=== PATIENT | female | born 1960 | race Caucasian/White ===

== ENCOUNTER → 2017-05-22 | Outpatient (CLI) | payer MEDICAID, SELFPAY | PROVIDERS: Visit Provider Physician Assistant | DX: Z13.820 Encounter for screening for osteoporosis (principal); Z78.0 Asymptomatic menopausal state | CPT/HCPCS: 77080 ==

== ENCOUNTER 2017-08-21 13:08 | Inpatient (IN) ==
--- NOTE | 2017-08-21 13:51 | Emergency Department Note ---
ED Disposition Clinical Impression: Community acquired pneumonia, Leukocytosis, Thrombocytosis Disposition: Admitted As Inpatient Condition on Discharge: Fair - Critical Care Critical Care Time: Yes Attestation: On 08/21/17, the high probability of a clinically significant, sudden or life threatening deterioration of the following system(s) required my full and direct attention, intervention and personal management. The time I documented below is in addition to time spent performing reported procedures but includes the following listed in this critical care notation. Total Critical Care Time: 65 Vital system(s) involved:: Respiratory Failure My critical care processes included: Assessment & monitoring of V/S, Initial and Re-exams, Data Review/Interpretation, Coordinating Care, Medication Orders and management, Documentation Medical Decision Making - Medical Records Medical records reviewed: Yes: I reviewed the patient's medical records. - Nikolai Inquiry Pt receiving controlled substance: No Vital Signs: 08/21/17 13:10 08/21/17 14:21 08/21/17 15:25 Temperature 100.4 F H 99.1 F 99.1 F Temperature Source Temporal Artery Scan Oral Temporal Artery Scan Pulse Rate 94 H Pulse Rate [Right Brachial] 112 H 103 H Respiratory Rate 24 16 18 Blood Pressure 84/64 Blood Pressure [Right Arm] 115/73 109/68 Blood Pressure Mean [Right Arm] 87 81 Blood Pressure Source Automatic Cuff Blood Pressure Source [Right Arm] Automatic Cuff Automatic Cuff Blood Pressure Position Supine Blood Pressure Position [Right Arm] Sitting Sitting 02 Sat by Pulse Oximetry 65 L 91 L Oxygen Delivery Method Room Air Room Air Nasal Cannula Oxygen Flow Rate (LPM) 2 08/21/17 16:14 08/21/17 16:32 08/21/17 16:33 Temperature 98.7 F Temperature Source Oral Pulse Rate 100 H Pulse Rate [Right Brachial] 98 H 98 H Respiratory Rate 18 20 Blood Pressure Blood Pressure [Right Arm] 94/60 107/65 Blood Pressure Mean [Right Arm] 71 79 Blood Pressure Source Blood Pressure Source [Right Arm] Manual Cuff/ Doppler Automatic Cuff Blood Pressure Position Blood Pressure Position [Right Arm] Supine Sitting 02 Sat by Pulse Oximetry 95 92 L Oxygen Delivery Method Nasal Cannula Nasal Cannula Oxygen Flow Rate (LPM) 2 2 - Lab Data Lab results reviewed: Yes: I reviewed the patient's lab results. Lab Results 08/21/17 13:10: WBC 19.0 H, RBC 5.69 H, Hgb 8.9 L, Hct 36.1 L, MCV 63.5 L, MCH 15.7 L, MCHC 24.7 L, RDW 19.3 H, Plt Count 912 H*, MPV 6.5 L, Neut % (Auto) 88.1 H, Lymph % (Auto) 5.4 L, [place] % (Auto) 6.2, Eos % (Auto) 0.1, Baso % (Auto ) 0.2, Neut # (Auto) 16.7 H, Lymph # (Auto) 1.0, [place] # (Auto) 1.2 H, Eos # ( Auto) 0.0, Baso # (Auto) 0.0, Total Counted 100, Neutrophils % (Manual) 86 H, Band Neutrophils % 4.0, Lymphocytes % (Manual) 6 L, Monocytes % (Manual) 3, Metamyelocytes % 1.0, Nucleated RBCs 1, Platelet Estimate Marked increase, Hypochromasia 3+, Microcytosis 3+ 08/21/17 13:10: Sodium 134 L, Potassium 3.9, Chloride 95 L, Carbon Dioxide 33 H , Anion Gap 9.9, BUN 11, Creatinine 0.49 L, Estimated Creat Clear 93, Estimated GFR 130, Est GFR ( Amer) 158, Glucose 83, Calcium 8.5, Total Bilirubin 0.3, AST 16, ALT 9 L, Alkaline Phosphatase 225 H, Total Creatine Kinase 52, CK- MB (CK-2) < 0.5, CK-MB (CK-2) Rel Index 1.0, Troponin I < 0.02, Total Protein 7.3, Albumin 2.3 L, Globulin 5.0 H, Albumin/Globulin Ratio 0.5 L 08/21/17 13:10: Lactic Acid 1.4 08/21/17 13:42: Specimen Source r radial, O2 % 2, ABG pH 7.37, ABG pCO2 52.9 H, ABG pO2 68.3 L, ABG HCO3 30.0 H, ABG Total CO2 31.6 H, ABG O2 Saturation 91, ABG Base Excess 4.7 H, Billy Test acceptable Result diagrams: 08/21/17 13:10 08/21/17 13:10 Orders (Tests/Meds): ED MEDICATIONS Generic Name Dose Route Start Last Admin Trade Name Freq PRN Reason Stop Dose Admin Hydrocodone Bitart/Acetaminophen 1 tab 08/21/17 21:00 [place] 5/325mg Tablet PO 09/20/17 20:59 BID DONAL Albuterol/Ipratropium 3 ml 08/21/17 16:29 Duoneb 3ml Neb IH 09/20/17 16:28 Q4HP PRN Shortness Of Breath Fluticasone Propionate spr 08/21/17 21:00 Flonase 50mcg Nasal [place] 16gm NS 09/20/17 20:59 BID DONAL Gabapentin 100 mg 08/21/17 21:00 Neurontin 100mg Capsule PO 09/20/17 20:59 TID DONAL Levofloxacin/Dextrose 750 mg in 150 mls @ 100 mls/hr 08/22/17 14:00 Levofloxacin 750mg/150ml Premix IV 09/04/17 13:59 Q24H [facility] Protocol Piperacillin Sod/Tazobactam 100 mls @ 200 mls/hr 08/21/17 16:29 08/21/17 16: 34 Sod 3.375 gm/ Sodium Chloride IV 09/04/17 16:28 Not Given Q6H [facility] Protocol Sodium Chloride 1,000 mls @ 125 mls/hr 08/21/17 16:29 08/21/17 16:33 Sod Chlor 0.9% 1000ml Bag IV 09/20/17 15:52 125 mls/hr .Q8H DONAL Administration Sodium Chloride 325 mls @ 325 mls/hr 08/21/17 19:45 Sod Chlor 0.9% 500ml Bag IV 08/21/17 20:44 .Q1H ONE Non-Formulary Medication 1 tab 08/21/17 21:00 Calcium Carbonate/Vitamin D3 [Calcium 600 With Vit D Chew Tb] PO 09/20/17 20 :59 BID DONAL Non-Formulary Medication 60 mg 08/21/17 16:29 Denosumab SUB-Q 09/20/17 16:28 [id number] DONAL Non-Formulary Medication 1 inh 08/21/17 16:29 08/21/17 17:52 Fluticasone/Vilanterol [Breo Ellipta 200-25 Mcg Inh] INHALATION 09/20/17 16: 28 Not Given Q24H DONAL Non-Formulary Medication 100 mcg 08/22/17 09:00 Levothyroxine Sodium [Tirosint] PO 09/21/17 08:59 DAILY DONAL Non-Formulary Medication 1 inh 08/21/17 16:29 08/21/17 17:52 Umeclidinium [place] [Incruse Ellipta] INHALATION 09/20/17 16:28 Not Given Q24H DONAL Sodium Chloride 10 ml 08/21/17 16:29 Saline Flush 10ml Syringe IV 09/20/17 16:03 NEEDED PRN Maintain IV Site Tiotropium [place] puffs 08/21/17 21:00 Spiriva 18mcg/Puff Inhaler IH 09/20/17 20:59 BID DONAL Discontinued Medications Generic Name Dose Route Start Last Admin Trade Name Freq PRN Reason Stop Dose Admin Acetaminophen 650 mg 08/21/17 13:29 08/21/17 16:34 Acetaminophen 325mg Tab PO 08/21/17 13:30 Not Given ONCE ONE Acetaminophen 650 mg 08/21/17 13:34 08/21/17 13:40 Tylenol Elixir 325mg/10.15ml Udc PO 08/21/17 13:35 650 mg ONCE ONE Administration Albuterol/Ipratropium 3 ml 08/21/17 13:44 08/21/17 13:58 Duoneb 3ml Neb IH 08/21/17 13:45 Not Given ONCE ONE Piperacillin Sod/Tazobactam 50 mls @ 100 mls/hr 08/21/17 13:45 08/21/17 16:34 Sod 3.375 gm/ Sodium Chloride IV 09/04/17 13:44 Not Given Q6H DONAL Protocol Levofloxacin/Dextrose 750 mg in 150 mls @ 100 mls/hr 08/21/17 13:45 08/21/17 14:25 Levofloxacin 750mg/150ml Premix IV 09/04/17 13:44 100 mls/hr Q24H DONAL Administration Protocol Piperacillin Sod/Tazobactam 50 mls @ 100 mls/hr 08/21/17 13:56 08/21/17 13:57 Sod 3.375 gm/ Sodium Chloride IV 08/21/17 14:24 100 mls/hr ONCE ONE Administration Protocol Sodium Chloride 1,000 mls @ 999 mls/hr 08/21/17 15:30 08/21/17 15:30 Sod Chlor 0.9% 1000ml Bag IV 08/21/17 16:30 999 mls/hr .Q1H1M DONAL Administration Sodium Chloride 1,000 mls @ 125 mls/hr 08/21/17 15:53 08/21/17 17:53 Sod Chlor 0.9% 1000ml Bag IV 09/20/17 15:52 Not Given .Q8H DONAL Levofloxacin/Dextrose 750 mg in 150 mls @ 100 mls/hr 08/22/17 14:00 Levofloxacin 750mg/150ml Premix IV 09/04/17 13:59 Q24H DONAL Protocol Sodium Chloride 10 ml 08/21/17 16:04 Saline Flush 10ml Syringe IV 09/20/17 16:03 NEEDED PRN Maintain IV Site ORDERS Category Date Time Status Cardiac Enzymes Timed Lab 08/21/17 23:00 Ordered Blood Culture Stat Micro 08/21/17 13:10 Received Sputum Culture & Gram Stain Stat Micro 08/21/17 13:50 Results ECG Request by /Lucinda Stat Y 08/21/17 13:11 Stop Req - Radiology Data #1 Image(s): Chest Image Reviewed: Yes I reviewed the patient's radiology results, Yes I reviewed the patient's radiology image, Yes I have reviewed radiologist's interpretation Bilateral lower lobe infiltrates - ECG Data Tracing #1 I reviewed this ECG and interpreted as documented below: No acute ischemic changes, heart rate 102, sinus tachycardia ECG normal with no acute: arrhythmias, ischemia, conduction abnormalities, chamber hypertrophy Normal Sinus Rhythm: No Arrhythmias present: sinus tach - Physician Consults Physician Consulted: Jarvis Fishman covering for Dr. Womack Time: 16:10 Reason -: Admission, Pt condition Comment/Response: Advise of patient presentation findings, agreeable with hospitalization Resp/SOB HPI - General Chief Complaint: Shortness of Breath/Dyspnea Stated Complaint: C/O SOB/WEAKNESS Time Seen by Provider: 08/21/17 13:35 Mode of Arrival: Ambulatory Limitations: No Limitations Description of Symptoms (Recalled from ER Triage Doc. by RN): C/O SOB. DX WITH PNEUMONIA LAST WEEK AND LEFT RIB FX FROM COUGHING. TODAY WITH C/O SOB,COUGH AND WEAKNESS - History of Present Illness MD Complaint: shortness of breath, cough, pain with inspiration Onset (ago): day(s) (3) Context: recent illness, occurred during exertion Severity: moderate Consistency/Duration: constant Relieving factors: oxygen, rest Exacerbating factors: lying flat, exertion Known history of: COPD Associated symptoms: chest pain, pain with inspiration, fever, cough, wheezing, sputum production, orthopnea, diaphoresis, nausea/vomiting Treatment prior to arrival: none - Related Data Home Medications Medication Instructions Recorded Confirmed albuterol sulfate HFA 90 2 puff INHALATION Q6H 06/09/17 08/21/17 mcg/actuation aerosol inhaler fluticasone 200 mcg-vilanterol 25 1 inh INHALATION Q24H 06/09/17 08/21/17 mcg/dose powder for inhalation fluticasone 50 mcg/actuation nasal 50 mcg INTRANASAL ONCE 06/09/17 08/21/17 spray,suspension levothyroxine 100 mcg capsule 100 mcg PO DAILY 06/09/17 08/21/17 tiotropium bromide 18 mcg capsule 18 mcg INHALATION ONCE 06/09/17 08/21/17 with inhalation device umeclidinium 62.5 mcg/actuation 1 inh INHALATION Q24H 06/09/17 08/21/17 blister powder for inhalation Calcium Carbonate/Vitamin D3 1 tab PO BID 08/21/17 08/21/17 [Calcium 600 with Vit D Chew Tb] Denosumab [Denosumab 60mg/mL 60 mg SUB-Q [id number] 08/21/17 08/21/17 syringe] Gabapentin [Gabapentin 100mg Cap] 100 mg PO TID 08/21/17 08/21/17 Previous Rx's Medication Instructions Recorded hydrocodone 5 mg-acetaminophen 325 1 tab PO BID 30 Days #60 tab 08/04/17 mg tablet promethazine-DM 6.25 mg-15 mg/5 mL 5 ml PO Q6H PRN #180 ml 08/04/17 syrup Allergies Allergy/AdvReac Type Severity Reaction Status Date / Time No Known Allergies Allergy Verified 08/04/17 11:[address] [facility] History I have reviewed the patient's past medical history: Yes Medical History: Reports:: Chronic Obstructive Pulmonary Disease (COPD) Comment: Hyperthyroidism, Allergies Other Surgeries: Yes: Appendectomy, Other (Ovarian Cyst,) Amputation: No Fractures: No - Social History Smoking Status: Current some day smoker Tobacco Type: cigarettes # Packs/Day (cigarettes): 1 Alcohol Intake: never Substance Use Type: denies use Occupational Status: unemployed Housing: house Household Members: spouse - Psychiatric History Expresses thoughts of harming self/others: None Suicide Plan Description: No Plan Family Hx:: Cancer, Heart Attack ROS Obtained: Yes All systems reviewed & no additional complaints, Yes Systems reviewed as appropriate & no additional complaints - Constitutional Constitutional: Reports anorexia, Reports body ache, Reports chills, Reports fatigue, Reports fever(s), Reports poor appetite, Reports lethargy - Cardiovascular Cardiovascular: Reports system reviewed and no additional complaints, except as docu, Reports as per HPI, Reports chest pain, Reports chest pain at rest - Respiratory Respiratory: Yes system reviewed and no additional complaints, except as docu, Yes as per HPI, Yes change in phlegm color, Yes chest congestion, Yes cough, Yes dyspnea on exertion Physical Exam - General General appearance: alert, in distress (Moderate) - Head Head exam: atraumatic, normocephalic, normal inspection - Eye Eye exam: Present: normal appearance, PERRL, EOMI, other (Normal fundi) - Neck Neck exam: Present: normal inspection, full ROM, trachea midline. Absent: meningismus, lymphadenopathy - Chest Chest inspection: Present: normal inspection, symmetric chest wall rise. Absent : tenderness - Respiratory Respiratory exam: Present: respiratory distress (Moderate), wheezes - Cardiovascular Cardiovascular exam: Present: tachycardia. Absent: JVD - Abdominal Exam Abdominal exam: Present: soft, normal bowel sounds. Absent: distention, tenderness, guarding - Extremities Exam Extremities exam: Present: normal inspection, full ROM, normal capillary refill. Absent: calf tenderness - Back Exam Back exam: Present: normal inspection. Absent: tenderness - Neurological Exam Neurological exam: Present: alert, oriented X3, CN II-XII intact, motor sensory deficit - Psychiatric Psychiatric exam: Present: depressed, flat affect - Skin Skin exam: Present: warm, intact, normal color, other (Diaphoretic)
[2017-08-21 13:57] LABS: Alanine Aminotransferase 9 U/L (12-78); Albumin Level 2.3 gm/dL (3.4-5.0); Albumin/Globulin Ratio 0.5 (1.1-1.8); Alkaline Phosphatase 225 U/L (46-116); Anion Gap 9.9 mEq/L (5-15); Aspartate Amino Transferase 16 U/L (15-37); Bilirubin,Total 0.3 mg/dL (0.2-1.0); Blood Urea Nitrogen 11 mg/dL (7-18); Calcium 8.5 mg/dL (8.5-10.1); Carbon Dioxide 33 mmol/L (21.0-32.0); Chloride 95 mmol/L (98-107); Creatine Kinase 52 U/L (26-192); Glucose 83 mg/dL (74-106); Potassium 3.9 mmoL/L (3.5-5.1); Sodium 134 mmol/L (136-145); Total Protein,Serum 7.3 gm/dL (6.4-8.2)
[2017-08-21 14:02] LABS: ABG Base Excess 4.7 mmol/L (-2.4-2.3); ABG Oxygen Saturation 91 % (90-100); ABG PH 7.37 mmol/L (7.35-7.45); ABG PO2 68.3 mmhg (80-100); ABG TCO2 31.6 mmhg (23-27)
[2017-08-21 14:04] LABS: Allen's Test acceptable; Oxygen 2 %
[2017-08-21 14:05] LABS: ABG PCO2 52.9 mmhg (35.0-45.0)
[2017-08-21 14:11] LABS: Basophils % 0.2 % (0.1-2.0); Eosinophils % 0.1 % (0.1-12.0); Hematocrit 36.1 % (37.0-47.0); Hemoglobin 8.9 g/dL (12.2-16.2); Lymphocytes % 5.4 K/mm3 (10-50); Mean Corpuscular HGB Conc 24.7 g/dL (31.8-35.4); Mean Corpuscular Hemoglobin 15.7 pg (27.0-31.2); Mean Corpuscular Volume 63.5 fl (81-99); Mean Platelet Volume 6.5 fl (7.4-10.4); Monocytes # 1.2 K/mm3 (0.1-1.0); Monocytes % 6.2 % (1.7-9.3); Neutrophils # 16.7 K/mm3 (1.8-7.8); Neutrophils % 88.1 % (37.0-80.0); Platelet Count 912 K/mm3 (142-424); Red Blood Count 5.69 M/mm3 (4.20-5.40); Red Cell Distribution Width 19.3 % (11.5-17.5)
[2017-08-21 14:55] LABS: Lymphocytes % 6 % (10-50); Monocytes % 3 % (2-9); Neutrophils % 86 % (42-76); Nucleated Red Blood Cells 1; Total Cells Counted 100
[2017-08-21 14:56] LABS: Hypochromasia 3+
[2017-08-21 17:36] LABS: Creatine Kinase 49 U/L (26-192)
[2017-08-21 23:38] LABS: Creatine Kinase 50 U/L (26-192)
--- NOTE | 2017-08-22 07:34 | Pharmacy Consult Notes ---
[facility] Pharmacy VTE Monitoring - Patient Demographics Admission date: 08/21/17 Allergies/Adverse Reactions: Patient Allergies No Known Allergies Allergy (Verified 08/04/17 11:09) Height: 1.68 m Weight: 43.658 kg Patient Problems: Current Active Problems Community acquired pneumonia (Acute) Leukocytosis (Acute) Thrombocytosis (Acute) - VTE Risk Labs: VTE Related Lab Results Hgb 8.9 g/dL (12.2-16.2) L 08/21/17 13:10 Hct 36.1 % (37.0-47.0) L 08/21/17 13:10 Plt Count 912 K/mm3 (142-424) H* 08/21/17 13:10 BUN 11 mg/dL (7-18) 08/21/17 13:10 Creatinine 0.49 mg/dL (0.55-1.02) L 08/21/17 13:10 Estimated Creat Clear 93 mL/min (0-300) 08/21/17 13:10 VTE Score: 3 VTE Risk Level: Low Risk - Prophylaxis VTE Prophylaxis Ordered?: Yes Types of VTE Prophylaxis: TEDS Knee High
[2017-08-22 08:36] LABS: Basophils % 0.1 % (0.1-2.0); Eosinophils % 0.1 % (0.1-12.0); Lymphocytes # 0.7 K/mm3 (0.7-4.5); Lymphocytes % 4.3 K/mm3 (10-50); Mean Corpuscular HGB Conc 24.2 g/dL (31.8-35.4); Mean Corpuscular Hemoglobin 15.8 pg (27.0-31.2); Mean Corpuscular Volume 65.3 fl (81-99); Mean Platelet Volume 6.8 fl (7.4-10.4); Monocytes # 0.7 K/mm3 (0.1-1.0); Monocytes % 4.5 % (1.7-9.3); Neutrophils # 14.8 K/mm3 (1.8-7.8); Neutrophils % 90.9 % (37.0-80.0); Red Blood Count 4.78 M/mm3 (4.20-5.40); Red Cell Distribution Width 19.7 % (11.5-17.5); White Blood Count 16.3 K/mm3 (4.8-10.8)
[2017-08-22 08:44] LABS: Hematocrit 31.3 % (37.0-47.0); Platelet Count 728 K/mm3 (142-424)
[2017-08-22 08:46] LABS: Hemoglobin 7.5 g/dL (12.2-16.2)
[2017-08-22 08:49] LABS: Albumin Level 1.8 gm/dL (3.4-5.0); Albumin/Globulin Ratio 0.4 (1.1-1.8); Anion Gap 7.2 mEq/L (5-15); Bilirubin,Total 0.3 mg/dL (0.2-1.0); Calcium 7.8 mg/dL (8.5-10.1); Globulin 4.4 gm/dl (1.3-3.2); Potassium 3.2 mmoL/L (3.5-5.1); Total Protein,Serum 6.2 gm/dL (6.4-8.2)
--- NOTE | 2017-08-22 08:53 | History & Physical Report ---
*Admission Date: 08/21/17 *Chief complaint: sob *History of present illness: 57-year-old female presented to the ER with complaints of shortness of breath and cough months but increased over the last week. Patient states she lives at home with her that is battling cancer. While in the ER O2 saturation was 65%. Patient does not use home O2 is a smoker of many years. She is admitted for bilateral pneumonia and anemia. [facility] History I have reviewed the patient's past medical history: Yes Medical History: Reports:: Chronic Obstructive Pulmonary Disease (COPD) Other Surgeries: Yes: Appendectomy, Other (Ovarian Cyst,) Amputation: No Fractures: No - *Social History Smoking Status: Current some day smoker Tobacco Type: cigarettes # Packs/Day (cigarettes): 1 Alcohol Intake: never Substance Use Type: denies use Occupational Status: unemployed Housing: house Household Members: spouse - Psychiatric History Expresses thoughts of harming self/others: None Suicide Plan Description: No Plan *Family Hx:: Cancer, Heart Attack Review of Systems - Constitutional Reports anorexia, Reports fatigue, Reports lack of energy - Eyes Denies change in vision - ENT Denies change in voice - *Cardiovascular Reports shortness of breath, Reports shortness of breath with activity, Denies chest pain with activity - *Respiratory Reports change in phlegm color, Reports chest congestion, Reports shortness of breath, Reports shortness of breath with activity, Reports wheezing - *Gastrointestinal Denies change in bowel habits - *Genitourinary Denies absent period - *Musculoskeletal Denies decreased muscle mass - Integumentary/Breasts Denies change in hair - *Neurologic Denies abnormal movements - Psychiatric Denies lack of enjoyment, Denies anxiety - Endocrine Denies increased thirst - Hematologic/Lymphatic Denies enlarged lymph nodes - Allergic/Immunologic Denies lip swelling Meds Home Medications Medication Instructions Recorded Confirmed Type albuterol sulfate HFA 90 2 puff INHALATION Q6H 06/09/17 08/21/17 History mcg/actuation aerosol inhaler fluticasone 200 mcg-vilanterol 25 1 inh INHALATION Q24H 06/09/17 08/21/17 History mcg/dose powder for inhalation fluticasone 50 mcg/actuation nasal 50 mcg INTRANASAL ONCE 06/09/17 08/21/17 History spray,suspension levothyroxine 100 mcg capsule 100 mcg PO DAILY 06/09/17 08/21/17 History tiotropium bromide 18 mcg capsule 18 mcg INHALATION ONCE 06/09/17 08/21/17 History with inhalation device umeclidinium 62.5 mcg/actuation 1 inh INHALATION Q24H 06/09/17 08/21/17 History blister powder for inhalation Calcium Carbonate/Vitamin D3 1 tab PO BID 08/21/17 08/21/17 History [Calcium 600 with Vit D Chew Tb] Denosumab [Denosumab 60mg/mL 60 mg SUB-Q [id number] 08/21/17 08/21/17 History syringe] Gabapentin [Gabapentin 100mg Cap] 100 mg PO TID 08/21/17 08/21/17 History Allergies Allergy/AdvReac Type Severity Reaction Status Date / Time No Known Allergies Allergy Verified 08/04/17 11:09 Exam Vital signs and Labs for Last 24 Hours: Temp Pulse Resp BP Pulse Ox 99.4 F 107 H 22 123/70 90 L 08/22/17 07:56 08/22/17 07:56 08/22/17 07:56 08/22/17 07:56 08/22/17 07:56 Laboratory Results - last 24 hr 08/21/17 17:00: Total Creatine Kinase 49, CK-MB (CK-2) < 0.5, CK-MB (CK-2) Rel Index 1.0, Troponin I < 0.02 08/21/17 23:10: Total Creatine Kinase 50, CK-MB (CK-2) 0.7 D, CK-MB (CK-2) Rel Index 1.4, Troponin I < 0.02 08/22/17 08:18: WBC 16.3 H, RBC 4.78, Hgb 7.5 L*, Hct 31.3 L, MCV 65.3 L, MCH 15.8 L, MCHC 24.2 L, RDW 19.7 H, Plt Count 728 H, MPV 6.8 L, Neut % (Auto) 90.9 H, Lymph % (Auto) 4.3 L, [place] % (Auto) 4.5, Eos % (Auto) 0.1, Baso % (Auto) 0.1 , Neut # (Auto) 14.8 H, Lymph # (Auto) 0.7, [place] # (Auto) 0.7, Eos # (Auto) 0.0 , Baso # (Auto) 0.0 I & O for Last 24 hours: Intake & Output 08/19/17 08/20/17 08/21/17 08/22/17 11:59 11:59 11:59 11:59 Intake Total 480 / 480 Output Total 500 / 500 Balance -20 / -20 Weight 96 lb 4 oz - Constitutional mild distress - *Routine HEENT Exam Head: Present: normocephalic Eye: Present: PERRL ENT: Present: mucous membranes moist - *Routine Neck Exam Present: supple, full ROM - *Routine Respiratory Exam Present: decreased breath sounds, wheezes, distant breath sounds - *Routine Cardiovascular Exam Present: RRR - *Routine Abdominal Exam Present: soft, normoactive bowel sounds - *Routine Extremities Exam Present: full ROM - *Routine Skin Exam Present: intact - *Routine Neurological Exam Present: alert, oriented X3, CN II-XII intact - Routine Psychiatric Exam Present: normal affect, normal thought process H&P: Result - Labs Labs: Short CBC 08/22/17 Range/Units 08:18 WBC 16.3 H (4.8-10.8) K/mm3 Hgb 7.5 L* (12.2-16.2) g/dL Hct 31.3 L (37.0-47.0) % Plt Count 728 H (142-424) K/mm3 Cardiac Enzymes 08/21/17 08/21/17 Range/Units 17:00 23:10 Total Creatine Kinase 49 50 (26-192) U/L CK-MB (CK-2) < 0.5 0.7 D (0.0-3.6) ng/ml Troponin I < 0.02 < 0.02 (0.00-0.06) ng/ml Assessment and Plan - Assessment and plan all Dx Assessment and Plan for all problems:: CT scan without contrast, to use 2 units of packed red cells, iron and TBI C, continue IV antibotics
[2017-08-22 09:24] LABS: Hypochromasia 3+; Lymphocytes % 5 % (10-50); Monocytes % 4 % (2-9); Neutrophils % 89 % (42-76); Nucleated Red Blood Cells 1; Total Cells Counted 100
[2017-08-22 09:26] LABS: Stomatocytes 3+
[2017-08-22 18:33] LABS: Hematocrit 39.1 % (37.0-47.0)
[2017-08-22 18:44] LABS: Hemoglobin 10.5 g/dL (12.2-16.2)
[2017-08-23 05:45] LABS: Basophils % 0.2 % (0.1-2.0); Eosinophils % 0.2 % (0.1-12.0); Hemoglobin 10.9 g/dL (12.2-16.2); Lymphocytes # 0.9 K/mm3 (0.7-4.5); Lymphocytes % 14.1 K/mm3 (10-50); Mean Corpuscular HGB Conc 25.5 g/dL (31.8-35.4); Mean Corpuscular Hemoglobin 18.4 pg (27.0-31.2); Mean Corpuscular Volume 72.1 fl (81-99); Mean Platelet Volume 6.7 fl (7.4-10.4); Monocytes # 0.2 K/mm3 (0.1-1.0); Monocytes % 3.5 % (1.7-9.3); Neutrophils # 5.2 K/mm3 (1.8-7.8); Neutrophils % 81.9 % (37.0-80.0); Platelet Count 659 K/mm3 (142-424); Red Blood Count 5.96 M/mm3 (4.20-5.40); Red Cell Distribution Width 22.6 % (11.5-17.5); White Blood Count 6.4 K/mm3 (4.8-10.8)
[2017-08-23 05:55] LABS: Albumin Level 2.1 gm/dL (3.4-5.0); Albumin/Globulin Ratio 0.4 (1.1-1.8); Anion Gap 3.5 mEq/L (5-15); Bilirubin,Total 0.3 mg/dL (0.2-1.0); Calcium 8.5 mg/dL (8.5-10.1); Potassium 3.5 mmoL/L (3.5-5.1); Total Protein,Serum 7.1 gm/dL (6.4-8.2)
--- NOTE | 2017-08-23 08:07 | Progress Note ---
Internal Medicine - PN: Subj *Date: 08/23/17 *Time: 08:04 Interval history: pt with rib pain sec to cough - pt with no diarrhea- Exam Vital signs and Labs for Last 24 Hours: Temp Pulse Resp BP Pulse Ox 98.2 F 84 16 125/64 95 08/23/17 07:55 08/23/17 07:55 08/23/17 07:55 08/23/17 07:55 08/23/17 07:55 Laboratory Results - last 24 hr 08/22/17 08:18: WBC 16.3 H, RBC 4.78, Hgb 7.5 L*, Hct 31.3 L, MCV 65.3 L, MCH 15.8 L, MCHC 24.2 L, RDW 19.7 H, Plt Count 728 H, MPV 6.8 L, Neut % (Auto) 90.9 H, Lymph % (Auto) 4.3 L, [place] % (Auto) 4.5, Eos % (Auto) 0.1, Baso % (Auto) 0.1 , Neut # (Auto) 14.8 H, Lymph # (Auto) 0.7, [place] # (Auto) 0.7, Eos # (Auto) 0.0 , Baso # (Auto) 0.0, Total Counted 100, Neutrophils % (Manual) 89 H, Band Neutrophils % 2.0, Lymphocytes % (Manual) 5 L, Monocytes % (Manual) 4, Nucleated RBCs 1, Platelet Estimate Marked inc, Hypochromasia 3+, Poikilocytosis 3+, Stomatocytes 3+ 08/22/17 08:18: Sodium 139, Potassium 3.2 L, Chloride 103, Carbon Dioxide 32, Anion Gap 7.2, BUN 8 D, Creatinine 0.41 L, Estimated Creat Clear 104, Estimated GFR 160, Est GFR ( Amer) 193 D, Glucose 120 H D, Calcium 7.8 L , Total Bilirubin 0.3, AST 11 L D, ALT 7 L, Alkaline Phosphatase 142 H, Total Protein 6.2 L, Albumin 1.8 L D, Globulin 4.4 H, Albumin/Globulin Ratio 0.4 L 08/22/17 09:25: Blood Type A Negative, Antibody Screen Negative, Crossmatch (AHG ) See Detail 08/22/17 09:25: Blood Type Confirm A Negative 08/22/17 18:20: Hgb 10.5 L D, Hct 39.1 08/23/17 05:15: WBC 6.4 D, RBC 5.96 H, Hgb 10.9 L, Hct 43.0, MCV 72.1 L, MCH 18.4 L, MCHC 25.5 L, RDW 22.6 H, Plt Count 659 H, MPV 6.7 L, Neut % (Auto) 81.9 H, Lymph % (Auto) 14.1, [place] % (Auto) 3.5, Eos % (Auto) 0.2, Baso % (Auto) 0.2, Neut # (Auto) 5.2, Lymph # (Auto) 0.9, [place] # (Auto) 0.2, Eos # (Auto) 0.0, Baso # (Auto) 0.0 08/23/17 05:15: Sodium 134 L, Potassium 3.5, Chloride 100, Carbon Dioxide 34 H, Anion Gap 3.5 L, BUN 8, Creatinine 0.45 L, Estimated Creat Clear 95, Estimated GFR 144, Est GFR ( Amer) 174, Glucose 120 H, Calcium 8.5, Total Bilirubin 0.3, AST 12 L, ALT 8 L, Alkaline Phosphatase 138 H, Total Protein 7.1 , Albumin 2.1 L D, Globulin 5.0 H, Albumin/Globulin Ratio 0.4 L I & O for Last 24 hours: Intake & Output 08/20/17 08/21/17 08/22/17 08/23/17 11:59 11:59 11:59 11:59 Intake Total 480 / 480 720 / 720 Output Total 500 / 500 700 / 700 Balance -20 / -20 Weight 96 lb 3.991 oz - Constitutional no acute distress, thin - *Routine HEENT Exam Head: Present: normocephalic Eye: Present: EOMI, PERRL ENT: Present: mucous membranes dry - *Routine Neck Exam Absent: JVD - *Routine Respiratory Exam Present: decreased breath sounds, prolonged expiratory phase. Absent: respiratory distress - *Routine Cardiovascular Exam Present: RRR, murmur, S4 - *Routine Abdominal Exam Present: soft - *Routine Extremities Exam Absent: calf tenderness - *Routine Skin Exam Present: intact - *Routine Neurological Exam Present: alert, CN II-XII intact - Routine Psychiatric Exam Present: normal affect Assessment and Plan (1) Community acquired pneumonia Current visit: Yes Status: Acute Category: Medical Code(s): J18.9 - Pneumonia, unspecified organism (2) Anemia Current visit: Yes Status: Acute Qualifiers: Anemia type: unspecified type Qualified Code(s): D64.9 - Anemia, unspecified Category: Medical Code(s): D64.9 - Anemia, unspecified (3) COPD (chronic obstructive pulmonary disease) Current visit: Yes Status: Acute Qualifiers: COPD type: COPD with acute exacerbation Qualified Code(s): J44.1 - Chronic obstructive pulmonary disease with (acute) exacerbation Category: Medical Code(s): J44.9 - Chronic obstructive pulmonary disease, unspecified The patient's infection will respond to the chosen ABx?: Yes Is the patient receiving the right drug, dose, and route?: Yes Could a more targeted ABx be ordered?: No 7
--- NOTE | 2017-08-23 13:18 | Pharmacy Consult Notes ---
- Pharmacy Consult Date: 08/23/17 Time: 13:16 Referring provider: DR. MUÑOZ Reason for Consult:: VANCOMYCIN DOSING Allergies and ADEs:: Allergies Allergy/AdvReac Type Severity Reaction Status Date / Time No Known Allergies Allergy Verified 08/04/17 11:09 Home Medications:: Home Medications Medication Instructions Recorded Confirmed Type albuterol sulfate HFA 90 2 puff INHALATION Q6H 06/09/17 08/21/17 History mcg/actuation aerosol inhaler fluticasone 200 mcg-vilanterol 25 1 inh INHALATION Q24H 06/09/17 08/21/17 History mcg/dose powder for inhalation fluticasone 50 mcg/actuation nasal 50 mcg INTRANASAL ONCE 06/09/17 08/21/17 History spray,suspension levothyroxine 100 mcg capsule 100 mcg PO DAILY 06/09/17 08/21/17 History tiotropium bromide 18 mcg capsule 18 mcg INHALATION ONCE 06/09/17 08/21/17 History with inhalation device umeclidinium 62.5 mcg/actuation 1 inh INHALATION Q24H 06/09/17 08/21/17 History blister powder for inhalation Calcium Carbonate/Vitamin D3 1 tab PO BID 08/21/17 08/21/17 History [Calcium 600 with Vit D Chew Tb] Denosumab [Denosumab 60mg/mL 60 mg SUB-Q [id number] 08/21/17 08/21/17 History syringe] Gabapentin [Gabapentin 100mg Cap] 100 mg PO TID 08/21/17 08/21/17 History Height: 1.68 m Weight: 43.658 kg Laboratory Results:: Laboratory Results - last 24 hr 08/22/17 09:25: Blood Type A Negative, Antibody Screen Negative, Crossmatch (AHG ) See Detail 08/22/17 18:20: Hgb 10.5 L D, Hct 39.1 08/23/17 05:15: WBC 6.4 D, RBC 5.96 H, Hgb 10.9 L, Hct 43.0, MCV 72.1 L, MCH 18.4 L, MCHC 25.5 L, RDW 22.6 H, Plt Count 659 H, MPV 6.7 L, Neut % (Auto) 81.9 H, Lymph % (Auto) 14.1, [place] % (Auto) 3.5, Eos % (Auto) 0.2, Baso % (Auto) 0.2, Neut # (Auto) 5.2, Lymph # (Auto) 0.9, [place] # (Auto) 0.2, Eos # (Auto) 0.0, Baso # (Auto) 0.0 08/23/17 05:15: Sodium 134 L, Potassium 3.5, Chloride 100, Carbon Dioxide 34 H, Anion Gap 3.5 L, BUN 8, Creatinine 0.45 L, Estimated Creat Clear 95, Estimated GFR 144, Est GFR ( Amer) 174, Glucose 120 H, Calcium 8.5, Total Bilirubin 0.3, AST 12 L, ALT 8 L, Alkaline Phosphatase 138 H, Total Protein 7.1 , Albumin 2.1 L D, Globulin 5.0 H, Albumin/Globulin Ratio 0.4 L Medical History: Reports:: Chronic Obstructive Pulmonary Disease (COPD) Assessment and Plan (1) Community acquired pneumonia Current visit: Yes Status: Acute Category: Medical Code(s): J18.9 - Pneumonia, unspecified organism (2) Anemia Current visit: Yes Status: Acute Qualifiers: Anemia type: unspecified type Qualified Code(s): D64.9 - Anemia, unspecified Category: Medical Code(s): D64.9 - Anemia, unspecified (3) COPD (chronic obstructive pulmonary disease) Current visit: Yes Status: Acute Qualifiers: COPD type: COPD with acute exacerbation Qualified Code(s): J44.1 - Chronic obstructive pulmonary disease with (acute) exacerbation Category: Medical Code(s): J44.9 - Chronic obstructive pulmonary disease, unspecified - Assessment and plan all Dx Assessment and Plan for all problems:: BASED ON PATIENT'S FACTORS, RECOMMEND STARTING WITH VANCOMYCIN 1 GM Q24H AT THIS TIME. PHARMACY WILL FOLLOW DAILY AND ADJUST APPROPRIATE. ANABEL UREÑA, PHARMD
[2017-08-24 07:22] LABS: Basophils % 0.2 % (0.1-2.0); Eosinophils % 0.5 % (0.1-12.0); Hematocrit 39.6 % (37.0-47.0); Hemoglobin 10.4 g/dL (12.2-16.2); Lymphocytes # 0.5 K/mm3 (0.7-4.5); Lymphocytes % 5.9 K/mm3 (10-50); Mean Corpuscular HGB Conc 26.3 g/dL (31.8-35.4); Mean Corpuscular Hemoglobin 18.9 pg (27.0-31.2); Mean Corpuscular Volume 71.8 fl (81-99); Mean Platelet Volume 6.8 fl (7.4-10.4); Monocytes # 0.3 K/mm3 (0.1-1.0); Monocytes % 3.9 % (1.7-9.3); Neutrophils # 7.8 K/mm3 (1.8-7.8); Neutrophils % 89.6 % (37.0-80.0); Platelet Count 596 K/mm3 (142-424); Red Blood Count 5.52 M/mm3 (4.20-5.40); Red Cell Distribution Width 22.7 % (11.5-17.5); White Blood Count 8.7 K/mm3 (4.8-10.8)
[2017-08-24 07:34] LABS: Albumin Level 1.8 gm/dL (3.4-5.0); Albumin/Globulin Ratio 0.4 (1.1-1.8); Anion Gap 8.7 mEq/L (5-15); Bilirubin,Total 0.2 mg/dL (0.2-1.0); Calcium 8.6 mg/dL (8.5-10.1); Globulin 4.3 gm/dl (1.3-3.2); Potassium 4.7 mmoL/L (3.5-5.1); Total Protein,Serum 6.1 gm/dL (6.4-8.2)
--- NOTE | 2017-08-24 08:53 | Progress Note ---
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 which showed ext changes and pt reports tested for tb in past Exam Vital signs and Labs for Last 24 Hours: Temp Pulse Resp BP Pulse Ox 97.2 F L 86 20 129/67 98 08/24/17 07:49 08/24/17 07:49 08/24/17 07:49 08/24/17 07:49 08/24/17 07:49 Laboratory Results - last 24 hr 08/22/17 08:18: Iron 10 L, TIBC 303, Iron Saturation 3 L, Unsaturated IBC 293 08/23/17 13:40: Stool Occult Blood Negative 08/24/17 06:14: WBC 8.7 D, RBC 5.52 H, Hgb 10.4 L, Hct 39.6, MCV 71.8 L, MCH 18.9 L, MCHC 26.3 L, RDW 22.7 H, Plt Count 596 H, MPV 6.8 L, Neut % (Auto) 89.6 H, Lymph % (Auto) 5.9 L, [place] % (Auto) 3.9, Eos % (Auto) 0.5, Baso % (Auto) 0.2 , Neut # (Auto) 7.8, Lymph # (Auto) 0.5 L, [place] # (Auto) 0.3, Eos # (Auto) 0.0, Baso # (Auto) 0.0 08/24/17 06:14: Sodium 142, Potassium 4.7 D, Chloride 104, Carbon Dioxide 34 H , Anion Gap 8.7, BUN 12 D, Creatinine 0.42 L, Estimated Creat Clear 102, Estimated GFR 156, Est GFR ( Amer) 188, Glucose 118 H, Calcium 8.6, Total Bilirubin 0.2, AST 12 L, ALT 8 L, Alkaline Phosphatase 107, Total Protein 6.1 L, Albumin 1.8 L D, Globulin 4.3 H, Albumin/Globulin Ratio 0.4 L I & O for Last 24 hours: Intake & Output 08/21/17 08/22/17 08/23/17 08/24/17 11:59 11:59 11:59 11:59 Intake Total 480 / 480 870 / 870 5498 / 5498 Output Total 500 / 500 700 / 700 1075 / 1075 Balance -20 / -20 170 / 170 4423 / 4423 Weight 96 lb 3.991 oz 96 lb 3.991 oz - Constitutional no acute distress - *Routine HEENT Exam Head: Present: normocephalic Eye: Present: EOMI, PERRL ENT: Present: mucous membranes dry - *Routine Neck Exam Present: supple - *Routine Respiratory Exam Present: decreased breath sounds - *Routine Cardiovascular Exam Present: RRR, murmur - *Routine Abdominal Exam Present: soft - *Routine Extremities Exam Absent: calf tenderness - *Routine Skin Exam Present: intact - *Routine Neurological Exam Present: alert, oriented X3, CN II-XII intact - Routine Psychiatric Exam Present: normal affect Assessment and Plan (1) Community acquired pneumonia Current visit: Yes Status: Acute Category: Medical Code(s): J18.9 - Pneumonia, unspecified organism (2) Anemia Current visit: Yes Status: Acute Qualifiers: Anemia type: unspecified type Qualified Code(s): D64.9 - Anemia, unspecified Category: Medical Code(s): D64.9 - Anemia, unspecified (3) COPD (chronic obstructive pulmonary disease) Current visit: Yes Status: Acute Qualifiers: COPD type: COPD with acute exacerbation Qualified Code(s): J44.1 - Chronic obstructive pulmonary disease with (acute) exacerbation Category: Medical Code(s): J44.9 - Chronic obstructive pulmonary disease, unspecified 7
[2017-08-24 10:08] LABS: Hypochromasia 3+; Lymphocytes % 9 % (10-50); Monocytes % 2 % (2-9); Neutrophils % 88 % (42-76); RBC Morphology Normal; Total Cells Counted 100
[2017-08-25 06:49] LABS: Basophils % 0.2 % (0.1-2.0); Eosinophils % 0.1 % (0.1-12.0); Lymphocytes # 0.5 K/mm3 (0.7-4.5); Lymphocytes % 5.7 K/mm3 (10-50); Mean Corpuscular HGB Conc 26.9 g/dL (31.8-35.4); Mean Corpuscular Volume 70.6 fl (81-99); Mean Platelet Volume 6.6 fl (7.4-10.4); Monocytes # 0.5 K/mm3 (0.1-1.0); Monocytes % 4.9 % (1.7-9.3); Neutrophils # 8.2 K/mm3 (1.8-7.8); Neutrophils % 89.1 % (37.0-80.0); Platelet Count 587 K/mm3 (142-424); Red Cell Distribution Width 23.5 % (11.5-17.5); White Blood Count 9.2 K/mm3 (4.8-10.8)
[2017-08-25 07:00] LABS: Albumin Level 1.7 gm/dL (3.4-5.0); Albumin/Globulin Ratio 0.4 (1.1-1.8); Anion Gap 6.6 mEq/L (5-15); Bilirubin,Total 0.2 mg/dL (0.2-1.0); Calcium 8.1 mg/dL (8.5-10.1); Globulin 3.8 gm/dl (1.3-3.2); Potassium 4.6 mmoL/L (3.5-5.1); Total Protein,Serum 5.5 gm/dL (6.4-8.2)
[2017-08-25 07:15] LABS: Hematocrit 39.6 % (37.0-47.0); Hemoglobin 10.7 g/dL (12.2-16.2); Red Blood Count 5.61 M/mm3 (4.20-5.40)
--- NOTE | 2017-08-25 09:46 | Progress Note ---
Internal Medicine - PN: Subj *Date: 08/25/17 *Time: 09:46 Exam Vital signs and Labs for Last 24 Hours: Temp Pulse Resp BP Pulse Ox 98.3 F 66 20 126/81 97 08/25/17 07:56 08/25/17 07:56 08/25/17 07:56 08/25/17 07:56 08/25/17 07:56 Laboratory Results - last 24 hr 08/24/17 06:14: Total Counted 100, Neutrophils % (Manual) 88 H, Lymphocytes % ( Manual) 9 L, Atypical Lymphs % 1.0, Monocytes % (Manual) 2, Platelet Estimate Slight increase, RBC Morphology Normal, Hypochromasia 3+, Microcytosis 1+ 08/25/17 06:10: WBC 9.2, RBC 5.61 H, Hgb 10.7 L, Hct 39.6, MCV 70.6 L, MCH 19.0 L, MCHC 26.9 L, RDW 23.5 H, Plt Count 587 H, MPV 6.6 L, Neut % (Auto) 89.1 H, Lymph % (Auto) 5.7 L, [place] % (Auto) 4.9, Eos % (Auto) 0.1, Baso % (Auto) 0.2, Neut # (Auto) 8.2 H, Lymph # (Auto) 0.5 L, [place] # (Auto) 0.5, Eos # (Auto) 0.0, Baso # (Auto) 0.0 08/25/17 06:10: Sodium 141, Potassium 4.6, Chloride 105, Carbon Dioxide 34 H, Anion Gap 6.6, BUN 11, Creatinine 0.39 L, Estimated Creat Clear 110, Estimated GFR 169, Est GFR ( Amer) 205, Glucose 114 H, Calcium 8.1 L, Total Bilirubin 0.2, AST 14 L, ALT 8 L, Alkaline Phosphatase 95, Total Protein 5.5 L, Albumin 1.7 L, Globulin 3.8 H, Albumin/Globulin Ratio 0.4 L I & O for Last 24 hours: Intake & Output 08/22/17 08/23/17 08/24/17 08/25/17 23:59 23:59 23:59 23:59 Intake Total 870 / 870 2822 / 2822 6129 / 6129 1823 / 1823 Output Total 1200 / 1200 650 / 650 1225 / 1225 1000 / 1000 Balance -330 / -330 2172 / 2172 4904 / 4904 823 / 823 Weight 43.658 kg 43.658 kg Microbiology Reports for the Last 24 Hours: Microbiology 08/23/17 14:18 Sputum - Expectorated Sputum - Final 08/23/17 14:18 Sputum - Expectorated Sputum Acid Fast Bacilli Smear - Final Assessment and Plan (1) Community acquired pneumonia Current visit: Yes Status: Acute Category: Medical Code(s): J18.9 - Pneumonia, unspecified organism (2) Anemia Current visit: Yes Status: Acute Qualifiers: Anemia type: unspecified type Qualified Code(s): D64.9 - Anemia, unspecified Category: Medical Code(s): D64.9 - Anemia, unspecified (3) COPD (chronic obstructive pulmonary disease) Current visit: Yes Status: Acute Qualifiers: COPD type: COPD with acute exacerbation Qualified Code(s): J44.1 - Chronic obstructive pulmonary disease with (acute) exacerbation Category: Medical Code(s): J44.9 - Chronic obstructive pulmonary disease, unspecified The patient's infection will respond to the chosen ABx?: Yes Is the patient receiving the right drug, dose, and route?: Yes Could a more targeted ABx be ordered?: No (CULTURES PENDING AT TIME OF NOTE) 7
--- NOTE | 2017-08-25 10:32 | Pharmacy Consult Notes ---
- Pharmacy Consult Date: 08/25/17 Time: 10:29 Referring provider: DR. FUNK Reason for Consult:: VANCOMYCIN TROUGH Allergies and ADEs:: Allergies Allergy/AdvReac Type Severity Reaction Status Date / Time No Known Allergies Allergy Verified 08/04/17 11:09 Home Medications:: Home Medications Medication Instructions Recorded Confirmed Type albuterol sulfate HFA 90 2 puff INHALATION Q6H 06/09/17 08/21/17 History mcg/actuation aerosol inhaler fluticasone 200 mcg-vilanterol 25 1 inh INHALATION Q24H 06/09/17 08/21/17 History mcg/dose powder for inhalation fluticasone 50 mcg/actuation nasal 50 mcg INTRANASAL ONCE 06/09/17 08/21/17 History spray,suspension levothyroxine 100 mcg capsule 100 mcg PO DAILY 06/09/17 08/21/17 History tiotropium bromide 18 mcg capsule 18 mcg INHALATION ONCE 06/09/17 08/21/17 History with inhalation device umeclidinium 62.5 mcg/actuation 1 inh INHALATION Q24H 06/09/17 08/21/17 History blister powder for inhalation Calcium Carbonate/Vitamin D3 1 tab PO BID 08/21/17 08/21/17 History [Calcium 600 with Vit D Chew Tb] Denosumab [Denosumab 60mg/mL 60 mg SUB-Q [id number] 08/21/17 08/21/17 History syringe] Gabapentin [Gabapentin 100mg Cap] 100 mg PO TID 08/21/17 08/21/17 History Height: 1.68 m Weight: 43.658 kg Laboratory Results:: Laboratory Results - last 24 hr 08/25/17 06:10: WBC 9.2, RBC 5.61 H, Hgb 10.7 L, Hct 39.6, MCV 70.6 L, MCH 19.0 L, MCHC 26.9 L, RDW 23.5 H, Plt Count 587 H, MPV 6.6 L, Neut % (Auto) 89.1 H, Lymph % (Auto) 5.7 L, [place] % (Auto) 4.9, Eos % (Auto) 0.1, Baso % (Auto) 0.2, Neut # (Auto) 8.2 H, Lymph # (Auto) 0.5 L, [place] # (Auto) 0.5, Eos # (Auto) 0.0, Baso # (Auto) 0.0 08/25/17 06:10: Sodium 141, Potassium 4.6, Chloride 105, Carbon Dioxide 34 H, Anion Gap 6.6, BUN 11, Creatinine 0.39 L, Estimated Creat Clear 110, Estimated GFR 169, Est GFR ( Amer) 205, Glucose 114 H, Calcium 8.1 L, Total Bilirubin 0.2, AST 14 L, ALT 8 L, Alkaline Phosphatase 95, Total Protein 5.5 L, Albumin 1.7 L, Globulin 3.8 H, Albumin/Globulin Ratio 0.4 L 08/25/17 08:46: Vancomycin Trough 2.8 L Medical History: Reports:: Chronic Obstructive Pulmonary Disease (COPD) Assessment and Plan (1) Community acquired pneumonia Current visit: Yes Status: Acute Category: Medical Code(s): J18.9 - Pneumonia, unspecified organism (2) Anemia Current visit: Yes Status: Acute Qualifiers: Anemia type: unspecified type Qualified Code(s): D64.9 - Anemia, unspecified Category: Medical Code(s): D64.9 - Anemia, unspecified (3) COPD (chronic obstructive pulmonary disease) Current visit: Yes Status: Acute Qualifiers: COPD type: COPD with acute exacerbation Qualified Code(s): J44.1 - Chronic obstructive pulmonary disease with (acute) exacerbation Category: Medical Code(s): J44.9 - Chronic obstructive pulmonary disease, unspecified - Assessment and plan all Dx Assessment and Plan for all problems:: BASED ON PATIENT FACTORS AND VANCOMYCIN TROUGH LEVEL OF 2.8, RECOMMEND CHANGING DOSING INTERVAL FROM DAILY TO Q12H. PHARMACY WILL CONTINUE TO FOLLOW AND ADJUST DOSE APPROPRIATE. -STARR DUPONTD
--- NOTE | 2017-08-25 11:43 | Progress Note ---
Internal Medicine - PN: Subj *Date: 08/25/17 *Time: 11:41 Interval history: doing better - has persistant cough and no tb markers pos at this time - Exam Vital signs and Labs for Last 24 Hours: Temp Pulse Resp BP Pulse Ox 98.2 F 63 20 126/81 97 08/25/17 11:20 08/25/17 11:20 08/25/17 11:20 08/25/17 07:56 08/25/17 11:20 Laboratory Results - last 24 hr 08/25/17 06:10: WBC 9.2, RBC 5.61 H, Hgb 10.7 L, Hct 39.6, MCV 70.6 L, MCH 19.0 L, MCHC 26.9 L, RDW 23.5 H, Plt Count 587 H, MPV 6.6 L, Neut % (Auto) 89.1 H, Lymph % (Auto) 5.7 L, [place] % (Auto) 4.9, Eos % (Auto) 0.1, Baso % (Auto) 0.2, Neut # (Auto) 8.2 H, Lymph # (Auto) 0.5 L, [place] # (Auto) 0.5, Eos # (Auto) 0.0, Baso # (Auto) 0.0 08/25/17 06:10: Sodium 141, Potassium 4.6, Chloride 105, Carbon Dioxide 34 H, Anion Gap 6.6, BUN 11, Creatinine 0.39 L, Estimated Creat Clear 110, Estimated GFR 169, Est GFR ( Amer) 205, Glucose 114 H, Calcium 8.1 L, Total Bilirubin 0.2, AST 14 L, ALT 8 L, Alkaline Phosphatase 95, Total Protein 5.5 L, Albumin 1.7 L, Globulin 3.8 H, Albumin/Globulin Ratio 0.4 L 08/25/17 08:46: Vancomycin Trough 2.8 L I & O for Last 24 hours: Intake & Output 08/22/17 08/23/17 08/24/17 08/25/17 11:59 11:59 11:59 11:59 Intake Total 480 / 480 870 / 870 5648 / 5648 4886 / 4886 Output Total 500 / 500 700 / 700 1075 / 1075 1800 / 1800 Balance -20 / -20 170 / 170 4573 / 4573 3086 / 3086 Weight 96 lb 3.991 oz 96 lb 3.991 oz 96 lb 3.991 oz Microbiology Reports for the Last 24 Hours: Microbiology 08/23/17 14:18 Sputum - Expectorated Sputum - Final 08/23/17 14:18 Sputum - Expectorated Sputum Acid Fast Bacilli Smear - Final - Constitutional no acute distress - *Routine HEENT Exam Head: Present: normocephalic Eye: Present: EOMI, PERRL ENT: Present: mucous membranes dry - *Routine Neck Exam Present: supple - *Routine Respiratory Exam Present: decreased breath sounds, prolonged expiratory phase - *Routine Cardiovascular Exam Present: RRR - *Routine Abdominal Exam Present: soft - *Routine Extremities Exam Absent: calf tenderness - *Routine Skin Exam Present: intact - *Routine Neurological Exam Present: alert, oriented X3, CN II-XII intact - Routine Psychiatric Exam Present: normal affect Assessment and Plan (1) Community acquired pneumonia Current visit: Yes Status: Acute Category: Medical Code(s): J18.9 - Pneumonia, unspecified organism (2) Anemia Current visit: Yes Status: Acute Qualifiers: Anemia type: unspecified type Qualified Code(s): D64.9 - Anemia, unspecified Category: Medical Code(s): D64.9 - Anemia, unspecified (3) COPD (chronic obstructive pulmonary disease) Current visit: Yes Status: Acute Qualifiers: COPD type: COPD with acute exacerbation Qualified Code(s): J44.1 - Chronic obstructive pulmonary disease with (acute) exacerbation Category: Medical Code(s): J44.9 - Chronic obstructive pulmonary disease, unspecified 7
[2017-08-25 12:11] LABS: Hypochromasia 3+; Lymphocytes % 6 % (10-50); Monocytes % 4 % (2-9); Neutrophils % 90 % (42-76); Total Cells Counted 100
--- NOTE | 2017-08-26 12:28 | Progress Note ---
Internal Medicine - PN: Subj *Date: 08/26/17 *Time: 12:26 Interval history: doing better and will try to wean off o2 and awaiting pul consult Exam Vital signs and Labs for Last 24 Hours: Temp Pulse Resp BP Pulse Ox 97.7 F 83 20 143/64 88 L 08/26/17 11:53 08/26/17 11:53 08/26/17 11:53 08/26/17 11:53 08/26/17 12:19 Laboratory Results - last 24 hr 08/26/17 05:50: Stool Occult Blood Positive A I & O for Last 24 hours: Intake & Output 08/24/17 08/25/17 08/26/17 08/27/17 11:59 11:59 11:59 11:59 Intake Total 5648 / 5648 5876 / 5876 3460 / 3460 Output Total 1075 / 1075 2600 / 2600 2225 / 2225 Balance 4573 / 4573 3276 / 3276 1235 / 1235 Weight 96 lb 3.991 oz 96 lb 3.991 oz - Constitutional no acute distress - *Routine HEENT Exam Head: Present: normocephalic Eye: Present: EOMI, PERRL ENT: Present: mucous membranes dry - *Routine Neck Exam Absent: JVD - *Routine Respiratory Exam Present: decreased breath sounds. Absent: respiratory distress - *Routine Cardiovascular Exam Present: RRR, murmur, S4 - *Routine Abdominal Exam Present: soft - *Routine Extremities Exam Absent: calf tenderness - *Routine Skin Exam Present: intact - *Routine Neurological Exam Present: alert, CN II-XII intact - Routine Psychiatric Exam Present: normal affect Assessment and Plan (1) Community acquired pneumonia Current visit: Yes Status: Acute Category: Medical Code(s): J18.9 - Pneumonia, unspecified organism (2) Anemia Current visit: Yes Status: Acute Qualifiers: Anemia type: unspecified type Qualified Code(s): D64.9 - Anemia, unspecified Category: Medical Code(s): D64.9 - Anemia, unspecified (3) COPD (chronic obstructive pulmonary disease) Current visit: Yes Status: Acute Qualifiers: COPD type: COPD with acute exacerbation Qualified Code(s): J44.1 - Chronic obstructive pulmonary disease with (acute) exacerbation Category: Medical Code(s): J44.9 - Chronic obstructive pulmonary disease, unspecified 7
--- NOTE | 2017-08-26 13:00 | Consult Report ---
*Admission Date: 08/21/17 *Chief complaint: I got so weak and short of breath. *History of present illness: Mrs. Phoenix is a 57-year-old woman who has severe bullous emphysema and whom I initially saw in June 2015 because of an abnormal x-ray suggesting cavitary , fibrobullous disease, likely due to a chronic infection and spreading into both lungs. She had lost 10-15 pounds in the prior year but had no fever or significant chest pain. I was concerned about tuberculosis or chronic cavitary histoplasmosis since there had obviously been a change since a CT performed in 2013. I wanted to admit her to hospital and further evaluate her but she declined. She did provide a sputum culture which showed normal sana, no evidence of any Mycobacterium and the presence of Aspergillus mold. She never returned to me. In the intervening years, she is continued to be treated for chronic obstructive pulmonary disease. She had a long history of smoking, up to 3 packages of cigarettes daily, and was smoking one half package a day when I saw her in 2015. She replied to me today that she quit for a while but had begun smoking again and now 1 package might last her a week. Over the last 2 years, her weight has been stable until recently. In the last several months, she has been more breathless on exertion, something she had not complained of 2 years ago. She also had a very persistent cough, almost causing vomiting and associated with cracked ribs. The cough was productive of thick, yellow sputum. Just before admission, she believes she had a fever but does not recall chills. She thinks she may have been a little delirious because she cannot remember very much. "I was so weak." She was taken to the emergency room by ambulance and admitted for bilateral lower lobe pneumonia. CT of the chest again showed upper lobe fibrobullous changes and emphysema as well. Tuberculosis was suspected and 1 sputum AFB is negative thus far. She was also found to be profoundly anemic and was transfused 2 units. She had a marked thrombocytosis as well. In the hospital, she has been treated with piperacillin and levofloxacin as well as corticosteroids. She has clinically improved but her oxygen level is still low. She has not been on oxygen at home. She could not name her inhalers for me but I think she has been using either Spiriva or Incruse and Breo along with a nebulizer. Past surgical history: This is significant for an appendectomy, one and delivery, cataract surgery and an admission a few years ago for small bowel obstruction, likely related to constipation. Past medical history: This is significant for symptoms of allergic rhinitis, hypothyroidism, chronic pain in the knees and back especially due to osteoarthritis, osteoporosis and GERD. He has not had significant symptoms of GERD lately. I believe she has had pneumococcal and influenza vaccines. There is no known exposure to tuberculosis. Social history: She and her of many years live alone now in an old home where there is much mold. A neighbor had chickens which wander in and out of their yard. After discharge, they plan to move into an apartment here in town. Her is currently being treated for Hodgkin's disease. The rest of the family as well. Review of systems: Apart from the systems mentioned above, she is currently troubled quite a bit by thrush which appeared after the beginning of hospitalization; she wears glasses and dentures. She has had little in the way of symptoms of heartburn and drinks milk or water while at home. She has no problem with chronic abdominal pain, diarrhea or constipation. She has had no in rash and has no neurological complaints. She is a little depressed because of her 's illness. On physical examination, Mrs. Phoenix is a gaunt, bright eyed woman who is alert and oriented and in no distress. She is sitting up in bed and able to give a clear history without seeming short of breath. She is not wearing oxygen. Oxygen saturation was 85% on room air. Vital signs are listed below. HEENT: Sclerae clear; conjunctivae pale; EOMs full; the right pupil is slightly larger than the left but both react to light. External nares are unremarkable. She is wearing dentures and has extensive thrush and possibly an herpetic lesion on her lower lip. Neck: No adenopathy; thyroid not palpable. Chest: Symmetrical expansion; pectus excavatum; hyperresonance by percussion bilaterally; prolonged expiratory phase, especially over the upper lung guadalupe posteriorly with a faint inspiratory wheeze on the left. No crackles. Heart: PMI in the xiphoid; regular rhythm; midsystolic clicks and a systolic murmur audible when she is recumbent. This is at the lower left sternal border. Abdomen: Scaphoid; bowel sounds diminished; soft, nontender, no masses or organomegaly. : No flank tenderness Skin: No rash Neurological: Grossly intact but she does have mild asterixis. Musculoskeletal: No toni arthritis Extremities: No clubbing; trace lower leg edema. I reviewed her laboratory data and her blood gas shows hypercapnic respiratory failure. I personally reviewed all her x-rays. Assessment and plan: Mrs. Phoenix seems to have significant chronic obstructive pulmonary disease and does have extensive bullous emphysema. She has scarring in the lung causing fibrobullous changes, especially in the upper lobes and infiltrates in the lower lobe, especially on the right. I do not think active tuberculosis is likely here. She may have developed pneumonia after a viral prodrome and pneumococcus the most likely. I agree with continuing levofloxacin for a few more days but would stop piperacillin now. I am concerned about chronic cavitary histoplasmosis and suggests fungal sputum cultures if these have not been performed. I also would like to see fungal serologies and a histoplasma urinary antigen. If she has not had an echocardiogram, I suggest 1 to see if she has mitral valve prolapse. If she has not had alpha-1 antitrypsin phenotype, that may be useful to know since she has such extensive emphysema. I discussed smoking cessation with her as well and would like to follow-up with her as an outpatient after she is discharged. Thank you for the opportunity to participate in Mrs. Phoenix's care. [facility] History Medical History: Reports:: Chronic Obstructive Pulmonary Disease (COPD) Other Surgeries: Yes: Appendectomy, Other (Ovarian Cyst,) Amputation: No Fractures: No - *Social History Smoking Status: Current some day smoker Tobacco Type: cigarettes # Packs/Day (cigarettes): 1 Alcohol Intake: never Substance Use Type: denies use Occupational Status: unemployed Housing: house Household Members: spouse - Psychiatric History Expresses thoughts of harming self/others: None Suicide Plan Description: No Plan *Family Hx:: Cancer, Heart Attack Review of Systems - *Neurologic Denies abnormal movements Meds Home Medications Medication Instructions Recorded Confirmed Type albuterol sulfate HFA 90 2 puff INHALATION Q6H 06/09/17 08/21/17 History mcg/actuation aerosol inhaler fluticasone 200 mcg-vilanterol 25 1 inh INHALATION Q24H 06/09/17 08/21/17 History mcg/dose powder for inhalation fluticasone 50 mcg/actuation nasal 50 mcg INTRANASAL ONCE 06/09/17 08/21/17 History spray,suspension levothyroxine 100 mcg capsule 100 mcg PO DAILY 06/09/17 08/21/17 History tiotropium bromide 18 mcg capsule 18 mcg INHALATION ONCE 06/09/17 08/21/17 History with inhalation device umeclidinium 62.5 mcg/actuation 1 inh INHALATION Q24H 06/09/17 08/21/17 History blister powder for inhalation Calcium Carbonate/Vitamin D3 1 tab PO BID 08/21/17 08/21/17 History [Calcium 600 with Vit D Chew Tb] Denosumab [Denosumab 60mg/mL 60 mg SUB-Q [id number] 08/21/17 08/21/17 History syringe] Gabapentin [Gabapentin 100mg Cap] 100 mg PO TID 08/21/17 08/21/17 History Allergies Allergy/AdvReac Type Severity Reaction Status Date / Time No Known Allergies Allergy Verified 08/04/17 11:09 Exam Vital signs and Labs for Last 24 Hours: Temp Pulse Resp BP Pulse Ox 97.7 F 83 20 143/64 88 L 08/26/17 11:53 08/26/17 11:53 08/26/17 11:53 08/26/17 11:53 08/26/17 12:19 Laboratory Results - last 24 hr 08/26/17 05:50: Stool Occult Blood Positive A I & O for Last 24 hours: Intake & Output 08/23/17 08/24/17 08/25/17 08/26/17 23:59 23:59 23:59 23:59 Intake Total 2822 / 2822 6279 / 6279 4103 / 4103 2019 Output Total 650 / 650 1225 / 1225 3050 / 3050 975 / 975 Balance 2172 / 2172 5054 / 5054 1053 / 1053 1045 / 1045 Weight 43.658 kg 43.658 kg Internal Medicine - CN: Reslt - Labs CBC & Chem 7: 08/25/17 06:10 08/25/17 06:10 Assessment and Plan (1) Community acquired pneumonia Current visit: Yes Status: Acute Category: Medical Code(s): J18.9 - Pneumonia, unspecified organism (2) Anemia Current visit: Yes Status: Acute Qualifiers: Anemia type: unspecified type Qualified Code(s): D64.9 - Anemia, unspecified Category: Medical Code(s): D64.9 - Anemia, unspecified (3) COPD (chronic obstructive pulmonary disease) Current visit: Yes Status: Acute Qualifiers: COPD type: COPD with acute exacerbation Qualified Code(s): J44.1 - Chronic obstructive pulmonary disease with (acute) exacerbation Category: Medical Code(s): J44.9 - Chronic obstructive pulmonary disease, unspecified - Assessment and plan all Dx Assessment and Plan for all problems:: See above.
[2017-08-27 07:37] VITALS: BP 121/71
--- NOTE | 2017-08-27 08:50 | Discharge Summary ---
General - General Admission date: 08/21/17 Discharge date: 08/27/17 HPI HPI: Mrs. Phoenix is a 57-year-old woman who has severe bullous emphysema and whom I initially saw in June 2015 because of an abnormal x-ray suggesting cavitary , fibrobullous disease, likely due to a chronic infection and spreading into both lungs. She had lost 10-15 pounds in the prior year but had no fever or significant chest pain. I was concerned about tuberculosis or chronic cavitary histoplasmosis since there had obviously been a change since a CT performed in 2013. I wanted to admit her to hospital and further evaluate her but she declined. She did provide a sputum culture which showed normal sana, no evidence of any Mycobacterium and the presence of Aspergillus mold. She never returned to me. In the intervening years, she is continued to be treated for chronic obstructive pulmonary disease. She had a long history of smoking, up to 3 packages of cigarettes daily, and was smoking one half package a day when I saw her in 2015. She replied to me today that she quit for a while but had begun smoking again and now 1 package might last her a week. Over the last 2 years, her weight has been stable until recently. In the last several months, she has been more breathless on exertion, something she had not complained of 2 years ago. She also had a very persistent cough, almost causing vomiting and associated with cracked ribs. The cough was productive of thick, yellow sputum. Just before admission, she believes she had a fever but does not recall chills. She thinks she may have been a little delirious because she cannot remember very much. "I was so weak." She was taken to the emergency room by ambulance and admitted for bilateral lower lobe pneumonia. CT of the chest again showed upper lobe fibrobullous changes and emphysema as well. Tuberculosis was suspected and 1 sputum AFB is negative thus far. She was also found to be profoundly anemic and was transfused 2 units. She had a marked thrombocytosis as well. In the hospital, she has been treated with piperacillin and levofloxacin as well as corticosteroids. She has clinically improved but her oxygen level is still low. She has not been on oxygen at home. She could not name her inhalers for me but I think she has been using either Spiriva or Incruse and Breo along with a nebulizer. Past surgical history: This is significant for an appendectomy, one and delivery, cataract surgery and an admission a few years ago for small bowel obstruction, likely related to constipation. Past medical history: This is significant for symptoms of allergic rhinitis, hypothyroidism, chronic pain in the knees and back especially due to osteoarthritis, osteoporosis and GERD. He has not had significant symptoms of GERD lately. I believe she has had pneumococcal and influenza vaccines. There is no known exposure to tuberculosis. Social history: She and her of many years live alone now in an old home where there is much mold. A neighbor had chickens which wander in and out of their yard. After discharge, they plan to move into an apartment here in town. Her is currently being treated for Hodgkin's disease. The rest of the family as well. Review of systems: Apart from the systems mentioned above, she is currently troubled quite a bit by thrush which appeared after the beginning of hospitalization; she wears glasses and dentures. She has had little in the way of symptoms of heartburn and drinks milk or water while at home. She has no problem with chronic abdominal pain, diarrhea or constipation. She has had no in rash and has no neurological complaints. She is a little depressed because of her 's illness. On physical examination, Mrs. Phoenix is a gaunt, bright eyed woman who is alert and oriented and in no distress. She is sitting up in bed and able to give a clear history without seeming short of breath. She is not wearing oxygen. Oxygen saturation was 85% on room air. Vital signs are listed below. HEENT: Sclerae clear; conjunctivae pale; EOMs full; the right pupil is slightly larger than the left but both react to light. External nares are unremarkable. She is wearing dentures and has extensive thrush and possibly an herpetic lesion on her lower lip. Neck: No adenopathy; thyroid not palpable. Chest: Symmetrical expansion; pectus excavatum; hyperresonance by percussion bilaterally; prolonged expiratory phase, especially over the upper lung guadalupe posteriorly with a faint inspiratory wheeze on the left. No crackles. Heart: PMI in the xiphoid; regular rhythm; midsystolic clicks and a systolic murmur audible when she is recumbent. This is at the lower left sternal border. Abdomen: Scaphoid; bowel sounds diminished; soft, nontender, no masses or organomegaly. : No flank tenderness Skin: No rash Neurological: Grossly intact but she does have mild asterixis. Musculoskeletal: No toni arthritis Extremities: No clubbing; trace lower leg edema. I reviewed her laboratory data and her blood gas shows hypercapnic respiratory failure. I personally reviewed all her x-rays. Assessment and plan: Mrs. Phoenix seems to have significant chronic obstructive pulmonary disease and does have extensive bullous emphysema. She has scarring in the lung causing fibrobullous changes, especially in the upper lobes and infiltrates in the lower lobe, especially on the right. I do not think active tuberculosis is likely here. She may have developed pneumonia after a viral prodrome and pneumococcus the most likely. I agree with continuing levofloxacin for a few more days but would stop piperacillin now. I am concerned about chronic cavitary histoplasmosis and suggests fungal sputum cultures if these have not been performed. I also would like to see fungal serologies and a histoplasma urinary antigen. If she has not had an echocardiogram, I suggest 1 to see if she has mitral valve prolapse. If she has not had alpha-1 antitrypsin phenotype, that may be useful to know since she has such extensive emphysema. I discussed smoking cessation with her as well and would like to follow-up with her as an outpatient after she is discharged. Thank you for the opportunity to participate in Mrs. Phoenix's care. Hospital Course Hospital Course: pt with progressive improvement with o2 and iv abx with blood transfusion with no known tb - pt was seen by pulmonary - pt with pulse oxy of 85 on room air - pt with extensive copd on ct and will finish abx at home and be followed as op Objective Vital signs: Temp Pulse Resp BP Pulse Ox 98.2 F 103 H 22 121/71 96 08/27/17 07:35 08/27/17 07:35 08/27/17 07:35 08/27/17 07:35 08/27/17 07:35 no acute distress - *Routine HEENT Exam Head: Present: normocephalic Eye: Present: EOMI, PERRL ENT: Present: mucous membranes dry - *Routine Neck Exam Absent: JVD - *Routine Respiratory Exam Present: decreased breath sounds, prolonged expiratory phase - *Routine Cardiovascular Exam Present: RRR, gallop, S4 - *Routine Abdominal Exam Present: soft - *Routine Extremities Exam Present: cyanosis, edema. Absent: calf tenderness - *Routine Skin Exam Present: intact - *Routine Neurological Exam Present: alert, oriented X3, CN II-XII intact - Routine Psychiatric Exam Present: normal affect Results Labs on day of discharge: Labs from last 24 hours 08/23/17 14:05 TB (QFT) Gold In Tube Negative TB Test (QFT) Nil 0.03 TB Test (QFT) Mitogen 0.58 TB Test (QFT) Antigen 0.02 TB Test Antigen - Nil <0.00 TB Positive Criteria Comment TB Test (QFT) Interp Comment DS: Diagnosis - Discharge Diagnosis (1) Community acquired pneumonia Status: Acute (2) Anemia Status: Acute (3) COPD (chronic obstructive pulmonary disease) Status: Acute (4) Low body mass index (BMI) Status: Acute Discharge Plan - Patient Discharge Instructions ACTIVITY: Continue current activity DIET: continue same diet Patient Instructions: Pneumonia-Adult, Chronic Obstructive Pulmonary Disease, Anemia - Follow up Plan Disposition: Home, Self-Residential Medications: Home Medications Medication Instructions Recorded Confirmed Type albuterol sulfate HFA 90 2 puff INHALATION Q6H 06/09/17 08/21/17 History mcg/actuation aerosol inhaler fluticasone 200 mcg-vilanterol 25 1 inh INHALATION Q24H 06/09/17 08/21/17 History mcg/dose powder for inhalation fluticasone 50 mcg/actuation nasal 50 mcg INTRANASAL ONCE 06/09/17 08/21/17 History spray,suspension levothyroxine 100 mcg capsule 100 mcg PO DAILY 06/09/17 08/21/17 History tiotropium bromide 18 mcg capsule 18 mcg INHALATION ONCE 06/09/17 08/21/17 History with inhalation device umeclidinium 62.5 mcg/actuation 1 inh INHALATION Q24H 06/09/17 08/21/17 History blister powder for inhalation Calcium Carbonate/Vitamin D3 1 tab PO BID 08/21/17 08/21/17 History [Calcium 600 with Vit D Chew Tb] Denosumab [Denosumab 60mg/mL 60 mg SUB-Q [id number] 08/21/17 08/21/17 History syringe] Gabapentin [Gabapentin 100mg Cap] 100 mg PO TID 08/21/17 08/21/17 History Prescriptions/Medication Reconciliation: New levoFLOXacin [Levaquin 500mg tab] 500 mg PO DAILY #7 tab Continue levothyroxine 100 mcg capsule 100 mcg PO DAILY umeclidinium 62.5 mcg/actuation blister powder for inhalation 1 inh INHALATION Q24H fluticasone 50 mcg/actuation nasal spray,suspension 50 mcg INTRANASAL ONCE fluticasone 200 mcg-vilanterol 25 mcg/dose powder for inhalation 1 inh INHALATION Q24H albuterol sulfate HFA 90 mcg/actuation aerosol inhaler 2 puff INHALATION Q6H tiotropium bromide 18 mcg capsule with inhalation device 18 mcg INHALATION ONCE hydrocodone 5 mg-acetaminophen 325 mg tablet 1 tab PO BID 30 Days #60 tab promethazine-DM 6.25 mg-15 mg/5 mL syrup 5 ml PO Q6H PRN #180 ml PRN Reason: cough Denosumab [Denosumab 60mg/mL syringe] 60 mg SUB-Q [id number] Calcium Carbonate/Vitamin D3 [Calcium 600 with Vit D Chew Tb] 1 tab PO BID Gabapentin [Gabapentin 100mg Cap] 100 mg PO TID
--- NOTE | 2017-08-28 11:59 | Cardiology Report ---
PROCEDURE: 2-D M-mode and color Doppler study INDICATIONS FOR THE TEST: Chest pain COPD Heart Murmurx Tobacco Smoking Palpitations Fatigue Syncope Edema Hypertension Diabetes Mellitus Rheumatic Fever SOB ISBELL Obesity Hyperlipidemia Family History HD Additional History Comments: Moderate PHTN, small pericardial effusion PATIENT INFORMATION HEIGHT: 5'6'' WEIGHT: 115 GENDER: Female B/P: 121/71 2-D/M-MODE INTERPRETATION: 2-D MEASUREMENTS OBSERVED VALUES IN CMS Right Ventricular Dimension (RVDd) 1.8 Interventricular Septum (Thickness)(IVsd) 0.8 Left Ventricular Internal Dimensions(LVIDd) 4.0 Left Ventricular Posterior Wall (Thickness)(LVPWd) 0.9 Aortic Root 1.9 Aortic Cusp Separation 1.5 Left Atrial Dimensions (LAD) 2.9 2D 1. Left atrium is normal size, left ventricle is normal size, left ventricle wall thickness is normal, visually estimated ejection fraction 55% with no obvious regional wall motion abnormality. 2. The right atrium and right ventricle are relatively normal size and function. 3. The aortic valve is minimally thickened and fibrosed. 4. The mitral and tricuspid valve are structurally normal. 5. The pulmonic valve is poorly visualized. 6. There is small circumferential pericardial effusion noted. DOPPLER INTERROGATION: Doppler interrogation of the aortic, mitral and tricuspid valve is presence of mild mitral and tricuspid regurgitation, calculated right ventricular systolic pressure is 43 mmHg consistent with moderate pulmonary hypertension, diastolic parameters are inconclusive. CONCLUSION: 1. Normal left ventricular size, preserved left ventricular systolic function, visually estimated ejection fraction 55% with no obvious regional wall motion abnormality, diastolic parameters are inconclusive. 2. Mild mitral and tricuspid regurgitation, calculated right ventricular systolic pressure is 43 mmHg consistent with moderate pulmonary hypertension 3. Small circumferential pericardial effusion noted.
== END 2017-08-27 11:13 | disposition home or self-care (01) ==
LOC: ER 13:08 → 2ND 15:47
PROVIDERS: ADMIT Emergency Medicine; ATTEND Emergency Medicine

== ENCOUNTER → 2017-08-27 16:05 | Outpatient (CLI) | payer MEDICAID, SELFPAY | PROVIDERS: Visit Provider Emergency Medicine | DX: J18.9 Pneumonia, unspecified organism (principal) ==

== ENCOUNTER → 2017-08-29 13:09 | Outpatient (REF) | payer MEDICAID, SELFPAY ==
[2017-09-01 15:15] LABS: Histoplasma Gal'mannan Ag Ur <0.5 (<0.5 ng/mL)
== END ==
LOC: LAB 13:09
PROVIDERS: Visit Provider Emergency Medicine
DX: J18.9 Pneumonia, unspecified organism (principal)
CPT/HCPCS: 87102; 87206; 87385

== ENCOUNTER → 2017-09-22 12:41 | Outpatient (POV) | payer MEDICAID, SELFPAY ==
[2017-09-22 13:02] VITALS: BP 115/97; PULSE 108; RESP 18; TEMP 36.7; O2SAT 98
--- NOTE | 2017-09-22 13:10 | P.CONS_ITS ---
[facility] Pain Management SOAP Note Subjective:: This patient is a pleasant 57-year-old white female who is referred back to us for back pain and leg pain. She was previously seen in 2016. She was noncompliant at that time. She is currently getting hydrocodone 5 mg 1 tablet twice a day from Dr. Womack. She last filled on September 08, 2017. She does MRI does show degenerative changes with facet hypertrophy and neuroforaminal narrowing. I do believe she would benefit from a lumbar epidural steroid injection. We will seek approval and plan on a lumbar epidural steroid injection under fluoroscopy. Most of her pain is in the back going down both legs. Objective:: Alert and oriented ?3 in no acute distress. Patient does have an antalgic gait. Motor strength of the lower extremities is 5/5. There is no gross sensory deficit. Assessment:: Degenerative disc disease of lumbar spine with lumbar radiculopathy symptoms. Plan:: She asked for me to take over filling her Harvey 5 mg 1 tablet twice a day. I told her that I was not able to do that. The only treatment I can offer her is lumbar epidural steroid injections. She is going to think about it and let us know. We will follow-up with her on as needed basis. If she decides on injections she is to call us and let us know.
== END ==
PROVIDERS: Family Provider Internal Medicine Adolescent Medicine; PCP Emergency Medicine; Visit Provider Anesthesiology
DX: M54.16 Radiculopathy, lumbar region (principal)
CPT/HCPCS: 99202

== ENCOUNTER → 2017-12-18 12:33 | Outpatient (CLI) | payer MEDICAID, SELFPAY ==
--- NOTE | 2017-12-18 12:35 | CT_ITS ---
CT lumbar spine wo con INDICATION: ITS.REASON: Low back pain Back pain and bruising ORDERING PHYSICIAN: MORENITA Griffin PATIENT AGE: 57 years COMPARISON: MRI lumbar spine from03 May 2015 is utilized as well as a June 2015 CT chest TECHNIQUE: Helical CT scanning performed through the lumbar spine with axial sagittal coronal reconstructions on CT workstation All CT scans at the facility use one or more dose reduction, viz: automated exposure control; ma/kV adjustment per patient size (including targeted exams where dose is matched to indication; i.e. head); or iterative reconstruction technique. FINDINGS: The lumbar vertebral bodies appear intact with no compression fracture or lesion evident. There is normal alignment. Lumbar disc spaces are fairly well maintained with only slight narrowing at L5/S1. L5/S1 with only minimal disc bulge.. Mild/moderate facet hypertrophy. L4/5 with [id number] facet and ligament flavum hypertrophy. Disc intact L3/4 mild facet hypertrophy disc intact. L2/3. Disc intact. Posterior elements satisfactory with scant hypertrophy. L1/2. Disc intact T12/L1 disc intact. No change in appearance of the lower T-spine versus [id number] CT chest The partially posterior lungs but there is in the spine reveal no acute findings. Chronic changes with generous changes suggested. Given history of mid back and bruising. The soft tissues overlying the back are quite thin and paraspinal muscles small.. No unique findings here by CT. Posterior ribs intact. No mass lesion or unremarkable hematoma at the more superficial soft tissues of the back. . Underlying kidneys of unremarkable with no prominent/significant appearing retroperitoneal findings IMPRESSION Lumbar vertebral bodies are intact . Disc spaces fairly well maintained only trace narrowing L5/S1 disc withMild disc bulge L5/S1. Early degenerative facet changes lower L-spine noted .
== END ==
PROVIDERS: Family Provider Internal Medicine Adolescent Medicine; PCP Emergency Medicine; Visit Provider Physician Assistant
DX: M51.36 Other intervertebral disc degeneration, lumbar region (principal)
CPT/HCPCS: 72131

== ENCOUNTER → 2018-05-01 10:19 | Outpatient (CLI) | payer MEDICAID, SELFPAY ==
--- NOTE | 2018-05-01 10:21 | CT_ITS ---
CT abdomen pelvis wo con CLINICAL INDICATION: Unexplained weight loss ITS.REASON: severe emphysema, weight loss, fibrosis ORDERING PHYSICIAN: MORENITA Griffin PATIENT AGE: 58 years COMPARISON: 03/09/2015 TECHNIQUE: Axial images obtained with sagittal and coronal reformats. All CT scans at the facility use one or more dose reduction, viz: automated exposure control, ma/kV adjustment per patient size (including targeted exams where dose is matched to indication, i.e. head), or iterative reconstruction technique. PROCEDURE: Oral Contrast: None IV Contrast: None . FINDINGS: The exam is limited due to lack of IV and oral contrast and due to patient's sparsity of body fat. There are fibrotic changes in the lung bases with hyperinflation consistent with COPD. No focal liver lesion. Spleen, adrenal glands, and pancreas have an unremarkable unenhanced appearance. No hydronephrosis or renal or ureteral calculi. No intestinal obstruction or free air. There are multiple unopacified bowel loops present within the abdomen/pelvis which could obscure or mimic pathology. If symptoms persists, consider repeating exam with IV and oral contrast administration No acute bony findings. IMPRESSION: 1. Limited exam due to lack of IV and oral contrast as patient sparsity of body fat. There are multiple unopacified bowel loops present within the abdomen/pelvis which could obscure or mimic pathology. If symptoms persists, consider repeating exam with IV and oral contrast administration 2. No acute finding 3. COPD with fibrotic changes in the lung bases
--- NOTE | 2018-05-01 10:23 | CT_ITS ---
CT chest wo con HISTORY: Unexplained weight loss with cough and shortness of air with emphysema and COPD ITS.REASON: severe emphysema, weight loss, fibrosis ORDERING PHYSICIAN: MORENITA Griffin PATIENT AGE: 58 years COMPARISON: 08/23/2017 Technique: Axial images obtained with sagittal and coronal reformats. All CT scans at the facility use one or more dose reduction, viz: automated exposure control, ma/kV adjustment per patient size (including targeted exams where dose is matched to indication, i.e. head), or iterative reconstruction technique. FINDINGS: Evaluation of the mediastinal and hilar structures is limited without IV contrast in this patient with severe cachexia and sparsity of fat. Small lymph nodes are once again noted within the mediastinum which appear stable. There are coronary artery calcifications. There are severe emphysematous changes with enlarging cavities/bulla in the upper lobes. These have increased in size. The right upper lobe cavity/bulla measures 9 x 7.6 x 5.6 cm previously 6 x 4.4 x 3.6 cm. There is a small air-fluid level within this bulla. The left upper lobe cavity/bulla measures 11 x 8.3 x 7.6 cm previously 10 6.8 x 7 cm. Small air-fluid levels present in this cavities as well. There is severe volume loss of the right upper lobe with bronchiectasis in the right upper lobe cavitary changes in the right upper lobe inferiorly. These findings have progressed. Moderate volume loss of the left upper lobe with bronchiectasis also noted which is not significantly changed. There is moderate thickening of the upper lobe cavity/bulla with some nodularity. There are several bilateral noncalcified pulmonary nodules which have developed in the interval. The largest nodule on the left is left lower lobe in the perihilar area at 13 mm. The largest nodule on the right in the right lower lobe posteriorly and medially at 9 mm.. The previously described nodular changes in the lung bases have improved in the bilateral pleural effusions have resolved. There is mild diffuse bronchial thickening. There is an old sternal fracture involving the medial aspect of the body of the sternum. No acute bony findings. Upper abdominal images are unremarkable. IMPRESSION: 1. Enlarging bilateral upper lobe cavity/bulla with small air-fluid levels with thickening of the gomez of the cavities. Infected bulla/active tuberculosis is a consideration. There is bilateral upper lobe bronchiectasis and bilateral upper lobe volume loss. 2. There are several new noncalcified pulmonary nodules. This could be due to metastatic disease or inflammatory/infectious nodules. 3. Previously noted inflammatory nodules in the lung bases with bilateral pleural effusions have shown improvement. 4. Pulmonary consult suggested if not already in progress
== END ==
PROVIDERS: PCP Physician Assistant; Visit Provider Physician Assistant
DX: R18.8 Other ascites (principal); R63.4 Abnormal weight loss; J84.10 Pulmonary fibrosis, unspecified
CPT/HCPCS: 71250; 74176

== ENCOUNTER 2018-08-23 16:31 | Inpatient (IN) ==
--- NOTE | 2018-08-23 16:40 | Emergency Department Note ---
ED Disposition Clinical Impression: COPD exacerbation, SIRS (systemic inflammatory response syndrome) Acute and chronic respiratory failure Qualifiers: Respiratory failure complication: hypoxia and hypercapnia Qualified Code(s): J96.21 - Acute and chronic respiratory failure with hypoxia Pneumonia Qualifiers: Pneumonia type: due to unspecified organism Laterality: left Lung location: lower lobe of lung Qualified Code(s): J18.1 - Lobar pneumonia, unspecified organism Disposition: Admitted as Observation Condition on Discharge: Fair - Critical Care Critical Care Time: Yes Attestation: On 08/23/18, the high probability of a clinically significant, sudden or life threatening deterioration of the following system(s) required my full and direct attention, intervention and personal management. The time I documented below is in addition to time spent performing reported procedures but includes the following listed in this critical care notation. Total Critical Care Time: 40 Vital system(s) involved:: Respiratory Failure My critical care processes included: Assessment & monitoring of V/S, Initial and Re-exams, Data Review/Interpretation, Coordinating Care, Medication Orders and management, Documentation Medical Decision Making - Nikolai Inquiry Pt receiving controlled substance: No Vital Signs: 08/23/18 16:45 08/23/18 17:31 08/23/18 17:52 Temperature 98.8 F Temperature Source Oral Pulse Rate 112 H Pulse Rate [Left Radial] 120 H 95 H Respiratory Rate 32 H Blood Pressure [Right Arm] 112/63 93/53 L Blood Pressure Mean [Right Arm] 79 66 Blood Pressure Source [Right Arm] Automatic Cuff Automatic Cuff Blood Pressure Position [Right Arm] Sitting Sitting 02 Sat by Pulse Oximetry 87 L 93 L Oxygen Delivery Method Nasal Cannula Vapotherm Oxygen Flow Rate (LPM) 2 08/23/18 18:00 08/23/18 18:35 Temperature Temperature Source Pulse Rate Pulse Rate [Left Radial] 102 H 111 H Respiratory Rate 32 H Blood Pressure [Right Arm] 128/65 114/74 Blood Pressure Mean [Right Arm] 86 87 Blood Pressure Source [Right Arm] Automatic Cuff Blood Pressure Position [Right Arm] Sitting 02 Sat by Pulse Oximetry 95 91 L Oxygen Delivery Method Vapotherm Vapotherm Oxygen Flow Rate (LPM) - Lab Data Lab Results 08/23/18 16:38: WBC 14.6 H, RBC 5.37, Hgb 9.6 L, Hct 36.3 L, MCV 67.6 L, MCH 17.8 L, MCHC 26.4 L, RDW 18.1 H, Plt Count 479 H, MPV 6.4 L, Neut % (Auto) 84.3 H, Lymph % (Auto) 8.3 L, [place] % (Auto) 6.9, Eos % (Auto) 0.2, Baso % (Auto) 0.2, Neut # (Auto) 12.3 H, Lymph # (Auto) 1.2, Gooding # (Auto) 1.0, Eos # (Auto) 0.0, Baso # (Auto) 0.0 08/23/18 16:38: Sodium 136, Potassium 3.8, Chloride 96 L, Carbon Dioxide 38 H, Anion Gap 5.8, BUN 15, Creatinine 0.48 L, Estimated Creat Clear 73, Estimated GFR 133, Est GFR ( Amer) 161, Glucose 103, Calcium 8.9, Total Bilirubin 0.4, AST 12 L, ALT 10 L, Alkaline Phosphatase 127 H, Total Protein 6.9 D, Albumin 2.2 L, Globulin 4.7 H, Albumin/Globulin Ratio 0.5 L 08/23/18 16:38: Lactate 0.9 08/23/18 16:38: B-Natriuretic Peptide 60 08/23/18 16:58: Specimen Source R/r, O2 % 3, ABG pH 7.32 L, ABG pCO2 75.9 H, ABG pO2 68.6 L, ABG HCO3 38.2 H, ABG Total CO2 40.6 H, ABG O2 Saturation 91, ABG Base Excess 12.1 H, Billy Test Y Result diagrams: 08/23/18 16:38 08/23/18 16:38 Orders (Tests/Meds): ED MEDICATIONS Generic Name Dose Route Start Last Admin Trade Name Freq PRN Reason Stop Dose Admin Piperacillin Sod/Tazobactam 50 mls @ 100 mls/hr 08/23/18 18:30 08/23/18 18:32 Sod 3.375 gm/ Sodium Chloride IV 09/06/18 18:29 100 mls/hr Q6H DONAL Administration Protocol Levofloxacin/Dextrose 750 mg in 150 mls @ 100 mls/hr 08/23/18 18:30 Levofloxacin 750mg/150ml Premix IV 09/06/18 18:29 Q24H DONAL Protocol Sodium Chloride 3 ml 08/23/18 18:13 Sodium Chloride 3% 15ml [facility] 09/22/18 18:12 ONCE PRN INDUCE SPUTUM COLLECTION Discontinued Medications Generic Name Dose Route Start Last Admin Trade Name Freq PRN Reason Stop Dose Admin Albuterol/Ipratropium 3 ml 08/23/18 17:07 08/23/18 17:51 Duoneb 3ml [facility] 08/23/18 17:08 3 ml ONCE ONE Administration Ioversol 70 ml 08/23/18 18:03 08/23/18 18:04 Rad-Optiray 350 100ml Vial IV 08/23/18 18:04 70 ml ONCE ONE Administration Protocol Methylprednisolone Sodium Succinate 125 mg 08/23/18 17:07 08/23/18 17:39 Solu-Medrol 125mg/2ml Vial IV 08/23/18 17:08 125 mg ONCE ONE Administration Sodium Chloride 50 ml 08/23/18 18:03 08/23/18 18:04 Rad-Ns 50ml Vial IV 08/23/18 18:04 50 ml ONCE ONE Administration ORDERS Category Date Time Status Blood Culture Stat Micro 08/23/18 17:00 Received Sputum Culture & Gram Stain Stat Micro 08/23/18 18:13 Ordered Arterial Blood Gas Stat RT 08/23/18 16:38 Ordered ECG Request by /Lucinda Stat Y 08/23/18 16:35 Ordered - Radiology Data #1 Image(s): Chest Image Reviewed: Yes I reviewed the patient's radiology image, Yes I have reviewed radiologist's interpretation - CT Data CT Scan: Chest (CTA) Time Received: 18:[address] Reviewed: Yes: I discussed the CT results w/the radiologist, I have viewed the radiologist's interpretation Findings Narrative: IMPRESSION: 1. No PE. 2. Advanced emphysematous changes with large bilateral upper lobe bulla with fibrotic scarring in both perihilar regions 3. Diffuse and likely acute pneumonic infiltrate primarily left lower lobe with small to moderate-sized reactive pleural effusion with more confluent areas of infiltrate subpleural location lateral basilar segment, no definite acute pneumonic infiltrate involving the right lung. Dictated By: Garth Parry Signed By: <Electronically signed by Garth Parry in [place]> 08/23/18 1448 - ECG Data Tracing #1 EKG interpreted by Madhav Staples MD: Rhythm: sinus tachycardia Rate: 101 [place]: Rightward Ectopy: none Conduction: normal ST Segment Changes: none T Wave Changes: none Q Waves: none No evidence of acute ischemia or injury - Physician Consults Physician Consulted: Vu Time: 18:20 Reason -: Admission Comment/Response: Agrees to admit the patient to the hospital. We discussed the patient's clinical information, including history, exam, laboratory and radiology results and ED course. Per hospital procedure, I will write temporary bridge inpatient orders on the patient. Specific orders requested by the admitting physician: Continue Vapotherm. Start on Levaquin and Zosyn. Continue steroids and nebulizer treatments. Repeat ABG this evening. Medical Decision Narrative: Prior Chest CT: IMPRESSION: 1. Enlarging bilateral upper lobe cavity/bulla with small air-fluid levels with thickening of the gomez of the cavities. Infected bulla/active tuberculosis is a consideration. There is bilateral upper lobe bronchiectasis and bilateral upper lobe volume loss. 2. There are several new noncalcified pulmonary nodules. This could be due to metastatic disease or inflammatory/infectious nodules. 3. Previously noted inflammatory nodules in the lung bases with bilateral pleural effusions have shown improvement. 4. Pulmonary consult suggested if not already in progress Dictated By: Billy Keenan MD Signed By: <Electronically signed by Billy Keenan MD in [place]> 05/02/18 0738 DD/ 1652 General Adult HPI - General Stated complaint: Shortness of Breath Time Seen by Provider: 08/23/18 16:40 - History of Present Illness HPI narrative: History obtained from patient and . They are poor historians. She is brought in by ambulance. reports that she has COPD. states that this morning when she awakened her oxygen saturation was 49%. He says at that time he did not realize that the oxygen tubing was kinked, but after the ambulance took her away he saw that the tubing had been collapsed or kinked. She is on 2 L oxygen at home. Patient complains of rib pain on her left side that began yesterday when she coughed. She says that she hurt her ri bs from coughing. He says that today her head has been nodding and bobbing. She has not had syncope. She denies any recent fever. She has a chronic cough and chronic rivera sputum production. No recent vomiting or diarrhea. She has cavitary lesions on her chest CT that was done in April. She also had a positive Driscoll guard. She had previously been seeing Dr. Tafoya for pulmonology, but she says she is going to be seeing a new specialist at the [facility]. Currently they are working at the [facility] to get a bronchoscopy and a colonoscopy done at the same time, but she says neither she nor her primary care provider, Mariah, have yet heard of a scheduled time as of last week. - Related Data Home Medications Medication Instructions Recorded Confirmed Denosumab [Denosumab 60mg/mL 60 mg SUB-Q [id number] 08/21/17 08/23/18 syringe] Amoxicillin [Amoxicillin 400MG/5ML 800 mg PO BID 08/23/18 08/23/18 Oral Susp.] Fluticasone/Vilanterol [Breo 1 inh INHALATION Q24H 08/23/18 08/23/18 Ellipta] Megestrol Acetate 625 mg PO QAM 08/23/18 08/23/18 Nicotine [Nicotine Patch 21 mg TRANSDERMAL DAILY 08/23/18 08/23/18 21mg/24hrs] [id number]/Sod Sulf,Bicarb,Cl/KCl 240 ml PO Q10M 08/23/18 08/23/18 [[id number] and Electrolytes Soln] Tiotropium [place] [Spiriva 1 cap INHALATION DAILY 08/23/18 08/23/18 18mcg/puff inhaler] Tiotropium [place] [Spiriva 2 puff INHALATION DAILY 08/23/18 08/23/18 Respimat] methylPREDNISolone [Medrol] 4 mg PO PER PKG DIR 08/23/18 08/23/18 Previous Rx's Medication Instructions Recorded albuterol sulfate HFA 90 2 puff INHALATION Q6H #18 g 06/15/18 mcg/actuation aerosol inhaler fluticasone propionate 50 50 mcg INTRANASAL ONCE #18.2 g 06/16/18 mcg/actuation nasal spray,suspension levothyroxine 100 mcg capsule 100 mcg PO DAILY #90 cap 06/16/18 hydrocodone 5 mg-acetaminophen 325 1 tab PO TID PRN #75 tab 08/04/18 mg tablet Allergies Allergy/AdvReac Type Severity Reaction Status Date / Time No Known Allergies Allergy Verified 08/04/18 14:20 [facility] History - Hepatitis A Screen Attestation statement:: This patient has been screened for Hepatitis A risk factors. I have reviewed the patient's past medical history: Yes Medical History: Reports:: Asthma, Chronic Obstructive Pulmonary Disease (COPD) Denies:: Diabetes Mellitus Type 1, Diabetes Mellitus Type 2 Other Medical History: Reports: Hypothyroidism Comment: Hyperthyroidism, Allergies Other Surgeries: Yes: Appendectomy, Other Amputation: No Fractures: No - Social History Smoking Status: Current some day smoker Tobacco Type: cigarettes # Packs/Day (cigarettes): 1 Alcohol Intake: never Substance Use Type: denies use Occupational Status: unemployed Housing: house Household Members: spouse Family Hx:: Cancer, Heart Attack ROS Obtained: Yes All systems reviewed & no additional complaints - Constitutional Constitutional: Denies fever(s) - Cardiovascular Cardiovascular: Reports chest pain - Respiratory Respiratory: Yes cough, Yes dyspnea, Yes excessive phlegm production - Gastrointestinal Gastrointestingal: Denies: abdominal pain, diarrhea, vomiting Physical Exam - General General appearance: alert, cachectic Comment: frequent congested cough - Head Head exam: atraumatic, normocephalic - Eye Eye exam: Present: PERRL, EOMI - ENT ENT exam: Present: mucous membranes moist - Neck Neck exam: Present: normal inspection, trachea midline - Chest Chest inspection: Present: normal inspection, symmetric chest wall rise - Respiratory Respiratory exam: Present: other (decreased breath sounds bilaterally) - Cardiovascular Cardiovascular exam: Present: regular rate, normal rhythm, normal heart sounds - Abdominal Exam Abdominal exam: Present: soft. Absent: distention, tenderness - Extremities Exam Extremities exam: Present: normal inspection. Absent: tenderness - Neurological Exam Neurological exam: Present: alert, oriented X3 - Psychiatric Psychiatric exam: Present: normal affect, normal mood - Skin Skin exam: Present: warm, dry
[2018-08-23 16:49] LABS: Basophils % 0.2 % (0.1-2.0); Eosinophils % 0.2 % (0.1-12.0); Hematocrit 36.3 % (37.0-47.0); Hemoglobin 9.6 g/dL (12.2-16.2); Lymphocytes # 1.2 K/mm3 (0.7-4.5); Lymphocytes % 8.3 % (10-50); Mean Corpuscular HGB Conc 26.4 g/dL (31.8-35.4); Mean Corpuscular Hemoglobin 17.8 pg (27.0-31.2); Mean Corpuscular Volume 67.6 fl (81-99); Mean Platelet Volume 6.4 fl (7.4-10.4); Monocytes % 6.9 % (1.7-9.3); Neutrophils # 12.3 K/mm3 (1.8-7.8); Neutrophils % 84.3 % (37.0-80.0); Platelet Count 479 K/mm3 (142-424); Red Blood Count 5.37 M/mm3 (4.20-5.40); Red Cell Distribution Width 18.1 % (11.5-17.5); White Blood Count 14.6 K/mm3 (4.8-10.8)
[2018-08-23 16:59] LABS: ABG Base Excess 12.1 mmol/L (-2.4-2.3); ABG HCO3 38.2 mmhg (22.0-26.0); ABG Oxygen Saturation 91 % (90-100); ABG PH 7.32 mmol/L (7.35-7.45); ABG PO2 68.6 mmhg (80-100); ABG TCO2 40.6 mmhg (23-27)
[2018-08-23 16:59] LABS: Albumin Level 2.2 gm/dL (3.4-5.0); Albumin/Globulin Ratio 0.5 (1.1-1.8); Anion Gap 5.8 mEq/L (5-15); Bilirubin,Total 0.4 mg/dL (0.2-1.0); Calcium 8.9 mg/dL (8.5-10.1); Globulin 4.7 gm/dl (1.3-3.2); Potassium 3.8 mmoL/L (3.5-5.1); Total Protein,Serum 6.9 gm/dL (6.4-8.2)
[2018-08-23 17:00] LABS: ABG PCO2 75.9 mmhg (35.0-45.0); Allen's Test Y; Oxygen 3 %
--- NOTE | 2018-08-23 21:51 | History & Physical Report ---
*Admission Date: 08/23/18 *Chief complaint: sob *History of present illness: this wf presented to the ed - She is brought in by ambulance. reports that she has COPD. states that this morning when she awakened her oxygen saturation was 49%. He says at that time he did not realize that the oxygen tubing was kinked, but after the ambulance took her away he saw that the tubing had been collapsed or kinked. She is on 2 L oxygen at home. Patient complains of rib pain on her left side that began yesterday when she coughed. She says that she hurt her ribs from coughing. He says that today her head has been nodding and bobbing. She has not had syncope. She denies any recent fever. She has a chronic cough and chronic rivera sputum production. No recent vomiting or diarrhea. She has cavitary lesions on her chest CT that was done in April. She also had a positive [place] guard. She had previously been seeing Dr. Tafoya for pulmonology, but she says she is going to be seeing a new specialist at the [facility]. Currently they are working at the [facility] to get a bronchoscopy and a colonoscopy done at the same time, but she says neither she nor her primary care provider, Mariah, have yet heard of a scheduled time as of last week. ronic lung changes with prominent fibrotic scarring in both upper lobes and likely pleural-parenchymal diffuse scarring in the left lower hemithorax as well though difficult to exclude underlying pneumonic infiltrate in the left lower lobe. Possibly follow-up CT scan chest will be helpful for better evaluation.was seen on cxr and ct showed PRESSION: 1. No PE. 2. Advanced emphysematous changes with large bilateral upper lobe bulla with fibrotic scarring in both perihilar regions 3. Diffuse and likely acute pneumonic infiltrate primarily left lower lobe with small to moderate-sized reactive pleural effusion with more confluent areas of infiltrate subpleural location lateral basilar segment, no definite acute pneumonic infiltrate involving the right lung. pt was admitted for ivf and abx - pt is poor historian and c/o of sob but no chest pain and was admitted [facility] History I have reviewed the patient's past medical history: Yes Medical History: Reports:: Asthma, Chronic Obstructive Pulmonary Disease (COPD), Home Oxygen Denies:: Diabetes Mellitus Type 1, Diabetes Mellitus Type 2 *Have you ever received a pneumonia vaccine?: No *Have you received a flu vaccine this season?: No Other Medical History: Reports: Hypothyroidism Other Surgeries: Yes: Appendectomy, Other Amputation: No Fractures: No - *Social History Educational Level: Completed High School Smoking Status: Current some day smoker Tobacco Type: cigarettes # Packs/Day (cigarettes): 1 Alcohol Intake: never Substance Use Type: denies use *Occupational Status:: unemployed Housing: house Household Members: spouse *Travel in the last 8 weeks: None - Psychiatric History Expresses thoughts of harming self/others: None Suicide Plan Description: No Plan Family Hx:: Cancer, Heart Attack Review of Systems - Review of Systems Review of systems:: pertinent systems reviewed and negative unless documented below - Constitutional Reports fever(s), Reports weakness - Eyes Denies change in vision - ENT Denies sore throat - *Cardiovascular Reports shortness of breath - *Respiratory Reports cough, Reports pain on inspiration, Denies coughing up blood - *Gastrointestinal Denies vomiting - *Genitourinary Denies pelvic pain - *Musculoskeletal Denies joint pain - Integumentary/Breasts Denies rash - *Neurologic Denies seizure-like activity - Psychiatric Denies anxiety Meds Home Medications Medication Instructions Recorded Confirmed Type Denosumab [Denosumab 60mg/mL 60 mg SUB-Q [id number] 08/21/17 08/23/18 History syringe] albuterol sulfate HFA 90 2 puff INHALATION Q6H #18 g 06/15/18 08/23/18 Rx mcg/actuation aerosol inhaler levothyroxine 100 mcg capsule 100 mcg PO DAILY #90 cap 06/16/18 08/23/18 Rx hydrocodone 5 mg-acetaminophen 325 1 tab PO TID PRN #75 tab 08/04/18 08/23/18 Rx mg tablet Fluticasone/Vilanterol [Breo 1 inh INHALATION Q24H 08/23/18 08/23/18 History Ellipta] Megestrol Acetate 625 mg PO QAM 08/23/18 08/23/18 History Nicotine [Nicotine Patch 21 mg TRANSDERMAL DAILY 08/23/18 08/23/18 History 21mg/24hrs] Tiotropium [place] [Spiriva 2 puff INHALATION DAILY 08/23/18 08/23/18 History Respimat] Fluticasone Propionate 1 spr NOSTRIL-B DAILY 08/24/18 08/24/18 History Gabapentin [Gabapentin 100mg Cap] 100 mg PO TID 08/24/18 08/24/18 History Allergies Allergy/AdvReac Type Severity Reaction Status Date / Time No Known Allergies Allergy Verified 08/04/18 14:20 Exam Vital signs and Labs for Last 24 Hours: Temp Pulse Resp BP Pulse Ox 98.7 F 88 20 98/70 L 88 L 08/23/18 19:18 08/23/18 19:18 08/23/18 19:18 08/23/18 19:18 08/23/18 19:18 Laboratory Results - last 24 hr 08/23/18 16:38: WBC 14.6 H, RBC 5.37, Hgb 9.6 L, Hct 36.3 L, MCV 67.6 L, MCH 17.8 L, MCHC 26.4 L, RDW 18.1 H, Plt Count 479 H, MPV 6.4 L, Neut % (Auto) 84.3 H, Lymph % (Auto) 8.3 L, [place] % (Auto) 6.9, Eos % (Auto) 0.2, Baso % (Auto) 0.2, Neut # (Auto) 12.3 H, Lymph # (Auto) 1.2, [place] # (Auto) 1.0, Eos # (Auto) 0.0, Baso # (Auto) 0.0 08/23/18 16:38: Sodium 136, Potassium 3.8, Chloride 96 L, Carbon Dioxide 38 H, Anion Gap 5.8, BUN 15, Creatinine 0.48 L, Estimated Creat Clear 73, Estimated GFR 133, Est GFR ( Amer) 161, Glucose 103, Calcium 8.9, Total Bilirubin 0.4, AST 12 L, ALT 10 L, Alkaline Phosphatase 127 H, Total Protein 6.9 D, Albumin 2.2 L, Globulin 4.7 H, Albumin/Globulin Ratio 0.5 L 08/23/18 16:38: Lactate 0.9 08/23/18 16:38: B-Natriuretic Peptide 60 08/23/18 16:58: Specimen Source R/r, O2 % 3, ABG pH 7.32 L, ABG pCO2 75.9 H, ABG pO2 68.6 L, ABG HCO3 38.2 H, ABG Total CO2 40.6 H, ABG O2 Saturation 91, ABG Base Excess 12.1 H, Billy Test Y I & O for Last 24 hours: Intake & Output 08/21/18 08/22/18 08/23/18 08/24/18 11:59 11:59 11:59 11:59 Weight 83 lb 3 oz Microbiology Reports for the Last 24 Hours: Microbiology 08/23/18 19:30 Sputum - Expectorated Sputum Gram Stain - Final - Constitutional no acute distress, cachectic, cooperative - *Routine HEENT Exam Head: Present: normocephalic Eye: Present: EOMI, PERRL. Absent: conjunctival icterus ENT: Present: mucous membranes dry - *Routine Neck Exam Present: supple. Absent: JVD, lymphadenopathy, thyromegaly - *Routine Respiratory Exam Present: decreased breath sounds, prolonged expiratory phase, wheezes, distant breath sounds, diminished air movement - *Routine Cardiovascular Exam Present: RRR, murmur, S4 - *Routine Extremities Exam Absent: calf tenderness - Routine Back/Spine/Pelvis Exam Back/Spine: Absent: CVA tenderness - *Routine Skin Exam Present: intact - *Routine Neurological Exam Present: alert, oriented X3, CN II-XII intact. Absent: motor deficit - Routine Psychiatric Exam Present: normal affect Assessment and Plan (1) Acute respiratory failure with hypercapnia Current visit: Yes Status: Acute Category: Medical Code(s): J96.02 - Acute respiratory failure with hypercapnia (2) Thrombocythemia Current visit: Yes Status: Acute Category: Medical Code(s): D47.3 - Essential (hemorrhagic) thrombocythemia (3) Community acquired pneumonia Current visit: No Status: Acute Category: Medical Code(s): J18.9 - Pneumonia, unspecified organism (4) Low body mass index (BMI) Current visit: No Status: Acute Category: Medical (5) Anemia Current visit: Yes Status: Acute Qualifiers: Anemia type: unspecified type Qualified Code(s): D64.9 - Anemia, unspecified Category: Medical Code(s): D64.9 - Anemia, unspecified (6) COPD (chronic obstructive pulmonary disease) Current visit: Yes Status: Acute Qualifiers: COPD type: COPD with acute exacerbation Qualified Code(s): J44.1 - Chronic obstructive pulmonary disease with (acute) exacerbation Category: Medical Code(s): J44.9 - Chronic obstructive pulmonary disease, unspecified (7) Hypothyroidism (acquired) Current visit: Yes Status: Acute Category: Medical Code(s): E03.9 - Hypothyroidism, unspecified (8) Severe sepsis Current visit: Yes Status: Acute Category: Medical Code(s): A41.9 - Sepsis, unspecified organism; R65.20 - Severe sepsis without septic shock
[2018-08-23 22:14] LABS: ABG Base Excess 11.8 mmol/L (-2.4-2.3); ABG HCO3 37.1 mmhg (22.0-26.0); ABG Oxygen Saturation 91 % (90-100); ABG PH 7.37 mmol/L (7.35-7.45); ABG PO2 65.9 mmhg (80-100); ABG TCO2 39.2 mmhg (23-27)
[2018-08-23 22:15] LABS: Allen's Test Y; Oxygen 36 VAPO %
--- NOTE | 2018-08-24 07:44 | Pharmacy Consult Notes ---
[facility] Pharmacy VTE Monitoring - Patient Demographics Admission date: 08/23/18 Report Date: 08/24/18 Time: 07:44 Allergies/Adverse Reactions: Patient Allergies No Known Allergies Allergy (Verified 08/04/18 14:20) Height: 1.65 m Weight: 37.733 kg Patient Problems: Current Active Problems Acute and chronic respiratory failure (Acute) Pneumonia (Acute) COPD exacerbation (Acute) SIRS (systemic inflammatory response syndrome) (Acute) - VTE Risk Labs: VTE Related Lab Results Hgb 9.6 g/dL (12.2-16.2) L 08/23/18 16:38 Hct 36.3 % (37.0-47.0) L 08/23/18 16:38 Plt Count 479 K/mm3 (142-424) H 08/23/18 16:38 BUN 15 mg/dL (7-18) 08/23/18 16:38 Creatinine 0.48 mg/dL (0.55-1.02) L 08/23/18 16:38 Estimated Creat Clear 73 mL/min (50-200) 08/23/18 16:38 Was VTE Risk Assessment Performed: Yes VTE Score: 2 VTE Risk Level: Very Low Risk - Prophylaxis VTE Prophylaxis Ordered?: Yes Types of VTE Prophylaxis: TEDS Knee High Location of Applied Device: Bilateral Lower Extremeties - VTE Diagnosis Confirmed Treatment or plan recommended: Continue Current Treatment
[2018-08-24 08:23] LABS: Anion Gap 8.7 mEq/L (5-15); Calcium 8.7 mg/dL (8.5-10.1); Potassium 3.7 mmoL/L (3.5-5.1)
[2018-08-24 08:45] LABS: Hematocrit 34.5 % (37.0-47.0); Hemoglobin 9.3 g/dL (12.2-16.2); Lymphocytes # 0.4 K/mm3 (0.7-4.5); Lymphocytes % 3.4 % (10-50); Mean Corpuscular HGB Conc 27.1 g/dL (31.8-35.4); Mean Corpuscular Volume 66.6 fl (81-99); Mean Platelet Volume 6.5 fl (7.4-10.4); Monocytes # 0.3 K/mm3 (0.1-1.0); Monocytes % 2.4 % (1.7-9.3); Neutrophils # 9.8 K/mm3 (1.8-7.8); Neutrophils % 94.2 % (37.0-80.0); Platelet Count 429 K/mm3 (142-424); Red Blood Count 5.19 M/mm3 (4.20-5.40); Red Cell Distribution Width 17.9 % (11.5-17.5); White Blood Count 10.4 K/mm3 (4.8-10.8)
[2018-08-24 09:00] LABS: ABG Base Excess 12.2 mmol/L (-2.4-2.3); ABG HCO3 36.6 mmhg (22.0-26.0); ABG Oxygen Saturation 90 % (90-100); ABG PH 7.42 mmol/L (7.35-7.45); ABG PO2 62.2 mmhg (80-100); ABG TCO2 38.4 mmhg (23-27)
[2018-08-24 09:02] LABS: Oxygen 35 %
[2018-08-24 09:03] LABS: Allen's Test Acceptable
[2018-08-24 09:04] LABS: ABG PCO2 57.5 mmhg (35.0-45.0)
[2018-08-24 11:40] LABS: Lymphocytes % 1 % (10-50); Monocytes % 1 % (2-9); Neutrophils % 88 % (42-76); Total Cells Counted 100
[2018-08-24 11:41] LABS: Hypochromasia 3+
[2018-08-24 11:42] LABS: Anisocytosis 1+
[2018-08-24 12:22] LABS: ABG Base Excess 11.6 mmol/L (-2.4-2.3); ABG HCO3 35.6 mmhg (22.0-26.0); ABG Oxygen Saturation 92 % (90-100); ABG PH 7.45 mmol/L (7.35-7.45); ABG PO2 67.8 mmhg (80-100); ABG TCO2 37.2 mmhg (23-27)
[2018-08-24 12:24] LABS: ABG PCO2 52.3 mmhg (35.0-45.0); Allen's Test Acceptable; Oxygen 28 %
--- NOTE | 2018-08-24 17:13 | Progress Note ---
Internal Medicine - PN: Subj *Date: 08/24/18 *Time: 08:00 Interval history: doing better on vasotherm - more alert Exam Vital signs and Labs for Last 24 Hours: Temp Pulse Resp BP Pulse Ox 98.2 F 89 19 94/53 L 96 08/24/18 15:36 08/24/18 15:36 08/24/18 15:36 08/24/18 15:36 08/24/18 15:36 Laboratory Results - last 24 hr 08/23/18 16:38: B-Natriuretic Peptide 60 08/23/18 22:13: Specimen Source L/r, O2 % 36 vapo, ABG pH 7.37, ABG pCO2 66.0 H, ABG pO2 65.9 L, ABG HCO3 37.1 H, ABG Total CO2 39.2 H, ABG O2 Saturation 91, ABG Base Excess 11.8 H, Billy Test Y 08/24/18 07:50: WBC 10.4 D, RBC 5.19, Hgb 9.3 L, Hct 34.5 L, MCV 66.6 L, MCH 18.0 L, MCHC 27.1 L, RDW 17.9 H, Plt Count 429 H, MPV 6.5 L, Neut % (Auto) 94.2 H, Lymph % (Auto) 3.4 L, [place] % (Auto) 2.4, Eos % (Auto) 0.0 L, Baso % (Auto) 0.0 L, Neut # (Auto) 9.8 H, Lymph # (Auto) 0.4 L, [place] # (Auto) 0.3, Eos # (Auto) 0.0, Baso # (Auto) 0.0, Total Counted 100, Neutrophils % (Manual) 88 H, Band Neutrophils % 10.0 H, Lymphocytes % (Manual) 1 L, Monocytes % (Manual) 1 L, Platelet Estimate Normal, Hypochromasia 3+, Anisocytosis 1+, Microcytosis 2+ 08/24/18 07:50: Sodium 134 L, Potassium 3.7, Chloride 94 L, Carbon Dioxide 35 H, Anion Gap 8.7, BUN 17, Creatinine 0.49 L, Estimated Creat Clear 75, Estimated GFR 130, Est GFR ( Amer) 157, Glucose 169 H D, Calcium 8.7 08/24/18 08:36: Specimen Source Right radial, O2 % 35, ABG pH 7.42, ABG pCO2 57.5 H, ABG pO2 62.2 L, ABG HCO3 36.6 H, ABG Total CO2 38.4 H, ABG O2 Saturation 90, ABG Base Excess 12.2 H, Billy Test Acceptable 08/24/18 12:07: Specimen Source Right radial, O2 % 28, ABG pH 7.45, ABG pCO2 52.3 H, ABG pO2 67.8 L, ABG HCO3 35.6 H, ABG Total CO2 37.2 H, ABG O2 Saturation 92, ABG Base Excess 11.6 H, Billy Test Acceptable I & O for Last 24 hours: Intake & Output 08/22/18 08/23/18 08/24/18 08/25/18 11:59 11:59 11:59 11:59 Intake Total 120 / 120 240 / 240 Output Total 550 / 550 Balance -430 / -430 240 / 240 Weight 83 lb 2.992 oz Microbiology Reports for the Last 24 Hours: Microbiology 08/23/18 19:30 Sputum - Expectorated Sputum Gram Stain - Final 08/23/18 19:30 Sputum - Expectorated Sputum Sputum Culture - Preliminary Gram Negative Rods - Constitutional cachectic - *Routine HEENT Exam Head: Present: normocephalic Eye: Present: EOMI, PERRL ENT: Present: mucous membranes dry - *Routine Neck Exam Absent: JVD - *Routine Respiratory Exam Present: decreased breath sounds, wheezes - *Routine Cardiovascular Exam Present: RRR, murmur, S4 - *Routine Abdominal Exam Present: soft - *Routine Extremities Exam Absent: calf tenderness - *Routine Skin Exam Present: intact - *Routine Neurological Exam Present: alert, oriented X3, CN II-XII intact. Absent: motor deficit - Routine Psychiatric Exam Present: normal affect Assessment and Plan (1) Acute respiratory failure with hypercapnia Current visit: Yes Status: Acute Category: Medical Code(s): J96.02 - Acute respiratory failure with hypercapnia (2) Thrombocythemia Current visit: Yes Status: Acute Category: Medical Code(s): D47.3 - Essential (hemorrhagic) thrombocythemia (3) Community acquired pneumonia Current visit: No Status: Acute Category: Medical Code(s): J18.9 - Pneumonia, unspecified organism (4) Low body mass index (BMI) Current visit: No Status: Acute Category: Medical (5) Anemia Current visit: Yes Status: Acute Qualifiers: Anemia type: unspecified type Qualified Code(s): D64.9 - Anemia, unspecified Category: Medical Code(s): D64.9 - Anemia, unspecified (6) COPD (chronic obstructive pulmonary disease) Current visit: Yes Status: Acute Qualifiers: COPD type: COPD with acute exacerbation Qualified Code(s): J44.1 - Chronic obstructive pulmonary disease with (acute) exacerbation Category: Medical Code(s): J44.9 - Chronic obstructive pulmonary disease, unspecified (7) Hypothyroidism (acquired) Current visit: Yes Status: Acute Category: Medical Code(s): E03.9 - Hypothyroidism, unspecified (8) Severe sepsis Current visit: Yes Status: Acute Category: Medical Code(s): A41.9 - Sepsis, unspecified organism; R65.20 - Severe sepsis without septic shock The patient's infection will respond to the chosen ABx?: Yes Is the patient receiving the right drug, dose, and route?: Yes Could a more targeted ABx be ordered?: No 5
--- NOTE | 2018-08-25 08:51 | Discharge Summary ---
General - General Admission date:: 08/23/18 Discharge date: 08/25/18 HPI HPI: this wf presented to the ed - She is brought in by ambulance. reports that she has COPD. states that this morning when she awakened her oxygen saturation was 49%. He says at that time he did not realize that the oxygen tubing was kinked, but after the ambulance took her away he saw that the tubing had been collapsed or kinked. She is on 2 L oxygen at home. Patient complains of rib pain on her left side that began yesterday when she coughed. She says that she hurt her ribs from coughing. He says that today her head has been nodding and bobbing. She has not had syncope. She denies any recent fever. She has a chronic cough and chronic rivera sputum production. No recent vomiting or diarrhea. She has cavitary lesions on her chest CT that was done in April. She also had a positive [place] guard. She had previously been seeing Dr. Tafoya for pulmonology, but she says she is going to be seeing a new specialist at the [facility]. Currently they are working at the [facility] to get a bronchoscopy and a colonoscopy done at the same time, but she says neither she nor her primary care provider, Mariah, have yet heard of a scheduled time as of last week. ronic lung changes with prominent fibrotic scarring in both upper lobes and likely pleural-parenchymal diffuse scarring in the left lower hemithorax as well though difficult to exclude underlying pneumonic infiltrate in the left lower lobe. Possibly follow-up CT scan chest will be helpful for better evaluation.was seen on cxr and ct showed PRESSION: 1. No PE. 2. Advanced emphysematous changes with large bilateral upper lobe bulla with fibrotic scarring in both perihilar regions 3. Diffuse and likely acute pneumonic infiltrate primarily left lower lobe with small to moderate-sized reactive pleural effusion with more confluent areas of infiltrate subpleural location lateral basilar segment, no definite acute pneumonic infiltrate involving the right lung. pt was admitted for ivf and abx - pt is poor historian and c/o of sob but no chest pain and was admitted Hospital Course Hospital Course: cta:IMPRESSION: 1. No PE. 2. Advanced emphysematous changes with large bilateral upper lobe bulla with fibrotic scarring in both perihilar regions 3. Diffuse and likely acute pneumonic infiltrate primarily left lower lobe with small to moderate-sized reactive pleural effusion with more confluent areas of infiltrate subpleural location lateral basilar segment, no definite acute pneumonic infiltrate involving the right lung. chest x ray IMPRESSION: Chronic lung changes with prominent fibrotic scarring in both upper lobes and likely pleural-parenchymal diffuse scarring in the left lower hemithorax as well though difficult to exclude underlying pneumonic infiltrate in the left lower lobe. Possibly follow-up CT scan chest will be helpful for better evaluation. Patient requesting to be discharged home will discharge home on Levaquin and steroids to cover Klebsiella pneumonia Objective Vital signs: Temp Pulse Resp BP Pulse Ox 98.1 F 108 H 20 137/59 L 99 08/25/18 07:49 08/25/18 07:49 08/25/18 07:49 08/25/18 07:49 08/25/18 07:49 no acute distress - *Routine HEENT Exam Head: Present: normocephalic Eye: Present: PERRL ENT: Present: mucous membranes moist - *Routine Respiratory Exam Present: wheezes - *Routine Cardiovascular Exam Present: RRR - *Routine Abdominal Exam Present: soft, normoactive bowel sounds. Absent: tenderness - *Routine Extremities Exam Present: full ROM - *Routine Skin Exam Present: intact - *Routine Neurological Exam Present: alert, oriented X3 - Routine Psychiatric Exam Present: normal affect Results Labs on day of discharge: Labs from last 24 hours 08/24/18 08/24/18 08/24/18 12:07 08:36 07:50 Total Counted 100 Neutrophils % (Manual) 88 H Band Neutrophils % 10.0 H Lymphocytes % (Manual) 1 L Monocytes % (Manual) 1 L Platelet Estimate Normal Hypochromasia 3+ Anisocytosis 1+ Microcytosis 2+ Specimen Source Right radial Right radial O2 % 28 35 ABG pH 7.45 7.42 ABG pCO2 52.3 H 57.5 H ABG pO2 67.8 L 62.2 L ABG HCO3 35.6 H 36.6 H ABG Total CO2 37.2 H 38.4 H ABG O2 Saturation 92 90 ABG Base Excess 11.6 H 12.2 H Billy Test Acceptable Acceptable Preliminary micro results at discharge 08/23/18 19:30 Sputum Culture - Preliminary Sputum - Expectorated Sputum Klebsiella pneumoniae - Additional Comments Rounded with Dr. Womack all orders per Vu DS: Diagnosis - Discharge Diagnosis (1) Acute respiratory failure with hypercapnia Status: Acute (2) Thrombocythemia Status: Acute (3) Community acquired pneumonia Status: Acute (4) Low body mass index (BMI) Status: Acute (5) Anemia Status: Acute (6) COPD (chronic obstructive pulmonary disease) Status: Acute (7) Hypothyroidism (acquired) Status: Acute (8) Severe sepsis Status: Acute (9) Klebsiella pneumonia Status: Acute Discharge Plan - Patient Discharge Instructions ACTIVITY: Continue current activity DIET: continue same diet Patient Instructions: DI for Pneumonia -- Adult - Follow up Plan Follow up with: Fausto Womack MD [Primary Care Provider] - 1 week Disposition: Home, Self-Custodial Medications: Home Medications Medication Instructions Recorded Confirmed Type Denosumab [Denosumab 60mg/mL 60 mg SUB-Q [id number] 08/21/17 08/23/18 History syringe] albuterol sulfate HFA 90 2 puff INHALATION Q6H #18 g 06/15/18 08/23/18 Rx mcg/actuation aerosol inhaler levothyroxine 100 mcg capsule 100 mcg PO DAILY #90 cap 06/16/18 08/23/18 Rx hydrocodone 5 mg-acetaminophen 325 1 tab PO TID PRN #75 tab 08/04/18 08/23/18 Rx mg tablet Fluticasone/Vilanterol [Breo 1 inh INHALATION Q24H 08/23/18 08/23/18 History Ellipta] Megestrol Acetate 625 mg PO QAM 08/23/18 08/23/18 History Nicotine [Nicotine Patch 21 mg TRANSDERMAL DAILY 08/23/18 08/23/18 History 21mg/24hrs] Tiotropium [place] [Spiriva 2 puff INHALATION DAILY 08/23/18 08/23/18 History Respimat] Fluticasone Propionate 1 spr NOSTRIL-B DAILY 08/24/18 08/24/18 History Gabapentin [Gabapentin 100mg Cap] 100 mg PO TID 08/24/18 08/24/18 History levoFLOXacin [Levaquin 500mg 500 mg PO DAILY #5 tab 08/25/18 Rx tab] predniSONE [Prednisone 20mg 20 mg PO BID 5 Days #10 tab 08/25/18 Rx Tab] Prescriptions/Medication Reconciliation: New levoFLOXacin [Levaquin 500mg tab] 500 mg PO DAILY #5 tab predniSONE [Prednisone 20mg Tab] 20 mg PO BID 5 Days #10 tab Continue albuterol sulfate HFA 90 mcg/actuation aerosol inhaler 2 puff INHALATION Q6H #18 g levothyroxine 100 mcg capsule 100 mcg PO DAILY #90 cap hydrocodone 5 mg-acetaminophen 325 mg tablet 1 tab PO TID PRN #75 tab PRN Reason: pain Denosumab [Denosumab 60mg/mL syringe] 60 mg SUB-Q [id number] Megestrol Acetate 625 mg PO QAM Fluticasone/Vilanterol [Breo Ellipta] 1 inh INHALATION Q24H Gabapentin [Gabapentin 100mg Cap] 100 mg PO TID Fluticasone Propionate 1 spr NOSTRIL-B DAILY Tiotropium [place] [Spiriva Respimat] 2 puff INHALATION DAILY Nicotine [Nicotine Patch 21mg/24hrs] 21 mg TRANSDERMAL DAILY
== END 2018-08-25 09:40 | disposition home or self-care (01) | DRG 177 ==
LOC: ER 16:31 → 2ND 16:31 → OBSVTOIN 19:11 → 2ND 19:12
PROVIDERS: ADMIT Emergency Medicine; ATTEND Emergency Medicine
CPT/HCPCS: 36415; 71010; 71045; 71275; 80048; 80053; 82803; 83605; 83880; 85007; 85025; 87040; 87070; 87077; 87184; 87186; 87205; 93005; 94640; 94760; 94761; 96365; 96375; 99285; J1956; J2543; Q9967

== ENCOUNTER 2018-09-24 10:59 | Inpatient (IN) ==
--- NOTE | 2018-09-24 11:15 | Emergency Department Note ---
ED Disposition Clinical Impression: Pneumonia, Klebsiella pneumonia Disposition: Admitted As Inpatient Condition on Discharge: Good Referrals: Mariah Ramirez PA [Primary Care Provider] - Time of Disposition: 13:25 - Critical Care Critical Care Time: No Attestation: On 09/24/18, the high probability of a clinically significant, sudden or life threatening deterioration of the following system(s) required my full and direct attention, intervention and personal management. The time I documented below is in addition to time spent performing reported procedures but includes the following listed in this critical care notation. Medical Decision Making - Medical Records Medical records reviewed: Yes: I reviewed the patient's medical records. - Nikolai Inquiry Pt receiving controlled substance: No Nikolai was queried for this patient: No Vital Signs: 09/24/18 11:17 09/24/18 11:26 09/24/18 12:00 Temperature 98 F Temperature Source Oral Pulse Rate 108 H Pulse Rate [Left Apical] 119 H 100 H Respiratory Rate 20 Blood Pressure [Right Arm] 88/68 L 105/58 L Blood Pressure Mean [Right Arm] 74 73 02 Sat by Pulse Oximetry 91 L 96 Oxygen Delivery Method Nasal Cannula Nasal Cannula Oxygen Flow Rate (LPM) 2 2 - Lab Data Lab results reviewed: Yes: I reviewed the patient's lab results. Lab Results 09/24/18 11:14: WBC 7.5, RBC 5.14, Hgb 9.1 L, Hct 34.1 L, MCV 66.4 L, MCH 17.7 L , MCHC 26.7 L, RDW 19.1 H, Plt Count 650 H, MPV 6.0 L, Neut % (Auto) 77.5, Lymph % (Auto) 14.0, [place] % (Auto) 7.8, Eos % (Auto) 0.5, Baso % (Auto) 0.3, Neut # (Auto) 5.8, Lymph # (Auto) 1.1, [place] # (Auto) 0.6, Eos # (Auto) 0.0, Baso # (Auto) 0.0 09/24/18 11:14: Sodium 139, Potassium 3.9, Chloride 99, Carbon Dioxide 35 H, Anion Gap 8.9, BUN 15, Creatinine 0.31 L, Estimated Creat Clear 113, Estimated GFR 220, Est GFR ( Amer) 266, Glucose 98, Calcium 8.4 L, Total Bilirubin 0.1 L, AST 8 L, ALT 8 L, Alkaline Phosphatase 103, Troponin I < 0.02, Total Protein 6.9, Albumin 2.3 L, Globulin 4.6 H, Albumin/Globulin Ratio 0.5 L 09/24/18 11:21: Specimen Source Right brachial, O2 % 28%, ABG pH 7.36, ABG pCO2 57.2 H, ABG pO2 68.7 L, ABG HCO3 31.7 H, ABG Total CO2 33.5 H, ABG O2 Saturation 92, ABG Base Excess 6.3 H, Billy Test Non applicable 09/24/18 11:48: Lactate 1.2 Result diagrams: 09/24/18 11:14 09/24/18 11:14 Orders (Tests/Meds): ED MEDICATIONS Discontinued Medications Generic Name Dose Route Start Last Admin Trade Name Freq PRN Reason Stop Dose Admin Albuterol/Ipratropium 3 ml 09/24/18 11:21 09/24/18 12:00 Duoneb 3ml Neb IH 09/24/18 11:22 3 ml ONCE ONE Administration Sodium Chloride 1,000 mls @ 999 mls/hr 09/24/18 11:30 09/24/18 11:23 Sod Chlor 0.9% 1000ml Bag IV 09/24/18 12:30 999 mls/hr .Q1H1M DONAL Administration Methylprednisolone Sodium Succinate 125 mg 09/24/18 11:37 09/24/18 11:38 Solu-Medrol 125mg/2ml Vial IV 09/24/18 11:38 125 mg ONCE ONE Administration ORDERS Category Date Time Status XR chest portable Stat Exams 09/24/18 11:22 Taken UA [Urinalysis and Microscopic] Stat Lab 09/24/18 11:22 Ordered Blood Culture Stat Micro 09/24/18 11:55 Received - Physician Consults Physician Consulted: [email or web address] Time: 13:23 Reason -: Admission, Pt condition General Adult HPI - General Stated complaint: shqakes and cant walk Time Seen by Provider: 09/24/18 11:11 Mode of Arrival: Wheelchair Source of Information: Patient, Spouse Limitations: No Limitations - History of Present Illness HPI narrative: marked increase in sputum production, weakness, cant sit or stand unattended secondary to weakness. Patient weights 75 lbs likely - Related Data Home Medications Medication Instructions Recorded Confirmed Denosumab [Denosumab 60mg/mL 60 mg SUB-Q [id number] 08/21/17 09/01/18 syringe] Fluticasone/Vilanterol [Breo 1 inh INHALATION Q24H 08/23/18 09/01/18 Ellipta 200-25 Mcg INH] Megestrol Acetate 625 mg PO QAM 08/23/18 09/01/18 Nicotine [Nicotine Patch 21 mg TRANSDERMAL DAILY 08/23/18 09/01/18 21mg/24hrs] Tiotropium [place] [Spiriva 2 puff INHALATION DAILY 08/23/18 09/01/18 Respimat] Previous Rx's Medication Instructions Recorded albuterol sulfate HFA 90 2 puff INHALATION Q6H #18 g 06/15/18 mcg/actuation aerosol inhaler levothyroxine 100 mcg capsule 100 mcg PO DAILY #90 cap 06/16/18 levoFLOXacin [Levaquin 500mg 500 mg PO DAILY #5 tab 08/25/18 tab] amoxicillin 250 mg-potassium 15 ml PO BID 10 Days #300 ml 09/01/18 clavulanate 62.5 mg/5 mL oral suspension fluticasone propionate 50 1 spray INTRANASAL DAILY #9.9 g 09/01/18 mcg/actuation nasal spray,suspension gabapentin 100 mg capsule 100 mg PO TID #90 cap 09/01/18 hydrocodone 5 mg-acetaminophen 325 1 tab PO TID PRN #75 tab 09/01/18 mg tablet nystatin 100,000 unit/mL oral 4 ml BUCCAL QID 10 Days #160 ml 09/01/18 suspension Allergies Allergy/AdvReac Type Severity Reaction Status Date / Time No Known Allergies Allergy Verified 09/01/18 14:04 [facility] History - Hepatitis A Screen Attestation statement:: This patient has been screened for Hepatitis A risk factors. I have reviewed the patient's past medical history: Yes Medical History: Reports:: Asthma, Chronic Obstructive Pulmonary Disease (COPD), Home Oxygen Denies:: Diabetes Mellitus Type 1, Diabetes Mellitus Type 2 Other Medical History: Reports: Hypothyroidism Comment: Hyperthyroidism, Allergies Other Surgeries: Yes: Appendectomy, Other Amputation: No Fractures: No - Social History Smoking Status: Current some day smoker Tobacco Type: cigarettes # Packs/Day (cigarettes): 1 Alcohol Intake: never Substance Use Type: denies use Occupational Status: unemployed Housing: house Household Members: spouse Family Hx:: Cancer, Heart Attack ROS Obtained: Yes All systems reviewed & no additional complaints - Constitutional Constitutional: Reports chills, Reports lethargy, Reports malaise - ENT Ears, Nose, Mouth, and Throat: Denies sinus pain, Denies sinus pressure, Denies throat swelling - Cardiovascular Cardiovascular: Denies chest pain, Denies chest pain at rest, Reports dyspnea - Respiratory Respiratory: Yes system reviewed and no additional complaints, except as docu, Yes change in phlegm color, Yes chest congestion, Yes cough, Yes dyspnea, No coughing up blood, Yes wheezing - Gastrointestinal Gastrointestingal: Reports: system reviewed and no additional complaints, except as docu, vomiting. Denies: abdominal pain - Musculoskeletal Musculoskeletal: Denies joint pain, Denies joint stiffness, Denies joint swelling - Integumentary/Breasts Skin/Breast: Denies rash, Denies skin pain - Hematologic/Lymphatic Henatologic/Lymphatic: Denies easy bleeding, Denies easy bruising Physical Exam - General General appearance: alert, lethargic, in distress, cachectic - Eye Eye exam: Present: normal appearance, PERRL, EOMI - ENT ENT exam: Present: normal exam, normal oropharynx, mucous membranes moist, TM's normal bilaterally, normal external ear exam - Chest Chest inspection: Present: normal inspection, symmetric chest wall rise. Absent: tenderness - Respiratory Respiratory exam: Present: respiratory distress, wheezes, prolonged expiratory phase. Absent: normal lung sounds bilaterally - Cardiovascular Cardiovascular exam: Present: normal rhythm, tachycardia. Absent: regular rate, JVD - Abdominal Exam Abdominal exam: Present: soft. Absent: distention, tenderness, guarding - Extremities Exam Extremities exam: Absent: joint swelling, calf tenderness - Neurological Exam Neurological exam: Present: alert, CN II-XII intact - Skin Skin exam: Present: warm, dry
[2018-09-24 11:43] LABS: Alanine Aminotransferase 8 U/L (12-78); Albumin Level 2.3 gm/dL (3.4-5.0); Albumin/Globulin Ratio 0.5 (1.1-1.8); Alkaline Phosphatase 103 U/L (46-116); Anion Gap 8.9 mEq/L (5-15); Aspartate Amino Transferase 8 U/L (15-37); Bilirubin,Total 0.1 mg/dL (0.2-1.0); Blood Urea Nitrogen 15 mg/dL (7-18); Calcium 8.4 mg/dL (8.5-10.1); Carbon Dioxide 35 mmol/L (21.0-32.0); Chloride 99 mmol/L (98-107); Globulin 4.6 gm/dl (1.3-3.2); Glucose 98 mg/dL (74-106); Potassium 3.9 mmoL/L (3.5-5.1); Sodium 139 mmol/L (136-145); Total Protein,Serum 6.9 gm/dL (6.4-8.2)
[2018-09-24 12:09] LABS: Basophils % 0.3 % (0.1-2.0); Eosinophils % 0.5 % (0.1-12.0); Hematocrit 34.1 % (37.0-47.0); Hemoglobin 9.1 g/dL (12.2-16.2); Lymphocytes # 1.1 K/mm3 (0.7-4.5); Mean Corpuscular HGB Conc 26.7 g/dL (31.8-35.4); Mean Corpuscular Hemoglobin 17.7 pg (27.0-31.2); Mean Corpuscular Volume 66.4 fl (81-99); Monocytes # 0.6 K/mm3 (0.1-1.0); Monocytes % 7.8 % (1.7-9.3); Neutrophils # 5.8 K/mm3 (1.8-7.8); Neutrophils % 77.5 % (37.0-80.0); Platelet Count 650 K/mm3 (142-424); Red Blood Count 5.14 M/mm3 (4.20-5.40); Red Cell Distribution Width 19.1 % (11.5-17.5); White Blood Count 7.5 K/mm3 (4.8-10.8)
[2018-09-24 12:13] LABS: ABG Base Excess 6.3 mmol/L (-2.4-2.3); ABG HCO3 31.7 mmhg (22.0-26.0); ABG Oxygen Saturation 92 % (90-100); ABG PH 7.36 mmol/L (7.35-7.45); ABG PO2 68.7 mmhg (80-100); ABG TCO2 33.5 mmhg (23-27)
[2018-09-24 12:16] LABS: Allen's Test Non Applicable; Oxygen 28% %
[2018-09-24 12:17] LABS: ABG PCO2 57.2 mmhg (35.0-45.0)
--- NOTE | 2018-09-24 20:36 | History & Physical Report ---
*Admission Date: 09/24/18 *Chief complaint: sob *History of present illness: this wf with progressive weakness and increased sob and prod cough with known copd presented to the ed - arked increase in sputum production, weakness, cant sit or stand unattended secondary to weakness. Patient weights 75 lbs likely pt with abn cxr and labs and was admitted for ivf and abx with resp treatments and steroids H History I have reviewed the patient's past medical history: Yes Medical History: Reports:: Asthma, Chronic Obstructive Pulmonary Disease (COPD), Home Oxygen Denies:: Diabetes Mellitus Type 1, Diabetes Mellitus Type 2 *Have you ever received a pneumonia vaccine?: No (unable answer) *Have you received a flu vaccine this season?: No (unable answer) Other Medical History: Reports: Hypothyroidism Other Surgeries: Yes: Appendectomy, Other Amputation: No Fractures: No - *Social History Smoking Status: Current some day smoker Tobacco Type: cigarettes # Packs/Day (cigarettes): 0 Alcohol Intake: never Substance Use Type: denies use *Occupational Status:: unemployed Housing: house Household Members: spouse *Travel in the last 8 weeks: None - Psychiatric History Expresses thoughts of harming self/others: None Suicide Plan Description: No Plan Family Hx:: Cancer, Heart Attack Review of Systems - Review of Systems Review of systems:: pertinent systems reviewed and negative unless documented below - Constitutional Reports lack of energy, Reports weakness - Eyes Denies change in vision - ENT Reports sore throat - *Cardiovascular Denies chest pain at rest - *Respiratory Reports cough, Reports shortness of breath, Reports wheezing, Denies coughing up blood - *Gastrointestinal Denies abdominal pain - *Genitourinary Denies blood in urine - *Musculoskeletal Denies joint pain - Integumentary/Breasts Denies rash - *Neurologic Reports weakness, Denies seizure-like activity - Psychiatric Denies anxiety Meds Home Medications Medication Instructions Recorded Confirmed Type Denosumab [Denosumab 60mg/mL 60 mg SUB-Q [id number] 08/21/17 09/24/18 History syringe] albuterol sulfate HFA 90 2 puff INHALATION Q6H #18 g 06/15/18 09/24/18 Rx mcg/actuation aerosol inhaler levothyroxine 100 mcg capsule 100 mcg PO DAILY #90 cap 06/16/18 09/24/18 Rx Fluticasone/Vilanterol [Breo 1 inh INHALATION Q24H 08/23/18 09/24/18 History Ellipta 200-25 Mcg INH] Megestrol Acetate 625 mg PO QAM 08/23/18 09/24/18 History Nicotine [Nicotine Patch 21 mg TRANSDERMAL DAILY 08/23/18 09/24/18 History 21mg/24hrs] Tiotropium [place] [Spiriva 2 puff INHALATION DAILY 08/23/18 09/24/18 History Respimat] fluticasone propionate 50 1 spray INTRANASAL DAILY #9.9 g 09/01/18 09/24/18 Rx mcg/actuation nasal spray,suspension gabapentin 100 mg capsule 100 mg PO TID #90 cap 09/01/18 09/24/18 Rx hydrocodone 5 mg-acetaminophen 325 1 tab PO TID PRN #75 tab 09/01/18 09/24/18 Rx mg tablet Allergies Allergy/AdvReac Type Severity Reaction Status Date / Time No Known Allergies Allergy Verified 09/01/18 14:04 Exam Vital signs and Labs for Last 24 Hours: Temp Pulse Resp BP Pulse Ox 98.0 F 92 H 18 96/51 L 93 L 09/24/18 15:07 09/24/18 19:41 09/24/18 15:07 09/24/18 15:07 09/24/18 19:41 Laboratory Results - last 24 hr 09/24/18 11:14: WBC 7.5, RBC 5.14, Hgb 9.1 L, Hct 34.1 L, MCV 66.4 L, MCH 17.7 L , MCHC 26.7 L, RDW 19.1 H, Plt Count 650 H, MPV 6.0 L, Neut % (Auto) 77.5, Lymph % (Auto) 14.0, [place] % (Auto) 7.8, Eos % (Auto) 0.5, Baso % (Auto) 0.3, Neut # (Auto) 5.8, Lymph # (Auto) 1.1, [place] # (Auto) 0.6, Eos # (Auto) 0.0, Baso # (Auto) 0.0 09/24/18 11:14: Sodium 139, Potassium 3.9, Chloride 99, Carbon Dioxide 35 H, Anion Gap 8.9, BUN 15, Creatinine 0.31 L, Estimated Creat Clear 113, Estimated GFR 220, Est GFR ( Amer) 266, Glucose 98, Calcium 8.4 L, Total Bilirubin 0.1 L, AST 8 L, ALT 8 L, Alkaline Phosphatase 103, Troponin I < 0.02, Total Protein 6.9, Albumin 2.3 L, Globulin 4.6 H, Albumin/Globulin Ratio 0.5 L 09/24/18 11:21: Specimen Source Right brachial, O2 % 28%, ABG pH 7.36, ABG pCO2 57.2 H, ABG pO2 68.7 L, ABG HCO3 31.7 H, ABG Total CO2 33.5 H, ABG O2 Saturation 92, ABG Base Excess 6.3 H, Billy Test Non applicable 09/24/18 11:48: Lactate 1.2 I & O for Last 24 hours: Intake & Output 09/22/18 09/23/18 09/24/18 09/25/18 11:59 11:59 11:59 11:59 Intake Total 360 / 360 Balance 360 / 360 Weight 80 lb 83 lb 2 oz - Constitutional no acute distress, cachectic, chronically ill appearing, cooperative - *Routine HEENT Exam Head: Present: normocephalic Eye: Present: EOMI, PERRL ENT: Present: mucous membranes dry - *Routine Neck Exam Present: supple - *Routine Respiratory Exam Present: decreased breath sounds, rhonchi, wheezes, diminished air movement. Absent: respiratory distress - *Routine Cardiovascular Exam Present: RRR, murmur, S4 - *Routine Abdominal Exam Present: soft - *Routine Extremities Exam Absent: Mehdi's sign - *Routine Skin Exam Present: intact - *Routine Neurological Exam Present: alert, CN II-XII intact - Routine Psychiatric Exam Absent: anxious Assessment and Plan (1) HCAP (healthcare-associated pneumonia) Current visit: Yes Status: Acute Category: Medical Code(s): J18.9 - Pneumonia, unspecified organism (2) Thrombocytosis Current visit: No Status: Acute Category: Medical Code(s): D47.3 - Essential (hemorrhagic) thrombocythemia (3) Low body mass index (BMI) Current visit: No Status: Acute Category: Medical (4) Tobacco use Current visit: Yes Status: Acute Category: Medical Code(s): Z72.0 - Tobacco use (5) Hypothyroid Current visit: Yes Status: Acute Qualifiers: Hypothyroidism type: acquired Qualified Code(s): E03.9 - Hypothyroidism, unspecified Category: Medical Code(s): E03.9 - Hypothyroidism, unspecified (6) COPD with exacerbation Current visit: Yes Status: Acute Category: Medical Code(s): J44.1 - Chronic obstructive pulmonary disease with (acute) exacerbation (7) Osteoporosis Current visit: Yes Status: Acute Category: Medical Code(s): M81.0 - Age- related osteoporosis without current pathological fracture (8) Lumbar disc disease with radiculopathy Current visit: Yes Status: Acute Category: Medical Code(s): M51.16 - Intervertebral disc disorders with radiculopathy, lumbar region (9) Anemia Current visit: Yes Status: Acute Qualifiers: Anemia type: unspecified type Qualified Code(s): D64.9 - Anemia, u nspecified Category: Medical Code(s): D64.9 - Anemia, unspecified (10) Acute and chronic respiratory failure Current visit: No Status: Acute Qualifiers: Respiratory failure complication: hypoxia and hypercapnia Qualified Code(s): J96.21 - Acute and chronic respiratory failure with hypoxia; J96.22 - Acute and chronic respiratory failure with hypercapnia Category: Medical Code(s): J96.20 - Acute and chronic respiratory failure, unspecified whether with hypoxia or hypercapnia
[2018-09-25 06:40] LABS: Basophils % 0.1 % (0.1-2.0); Eosinophils % 0.1 % (0.1-12.0); Hematocrit 33.5 % (37.0-47.0); Hemoglobin 8.9 g/dL (12.2-16.2); Lymphocytes # 0.4 K/mm3 (0.7-4.5); Lymphocytes % 10.7 % (10-50); Mean Corpuscular HGB Conc 26.6 g/dL (31.8-35.4); Mean Corpuscular Hemoglobin 17.8 pg (27.0-31.2); Mean Platelet Volume 5.9 fl (7.4-10.4); Monocytes # 0.1 K/mm3 (0.1-1.0); Monocytes % 2.7 % (1.7-9.3); Neutrophils # 3.5 K/mm3 (1.8-7.8); Neutrophils % 86.4 % (37.0-80.0); Platelet Count 573 K/mm3 (142-424); Red Cell Distribution Width 18.8 % (11.5-17.5); White Blood Count 4.1 K/mm3 (4.8-10.8)
[2018-09-25 07:07] LABS: Anion Gap 7.7 mEq/L (5-15); Calcium 8.5 mg/dL (8.5-10.1); Potassium 3.7 mmoL/L (3.5-5.1)
--- NOTE | 2018-09-25 07:07 | Pharmacy Consult Notes ---
[facility] Pharm[facility] VTE Monitoring - Patient Demographics Admission date: 09/24/18 (t) Report Date: 09/25/18 Time: 07:07 Allergies/Adverse Reactions: Patient Allergies No Known Allergies Allergy (Verified 09/01/18 14:04) Height: 1.55 m Weight: 93.8 kg Patient Problems: Current Active Problems (Updated 09/24/18 @ 20:36 by Fausto Womack MD) Pneumonia (Acute) Klebsiella pneumonia (Acute) - VTE Risk Labs: VTE Related Lab Results Hgb 8.9 g/dL (12.2-16.2) L 09/25/18 05:28 Hct 33.5 % (37.0-47.0) L 09/25/18 05:28 Plt Count 573 K/mm3 (142-424) H 09/25/18 05:28 BUN 15 mg/dL (7-18) 09/24/18 11:14 Creatinine 0.31 mg/dL (0.55-1.02) L 09/24/18 11:14 Estimated Creat Clear 113 mL/min (50-200) 09/24/18 11:14 Was VTE Risk Assessment Performed: Yes VTE Score: 5 VTE Risk Level: Low Risk Clinical Trial Participant: No - Prophylaxis VTE Prophylaxis Ordered?: Yes Types of VTE Prophylaxis: TEDS Knee High
[2018-09-25 08:03] LABS: Lymphocytes % 7 % (10-50); Neutrophils % 93 % (42-76); Total Cells Counted 100
[2018-09-25 08:04] LABS: Hypochromasia 3+
--- NOTE | 2018-09-25 08:42 | Progress Note ---
Internal Medicine - PN: Subj *Date: 09/25/18 *Time: 08:40 Exam Vital signs and Labs for Last 24 Hours: Temp Pulse Resp BP Pulse Ox 98.6 F 95 H 19 110/69 94 L 09/25/18 07:21 09/25/18 07:21 09/25/18 07:21 09/25/18 07:21 09/25/18 07:21 Laboratory Results - last 24 hr 09/24/18 11:14: WBC 7.5, RBC 5.14, Hgb 9.1 L, Hct 34.1 L, MCV 66.4 L, MCH 17.7 L , MCHC 26.7 L, RDW 19.1 H, Plt Count 650 H, MPV 6.0 L, Neut % (Auto) 77.5, Lymph % (Auto) 14.0, [place] % (Auto) 7.8, Eos % (Auto) 0.5, Baso % (Auto) 0.3, Neut # (Auto) 5.8, Lymph # (Auto) 1.1, [place] # (Auto) 0.6, Eos # (Auto) 0.0, Baso # (Auto) 0.0 09/24/18 11:14: Sodium 139, Potassium 3.9, Chloride 99, Carbon Dioxide 35 H, Anion Gap 8.9, BUN 15, Creatinine 0.31 L, Estimated Creat Clear 113, Estimated GFR 220, Est GFR ( Amer) 266, Glucose 98, Calcium 8.4 L, Total Bilirubin 0.1 L, AST 8 L, ALT 8 L, Alkaline Phosphatase 103, Troponin I < 0.02, Total Protein 6.9, Albumin 2.3 L, Globulin 4.6 H, Albumin/Globulin Ratio 0.5 L 09/24/18 11:21: Specimen Source Right brachial, O2 % 28%, ABG pH 7.36, ABG pCO2 57.2 H, ABG pO2 68.7 L, ABG HCO3 31.7 H, ABG Total CO2 33.5 H, ABG O2 Saturation 92, ABG Base Excess 6.3 H, Billy Test Non applicable 09/24/18 11:48: Lactate 1.2 09/25/18 05:28: WBC 4.1 L D, RBC 5.00, Hgb 8.9 L, Hct 33.5 L, MCV 67.0 L, MCH 17.8 L, MCHC 26.6 L, RDW 18.8 H, Plt Count 573 H, MPV 5.9 L, Neut % (Auto) 86.4 H, Lymph % (Auto) 10.7, [place] % (Auto) 2.7, Eos % (Auto) 0.1, Baso % (Auto) 0.1, Neut # (Auto) 3.5, Lymph # (Auto) 0.4 L, [place] # (Auto) 0.1, Eos # (Auto) 0.0, Baso # (Auto) 0.0, Total Counted 100, Neutrophils % (Manual) 93 H, Lymphocytes % (Manual) 7 L, Platelet Estimate Slight increase, Hypochromasia 3+, Microcytosis 2+ 09/25/18 05:28: Sodium 138, Potassium 3.7, Chloride 101, Carbon Dioxide 33 H, Anion Gap 7.7, BUN 16, Creatinine 0.44 L D, Estimated Creat Clear 96, Estimated GFR 147, Est GFR ( Amer) 178 D, Glucose 142 H D, Calcium 8.5 I & O for Last 24 hours: Intake & Output 09/22/18 09/23/18 09/24/18 09/25/18 11:59 11:59 11:59 11:59 Intake Total 1952 Balance 1952 Weight 80 lb 96 lb 9 oz Microbiology Reports for the Last 24 Hours: Microbiology 09/25/18 04:45 Sputum - Expectorated Sputum Gram Stain - Final - Constitutional no acute distress, thin, chronically ill appearing - *Routine HEENT Exam Head: Present: normocephalic Eye: Present: PERRL ENT: Present: mucous membranes moist - *Routine Neck Exam Present: supple. Absent: lymphadenopathy - *Routine Respiratory Exam Present: wheezes, diminished air movement - *Routine Cardiovascular Exam Present: murmur, S4 - *Routine Abdominal Exam Present: soft, normoactive bowel sounds. Absent: tenderness - *Routine Extremities Exam Absent: cyanosis, clubbing, edema - *Routine Skin Exam Present: warm. Absent: rash - *Routine Neurological Exam Present: alert, oriented X3 - Routine Psychiatric Exam Present: normal affect Assessment and Plan (1) HCAP (healthcare-associated pneumonia) Current visit: Yes Status: Acute Category: Medical Code(s): J18.9 - Pneumonia, unspecified organism (2) Thrombocytosis Current visit: No Status: Acute Category: Medical Code(s): D47.3 - Essential (hemorrhagic) thrombocythemia (3) Low body mass index (BMI) Current visit: No Status: Acute Category: Medical (4) Tobacco use Current visit: Yes Status: Acute Category: Medical Code(s): Z72.0 - Tobacco use (5) Hypothyroid Current visit: Yes Status: Acute Qualifiers: Hypothyroidism type: acquired Qualified Code(s): E03.9 - Hypothyroidism, unspecified Category: Medical Code(s): E03.9 - Hypothyroidism, unspecified (6) COPD with exacerbation Current visit: Yes Status: Acute Category: Medical Code(s): J44.1 - Chronic obstructive pulmonary disease with (acute) exacerbation (7) Osteoporosis Current visit: Yes Status: Acute Category: Medical Code(s): M81.0 - Age- related osteoporosis without current pathological fracture (8) Lumbar disc disease with radiculopathy Current visit: Yes Status: Acute Category: Medical Code(s): M51.16 - Intervertebral disc disorders with radiculopathy, lumbar region (9) Anemia Current visit: Yes Status: Acute Qualifiers: Anemia type: unspecified type Qualified Code(s): D64.9 - Anemia, unsp ecified Category: Medical Code(s): D64.9 - Anemia, unspecified (10) Acute and chronic respiratory failure Current visit: No Status: Acute Qualifiers: Respiratory failure complication: hypoxia and hypercapnia Qualified Code(s): J96.21 - Acute and chronic respiratory failure with hypoxia; J96.22 - Acute and chronic respiratory failure with hypercapnia Category: Medical Code(s): J96.20 - Acute and chronic respiratory failure, unspecified whether with hypoxia or hypercapnia - Assessment and plan all Dx Assessment and Plan for all problems:: Rounded with Dr. Womack all orders per Vu Await culture report results Add Levaquin 750mg every 24hrs
[2018-09-25 13:57] LABS: Microscopic, Urine URINE MICROSCOPIC (MICROSCOPIC)
[2018-09-25 13:58] LABS: Appearance,Urine CLEAR (Clear); Bilirubin,Urine Negative (Negative); Blood, Urine Negative (Negative); Color,Urine YELLOW (Yellow); Glucose,Urine (UA) Negative (Negative); Ketones,Urine Negative (Negative); Leukocyte Esterase,Urine Negative (Negative); Protein,Urine Negative (Negative); Specific Gravity, Urine 1.025 (1.005-1.030); Urobilinogen,Urine 0.2 EU/dl (0.2)
[2018-09-25 14:09] LABS: Bacteria,Urine Trace /lpf; Mucus,Urine 3+ /lpf; WBC,Urine Occasional #/hpf (0-3)
[2018-09-26 06:23] LABS: Basophils % 0.1 % (0.1-2.0); Hematocrit 30.7 % (37.0-47.0); Hemoglobin 8.3 g/dL (12.2-16.2); Lymphocytes # 0.3 K/mm3 (0.7-4.5); Mean Corpuscular Hemoglobin 17.6 pg (27.0-31.2); Mean Corpuscular Volume 65.4 fl (81-99); Mean Platelet Volume 5.7 fl (7.4-10.4); Monocytes # 0.2 K/mm3 (0.1-1.0); Monocytes % 2.9 % (1.7-9.3); Neutrophils # 6.1 K/mm3 (1.8-7.8); Neutrophils % 92.1 % (37.0-80.0); Platelet Count 515 K/mm3 (142-424); Red Blood Count 4.69 M/mm3 (4.20-5.40); Red Cell Distribution Width 18.7 % (11.5-17.5); White Blood Count 6.6 K/mm3 (4.8-10.8)
[2018-09-26 06:58] LABS: Anion Gap 7.7 mEq/L (5-15); Calcium 8.4 mg/dL (8.5-10.1); Potassium 3.7 mmoL/L (3.5-5.1)
[2018-09-26 08:45] LABS: Hypochromasia 3+; Lymphocytes % 7 % (10-50); Monocytes % 1 % (2-9); Neutrophils % 92 % (42-76); Total Cells Counted 100
--- NOTE | 2018-09-26 09:11 | Progress Note ---
Internal Medicine - PN: Subj *Date: 09/26/18 *Time: 09:10 Interval history: doing better at this time Exam Vital signs and Labs for Last 24 Hours: Temp Pulse Resp BP Pulse Ox 98.5 F 113 H 18 110/66 98 09/26/18 07:48 09/26/18 07:48 09/26/18 07:48 09/26/18 07:48 09/26/18 07:48 Laboratory Results - last 24 hr 09/25/18 13:40: Urine Color Yellow, Urine Appearance Clear, Urine pH 6.0, Ur Specific [place] 1.025, Urine Protein Negative, Urine Glucose (UA) Negative, Urine Ketones Negative, Urine Blood Negative, Urine Nitrate Negative, Urine Bilirubin Negative, Urine Urobilinogen 0.2, Ur Leukocyte Esterase Negative, Urine WBC Occasional, Urine Bacteria Trace, Urine Mucus 3+ 09/26/18 05:40: WBC 6.6 D, RBC 4.69, Hgb 8.3 L, Hct 30.7 L, MCV 65.4 L, MCH 17.6 L, MCHC 27.0 L, RDW 18.7 H, Plt Count 515 H, MPV 5.7 L, Neut % (Auto) 92.1 H, Lymph % (Auto) 5.0 L, Yell % (Auto) 2.9, Eos % (Auto) 0.0 L, Baso % (Auto) 0.1, Neut # (Auto) 6.1, Lymph # (Auto) 0.3 L, Yell # (Auto) 0.2, Eos # (Auto) 0.0, Baso # (Auto) 0.0, Total Counted 100, Neutrophils % (Manual) 92 H, Lymphocytes % (Manual) 7 L, Monocytes % (Manual) 1 L, Platelet Estimate Marked increase, Hypochromasia 3+, Microcytosis 2+ 09/26/18 05:40: Sodium 139, Potassium 3.7, Chloride 104, Carbon Dioxide 31, Anion Gap 7.7, BUN 12, Creatinine 0.30 L D, Estimated Creat Clear 138, Estimated GFR 228, Est GFR ( Amer) 276 D, Glucose 116 H, Calcium 8.4 L I & O for Last 24 hours: Intake & Output 09/23/18 09/24/18 09/25/18 09/26/18 11:59 11:59 11:59 11:59 Intake Total 2102 600 / 600 Output Total 1250 / 1250 Balance 2102 -650 / -650 Weight 80 lb 96 lb 9 oz 94 lb 6 oz Microbiology Reports for the Last 24 Hours: Microbiology 09/25/18 04:45 Sputum - Expectorated Sputum Gram Stain - Final - Constitutional no acute distress, thin - *Routine HEENT Exam Head: Present: normocephalic Eye: Present: EOMI, PERRL ENT: Present: mucous membranes dry - *Routine Neck Exam Absent: JVD - *Routine Respiratory Exam Present: decreased breath sounds - *Routine Cardiovascular Exam Present: tachycardia - *Routine Abdominal Exam Present: soft - *Routine Extremities Exam Absent: calf tenderness - *Routine Skin Exam Present: intact - *Routine Neurological Exam Present: alert, CN II-XII intact - Routine Psychiatric Exam Present: normal affect Assessment and Plan (1) HCAP (healthcare-associated pneumonia) Current visit: Yes Status: Acute Category: Medical Code(s): J18.9 - Pneumonia, unspecified organism (2) Thrombocytosis Current visit: No Status: Acute Category: Medical Code(s): D47.3 - Essential (hemorrhagic) thrombocythemia (3) Low body mass index (BMI) Current visit: No Status: Acute Category: Medical (4) Tobacco use Current visit: Yes Status: Acute Category: Medical Code(s): Z72.0 - Tobacco use (5) Hypothyroid Current visit: Yes Status: Acute Qualifiers: Hypothyroidism type: acquired Qualified Code(s): E03.9 - Hypothyroidism, unspecified Category: Medical Code(s): E03.9 - Hypothyroidism, unspecified (6) COPD with exacerbation Current visit: Yes Status: Acute Category: Medical Code(s): J44.1 - Chronic obstructive pulmonary disease with (acute) exacerbation (7) Osteoporosis Current visit: Yes Status: Acute Category: Medical Code(s): M81.0 - Age- related osteoporosis without current pathological fracture (8) Lumbar disc disease with radiculopathy Current visit: Yes Status: Acute Category: Medical Code(s): M51.16 - Intervertebral disc disorders with radiculopathy, lumbar region (9) Anemia Current visit: Yes Status: Acute Qualifiers: Anemia type: unspecified type Qualified Code(s): D64.9 - Anemia, unspecified Category: Medical Code(s): D64.9 - Anemia, unspecified (10) Acute and chronic respiratory failure Current visit: No Status: Acute Qualifiers: Respiratory failure complication: hypoxia and hypercapnia Qualified Code(s): J96.21 - Acute and chronic respiratory failure with hypoxia; J96.22 - Acute and chronic respiratory failure with hypercapnia Category: Medical Code(s): J96.20 - Acute and chronic respiratory failure, unspecified whether with hypoxia or hypercapnia
--- NOTE | 2018-09-27 09:26 | Discharge Summary ---
General - General Admission date:: 09/24/18 Discharge date: 09/27/18 HPI HPI: this wf with progressive weakness and increased sob and prod cough with known copd presented to the ed - arked increase in sputum production, weakness, cant sit or stand unattended secondary to weakness. Patient weights 75 lbs likely pt with abn cxr and labs and was admitted for ivf and abx with resp treatments and steroids Hospital Course Hospital Course: pt has improved on steroids and resp treatment s with ivf and abx - she has stable anemia and reports able to ambulate and on home o2- will need inhalers reordered -will d/c home with steroids and abx and close follow up in office this week Objective Vital signs: Temp Pulse Resp BP Pulse Ox 98.7 F 101 H 22 122/64 99 09/27/18 08:00 09/27/18 08:00 09/27/18 08:00 09/27/18 08:00 09/27/18 08:00 no acute distress, thin - *Routine HEENT Exam Head: Present: normocephalic Eye: Present: EOMI, PERRL ENT: Present: mucous membranes dry - *Routine Neck Exam Absent: JVD - *Routine Respiratory Exam Present: decreased breath sounds, rhonchi - *Routine Cardiovascular Exam Present: RRR, murmur - *Routine Abdominal Exam Present: soft - *Routine Extremities Exam Absent: calf tenderness - *Routine Skin Exam Present: intact - *Routine Neurological Exam Present: alert, CN II-XII intact - Routine Psychiatric Exam Present: normal affect Results Labs on day of discharge: Preliminary micro results at discharge 09/25/18 04:45 Sputum Culture - Preliminary Sputum - Expectorated Sputum 09/24/18 11:55 Blood Culture - Preliminary Blood NO GROWTH AFTER 48 HOURS 09/24/18 11:48 Blood Culture - Preliminary Blood NO GROWTH AFTER 48 HOURS DS: Diagnosis - Discharge Diagnosis (1) HCAP (healthcare-associated pneumonia) Status: Acute (2) Thrombocytosis Status: Acute (3) Low body mass index (BMI) Status: Acute (4) Tobacco use Status: Acute (5) Hypothyroid Status: Acute (6) COPD with exacerbation Status: Acute (7) Osteoporosis Status: Acute (8) Lumbar disc disease with radiculopathy Status: Acute (9) Anemia Status: Acute (10) Acute and chronic respiratory failure Status: Acute Discharge Plan - Patient Discharge Instructions ACTIVITY: Continue current activity DIET: continue same diet Patient Instructions: Pneumonia-Adult, Osteoporosis, Hypothyroidism, Chronic Obstructive Pulmonary Disease, DI for Chronic Obstructive Pulmonary Disease, DI for Pneumonia -- Adult, DI for Muscle Weakness, DI for Hypothyroidism - Follow up Plan Disposition: Home, Self-Nursing Home Medications: Home Medications Medication Instructions Recorded Confirmed Type Denosumab [Denosumab 60mg/mL 60 mg SUB-Q [id number] 08/21/17 09/24/18 History syringe] albuterol sulfate HFA 90 2 puff INHALATION Q6H #18 g 06/15/18 09/24/18 Rx mcg/actuation aerosol inhaler levothyroxine 100 mcg capsule 100 mcg PO DAILY #90 cap 06/16/18 09/24/18 Rx Fluticasone/Vilanterol [Breo 1 inh INHALATION Q24H 08/23/18 09/24/18 History Ellipta 200-25 Mcg INH] Megestrol Acetate 625 mg PO QAM 08/23/18 09/24/18 History Nicotine [Nicotine Patch 21 mg TRANSDERMAL DAILY 08/23/18 09/24/18 History 21mg/24hrs] Tiotropium [place] [Spiriva 2 puff INHALATION DAILY 08/23/18 09/24/18 History Respimat] fluticasone propionate 50 1 spray INTRANASAL DAILY #9.9 g 09/01/18 09/24/18 Rx mcg/actuation nasal spray,suspension gabapentin 100 mg capsule 100 mg PO TID #90 cap 09/01/18 09/24/18 Rx hydrocodone 5 mg-acetaminophen 325 1 tab PO TID PRN #75 tab 09/01/18 09/24/18 Rx mg tablet levoFLOXacin [Levaquin 500mg 500 mg PO DAILY #7 tab 09/27/18 Rx tab] predniSONE [Prednisone 20mg 20 mg PO BID #10 tab 09/27/18 Rx Tab] Prescriptions/Medication Reconciliation: New Gabapentin [Neurontin 100mg cap] 100 mg PO TID capsule Nicotine [Nicoderm 21mg/24hr patch] 21 mg TD DAILY patch.td24 levoFLOXacin [Levaquin 500mg tab] 500 mg PO DAILY #7 tab predniSONE [Prednisone 20mg Tab] 20 mg PO BID #10 tab Continued albuterol sulfate HFA 90 mcg/actuation aerosol inhaler 2 puff INHALATION Q6H #18 g levothyroxine 100 mcg capsule 100 mcg PO DAILY #90 cap fluticasone propionate 50 mcg/actuation nasal spray,suspension 1 spray INTRANASAL DAILY #9.9 g gabapentin 100 mg capsule 100 mg PO TID #90 cap hydrocodone 5 mg-acetaminophen 325 mg tablet 1 tab PO TID PRN #75 tab PRN Reason: pain Denosumab [Denosumab 60mg/mL syringe] 60 mg SUB-Q [id number] Megestrol Acetate 625 mg PO QAM Fluticasone/Vilanterol [Breo Ellipta 200-25 Mcg INH] 1 inh INHALATION Q24H Tiotropium [place] [Spiriva Respimat] 2 puff INHALATION DAILY Nicotine [Nicotine Patch 21mg/24hrs] 21 mg TRANSDERMAL DAILY
== END 2018-09-27 10:25 | disposition home or self-care (01) | DRG 190 ==
LOC: ER 10:59 → 2ND 13:42
PROVIDERS: ADMIT Emergency Medicine; ATTEND Emergency Medicine
CPT/HCPCS: 36415; 71010; 71045; 80048; 80053; 81001; 82803; 83605; 84484; 85007; 85025; 87040; 87070; 87077; 87184; 87205; 93005; 94640; 94761; 96365; 96367; 96375; 99285; J0692; J1956

== ENCOUNTER → 2018-11-02 12:02 | Outpatient (CLI) | payer MEDICAID, SELFPAY ==
[2018-11-02 14:46] LABS: Amphetamine/Metha Screen,Urine Negative ng/mL (<1000); Barbiturates Screen,Urine Negative ng/mL (<200); Benzodiazepines Screen,Urine Negative ng/mL (<200); Cannabinoid Screen,Urine Negative ng/mL (<50); Cocaine Screen,Urine Negative ng/mL (<300); Methadone Screen,Urine Negative ng/mL (<300); Opiate Screen,Urine Negative ng/mL (<300); Phencyclidine Screen,Urine Negative ng/mL (<25)
== END ==
PROVIDERS: Visit Provider Nurse Practitioner Family
DX: Z79.899 Other long term (current) drug therapy (principal)
CPT/HCPCS: 80305

== ENCOUNTER 2019-01-16 10:41 | Inpatient (IN) ==
--- NOTE | 2019-01-16 10:10 | Emergency Department Note ---
ED Disposition Clinical Impression: Dental abscess, COPD exacerbation Acute respiratory failure Qualifiers: Respiratory failure complication: hypoxia and hypercapnia Qualified Code(s): J96.01 - Acute respiratory failure with hypoxia Disposition: Admitted As Inpatient Condition on Discharge: Serious Referrals: Fausto Womack MD [Primary Care Provider] - - Critical Care Critical Care Time: Yes Attestation: On , the high probability of a clinically significant, sudden or life threatening deterioration of the following system(s) required my full and direct attention, intervention and personal management. The time I documented below is in addition to time spent performing reported procedures but includes the following listed in this critical care notation. Total Critical Care Time: 40 Vital system(s) involved:: Respiratory Failure My critical care processes included: Assessment & monitoring of V/S, Initial and Re-exams, Data Review/Interpretation, Coordinating Care, Medication Orders and management, Documentation Medical Decision Making - Nikolai Inquiry Pt receiving controlled substance: No Vital Signs: 01/16/19 10:00 01/16/19 10:34 01/16/19 10:50 Temperature 97.1 F L Temperature Source Temporal Artery Scan Pulse Rate 83 Pulse Rate [Right Brachial] 83 87 Respiratory Rate 26 H Blood Pressure [Right Arm] 87/46 L 106/55 L Blood Pressure Mean [Right Arm] 59 72 Blood Pressure Source [Right Arm] Automatic Cuff Blood Pressure Position [Right Arm] Supine 02 Sat by Pulse Oximetry 86 L 98 93 L Oxygen Delivery Method Room Air BiPAP 01/16/19 11:00 01/16/19 11:22 Temperature Temperature Source Pulse Rate Pulse Rate [Right Brachial] 87 87 Respiratory Rate Blood Pressure [Right Arm] 88/54 L 107/37 L Blood Pressure Mean [Right Arm] 65 60 Blood Pressure Source [Right Arm] Blood Pressure Position [Right Arm] 02 Sat by Pulse Oximetry 99 98 Oxygen Delivery Method - Lab Data Lab Results 01/16/19 10:05: Specimen Source Right brachial, O2 % nrb 100%, ABG pH 7.24 L*, ABG pCO2 90.1 H, ABG pO2 52.9 L, ABG HCO3 37.7 H, ABG Total CO2 40.5 H, ABG O2 Saturation 81 L*, ABG Base Excess 10.4 H, Billy Test Non applicable 01/16/19 10:10: WBC 6.4, RBC 5.68 H, Hgb 8.9 L, Hct 37.0, MCV 65.1 L, MCH 15.7 L , MCHC 24.0 L, RDW 20.0 H, Plt Count 311, MPV 6.2 L, Neut % (Auto) 76.8, Lymph % (Auto) 14.8, [place] % (Auto) 7.6, Eos % (Auto) 0.3, Baso % (Auto) 0.6, Neut # (Auto) 4.9, Lymph # (Auto) 0.9, [place] # (Auto) 0.5, Eos # (Auto) 0.0, Baso # (Auto) 0.0 01/16/19 10:10: Sodium 140, Potassium 3.8, Chloride 102, Carbon Dioxide 39 H, Anion Gap 2.8 L, BUN 9, Creatinine 0.42 L, Estimated Creat Clear 73, Estimated GFR 155, Est GFR ( Amer) 188, Glucose 96, Calcium 7.8 L, Total Bilirubin 0.3, AST 15, ALT 6 L, Alkaline Phosphatase 100, Troponin I < 0.02, Total Protein 5.9 L, Albumin 2.2 L, Globulin 3.7 H, Albumin/Globulin Ratio 0.6 L 01/16/19 10:10: Lactate 0.3 L 01/16/19 10:10: B-Natriuretic Peptide 216 H 01/16/19 11:17: Urine Color Yellow, Urine Appearance Clear, Urine pH 5.5, Ur Specific [place] >= 1.030, Urine Protein Negative, Urine Glucose (UA) Negative, Urine Ketones Negative, Urine Blood Negative, Urine Nitrate Negative, Urine Bilirubin 1+ A, Urine Urobilinogen 1.0, Ur Leukocyte Esterase Negative, Urine WBC 3-5, Ur Squamous Epith Cells Occasional, Urine Bacteria 2+ 01/16/19 11:17: Urine Opiates Screen Negative, Urine Methadone Screen Negative, Ur Barbituates Screen Negative, Ur Phencyclidine Scrn Negative, Ur Amphetamines Screen Negative, U Benzodiazepines Scrn Negative, Urine Cocaine Screen Negative, U Marijuana (THC) Screen Negative Result diagrams: 01/16/19 10:10 01/16/19 10:10 Orders (Tests/Meds): ED MEDICATIONS Generic Name Dose Route Start Last Admin Trade Name Freq PRN Reason Stop Dose Admin Ceftriaxone Sodium 1 gm/ 50 mls @ 100 mls/hr 01/16/19 11:15 01/16/19 11:17 Sodium Chloride IV 01/30/19 11:14 100 mls/hr Q24H DONAL Administration Protocol Clindamycin Phosphate 600 mg/ 104 mls @ 200 mls/hr 01/16/19 11:15 01/16/19 11:24 Sodium Chloride IV 01/30/19 11:14 200 mls/hr Q8H DONAL Administration Protocol Sodium Chloride 3 ml 01/16/19 10:14 Sodium Chloride 3% 15ml [facility] 02/15/19 10:13 ONCE PRN INDUCE SPUTUM COLLECTION Discontinued Medications Generic Name Dose Route Start Last Admin Trade Name Freq PRN Reason Stop Dose Admin Albuterol/Ipratropium 3 ml 01/16/19 10:15 01/16/19 11:17 Duoneb 3ml [facility] 01/16/19 10:16 3 ml ONCE ONE Administration Sodium Chloride 1,000 mls @ 999 mls/hr 01/16/19 10:15 01/16/19 10:19 Sod Chlor 0.9% 1000ml Bag IV 01/16/19 11:15 999 mls/hr .Q1H1M DONAL Administration Methylprednisolone Sodium Succinate 125 mg 01/16/19 10:30 01/16/19 10:35 Solu-Medrol 125mg/2ml Vial IV 01/16/19 10:31 125 mg ONCE ONE Administration Naloxone HCl 1 mg 01/16/19 10:31 01/16/19 10:20 Narcan 2mg/2ml Syringe IV 01/16/19 10:32 1 mg ONCE ONE Administration Naloxone HCl 0.5 mg 01/16/19 10:20 01/16/19 10:35 Narcan 2mg/2ml Syringe IV 01/16/19 10:21 0.5 mg ONCE ONE Administration ORDERS Category Date Time Status Blood Culture Stat Micro 01/16/19 10:17 Ordered Sputum Culture & Gram Stain Stat Micro 01/16/19 10:13 Results Urine Culture Stat Micro 01/16/19 11:17 Received - Radiology Data #1 Image(s): Chest Image Reviewed: Yes I reviewed the patient's radiology image, Yes I have reviewed radiologist's interpretation IMPRESSION: Chronic changes with biapical bulla and pulmonary fibrotic change with possible superimposed infiltrate in the right lower lobe and small left effusion Dictated by: Billy Keenan MD 01/16/2019 11:31 - ECG Data Tracing #1 EKG interpreted by Madhav Staples MD: Rhythm: sinus Rate: 87 [place]: Rightward Ectopy: none Conduction: normal ST Segment Changes: none T Wave Changes: none Q Waves: none No evidence of acute ischemia or injury - Physician Consults Physician Consulted: Melba Womack Time: 11:15 Reason -: Admission Comment/Response: Agrees to admit the patient to the hospital. We discussed the patient's clinical information, including history, exam, laboratory and radiology results and ED course. Per hospital procedure, I will write temporary bridge inpatient orders on the patient. Specific orders requested by the admitting physician: Rocephin and clindamycin. Continue BiPAP. Repeat ABGs in 6 hours. IV fluids. General Adult HPI - General Chief complaint: Shortness of Breath/Dyspnea Stated complaint: respiratory difficulty Time Seen by Provider: 01/16/19 10:09 Mode of Arrival: EMS Limitations: No Limitations Description of Symptoms (Recalled from ER Triage Doc. by RN): shortness of air for a couple of days; history of copd - History of Present Illness HPI narrative: Brought in by ambulance. Patient does not appear to be competent historian at this point. History obtained from . He states that she was "flopping around" all night long. States that when she gets like that her oxygen is usually low. He says he was checking it all night. This morning her pulse ox was in the 50s. She has COPD and is on 2 L nasal cannula oxygen at home. He says she has been using her oxygen. He says she has not recently been ill except for an "abscess" in her left jaw that is been there for 2 to 3 weeks. She is refused to see anybody about it. No fever. No change in her chronic cough or sputum production. No vomiting or diarrhea. Patient denies any pain. She has end-stage COPD. When I last saw her in this emergency room in July to have chronic cavitary lung lesions and a positive Cologuard and arrangements were reported to be in progress to get her a colonoscopy and bronchoscopy at the same time at [facility]. states she still has not had this done. He says that her son has reported to him that she has canceled the appointments. She is still a smoker. She has recently been changed from hydrocodone to Suboxone last month. He says that she gets a half of a pill twice a day and he did give her one half of a pill this morning. - Related Data Home Medications Medication Instructions Recorded Confirmed Denosumab [Denosumab 60mg/mL 60 mg SUB-Q [id number] 08/21/17 01/16/19 syringe] Megestrol Acetate 625 mg PO QAM 08/23/18 01/16/19 Nicotine [Nicotine Patch 21 mg TRANSDERMAL DAILY 08/23/18 01/16/19 21mg/24hrs] Tiotropium [place] [Spiriva 2 puff INHALATION DAILY 08/23/18 01/16/19 Respimat] tiotropium bromide 2.5 2 puff INHALATION DAILY 09/30/18 01/16/19 mcg/actuation mist for inhalation Fluconazole [Diflucan] 200 mg PO DAILY 01/16/19 01/16/19 Levothyroxine Sodium [Tirosint] See Rx Instructions .ROUTE .COMPLEX 01/16/19 01/16/19 Previous Rx's Medication Instructions Recorded albuterol sulfate HFA 90 2 puff INHALATION Q6H #18 g 06/15/18 mcg/actuation aerosol inhaler fluticasone propionate 50 1 spray INTRANASAL DAILY #9.9 g 09/01/18 mcg/actuation nasal spray,suspension gabapentin 100 mg capsule 100 mg PO TID #90 cap 09/01/18 Allergies Allergy/AdvReac Type Severity Reaction Status Date / Time No Known Allergies Allergy Verified 11/02/18 09:[address] [facility] History - Hepatitis A Screen Drug use history?: No High risk sexual behaviors?: No History of sexually transmitted infection?: No Currently employed?: No Childcare worker?: No Do you have indoor plumbing?: Yes Do you have electricity?: Yes Attestation statement:: This patient has been screened for Hepatitis A risk factors. I have reviewed the patient's past medical history: Yes Medical History: Reports:: Asthma, Chronic Obstructive Pulmonary Disease (COPD), Home Oxygen Denies:: Diabetes Mellitus Type 1, Diabetes Mellitus Type 2 Other Medical History: Reports: Hypothyroidism Comment: Hyperthyroidism, Allergies Other Surgeries: Yes: Appendectomy, Other Amputation: No Fractures: No - Social History Smoking Status: Former smoker Tobacco Type: cigarettes # Packs/Day (cigarettes): 0 Alcohol Intake: never Substance Use Type: denies use Occupational Status: unemployed Housing: house Household Members: spouse Family Hx:: Cancer, Heart Attack ROS Obtained: Yes unobtainable due to mental status Physical Exam - General General appearance: other Comment: Responds to voice, opens her eyes and answers questions, but quickly will fall back asleep when not spoken to or stimulated. Not in respiratory distress. Breathing easily. She is on nonrebreather mask when I arrived in the room with a pulse ox of 100%. Nurse reports that she was 86% saturation on arrival on room air as oxygen had been removed when she was taken from the ambulance to be brought to the emergency room. Oxygen changed to nasal cannula and will be titrated. - Head Head exam: atraumatic, normocephalic - Eye Eye exam: Present: miosis (Pupils 2 to 3 mm. When she drifts off to sleep, they become pinpoint.) - ENT ENT exam: Present: other (Mild edema angle of her left mandible without erythema or fluctuance or exfoliation.) - Neck Neck exam: Present: normal inspection, trachea midline - Chest Chest inspection: Present: normal inspection, symmetric chest wall rise - Respiratory Respiratory exam: Present: other (Decreased breath sounds bilaterally) - Cardiovascular Cardiovascular exam: Present: regular rate, normal rhythm, normal heart sounds - Abdominal Exam Abdominal exam: Present: soft. Absent: distention, tenderness - Extremities Exam Extremities exam: Present: pedal edema (2+ lower leg and pedal edema bilaterally symmetric) - Neurological Exam Neurological exam: Present: CN II-XII intact, motor sensory deficit, other (Occasional myoclonic twitches.) - Skin Skin exam: Present: warm, dry
[2019-01-16 10:24] LABS: Basophils % 0.6 % (0.1-2.0); Eosinophils % 0.3 % (0.1-12.0); Hemoglobin 8.9 g/dL (12.2-16.2); Lymphocytes # 0.9 K/mm3 (0.7-4.5); Lymphocytes % 14.8 % (10-50); Mean Corpuscular Volume 65.1 fl (81-99); Mean Platelet Volume 6.2 fl (7.4-10.4); Monocytes # 0.5 K/mm3 (0.1-1.0); Monocytes % 7.6 % (1.7-9.3); Neutrophils # 4.9 K/mm3 (1.8-7.8); Neutrophils % 76.8 % (37.0-80.0); Platelet Count 311 K/mm3 (142-424); Red Blood Count 5.68 M/mm3 (4.20-5.40); White Blood Count 6.4 K/mm3 (4.8-10.8)
[2019-01-16 10:27] LABS: ABG Base Excess 10.4 mmol/L (-2.4-2.3); ABG HCO3 37.7 mmhg (22.0-26.0); ABG Oxygen Saturation 81 % (90-100); ABG PH 7.24 mmol/L (7.35-7.45); ABG PO2 52.9 mmhg (80-100); ABG TCO2 40.5 mmhg (23-27)
[2019-01-16 10:31] LABS: ABG PCO2 90.1 mmhg (35.0-45.0); Allen's Test Non Applicable
[2019-01-16 10:38] LABS: Alanine Aminotransferase 6 U/L (12-78); Albumin Level 2.2 gm/dL (3.4-5.0); Albumin/Globulin Ratio 0.6 (1.1-1.8); Alkaline Phosphatase 100 U/L (46-116); Anion Gap 2.8 mEq/L (5-15); Aspartate Amino Transferase 15 U/L (15-37); Bilirubin,Total 0.3 mg/dL (0.2-1.0); Blood Urea Nitrogen 9 mg/dL (7-18); Calcium 7.8 mg/dL (8.5-10.1); Carbon Dioxide 39 mmol/L (21.0-32.0); Chloride 102 mmol/L (98-107); Globulin 3.7 gm/dl (1.3-3.2); Glucose 96 mg/dL (74-106); Sodium 140 mmol/L (136-145); Total Protein,Serum 5.9 gm/dL (6.4-8.2)
[2019-01-16 11:23] LABS: Microscopic, Urine URINE MICROSCOPIC (MICROSCOPIC)
[2019-01-16 11:25] LABS: Appearance,Urine CLEAR (Clear); Blood, Urine Negative (Negative); Color,Urine YELLOW (Yellow); Glucose,Urine (UA) Negative (Negative); Ketones,Urine Negative (Negative); Leukocyte Esterase,Urine Negative (Negative); PH,Urine 5.5 (5.0-8.5); Protein,Urine Negative (Negative); Specific Gravity, Urine >= 1.030 (1.005-1.030)
[2019-01-16 11:31] LABS: Amphetamine/Metha Screen,Urine Negative ng/mL (<1000); Barbiturates Screen,Urine Negative ng/mL (<200); Benzodiazepines Screen,Urine Negative ng/mL (<200); Cannabinoid Screen,Urine Negative ng/mL (<50); Cocaine Screen,Urine Negative ng/mL (<300); Methadone Screen,Urine Negative ng/mL (<300); Opiate Screen,Urine Negative ng/mL (<300); Phencyclidine Screen,Urine Negative ng/mL (<25)
[2019-01-16 11:33] LABS: Bacteria,Urine 2+ /lpf; Bilirubin,Urine 1+ (Negative); Squamous Epithelial Cell,Urine Occasional #/hpf (0-5)
[2019-01-16 18:47] LABS: ABG Base Excess 1.5 mmol/L (-2.4-2.3); ABG HCO3 29.2 mmhg (22.0-26.0); ABG Oxygen Saturation 93 % (90-100); ABG PH 7.22 mmol/L (7.35-7.45); ABG PO2 79.3 mmhg (80-100); ABG TCO2 31.5 mmhg (23-27)
[2019-01-16 18:52] LABS: Allen's Test Y; Oxygen 40 %; PEEP 8
[2019-01-16 18:55] LABS: ABG PCO2 73.4 mmhg (35.0-45.0)
--- NOTE | 2019-01-16 20:21 | History & Physical Report ---
*Admission Date: 01/16/19 *Chief complaint: sob *History of present illness: this pt presented to ed with change in mental status - ed hx obtained from -rought in by ambulance. Patient does not appear to be competent historian at this point. History obtained from . He states that she was "flopping around" all night long. States that when she gets like that her oxygen is usually low. He says he was checking it all night. This morning her pulse ox was in the 50s. She has COPD and is on 2 L nasal cannula oxygen at home. He says she has been using her oxygen. He says she has not recently been ill except for an "abscess" in her left jaw that is been there for 2 to 3 weeks. She is refused to see anybody about it. No fever. No change in her chronic cough or sputum production. No vomiting or diarrhea. Patient denies any pain. She has end-stage COPD. When I last saw her in this emergency room in July to have chronic cavitary lung lesions and a positive Cologuard and arrangements were reported to be in progress to get her a colonoscopy and bronchoscopy at the same time at [facility]. states she still has not had this done. He says that her son has reported to him that she has canceled the appointments. She is still a smoker. She has recently been changed from hydrocodone to Suboxone last month. He says that she gets a half of a pill twice a day and he did give her one half of a pill this morning. pt was found to be in resp failure - pt admitted for treatment and assisted vent on cpap [facility] History I have reviewed the patient's past medical history: Yes Medical History: Reports:: Asthma, Chronic Obstructive Pulmonary Disease (COPD), Home Oxygen Denies:: Cancer, Diabetes Mellitus Type 1, Diabetes Mellitus Type 2, MRSA *Have you ever received a pneumonia vaccine?: No *Have you received a flu vaccine this season?: Yes Other Medical History: Reports: Hypothyroidism Other Surgeries: Yes: Appendectomy, Other Amputation: No Fractures: No - *Social History Educational Level: Completed High School Smoking Status: Current every day smoker Tobacco Type: cigarettes # Packs/Day (cigarettes): 10 Alcohol Intake: former Substance Use Type: denies use *Occupational Status:: unemployed Housing: house Household Members: spouse *Travel in the last 8 weeks: None - Psychiatric History Expresses thoughts of harming self/others: None Suicide Plan Description: No Plan Family Hx:: Cancer, Heart Attack Review of Systems - Review of Systems Review of systems:: unable to obtain Meds Home Medications Medication Instructions Recorded Confirmed Type Denosumab [Denosumab 60mg/mL 60 mg SUB-Q [id number] 08/21/17 01/16/19 History syringe] albuterol sulfate HFA 90 2 puff INHALATION Q6H #18 g 06/15/18 01/16/19 Rx mcg/actuation aerosol inhaler Megestrol Acetate 625 mg PO QAM 08/23/18 01/16/19 History Tiotropium [place] [Spiriva 2 puff INHALATION DAILY 08/23/18 01/16/19 History Respimat] fluticasone propionate 50 1 spray INTRANASAL DAILY #9.9 g 09/01/18 01/16/19 Rx mcg/actuation nasal spray,suspension gabapentin 100 mg capsule 100 mg PO TID #90 cap 09/01/18 01/16/19 Rx tiotropium bromide 2.5 2 puff INHALATION DAILY 09/30/18 01/16/19 History mcg/actuation mist for inhalation Fluconazole [Diflucan] 200 mg PO DAILY 01/16/19 01/16/19 History Levothyroxine Sodium [Tirosint] 100 mcg PO DAILY 01/16/19 01/17/19 History Allergies Allergy/AdvReac Type Severity Reaction Status Date / Time No Known Allergies Allergy Verified 11/02/18 09:15 Exam Vital signs and Labs for Last 24 Hours: Temp Pulse Resp BP Pulse Ox 98.1 F 84 18 96/63 L 91 L 01/16/19 15:47 01/16/19 15:47 01/16/19 15:47 01/16/19 15:47 01/16/19 15:47 Laboratory Results - last 24 hr 01/16/19 10:05: Specimen Source Right brachial, O2 % nrb 100%, ABG pH 7.24 L*, ABG pCO2 90.1 H, ABG pO2 52.9 L, ABG HCO3 37.7 H, ABG Total CO2 40.5 H, ABG O2 Saturation 81 L*, ABG Base Excess 10.4 H, Billy Test Non applicable 01/16/19 10:10: WBC 6.4, RBC 5.68 H, Hgb 8.9 L, Hct 37.0, MCV 65.1 L, MCH 15.7 L , MCHC 24.0 L, RDW 20.0 H, Plt Count 311, MPV 6.2 L, Neut % (Auto) 76.8, Lymph % (Auto) 14.8, [place] % (Auto) 7.6, Eos % (Auto) 0.3, Baso % (Auto) 0.6, Neut # (Auto) 4.9, Lymph # (Auto) 0.9, [place] # (Auto) 0.5, Eos # (Auto) 0.0, Baso # (Auto) 0.0 01/16/19 10:10: Sodium 140, Potassium 3.8, Chloride 102, Carbon Dioxide 39 H, Anion Gap 2.8 L, BUN 9, Creatinine 0.42 L, Estimated Creat Clear 73, Estimated GFR 155, Est GFR ( Amer) 188, Glucose 96, Calcium 7.8 L, Total Bilirubin 0.3, AST 15, ALT 6 L, Alkaline Phosphatase 100, Troponin I < 0.02, Total Protein 5.9 L, Albumin 2.2 L, Globulin 3.7 H, Albumin/Globulin Ratio 0.6 L 01/16/19 10:10: Lactate 0.3 L 01/16/19 10:10: B-Natriuretic Peptide 216 H 01/16/19 11:17: Urine Color Yellow, Urine Appearance Clear, Urine pH 5.5, Ur Specific [place] >= 1.030, Urine Protein Negative, Urine Glucose (UA) Negative, Urine Ketones Negative, Urine Blood Negative, Urine Nitrate Negative, Urine Bilirubin 1+ A, Urine Urobilinogen 1.0, Ur Leukocyte Esterase Negative, Urine WBC 3-5, Ur Squamous Epith Cells Occasional, Urine Bacteria 2+ 01/16/19 11:17: Urine Opiates Screen Negative, Urine Methadone Screen Negative, Ur Barbituates Screen Negative, Ur Phencyclidine Scrn Negative, Ur Amphetamines Screen Negative, U Benzodiazepines Scrn Negative, Urine Cocaine Screen Negative, U Marijuana (THC) Screen Negative 01/16/19 18:46: Specimen Source R/r, O2 % 40, ABG pH 7.22 L*, ABG pCO2 73.4 H, ABG pO2 79.3 L, ABG HCO3 29.2 H, ABG Total CO2 31.5 H, ABG O2 Saturation 93, ABG Base Excess 1.5, Billy Test Y, PEEP 8 I & O for Last 24 hours: Intake & Output 01/14/19 01/15/19 01/16/19 01/17/19 11:59 11:59 11:59 11:59 Intake Total 1450 / 1450 Output Total 375 / 375 200 / 200 Balance 1075 / 1075 -200 / -200 Weight 70 lb 85 lb 4 oz Microbiology Reports for the Last 24 Hours: Microbiology 01/16/19 10:13 Sputum - Expectorated Sputum Gram Stain - Final - Constitutional thin, somnolent - *Routine HEENT Exam Head: Present: normocephalic Eye: Present: EOMI, PERRL ENT: Present: mucous membranes dry - *Routine Neck Exam Absent: JVD - *Routine Respiratory Exam Present: decreased breath sounds, prolonged expiratory phase Comments: on cpap - *Routine Cardiovascular Exam Present: RRR, murmur - *Routine Extremities Exam Absent: edema - *Routine Skin Exam Present: intact - *Routine Neurological Exam Present: altered mental status - Routine Psychiatric Exam Present: unable to assess Assessment and Plan (1) COPD (chronic obstructive pulmonary disease) Current visit: No Status: Acute Qualifiers: COPD type: COPD with acute exacerbation Qualified Code(s): J44.1 - Chronic obstructive pulmonary disease with (acute) exacerbation Category: Medical Code(s): J44.9 - Chronic obstructive pulmonary disease, unspecified (2) Acute respiratory failure Current visit: Yes Status: Acute Qualifiers: Respiratory failure complication: hypoxia and hypercapnia Qualified Code(s): J96.01 - Acute respiratory failure with hypoxia; J96.02 - Acute respiratory failure with hypercapnia Category: Medical Code(s): J96.00 - Acute respiratory failure, unspecified whether with hypoxia or hypercapnia (3) Anemia Current visit: No Status: Acute Qualifiers: Anemia type: unspecified type Qualified Code(s): D64.9 - Anemia, unspecified Category: Medical Code(s): D64.9 - Anemia, unspecified (4) Opiate misuse Current visit: Yes Status: Acute Category: Medical Code(s): F11.90 - Opioid use, unspecified, uncomplicated
--- NOTE | 2019-01-17 08:29 | Pharmacy Consult Notes ---
[facility] Pharmacy VTE Monitoring - Patient Demographics Admission date: 01/16/19 Report Date: 01/17/19 Time: 08:28 Allergies/Adverse Reactions: Patient Allergies No Known Allergies Allergy (Verified 11/02/18 09:15) Height: 1.5 m Weight: 42.241 kg Patient Problems: Current Active Problems COPD exacerbation (Acute) Acute respiratory failure (Acute) Dental abscess (Acute) - VTE Risk Labs: VTE Related Lab Results Hgb 8.9 g/dL (12.2-16.2) L 01/16/19 10:10 Hct 37.0 % (37.0-47.0) 01/16/19 10:10 Plt Count 311 K/mm3 (142-424) 01/16/19 10:10 BUN 9 mg/dL (7-18) 01/16/19 10:10 Creatinine 0.42 mg/dL (0.55-1.02) L 01/16/19 10:10 Estimated Creat Clear 73 mL/min (50-200) 01/16/19 10:10 Was VTE Risk Assessment Performed: Yes VTE Score: 8 VTE Risk Level: Moderate Risk - Prophylaxis VTE Prophylaxis Ordered?: Yes Types of VTE Prophylaxis: TEDS Knee High Location of Applied Device: Bilateral Lower Extremeties
--- NOTE | 2019-01-17 10:12 | Progress Note ---
Internal Medicine - PN: Subj *Date: 01/17/19 *Time: 10:11 Interval history: obtunded - awaiting labs - no sz Exam Vital signs and Labs for Last 24 Hours: Temp Pulse Resp BP Pulse Ox 98.0 F 71 20 97/77 L 93 L 01/17/19 04:00 01/17/19 07:03 01/17/19 04:00 01/17/19 04:00 01/17/19 08:00 Laboratory Results - last 24 hr 01/16/19 10:05: Specimen Source Right brachial, O2 % nrb 100%, ABG pH 7.24 L*, ABG pCO2 90.1 H, ABG pO2 52.9 L, ABG HCO3 37.7 H, ABG Total CO2 40.5 H, ABG O2 Saturation 81 L*, ABG Base Excess 10.4 H, Billy Test Non applicable 01/16/19 10:10: WBC 6.4, RBC 5.68 H, Hgb 8.9 L, Hct 37.0, MCV 65.1 L, MCH 15.7 L , MCHC 24.0 L, RDW 20.0 H, Plt Count 311, MPV 6.2 L, Neut % (Auto) 76.8, Lymph % (Auto) 14.8, [place] % (Auto) 7.6, Eos % (Auto) 0.3, Baso % (Auto) 0.6, Neut # (Auto) 4.9, Lymph # (Auto) 0.9, [place] # (Auto) 0.5, Eos # (Auto) 0.0, Baso # (Auto) 0.0 01/16/19 10:10: Sodium 140, Potassium 3.8, Chloride 102, Carbon Dioxide 39 H, Anion Gap 2.8 L, BUN 9, Creatinine 0.42 L, Estimated Creat Clear 73, Estimated GFR 155, Est GFR ( Amer) 188, Glucose 96, Calcium 7.8 L, Total Bilirubin 0.3, AST 15, ALT 6 L, Alkaline Phosphatase 100, Troponin I < 0.02, Total Protein 5.9 L, Albumin 2.2 L, Globulin 3.7 H, Albumin/Globulin Ratio 0.6 L 01/16/19 10:10: Lactate 0.3 L 01/16/19 10:10: B-Natriuretic Peptide 216 H 01/16/19 11:17: Urine Color Yellow, Urine Appearance Clear, Urine pH 5.5, Ur Specific [place] >= 1.030, Urine Protein Negative, Urine Glucose (UA) Negative, Urine Ketones Negative, Urine Blood Negative, Urine Nitrate Negative, Urine Bilirubin 1+ A, Urine Urobilinogen 1.0, Ur Leukocyte Esterase Negative, Urine WBC 3-5, Ur Squamous Epith Cells Occasional, Urine Bacteria 2+ 01/16/19 11:17: Urine Opiates Screen Negative, Urine Methadone Screen Negative, Ur Barbituates Screen Negative, Ur Phencyclidine Scrn Negative, Ur Amphetamines Screen Negative, U Benzodiazepines Scrn Negative, Urine Cocaine Screen Negative, U Marijuana (THC) Screen Negative 01/16/19 18:46: Specimen Source R/r, O2 % 40, ABG pH 7.22 L*, ABG pCO2 73.4 H, ABG pO2 79.3 L, ABG HCO3 29.2 H, ABG Total CO2 31.5 H, ABG O2 Saturation 93, ABG Base Excess 1.5, Billy Test Y, PEEP 8 I & O for Last 24 hours: Intake & Output 01/14/19 01/15/19 01/16/19 01/17/19 11:59 11:59 11:59 11:59 Intake Total 1450 / 1450 1542 / 1542 Output Total 375 / 375 500 / 500 Balance 1075 / 1075 1042 / 1042 Weight 70 lb 93 lb 2 oz Microbiology Reports for the Last 24 Hours: Microbiology 01/16/19 10:13 Sputum - Expectorated Sputum Gram Stain - Final - Constitutional obtunded - *Routine HEENT Exam Head: Present: normocephalic Eye: Present: periorbital swelling ENT: Present: mucous membranes dry - *Routine Neck Exam Absent: JVD - *Routine Respiratory Exam Present: decreased breath sounds (on cpap) - *Routine Cardiovascular Exam Present: RRR, murmur - *Routine Abdominal Exam Present: soft - *Routine Extremities Exam Present: edema - *Routine Skin Exam Present: intact - *Routine Neurological Exam Present: altered mental status (no posturing ) - Routine Psychiatric Exam Present: unable to assess Assessment and Plan (1) COPD (chronic obstructive pulmonary disease) Current visit: No Status: Acute Qualifiers: COPD type: COPD with acute exacerbation Qualified Code(s): J44.1 - Chronic obstructive pulmonary disease with (acute) exacerbation Category: Medical Code(s): J44.9 - Chronic obstructive pulmonary disease, unspecified (2) Acute respiratory failure Current visit: Yes Status: Acute Qualifiers: Respiratory failure complication: hypoxia and hypercapnia Qualified Code(s): J96.01 - Acute respiratory failure with hypoxia; J96.02 - Acute respiratory failure with hypercapnia Category: Medical Code(s): J96.00 - Acute respiratory failure, unspecified whether with hypoxia or hypercapnia (3) Anemia Current visit: No Status: Acute Qualifiers: Anemia type: unspecified type Qualified Code(s): D64.9 - Anemia, unspecified Category: Medical Code(s): D64.9 - Anemia, unspecified (4) Opiate misuse Current visit: Yes Status: Acute Category: Medical Code(s): F11.90 - Opioid use, unspecified, uncomplicated
[2019-01-17 11:12] LABS: Basophils % 0.2 % (0.1-2.0); Hematocrit 40.4 % (37.0-47.0); Hemoglobin 10.1 g/dL (12.2-16.2); Lymphocytes % 23.9 % (10-50); Mean Platelet Volume 7.6 fl (7.4-10.4); Monocytes # 0.2 K/mm3 (0.1-1.0); Monocytes % 4.5 % (1.7-9.3); Neutrophils # 2.9 K/mm3 (1.8-7.8); Neutrophils % 71.4 % (37.0-80.0); Platelet Count 316 K/mm3 (142-424); Red Blood Count 6.21 M/mm3 (4.20-5.40); White Blood Count 4.1 K/mm3 (4.8-10.8)
[2019-01-17 11:35] LABS: Anion Gap 9.6 mEq/L (5-15); Blood Urea Nitrogen 12 mg/dL (7-18); Calcium 7.8 mg/dL (8.5-10.1); Carbon Dioxide 34 mmol/L (21.0-32.0); Chloride 104 mmol/L (98-107); Glucose 89 mg/dL (74-106); Sodium 143 mmol/L (136-145)
[2019-01-17 11:36] LABS: ABG Base Excess 7.2 mmol/L (-2.4-2.3); ABG HCO3 32.6 mmhg (22.0-26.0); ABG Oxygen Saturation 94 % (90-100); ABG PH 7.36 mmol/L (7.35-7.45); ABG PO2 80.6 mmhg (80-100); ABG TCO2 34.4 mmhg (23-27)
[2019-01-17 11:38] LABS: Allen's Test Acceptable; Oxygen 35 %
[2019-01-17 11:41] LABS: ABG PCO2 58.9 mmhg (35.0-45.0)
[2019-01-18 08:33] LABS: Hematocrit 32.7 % (37.0-47.0); Lymphocytes # 0.3 K/mm3 (0.7-4.5); Neutrophils # 5.4 K/mm3 (1.8-7.8)
[2019-01-18 08:35] LABS: Anion Gap 9.9 mEq/L (5-15); Calcium 7.7 mg/dL (8.5-10.1)
[2019-01-18 08:38] LABS: Basophils % 0.1 % (0.1-2.0); Eosinophils % 0.2 % (0.1-12.0); Lymphocytes % 4.9 % (10-50); Mean Corpuscular HGB Conc 25.2 g/dL (31.8-35.4); Mean Platelet Volume 6.8 fl (7.4-10.4); Monocytes # 0.3 K/mm3 (0.1-1.0); Monocytes % 5.5 % (1.7-9.3); Neutrophils % 89.3 % (37.0-80.0); Platelet Count 327 K/mm3 (142-424); Red Blood Count 5.19 M/mm3 (4.20-5.40); Red Cell Distribution Width 20.1 % (11.5-17.5); White Blood Count 6.1 K/mm3 (4.8-10.8)
--- NOTE | 2019-01-18 09:16 | Progress Note ---
Internal Medicine - PN: Subj *Date: 01/19/19 *Time: 07:33 Interval history: looks better - more alert - will check xray and lab Exam Vital signs and Labs for Last 24 Hours: Temp Pulse Resp BP Pulse Ox 98.6 F 76 20 101/57 L 90 L 01/18/19 08:00 01/18/19 08:00 01/18/19 08:00 01/18/19 08:00 01/18/19 08:00 Laboratory Results - last 24 hr 01/17/19 10:40: WBC 4.1 L D, RBC 6.21 H, Hgb 10.1 L, Hct 40.4, MCV 65.0 L, MCH 16.2 L, MCHC 25.0 L, RDW 20.0 H, Plt Count 316, MPV 7.6, Neut % (Auto) 71.4, Lymph % (Auto) 23.9, [place] % (Auto) 4.5, Eos % (Auto) 0.0 L, Baso % (Auto) 0.2, Neut # (Auto) 2.9, Lymph # (Auto) 1.0, [place] # (Auto) 0.2, Eos # (Auto) 0.0, Baso # (Auto) 0.0 01/17/19 10:40: Sodium 143, Potassium 4.6 D, Chloride 104, Carbon Dioxide 34 H, Anion Gap 9.6, BUN 12 D, Creatinine 0.47 L, Estimated Creat Clear 87, Estimated GFR 136, Est GFR ( Amer) 165, Glucose 89, Calcium 7.8 L, Troponin I < 0.02 01/17/19 11:00: Specimen Source Right radial, O2 % 35, ABG pH 7.36, ABG pCO2 58.9 H, ABG pO2 80.6, ABG HCO3 32.6 H, ABG Total CO2 34.4 H, ABG O2 Saturation 94, ABG Base Excess 7.2 H, Billy Test Acceptable, Vent Rate 22, Tidal Volume Bipap 05/0201/18/19 08:15: WBC 6.1 D, RBC 5.19, Hct 32.7 L, MCV 63.0 L, MCH 15.9 L, MCHC 25.2 L, RDW 20.1 H, Plt Count 327, MPV 6.8 L, Neut % (Auto) 89.3 H, Lymph % (Auto) 4.9 L, [place] % (Auto) 5.5, Eos % (Auto) 0.2, Baso % (Auto) 0.1, Neut # (Auto) 5.4, Lymph # (Auto) 0.3 L, [place] # (Auto) 0.3, Eos # (Auto) 0.0, Baso # (Auto) 0.0 01/18/19 08:15: Sodium 144, Potassium 3.9, Chloride 105, Carbon Dioxide 33 H, Anion Gap 9.9, BUN 14, Creatinine 0.40 L, Estimated Creat Clear 113, Estimated GFR 164, Est GFR ( Amer) 198, Glucose 97, Calcium 7.7 L I & O for Last 24 hours: Intake & Output 01/15/19 01/16/19 01/17/19 01/18/19 11:59 11:59 11:59 11:59 Intake Total 1450 / 1450 1542 / 1542 3881 / 3881 Output Total 375 / 375 500 / 500 850 / 850 Balance 1075 / 1075 1042 / 1042 3031 / 3031 Weight 70 lb 93 lb 2 oz 103 lb Microbiology Reports for the Last 24 Hours: Microbiology 01/16/19 10:13 Sputum - Expectorated Sputum Gram Stain - Final 01/16/19 10:13 Sputum - Expectorated Sputum Sputum Culture - Preliminary 01/16/19 11:17 Urine,Catheterized Urine Culture - Preliminary NO GROWTH AFTER 24 HOURS - Constitutional no acute distress, thin - *Routine HEENT Exam Head: Present: normocephalic Eye: Present: EOMI, PERRL ENT: Present: mucous membranes dry - *Routine Neck Exam Absent: JVD - *Routine Respiratory Exam Present: decreased breath sounds - *Routine Cardiovascular Exam Present: RRR, murmur - *Routine Abdominal Exam Present: soft - *Routine Extremities Exam Present: edema - *Routine Skin Exam Present: intact - *Routine Neurological Exam Present: altered mental status - Routine Psychiatric Exam Present: unable to assess Assessment and Plan (1) COPD (chronic obstructive pulmonary disease) Current visit: No Status: Acute Qualifiers: COPD type: COPD with acute exacerbation Qualified Code(s): J44.1 - Chronic obstructive pulmonary disease with (acute) exacerbation Category: Medical Code(s): J44.9 - Chronic obstructive pulmonary disease, unspecified (2) Acute respiratory failure Current visit: Yes Status: Acute Qualifiers: Respiratory failure complication: hypoxia and hypercapnia Qualified Code(s): J96.01 - Acute respiratory failure with hypoxia; J96.02 - Acute respiratory failure with hypercapnia Category: Medical Code(s): J96.00 - Acute respiratory failure, unspecified whether with hypoxia or hypercapnia (3) Anemia Current visit: No Status: Acute Qualifiers: Anemia type: unspecified type Qualified Code(s): D64.9 - Anemia, unspecified Category: Medical Code(s): D64.9 - Anemia, unspecified (4) Opiate misuse Current visit: Yes Status: Acute Category: Medical Code(s): F11.90 - Opioid use, unspecified, uncomplicated
[2019-01-18 09:34] LABS: Hypochromasia 3+; Lymphocytes % 3 % (10-50); Monocytes % 2 % (2-9); Neutrophils % 94 % (42-76); Nucleated Red Blood Cells 1; Total Cells Counted 100
--- NOTE | 2019-01-18 09:45 | Electrocardiograph Report ---
APPROVED REPORT Exam: Resting ECG HR:87 bpm ECG Measurements Heart Rate 87 AXES WY 156 P 80 QRSd 82 QRS 99 QT 332 T70 QTc 399 <Conclusion> Normal sinus rhythm Rightward axis ST abnormality, ? lyte abnormality Electronically signed by : Joey Reilly, 01/18/2019 09:45:20
[2019-01-18 10:51] LABS: Hemoglobin 8.3 g/dL (12.2-16.2)
[2019-01-19 06:07] LABS: ABG Base Excess 4.8 mmol/L (-2.4-2.3); ABG HCO3 29.4 mmhg (22.0-26.0); ABG Oxygen Saturation 90 % (90-100); ABG PCO2 46.9 mmhg (35.0-45.0); ABG PH 7.42 mmol/L (7.35-7.45); ABG PO2 65.1 mmhg (80-100); ABG TCO2 30.8 mmhg (23-27); Oxygen 2LPM %
--- NOTE | 2019-01-19 08:19 | Progress Note ---
Internal Medicine - PN: Subj *Date: 01/19/19 *Time: 08:18 Exam Vital signs and Labs for Last 24 Hours: Temp Pulse Resp BP Pulse Ox 98.3 F 91 H 20 130/64 92 L 01/19/19 07:44 01/19/19 07:44 01/19/19 07:44 01/19/19 07:44 01/19/19 07:44 Laboratory Results - last 24 hr 01/18/19 08:15: WBC 6.1 D, RBC 5.19, Hgb 8.3 L D, Hct 32.7 L, MCV 63.0 L, MCH 15.9 L, MCHC 25.2 L, RDW 20.1 H, Plt Count 327, MPV 6.8 L, Neut % (Auto) 89.3 H, Lymph % (Auto) 4.9 L, [place] % (Auto) 5.5, Eos % (Auto) 0.2, Baso % (Auto) 0.1, Neut # (Auto) 5.4, Lymph # (Auto) 0.3 L, [place] # (Auto) 0.3, Eos # (Auto) 0.0, Baso # (Auto) 0.0, Total Counted 100, Neutrophils % (Manual) 94 H, Band Neutrophils % 1.0, Lymphocytes % (Manual) 3 L, Monocytes % (Manual) 2, Nucleated RBCs 1, Platelet Estimate Normal, Hypochromasia 3+, Microcytosis 3+ 01/18/19 08:15: Sodium 144, Potassium 3.9, Chloride 105, Carbon Dioxide 33 H, Anion Gap 9.9, BUN 14, Creatinine 0.40 L, Estimated Creat Clear 113, Estimated GFR 164, Est GFR ( Amer) 198, Glucose 97, Calcium 7.7 L 01/18/19 22:46: Specimen Source R brachial, O2 % 2lpm, ABG pH 7.42, ABG pCO2 46.9 H, ABG pO2 65.1 L, ABG HCO3 29.4 H, ABG Total CO2 30.8 H, ABG O2 Saturation 90, ABG Base Excess 4.8 H I & O for Last 24 hours: Intake & Output 01/16/19 01/17/19 01/18/19 01/19/19 23:59 23:59 23:59 23:59 Intake Total 1450 / 1450 2925 / 2925 3895 / 3895 1407 / 1407 Output Total 575 / 575 650 / 650 500 / 500 Balance 875 / 875 2275 / 2275 3395 / 3395 1407 / 1407 Weight 38.669 kg 42.241 kg 46.72 kg 46.72 kg Microbiology Reports for the Last 24 Hours: Microbiology 01/16/19 11:17 Urine,Catheterized Urine Culture - Final NO GROWTH AFTER 48 HOURS 01/16/19 10:10 Blood Blood Culture - Preliminary NO GROWTH AFTER 48 HOURS 01/16/19 10:10 Blood Blood Culture - Preliminary NO GROWTH AFTER 48 HOURS 01/16/19 10:13 Sputum - Expectorated Sputum Gram Stain - Final 01/16/19 10:13 Sputum - Expectorated Sputum Sputum Culture - Preliminary Assessment and Plan (1) COPD (chronic obstructive pulmonary disease) Current visit: No Status: Acute Qualifiers: COPD type: COPD with acute exacerbation Qualified Code(s): J44.1 - Chronic obstructive pulmonary disease with (acute) exacerbation Category: Medical Code(s): J44.9 - Chronic obstructive pulmonary disease, unspecified (2) Acute respiratory failure Current visit: Yes Status: Acute Qualifiers: Respiratory failure complication: hypoxia and hypercapnia Qualified Code(s): J96.01 - Acute respiratory failure with hypoxia; J96.02 - Acute respiratory failure with hypercapnia Category: Medical Code(s): J96.00 - Acute respiratory failure, unspecified whether with hypoxia or hypercapnia (3) Anemia Current visit: No Status: Acute Qualifiers: Anemia type: unspecified type Qualified Code(s): D64.9 - Anemia, unspecified Category: Medical Code(s): D64.9 - Anemia, unspecified (4) Opiate misuse Current visit: Yes Status: Acute Category: Medical Code(s): F11.90 - Opioid use, unspecified, uncomplicated The patient's infection will respond to the chosen ABx?: Yes Is the patient receiving the right drug, dose, and route?: Yes Could a more targeted ABx be ordered?: No
--- NOTE | 2019-01-19 08:43 | Progress Note ---
Internal Medicine - PN: Subj *Date: 01/19/19 *Time: 08:40 Interval history: Patient sitting up in chair alert and oriented O2 at 2 L. Family at bedside. Patient states she feels rough. Patient admitted to taking 15 BC packets Exam Vital signs and Labs for Last 24 Hours: Temp Pulse Resp BP Pulse Ox 98.3 F 91 H 20 130/64 92 L 01/19/19 07:44 01/19/19 07:44 01/19/19 07:44 01/19/19 07:44 01/19/19 07:44 Laboratory Results - last 24 hr 01/18/19 08:15: WBC 6.1 D, RBC 5.19, Hgb 8.3 L D, Hct 32.7 L, MCV 63.0 L, MCH 15.9 L, MCHC 25.2 L, RDW 20.1 H, Plt Count 327, MPV 6.8 L, Neut % (Auto) 89.3 H, Lymph % (Auto) 4.9 L, [place] % (Auto) 5.5, Eos % (Auto) 0.2, Baso % (Auto) 0.1, Neut # (Auto) 5.4, Lymph # (Auto) 0.3 L, [place] # (Auto) 0.3, Eos # (Auto) 0.0, Baso # (Auto) 0.0, Total Counted 100, Neutrophils % (Manual) 94 H, Band Neutrophils % 1.0, Lymphocytes % (Manual) 3 L, Monocytes % (Manual) 2, Nucleated RBCs 1, Platelet Estimate Normal, Hypochromasia 3+, Microcytosis 3+ 01/18/19 22:46: Specimen Source R brachial, O2 % 2lpm, ABG pH 7.42, ABG pCO2 46.9 H, ABG pO2 65.1 L, ABG HCO3 29.4 H, ABG Total CO2 30.8 H, ABG O2 Saturation 90, ABG Base Excess 4.8 H I & O for Last 24 hours: Intake & Output 01/16/19 01/17/19 01/18/19 01/19/19 11:59 11:59 11:59 11:59 Intake Total 1450 / 1450 1542 / 1542 3881 / 3881 2804 / 2804 Output Total 375 / 375 500 / 500 850 / 850 Balance 1075 / 1075 1042 / 1042 3031 / 3031 2804 / 2804 Weight 70 lb 93 lb 2 oz 103 lb 102 lb 15.999 oz Microbiology Reports for the Last 24 Hours: Microbiology 01/16/19 11:17 Urine,Catheterized Urine Culture - Final NO GROWTH AFTER 48 HOURS 01/16/19 10:10 Blood Blood Culture - Preliminary NO GROWTH AFTER 48 HOURS 01/16/19 10:10 Blood Blood Culture - Preliminary NO GROWTH AFTER 48 HOURS 01/16/19 10:13 Sputum - Expectorated Sputum Gram Stain - Final 01/16/19 10:13 Sputum - Expectorated Sputum Sputum Culture - Preliminary - Constitutional no acute distress, thin, chronically ill appearing - *Routine HEENT Exam Head: Present: normocephalic Eye: Present: PERRL ENT: Present: mucous membranes moist - *Routine Neck Exam Present: supple. Absent: lymphadenopathy - *Routine Respiratory Exam Present: decreased breath sounds, wheezes - *Routine Cardiovascular Exam Present: RRR - *Routine Abdominal Exam Present: soft, normoactive bowel sounds. Absent: tenderness - *Routine Exam Comments: zhang draining at bedside - *Routine Extremities Exam Absent: cyanosis, clubbing, edema - *Routine Skin Exam Present: warm. Absent: rash - *Routine Neurological Exam Present: alert, oriented X3 - Routine Psychiatric Exam Present: normal affect Assessment and Plan (1) COPD (chronic obstructive pulmonary disease) Current visit: No Status: Acute Qualifiers: COPD type: COPD with acute exacerbation Qualified Code(s): J44.1 - Chronic obstructive pulmonary disease with (acute) exacerbation Category: Medical Code(s): J44.9 - Chronic obstructive pulmonary disease, unspecified (2) Acute respiratory failure Current visit: Yes Status: Acute Qualifiers: Respiratory failure complication: hypoxia and hypercapnia Qualified Code(s): J96.01 - Acute respiratory failure with hypoxia; J96.02 - Acute respiratory failure with hypercapnia Category: Medical Code(s): J96.00 - Acute respiratory failure, unspecified whether with hypoxia or hypercapnia (3) Anemia Current visit: No Status: Acute Qualifiers: Anemia type: unspecified type Qualified Code(s): D64.9 - Anemia, unspecified Category: Medical Code(s): D64.9 - Anemia, unspecified (4) Opiate misuse Current visit: Yes Status: Acute Category: Medical Code(s): F11.90 - Opioid use, unspecified, uncomplicated (5) On home oxygen therapy Current visit: Yes Status: Acute Category: Medical Code(s): Z99.81 - Dependence on supplemental oxygen - Assessment and plan all Dx Assessment and Plan for all problems:: Rounded with Dr. Womack all orders per [facility] Physical therapy Occupational Therapy Carol Zhang
[2019-01-19 08:53] LABS: Basophils % 0.2 % (0.1-2.0); Eosinophils % 0.3 % (0.1-12.0); Hematocrit 33.7 % (37.0-47.0); Hemoglobin 8.7 g/dL (12.2-16.2); Lymphocytes # 0.2 K/mm3 (0.7-4.5); Lymphocytes % 5.5 % (10-50); Mean Corpuscular HGB Conc 25.8 g/dL (31.8-35.4); Mean Corpuscular Volume 62.1 fl (81-99); Mean Platelet Volume 7.3 fl (7.4-10.4); Monocytes # 0.3 K/mm3 (0.1-1.0); Monocytes % 6.5 % (1.7-9.3); Neutrophils # 3.8 K/mm3 (1.8-7.8); Neutrophils % 87.5 % (37.0-80.0); Platelet Count 291 K/mm3 (142-424); Red Blood Count 5.42 M/mm3 (4.20-5.40); Red Cell Distribution Width 20.4 % (11.5-17.5); White Blood Count 4.4 K/mm3 (4.8-10.8)
[2019-01-19 09:03] LABS: Anion Gap 9.2 mEq/L (5-15); Calcium 7.4 mg/dL (8.5-10.1)
[2019-01-19 09:15] LABS: Hypochromasia 3+; Lymphocytes % 6 % (10-50); Monocytes % 5 % (2-9); Neutrophils % 89 % (42-76); Total Cells Counted 100
[2019-01-20 06:35] LABS: Anion Gap 6.9 mEq/L (5-15)
[2019-01-20 06:44] LABS: Basophils % 0.1 % (0.1-2.0); Eosinophils % 0.2 % (0.1-12.0); Hematocrit 30.7 % (37.0-47.0); Hemoglobin 8.1 g/dL (12.2-16.2); Lymphocytes # 0.3 K/mm3 (0.7-4.5); Lymphocytes % 6.2 % (10-50); Mean Corpuscular HGB Conc 26.3 g/dL (31.8-35.4); Mean Corpuscular Volume 61.2 fl (81-99); Mean Platelet Volume 7.1 fl (7.4-10.4); Monocytes # 0.3 K/mm3 (0.1-1.0); Monocytes % 7.5 % (1.7-9.3); Neutrophils # 3.6 K/mm3 (1.8-7.8); Platelet Count 270 K/mm3 (142-424); Red Blood Count 5.01 M/mm3 (4.20-5.40); Red Cell Distribution Width 20.5 % (11.5-17.5); White Blood Count 4.1 K/mm3 (4.8-10.8)
[2019-01-20 06:48] LABS: Calcium 6.9 mg/dL (8.5-10.1)
[2019-01-20 07:44] LABS: Anisocytosis 2+; Lymphocytes % 6 % (10-50); Monocytes % 7 % (2-9); Neutrophils % 84 % (42-76); Total Cells Counted 100
[2019-01-20 07:45] LABS: Stomatocytes 1+
[2019-01-20 07:46] LABS: Hypochromasia 3+
[2019-01-20 07:47] LABS: Tear Drop Cells 1+
--- NOTE | 2019-01-20 08:57 | Discharge Summary ---
General - General Admission date:: 01/16/19 Discharge date: 01/20/19 HPI HPI: this pt presented to ed with change in mental status - ed hx obtained from -rought in by ambulance. Patient does not appear to be competent historian at this point. History obtained from . He states that she was "flopping around" all night long. States that when she gets like that her oxygen is usually low. He says he was checking it all night. This morning her pulse ox was in the 50s. She has COPD and is on 2 L nasal cannula oxygen at home. He says she has been using her oxygen. He says she has not recently been ill except for an "abscess" in her left jaw that is been there for 2 to 3 weeks. She is refused to see anybody about it. No fever. No change in her chronic cough or sputum production. No vomiting or diarrhea. Patient denies any pain. She has end-stage COPD. When I last saw her in this emergency room in July to have chronic cavitary lung lesions and a positive Cologuard and arrangements were reported to be in progress to get her a colonoscopy and bronchoscopy at the same time at [facility]. states she still has not had this done. He says that her son has reported to him that she has canceled the appointments. She is still a smoker. She has recently been changed from hydrocodone to Suboxone last month. He says that she gets a half of a pill twice a day and he did give her one half of a pill this morning. pt was found to be in resp failure - pt admitted for treatment and assisted vent on cpap Hospital Course Hospital Course: this wf with acute resp failure with excerbation of copd and cap complicated by opiate use slowly improved on ivf and abx with steroids and cpap and resp treatments - labs stabilized and she was seen by therapy and on home o2 and tolerating diet and at baseline - Objective Vital signs: Temp Pulse Resp BP Pulse Ox 98.1 F 85 17 122/74 93 L 01/20/19 04:00 01/20/19 06:11 01/20/19 04:00 01/20/19 04:00 01/20/19 06:11 no acute distress, thin - *Routine HEENT Exam Head: Present: normocephalic Eye: Present: EOMI, PERRL ENT: Present: mucous membranes dry - *Routine Neck Exam Present: supple. Absent: JVD - *Routine Respiratory Exam Present: prolonged expiratory phase, wheezes - *Routine Cardiovascular Exam Present: RRR, murmur, S4 - *Routine Abdominal Exam Present: soft - *Routine Extremities Exam Absent: calf tenderness - *Routine Skin Exam Present: intact - *Routine Neurological Exam Present: alert, oriented X3, CN II-XII intact - Routine Psychiatric Exam Present: normal affect Results Labs on day of discharge: Labs from last 24 hours 01/20/19 01/20/19 01/19/19 05:55 05:55 08:47 WBC 4.1 L RBC 5.01 Hgb 8.1 L Hct 30.7 L MCV 61.2 L MCH 16.1 L MCHC 26.3 L RDW 20.5 H Plt Count 270 MPV 7.1 L Neut % (Auto) 86.0 H Lymph % (Auto) 6.2 L Holt % (Auto) 7.5 Eos % (Auto) 0.2 Baso % (Auto) 0.1 Neut # (Auto) 3.6 Lymph # (Auto) 0.3 L Holt # (Auto) 0.3 Eos # (Auto) 0.0 Baso # (Auto) 0.0 Total Counted 100 Neutrophils % (Manual) 84 H Band Neutrophils % 3.0 Lymphocytes % (Manual) 6 L Monocytes % (Manual) 7 Platelet Estimate Normal Hypochromasia 3+ Poikilocytosis 2+ Anisocytosis 2+ Microcytosis 3+ Tear Drop Cells 1+ Stomatocytes 1+ Sodium 141 140 Potassium 2.9 L* 3.2 L Chloride 102 101 Carbon Dioxide 35 H 33 H Anion Gap 6.9 9.2 BUN 5 L D 9 D Creatinine 0.36 L 0.38 L Estimated Creat Clear 125 119 Estimated GFR 185 174 Est GFR ( Amer) 224 210 Glucose 113 H D 192 H Calcium 6.9 L 7.4 L 01/19/19 08:47 WBC 4.4 L D RBC 5.42 H Hgb 8.7 L Hct 33.7 L MCV 62.1 L MCH 16.0 L MCHC 25.8 L RDW 20.4 H Plt Count 291 MPV 7.3 L Neut % (Auto) 87.5 H Lymph % (Auto) 5.5 L Holt % (Auto) 6.5 Eos % (Auto) 0.3 Baso % (Auto) 0.2 Neut # (Auto) 3.8 Lymph # (Auto) 0.2 L Holt # (Auto) 0.3 Eos # (Auto) 0.0 Baso # (Auto) 0.0 Total Counted 100 Neutrophils % (Manual) 89 H Band Neutrophils % Lymphocytes % (Manual) 6 L Monocytes % (Manual) 5 Platelet Estimate Normal Hypochromasia 3+ Poikilocytosis Anisocytosis Microcytosis 3+ Tear Drop Cells Stomatocytes Sodium Potassium Chloride Carbon Dioxide Anion Gap BUN Creatinine Estimated Creat Clear Estimated GFR Est GFR ( Amer) Glucose Calcium Preliminary micro results at discharge 01/16/19 10:13 Sputum Culture - Preliminary Sputum - Expectorated Sputum 01/16/19 10:10 Blood Culture - Preliminary Blood NO GROWTH AFTER 48 HOURS 01/16/19 10:10 Blood Culture - Preliminary Blood NO GROWTH AFTER 48 HOURS DS: Diagnosis - Discharge Diagnosis (1) COPD (chronic obstructive pulmonary disease) Status: Acute (2) Acute respiratory failure Status: Acute (3) Anemia Status: Acute (4) Opiate misuse Status: Acute (5) On home oxygen therapy Status: Acute (6) Tobacco use Status: Acute (7) Low body mass index (BMI) Status: Acute (8) CAP (community acquired pneumonia) Status: Acute (9) Hypokalemia Status: Acute (10) Hypocalcemia Status: Acute Discharge Plan - Patient Discharge Instructions ACTIVITY: Continue current activity DIET: continue same diet Patient Instructions: Respiratory Failure - Follow up Plan Disposition: Home, Self-Correction Medications: Home Medications Medication Instructions Recorded Confirmed Type Denosumab [Denosumab 60mg/mL 60 mg SUB-Q [id number] 08/21/17 01/16/19 History syringe] Buprenorphine HCl/Naloxone HCl 1 each SL DAILY 01/17/19 01/17/19 History [Buprenorphin-Naloxon 8-2 mg Sl] Fluticasone Propionate 1 spr NOSTRIL-B DAILY 01/18/19 01/18/19 History Fluticasone/Vilanterol [Breo 1 puff IH DAILY 01/18/19 01/18/19 History Ellipta 200-25 Mcg INH] Gabapentin [Gabapentin 100mg Cap] 100 mg PO TID 01/18/19 01/18/19 History Levothyroxine Sodium 100 mcg PO DAILY 01/18/19 01/18/19 History [Levothyroxine 100mcg (0.1MG) Tab] Tiotropium [place] [Spiriva 2 puff IH DAILY 01/18/19 01/18/19 History Respimat] Azithromycin [Zithromax 250mg 250 mg PO DIRECTED #6 tab 01/20/19 Rx tab] Benzonatate [Tessalon Perle 100mg 100 mg PO TID #30 cap 01/20/19 Rx Cap] Nicotine [Nicoderm 21mg/24hr 21 mg TD DAILY #30 patch.td24 01/20/19 Rx patch] cephALEXin [Keflex 500mg Cap] 500 mg PO TID #30 cap 01/20/19 Rx predniSONE [Prednisone 20mg 20 mg PO BID #10 tab 01/20/19 Rx Tab] Prescriptions/Medication Reconciliation: New Levothyroxine Sodium [Synthroid 100mcg (0.1mg) tablet] 100 mcg PO DAILYDM tablet cephALEXin [Keflex 500mg Cap] 500 mg PO TID #30 cap Nicotine [Nicoderm 21mg/24hr patch] 21 mg TD DAILY #30 patch.td24 predniSONE [Prednisone 20mg Tab] 20 mg PO BID #10 tab Benzonatate [Tessalon Perle 100mg Cap] 100 mg PO TID #30 cap Azithromycin [Zithromax 250mg tab] 250 mg PO DIRECTED #6 tab Continued Denosumab [Denosumab 60mg/mL syringe] 60 mg SUB-Q [id number] Levothyroxine Sodium [Levothyroxine 100mcg (0.1MG) Tab] 100 mcg PO DAILY Fluticasone/Vilanterol [Breo Ellipta 200-25 Mcg INH] 1 puff IH DAILY Fluticasone Propionate 1 spr NOSTRIL-B DAILY Tiotropium Pomeroy [Spiriva Respimat] 2 puff IH DAILY Gabapentin [Gabapentin 100mg Cap] 100 mg PO TID Discontinued Buprenorphine HCl/Naloxone HCl [Buprenorphin-Naloxon 8-2 mg Sl] 1 each SL DAILY - Problem Reconciliation Problems Reviewed?: Yes
== END 2019-01-20 10:14 | disposition home or self-care (01) | DRG 189 ==
LOC: ER 10:41 → 2ND 11:59
PROVIDERS: ADMIT Internal Medicine Adolescent Medicine; ATTEND Emergency Medicine
CPT/HCPCS: 36415; 71010; 71045; 80048; 80053; 80305; 81001; 82803; 83605; 83880; 84484; 85007; 85025; 87040; 87070; 87077; 87086; 87186; 87205; 93005; 94640; 94660; 94761; 96365; 96367; 96375; 97161; 97165; 97530; 97535; 99285; J2310

== ENCOUNTER → 2019-02-08 08:50 | Outpatient (CLI) | payer MEDICAID, SELFPAY ==
--- NOTE | 2019-02-08 08:51 | CA_ITS ---
APPROVED REPORT EXAM: Comprehensive 2D, Doppler, and color-flow Echocardiogram Brand Representative: Mera Hoskins CRT Ht: 5 ft 6 in Wt: 81lbs BSA: 1.36 BP: 117/84 mmHg Indications: EDEMA 2D Dimensions LVOT 1.60 cm (M/F) 1.5-2.5 M-Mode Dimensions RVDd 1.50 cm (0.9-2.6) LA Diam 3.30 cm (1.9-4.0) LVDd 4.10 cm (3.5-5.7) Ao Diam 2.50 cm (2.0-3.7) LVDs 2.50 cm (3.5-5.7) AV Cusp 1.70 cm (1.5-2.6) IVSd 0.80 cm (0.6-1.1) PWd 0.70 cm (0.6-1.1) EF (Teich) 69.90% FS 39.00% EDV (Teich) 74.20 mL ESV (Teich) 22.30 mL LV Diastology E/A Ratio 0.90 Aortic Valve AoV Peak Brian. 174.00 (50-130 cm/s) AO Peak GR. 12.00 mmHg Mitral Valve MV E Max Brian. 92.30 (40-130 cm/s) MV A Velocity 107.00 (40-130 cm/s) E/A Ratio 0.90 Pulmonary Valve PA Accel Time 151.00 (>120 msec) Tricuspid Valve TR P. Velocity 215.00 cm/s RAP Estimate 10.00 mmHg RVSP 28.00 mmHg Left Ventricle Left atrium is normal size, left ventricle is normal size, there is no concentric left ventricular hypertrophy, visually estimated ejection fraction 55% with no regional wall motion abnormality, Doppler evidence of impaired LV relaxation seen, tissue Doppler is inadequate for calculation of the left atrial pressure. Right Ventricle Right atrium is normal size, right ventricle appears to be mildly enlarged with normal contractility. Aortic Valve Aortic valve is grossly normal. There is no aortic stenosis aortic insufficiency. Mitral Valve Mitral valve is grossly normal, there is mild mitral regurgitation. Tricuspid Valve Tricuspid valve is grossly normal, there is mild tricuspid regurgitation, calculated right ventricular systolic pressure is 49 mmHg which is moderately elevated right ventricular systolic pressure. Pulmonic Valve Pulmonic valve is poorly visualized. Great Vessels Aortic root is normal size. Pericardium No significant pericardial effusion noted. Conclusion 1. Normal left ventricular size, preserved left ventricular systolic function, visually estimated ejection fraction of 55% with no regional wall motion abnormality, Doppler evidence of impaired LV relaxation seen. 2. Mildly enlarged right ventricle with normal contractility. 3. Mild mitral and tricuspid regurgitation, calculated right ventricular systolic pressure is 49 mmHg consistent with moderately elevated right ventricular systolic pressure. 4. No significant pericardial effusion noted. Electronically signed by : Kennedy Fountain, 02/12/2019 17:02:42
== END ==
PROVIDERS: PCP Physician Assistant; Visit Provider Physician Assistant
DX: R60.9 Edema, unspecified (principal)
CPT/HCPCS: 93306

== ENCOUNTER → 2019-02-16 13:15 | Outpatient (CLI) | payer MEDICAID, SELFPAY ==
[2019-02-16 14:09] LABS: Basophils % 0.8 % (0.1-2.0); Eosinophils # 0.1 K/mm3 (0.0-0.4); Eosinophils % 2.5 % (0.1-12.0); Hematocrit 34.7 % (37.0-47.0); Hemoglobin 8.6 g/dL (12.2-16.2); Lymphocytes % 21.4 % (10-50); Mean Corpuscular HGB Conc 24.7 g/dL (31.8-35.4); Mean Corpuscular Hemoglobin 17.3 pg (27.0-31.2); Mean Platelet Volume 7.7 fl (7.4-10.4); Monocytes # 0.5 K/mm3 (0.1-1.0); Monocytes % 11.1 % (1.7-9.3); Neutrophils # 3.1 K/mm3 (1.8-7.8); Neutrophils % 64.1 % (37.0-80.0); Platelet Count 740 K/mm3 (142-424); Red Blood Count 4.96 M/mm3 (4.20-5.40); Red Cell Distribution Width 20.6 % (11.5-17.5); White Blood Count 4.8 K/mm3 (4.8-10.8)
[2019-02-16 14:46] LABS: Alanine Aminotransferase 7 U/L (12-78); Albumin Level 2.5 gm/dL (3.4-5.0); Albumin/Globulin Ratio 0.5 (1.1-1.8); Alkaline Phosphatase 98 U/L (46-116); Anion Gap 11.3 mEq/L (5-15); Aspartate Amino Transferase 14 U/L (15-37); Bilirubin,Total 0.2 mg/dL (0.2-1.0); Blood Urea Nitrogen 9 mg/dL (7-18); Calcium 8.6 mg/dL (8.5-10.1); Carbon Dioxide 35 mmol/L (21.0-32.0); Chloride 95 mmol/L (98-107); Cholesterol 149 mg/dL (140-200); Creatinine,Serum 0.35 mg/dL (0.55-1.02); Estimated Glomerular Filt Rate 191 ml/min (>60); GFR (African American) 231 ML/MIN (>60); Globulin 4.7 gm/dl (1.3-3.2); Glucose 80 mg/dL (74-106); HDL Cholesterol 49 mg/dL (29-89); LDL Cholesterol 76 mg/dL (0-130); Potassium 4.3 mmoL/L (3.5-5.1); Sodium 137 mmol/L (136-145); T4 (Thyroxine) 6.6 ug/dl (4.7-13.3); Thyroid Stimulating Hormone 15.28 uIU/ml (0.358-3.740); Total Protein,Serum 7.2 gm/dL (6.4-8.2); Triglycerides 119 mg/dL (30-200); VLDL Cholesterol 24 mg/dL (0-40)
[2019-02-17 10:49] LABS: Vitamin D 25 Hydroxy 20.4 ng/mL (30.0-100.0)
== END ==
PROVIDERS: Visit Provider Physician Assistant
DX: E03.9 Hypothyroidism, unspecified (principal); E55.9 Vitamin D deficiency, unspecified
CPT/HCPCS: 80053; 80061; 82652; 84436; 84443; 85025

== ENCOUNTER → 2019-03-18 07:23 | Outpatient (CLI) | payer OTHER, SELFPAY | PROVIDERS: PCP Physician Assistant; Referring Provider Urology; Visit Provider Urology | DX: Z01.818 Encounter for other preprocedural examination (principal) ==

== ENCOUNTER → 2019-03-29 06:31 | Outpatient (CLI) | payer OTHER, SELFPAY ==
--- NOTE | 2019-03-29 | CA_ITS ---
APPROVED REPORT Exam: Pharmacologic Technologist: delmi mitchell, Ht: 5 ft 6 in Wt: 80 lbs BSA: 1.35 m2 HR: 103 bpm BP: 106/57 mmHg Indications: SOB, Pre-op Medical History Medications: Spiriva,,,,, Levothyroxine,,,,, Gabapentin,,,,, Lasix,,,,, BisOPROLOL,,,,, BREo,,,,, BuPRenorphinE,,,,, Denosumab,,,,, VitaminD 3,,,,, VitaminD 2,,,,, Allergies: No known drug allergies Cardiac Risk Factors: FHX of CAD, Smoking Stress Test Details Test: LEXISCAN HR Resting HR: 106 bpm Max Heart Rate (APMHR): 161 bpm Max HR Achieved: 136 bpm Target HR (85% APMHR): 136 bpm % of APMHR: 84 Recovery HR: 125 bpm BP Resting BP: 106/57 mmHg Max BP: 127/73 mmHg Recovery BP: 102.0/52.0 mmHg ECG Resting ECG: Sinus Tachycardia Clinical Exercise duration: 04:00 min Highest Stage Achieved: Exercise capacity: 1.0 METs Stress ECG Conclusion Lexiscan portion completed. Patient c/o headache at peak infusion that resolved with recovery. Symptoms: No CP, or SOB. Headache at peak infusion, resolved in recovery. Arrhythmias/Ectopy: None noted. ST-T Changes: Less than 1.5mm ST Depression. Images to follow. Electronically signed by : Kennedy Fountain, 03/30/2019 06:29:26
--- NOTE | 2019-03-29 06:34 | NM_ITS ---
APPROVED REPORT Exam: Nuclear Stress Test Indication: SOB, Pre op, Former tobacco use, Family history Patient Location: Outpatient Stress Tech: Brianne Villegas [place] Tech:Sowmya Sexton, ARRT, RT (R)(N) Ht: 5 ft 6 in Wt: 80 lbs Bra Size: A HR: 103 bpm BP: 106/57 mmHg BSA: 1.35 m2 BMI: 12.9 History: SOB, Pre op, Former tobacco use, Family history Procedure: Patient received a 0.4 mg of intravenous Lexiscan, resting heart rate 103 bpm, resting blood pressure 106/57 mmHg, with Lexiscan maximum heart rate achived was 135 bpm which is Less than 85 % of the maximum predicted heart rate and blood pressure was 127/73 mmHg. With Lexiscan, patient denied any complaint of chest pain. Electrocardiogram Resting electrocardiogram showed sinus tachycardia, with Lexiscan there is less than 1.[address] segment depression noted from the baseline EKG. The EKG portion of the Lexiscan Myoview is nondiagnostic. Cardiac Stress and Resting SPECT Images: Cardiac Stress and Resting SPECT images were obtained using technetium 99m Myoview 32.4 mCi stress and 9.95 mCi at rest. Gated SPECT with analysis of segmental wall motion and calculation of the ejection fraction also done. Cardiac stress and resting SPECT images show uniform myocardial activity without segmental perfusion abnormality, computer derived ejection fraction is over 65% with no regional wall motion abnormality, right ventricle is normal size and contractility. Conclusion: 1. The EKG portion of the Lexiscan Myoview is nondiagnostic. 2. No scintigraphic evidence of reversible ischemia seen, computer derived ejection fraction is over 65% with no regional wall motion abnormality, right ventricle is normal size and contractility. 3. Normal Lexiscan Myoview study. Electronically signed by : Kennedy Fountain, 03/30/2019 06:32:05
--- NOTE | 2019-03-29 07:22 | HMH.ITSHM ---
Current Home Medications as stated by this patient Lida Phoenix or senior patient account representative. []LEVOTHYROXINE FUROSEMIDE VITAMIN D2 VITAMIN D3 BUPRENORPHINE BISORPROLOL SPIRIVA NICODERM GABAPENTIN BREO FLUTICASONE DENOSUMAB
== END ==
PROVIDERS: PCP Emergency Medicine; Visit Provider Urology
DX: R06.00 Dyspnea, unspecified (principal); I27.20 Pulmonary hypertension, unspecified; I34.0 Nonrheumatic mitral (valve) insufficiency; R00.0 Tachycardia, unspecified; R60.9 Edema, unspecified; R93.1 Abnormal findings on diagnostic imaging of heart and coronary circulation; Z01.810 Encounter for preprocedural cardiovascular examination
CPT/HCPCS: 78452; 93017; A9502; J2785

== ENCOUNTER 2019-11-08 08:55 | Emergency (ER) | payer OTHER, SELFPAY ==
[2019-11-08 08:54] VITALS: BP 129/59; PULSE 99; RESP 18; TEMP 36.8; O2SAT 100; BMI 18.8
--- NOTE | 2019-11-08 08:59 | XR_ITS ---
PROCEDURE: XR KNEE LT 3V CLINICAL INDICATION: fall The posttraumatic pain COMPARISON: KNEE3R KNEE-3 VIEWS-RT from 01/08/2017 FINDINGS: No fracture or dislocation. No lytic or blastic change. There is normal mineralization. The joint spaces are well-preserved. No significant degenerative/arthritic changes. No erosive changes evident. Other findings:There is generalized osteopenia. Prominent prepatellar and infrapatellar soft tissue swelling noted IMPRESSION: Prominent pre patellar and infrapatellar soft tissue swelling otherwise negative Dictated by: Billy Keenan MD 11/08/2019 09:38 Electronically signed by Billy Keenan MD in [place] 11/08/2019 09:38
--- NOTE | 2019-11-08 09:05 | PC.NURSE ---
Rad at bedside
--- NOTE | 2019-11-08 09:07 | PC.NURSE ---
Pt has requested to take BP cuff off.
--- NOTE | 2019-11-08 09:10 | HMH.EDGENADL ---
ED Disposition Clinical Impression: Prepatellar bursitis, left knee, Traumatic bursitis Knee contusion Qualifiers: Encounter type: initial encounter Laterality: left Qualified Code(s): S80.02XA - Contusion of left knee, initial encounter Disposition: Home, Self-Care Condition on Discharge: Good Additional Instructions: Continue alternating heat and ice. Continue using walker. Ibuprofen every 6 hours, 400 mg. Renan wrap. Follow-up with orthopedics, Dr. Gonzalez, call for appointment. Referrals: Provider,MD Mayank [Primary Care Provider] - Lauren Gonzalez MD [Physician] - - Critical Care Critical Care Time: No Attestation: On 11/08/19, the high probability of a clinically significant, sudden or life threatening deterioration of the following system(s) required my full and direct attention, intervention and personal management. The time I documented below is in addition to time spent performing reported procedures but includes the following listed in this critical care notation. Medical Decision Making - Nikolai Inquiry Pt receiving controlled substance: No Nikolai was queried for this patient: Yes Reference #:: [id number] Comment: 41 rxs for suboxone. last on 11/05/19 Vital Signs: 11/08/19 08:54 Temperature 98.3 F Temperature Source Oral Pulse Rate [Radial] 99 H Respiratory Rate 18 Blood Pressure [Right Arm] 129/59 L Blood Pressure Mean [Right Arm] 82 Blood Pressure Source [Right Arm] Automatic Cuff Blood Pressure Position [Right Arm] Sitting 02 Sat by Pulse Oximetry 100 Oxygen Delivery Method Nasal Cannula Oxygen Flow Rate (LPM) 3 Orders (Tests/Meds): ORDERS Category Date Time Status XR knee LT 3V Stat Exams 11/08/19 08:59 Taken - Radiology Data #1 Image(s): Knee Image Reviewed: Yes I reviewed the patient's radiology image Soft tissue swelling, no fracture or dislocation General Adult HPI - General Chief complaint: PAIN Stated complaint: pain Time Seen by Provider: 11/08/19 09:10 Mode of Arrival: EMS Limitations: No Limitations Description of Symptoms (Recalled from ER Triage Doc. by RN): right knee pain from a fall 2 weeks ago - History of Present Illness HPI narrative: The patient arrives by ambulance complaining of a left knee injury that occurred 2 weeks ago. She tripped over some kittens and fell landing on a concrete floor. She has had swelling and bruising to her anterior left knee, but has been able to ambulate as usual with her walker. Overall, swelling and bruising has improved, but she has some continued pain and swelling. She denies fever or any other symptoms of illness. - Related Data Home Medications Medication Instructions Recorded Confirmed buprenorphine 8 mg-naloxone 2 mg 1 film BUCCAL DAILY 01/27/19 07/06/19 sublingual film Previous Rx's Medication Instructions Recorded fluticasone furoate 200 1 ea INHALATION DAILY #28 each 05/06/19 mcg-vilanterol 25 mcg/dose inhalation powder hydrocolloid dressing 4 X 4 See Dose Instructions .ROUTE 05/07/19 .MEDSUPPLY #10 each cholecalciferol (vitamin D3) 10 400 unit PO DAILY #50 ml 07/06/19 mcg/mL (400 unit/mL) oral drops ergocalciferol (vitamin D2) 200 1 ml PO DAILY #60 ml 07/06/19 mcg/mL (8,000 unit/mL) oral drops fluticasone propionate 50 1 spray INTRANASAL DAILY #1 unit 07/06/19 mcg/actuation nasal spray,suspension furosemide 20 mg tablet 20 mg PO DAILY #30 tab 07/06/19 ibuprofen 100 mg/5 mL oral 200 mg PO BID #120 ml 07/06/19 suspension levothyroxine 125 mcg tablet 125 mcg PO DAILY #90 tab 07/06/19 umeclidinium 62.5 mcg-vilanterol 1 inh INHALATION Q24H #60 each 07/06/19 25 mcg/actuation powdr for inhalation cefdinir 250 mg/5 mL oral 300 mg PO BID #120 ml 08/03/19 suspension prednisolone 15 mg/5 mL oral 15 mg PO BID #50 ml 08/03/19 solution Allergies Allergy/AdvReac Type Severity Reaction Status Date / Time No Known Allergies Allergy Verified 07/06/19 13
--- NOTE | 2019-11-08 10:12 | PC.NURSE ---
Awaiting cousin to come pick patient up.
[2019-11-08 10:43] VITALS: BP 129/59; PULSE 99; RESP 18; TEMP 36.8; O2SAT 100
== END 2019-11-08 10:45 | disposition home or self-care (01) ==
PROVIDERS: Emergency Provider Emergency Medicine
DX: S80.02XA Contusion of left knee, initial encounter (principal); M70.42 Prepatellar bursitis, left knee; W01.0XXA Fall on same level from slipping, tripping and stumbling without subsequent striking against object, initial encounter; Y92.019 Unspecified place in single-family (private) house as the place of occurrence of the external cause; J44.9 Chronic obstructive pulmonary disease, unspecified; E03.9 Hypothyroidism, unspecified; Z87.891 Personal history of nicotine dependence; Z90.49 Acquired absence of other specified parts of digestive tract; Z99.81 Dependence on supplemental oxygen; Z79.899 Other long term (current) drug therapy
CPT/HCPCS: 73562; 99282

== ENCOUNTER 2019-12-07 15:32 | Observation (INO) | payer OTHER, SELFPAY ==
[2019-12-07] VITALS (14 sets, daily range): BP systolic 93–121; BP diastolic 49–75; PULSE 81–106; RESP 16–20; TEMP 36.7–37.3; O2SAT 98–100; BMI 14.3
[2019-12-07 14:24] LABS: Alanine Aminotransferase 6 U/L (12-78); Albumin Level 3.3 g/dl (3.5-5.0); Albumin/Globulin Ratio 0.8 (1.1-1.8); Alkaline Phosphatase 121 U/L (38-126); Aspartate Amino Transferase 24 U/L (14-36); Bilirubin,Total 0.4 mg/dl (0.2-1.3); Blood Urea Nitrogen 10 mg/dl (7-17); Calcium 8.2 mg/dl (8.4-10.2); Chol/HDL Ratio 2.7 (1-3.5); Cholesterol 133 mg/dl (140-200); Estimated Glomerular Filt Rate 228 ml/min (>60); GFR (African American) 276 ML/MIN (>60); Glucose 101 mg/dl (74-100); HDL Cholesterol 50 mg/dl (40-60); Sodium 135 mmol/L (136-145); Total Protein,Serum 7.3 g/dl (6.3-8.2); Triglycerides 105 mg/dl (30-150); VLDL Cholesterol 21 mg/dL (0-40)
[2019-12-07 14:28] LABS: Basophils % 0.4 % (0.1-2.0); Eosinophils # 0.1 K/mm3 (0.0-0.4); Eosinophils % 2.2 % (0.1-12.0); Lymphocytes # 0.8 K/mm3 (0.7-4.5); Lymphocytes % 17.7 % (10-50); Mean Corpuscular HGB Conc 25.8 g/dL (31.8-35.4); Mean Corpuscular Hemoglobin 16.2 pg (27.0-31.2); Mean Platelet Volume 7.3 fl (7.4-10.4); Monocytes # 0.6 K/mm3 (0.1-1.0); Monocytes % 12.5 % (1.7-9.3); Neutrophils # 3.2 K/mm3 (1.8-7.8); Neutrophils % 67.3 % (37.0-80.0); Platelet Count 366 K/mm3 (142-424); Red Blood Count 3.61 M/mm3 (4.20-5.40); Red Cell Distribution Width 17.9 % (11.5-17.5); White Blood Count 4.8 K/mm3 (4.8-10.8)
[2019-12-07 14:31] LABS: Anion Gap 7.5 mEq/L (5-15); Chloride 71 mmol/L (98-107)
[2019-12-07 14:33] LABS: Carbon Dioxide 59 mmol/L (22.0-30.0); Potassium 2.5 mmoL/L (3.5-5.1)
[2019-12-07 14:35] LABS: Direct LDL Cholesterol 69.11 mg/dL (100-129)
[2019-12-07 14:41] LABS: T4 (Thyroxine) 11.2 ug/dl (5.53-11.0)
[2019-12-07 14:55] LABS: Thyroid Stimulating Hormone 0.68 uIU/mL (0.465-4.68)
[2019-12-07 15:06] LABS: Hemoglobin 5.9 g/dL (12.2-16.2)
[2019-12-07 15:07] LABS: Hematocrit 22.8 % (37.0-47.0)
--- NOTE | 2019-12-07 15:39 | PC.NURSE ---
Pt arrived to the floor via wc at this time
--- NOTE | 2019-12-07 16:04 | CT_ITS ---
PROCEDURE: CT CHEST WO CON CLINICAL INDICATION: weight loss/cough Weight loss and [facility] CT ABDOMEN PELVIS W CON from 12/07/2019 TECHNIQUE: Axial images obtained with sagittal and coronal reformats. All CT scans at the facility use one or more dose reduction, viz: automated exposure control, ma/kV adjustment per patient size (including targeted exams where dose is matched to indication, i.e. head), or iterative reconstruction technique. FINDINGS: The lack of IV contrast greatly limits evaluation of the mediastinal and vascular structures in this patient with very minimal amount of subcutaneous and mediastinal fat. There are large thick wall bulla in both lung apices with adjacent consolidation in the upper lobes. The adjacent consolidation has increased compared to the previous exam. There is an air-fluid level in the upper pole on the right. There is irregularity of the wall of the bulla superiorly on both sides. There are numerous pulmonary nodules scattered throughout both lungs many of which have decreased or resolved. Some however have increased in size. No effusions. There is an old fracture of the body of the sternum. There are old left-sided rib fractures. IMPRESSION: 1. Large thick wall bulla in both lung apices with adjacent consolidation. The consolidation is somewhat worse. There is an air-fluid level in the upper bulla on the right suggesting superimposed infection. 2. Numerous small bilateral pulmonary nodules with mixed response some of which have resolved and some are new. Inflammatory/infectious process or metastatic disease is a consideration Dictated by: Billy Keenan MD 12/08/2019 06:23 Electronically signed by Billy Keenan MD in [place] 12/08/2019 06:23
--- NOTE | 2019-12-07 16:04 | XR_ITS ---
PROCEDURE: XR CHEST 2V CLINICAL HISTORY: sob Shortness of breath COMPARISON: CXR1VP XR chest portable from 08/23/2018 XR CHEST PORTABLE from 01/16/2019 XR CHEST PORTABLE from 01/18/2019 CT CHEST WO CON from 12/07/2019 FINDINGS: Biapical bullous/cavitation changes noted similar to the previous exam. There is adjacent volume loss/atelectatic change. There is mild cardiomegaly without failure. There is some patchy density in the right lung base medially consistent with an area of infiltrate. No acute bony abnormalities. IMPRESSION: Bullous changes/cavitation in both lung apices similar to the previous study. Infiltrate present in the right middle lobe. Dictated by: Billy Keenan MD 12/07/2019 21:14 Electronically signed by Billy Keenan MD in [place] 12/07/2019 21:14
--- NOTE | 2019-12-07 16:06 | CT_ITS ---
PROCEDURE: CT ABDOMEN PELVIS W CON CLINICAL INDICATION: abd pain Generalized abdominal pain with weight loss and cough COMPARISON: ABDPELWO CT abdomen pelvis wo con from 05/01/2018 TECHNIQUE: IV Contrast: 75ML OPTIRAY 350 Oral Contrast None Axial images obtained with sagittal and coronal reformats. All CT scans at the facility use one or more dose reduction, viz: automated exposure control, ma/kV adjustment per patient size (including targeted exams where dose is matched to indication, i.e. head), or iterative reconstruction technique. FINDINGS: The liver, gallbladder, spleen, adrenal glands, and kidneys have an unremarkable appearance. There is pancreatic atrophy. No intestinal obstruction or free air. Small right renal cyst noted in the superior pole of the right kidney. Lack of abdominal fat somewhat limits evaluation of the exam. No intestinal obstruction or free air. No acute bony findings. Please see chest CT report for description of lung bases. IMPRESSION: No acute abdominal or pelvic findings. Dictated by: Billy Keenan MD 12/08/2019 06:29 Electronically signed by Billy Keenan MD in [place] 12/08/2019 06:29
--- NOTE | 2019-12-07 18:17 | PC.NURSE ---
Pt was a direct admit from Dr. Womack's office today. She is pleasant and cooperative. A&O X4. No complaints of pain or SOA. Pt ambulates independently with a rolling walker. Pt is currently receiving O2 via NC @ 2 LPM. Pt reports that she wears O2 at home. Assessment findings reveal a reddened area on her coccyx that is covered with a band-aid, and slight bilateral feet swelling. Lungs CTA. O2 sats. >95%. 20 G peripheral IV inserted into the LT forearm with NS infusing @ 50 ML/HR. Blood consent has been signed and placed on chart. Pt refuses her IV K+, Dr. Cat notified. VSS. Call light within reach. Will continue to monitor.
--- NOTE | 2019-12-07 19:49 | HMH.HP ---
*Admission Date: 12/07/19 *Chief complaint: anemia and hypokalemia *History of present illness: Patient is a 59-year-old white female who was direct admitted from the office. Mariah saw her earlier today, she had come in for injuries sustained in a fall over her oxygen tubing. He had some ecchymosis over her left patella. Lab work was done which showed market abnormalities. Her hemoglobin was 5.9. Potassium was 2.5. CO2 was 59. Patient has a longstanding history of COPD and is O2 dependent. It sounds like she had an abnormal Cologuard few years ago and declined work-up. She relays decent appetite but has had marketed weight loss. She denies overt signs of upper or lower GI bleeding, no hematemesis, no black tarry stools. She has no significant abdominal pain. She looks much older than her stated age. [facility] History Medical History: Reports:: Asthma, Chronic Obstructive Pulmonary Disease (COPD), Home Oxygen, Hypertension Denies:: Cancer, Diabetes Mellitus Type 1, Diabetes Mellitus Type 2, MRSA *Have you ever received a pneumonia vaccine?: No *Have you received a flu vaccine this season?: Yes Other Medical History: Reports: Anemia, Arthritis, Hypothyroidism, Thyroid Disease Other Surgeries: Yes: Appendectomy, Other Amputation: No Fractures: No - *Social History Last grade of school completed: High school graduate Smoking Status: Former smoker Tobacco Type: cigarettes # Packs/Day (cigarettes): 1 #Yrs smoked (if former smoker): 30 Smoking End Date: 2018 Alcohol Intake: never Substance Use Type: prescription drug *Occupational Status:: unemployed Housing: apartment Household Members: spouse *Travel in the last 8 weeks: None Family Hx:: Cancer, Heart Attack Review of Systems - Constitutional Reports weight loss - Eyes Denies change in vision - ENT Denies nosebleed - *Cardiovascular Reports shortness of breath with activity, Denies chest pain - *Respiratory Reports shortness of breath, Denies change in phlegm color, Denies coughing up blood - *Gastrointestinal Denies abdominal pain, Denies change in stools, Denies coffee ground vomit, Denies constipation, Denies cramping, Denies heartburn, Denies feeling full early, Denies heartburn, Denies vomiting blood, Denies bright, red blood in stools, Denies black, tarry stools, Denies pain with swallowing, Denies constant urge to pass stool - *Genitourinary Denies abnormal vaginal bleeding - *Musculoskeletal Reports joint pain, Reports decreased muscle mass, Reports back pain, Reports limited joint movement, Reports loss of height, Reports muscle weakness - *Neurologic Reports unsteadiness, Reports weakness - Psychiatric Denies depression - Hematologic/Lymphatic Denies easy bleeding, Denies easy bruising - Allergic/Immunologic Denies GI upset with certain foods Meds Home Medications Medication Instructions Recorded Confirmed Type buprenorphine 8 mg-naloxone 2 mg 2 tab BUCCAL DAILY 01/27/19 12/07/19 History sublingual film fluticasone propionate 50 1 spray INTRANASAL DAILY #1 unit 07/06/19 12/07/19 Rx mcg/actuation nasal spray,suspension Cholecalciferol (Vitamin D3) 400 unit PO DAILY 12/07/19 12/07/19 History [D--Kailey] Ergocalciferol (Vitamin D2) 1 ml PO DAILY 12/07/19 12/07/19 History [Calcidol] Furosemide [Furosemide 20mg Tab] 20 mg PO DAILY 12/07/19 12/07/19 History Levothyroxine Sodium [Synthroid 125 mcg PO DAILY 12/07/19 12/07/19 History 125mcg (0.125mg) tablet] Allergies Allergy/AdvReac Type Severity Reaction Status Date / Time No Known Allergies Allergy Verified 12/07/19 08:54 Exam Vital signs and Labs for Last 24 Hours: Temp Pulse Resp BP Pulse Ox 99.1 F 106 H 20 121/54 L 100 12/07/19 15:56 12/07/19 15:56 12/07/19 15:56 12/07/19 15:56 12/07/19 15:56 Laboratory Results - last 24 hr 12/07/19 09:42: WBC 4.8, RBC 3.61 L, Hgb 5.9 L*, Hct 22.8 L*, MCV 63.0 L, MCH 16.2 L, MCHC 25.8 L, RDW
[2019-12-07 20:31] LABS: Total Iron Binding Capacity 407 ug/dL (265-497)
[2019-12-07 21:12] LABS: ABG Base Excess 30.8 mmol/L (-2.4-2.3); ABG HCO3 54.8 mmhg (22.0-26.0); ABG Oxygen Saturation 95 % (90-100); ABG PH 7.45 mmol/L (7.35-7.45); ABG TCO2 57.3 mmhg (23-27)
[2019-12-07 21:13] LABS: Allen's Test Acceptable; Oxygen 4L NC %; Source Right Radial
--- NOTE | 2019-12-07 23:20 | PC.NURSE ---
Pt's 1st unit of blood was verified wTai cheung RN and Corina Lund RN and started at 22:55 on 12/07/19. This unit ended at 23:15 on 12/07/19. The unit is #[id number].
[2019-12-08] VITALS (23 sets, daily range): BP systolic 87–139; BP diastolic 39–80; PULSE 74–96; RESP 15–20; TEMP 36.6–37.1; O2SAT 95–100; BMI 15.5
--- NOTE | 2019-12-08 04:14 | PC.NURSE ---
RT monitored pt during room air sat=82%, returned pt to 4L NC Pt stated that she wears 4L at home
--- NOTE | 2019-12-08 05:48 | PC.NURSE ---
A&OX4. PT HAS TOLERATED 2L NC WELL THROUGHOUT SHIFT. PT RECEIVED 3 UNITS OF BLOOD THIS SHIFT AND TOLERATED ALL 3 WELL. BP WAS SLIGHTLY LOW, BUT PATIENT WAS ALERT AND RESPONSIVE. LUNG SOUNDS BILATERALLY CLEAR. NO COUGH NOTED. +2 PULSES NOTED THROUGHOUT. HAND SOLAR SALES REP EQUAL. ACTIVE BOWEL SOUNDS HEARD IN ALL 4 QUADRANTS. SOFT AND NONTENDER. PT TAKES HERSELF TO THE RESTROOM WITH ROLLING WALKER. STEADY GAIT NOTED. CLEAR YELLOW URINE NOTED. PT REPORTS NO PAIN THROUGHOUT SHIFT. PT IS CURRENTLY RESTING IN BED. VSS. CALL LIGHT WITHIN REACH. BED IN LOWEST POSITION. NO CONCERNS AT THIS TIME. WILL CONTINUE TO MONITOR.
[2019-12-08 06:19] LABS: Basophils % 0.4 % (0.1-2.0); Eosinophils # 0.1 K/mm3 (0.0-0.4); Lymphocytes # 0.8 K/mm3 (0.7-4.5); Mean Platelet Volume 7.1 fl (7.4-10.4); Monocytes # 0.5 K/mm3 (0.1-1.0); White Blood Count 4.9 K/mm3 (4.8-10.8)
--- NOTE | 2019-12-08 06:26 | ECG_ITS ---
APPROVED REPORT Exam: Resting ECG HR:81 bpm ECG Measurements Heart Rate 81 AXES KS 168 P 72 QRSd 78 QRS 112 QT 396 T 85 QTc 460 <Conclusion> NSR with marked artifact Left posterior fascicular block Abnormal ECG Electronically signed by : Joey Reilly, 12/10/2019 17:10:36
[2019-12-08 06:29] LABS: Eosinophils % 2.9 % (0.1-12.0); Hematocrit 34.9 % (37.0-47.0); Mean Corpuscular HGB Conc 30.3 g/dL (31.8-35.4); Mean Corpuscular Hemoglobin 21.8 pg (27.0-31.2); Mean Corpuscular Volume 71.9 fl (81-99); Neutrophils # 3.5 K/mm3 (1.8-7.8); Neutrophils % 69.8 % (37.0-80.0); Platelet Count 298 K/mm3 (142-424); Red Blood Count 4.86 M/mm3 (4.20-5.40); Red Cell Distribution Width 21.9 % (11.5-17.5)
[2019-12-08 06:36] LABS: Hemoglobin 10.6 g/dL (12.2-16.2)
[2019-12-08 06:43] LABS: Sodium 138 mmol/L (136-145)
[2019-12-08 06:45] LABS: Blood Urea Nitrogen 5 mg/dl (7-17); Creatinine Clearance Estimated 114 mL/min (50-200); Estimated Glomerular Filt Rate 228 ml/min (>60); GFR (African American) 276 ML/MIN (>60)
[2019-12-08 06:46] LABS: Calcium 7.8 mg/dl (8.4-10.2); Cholesterol 117 mg/dl (140-200); Glucose 91 mg/dl (74-100); Triglycerides 81 mg/dl (30-150); VLDL Cholesterol 16 mg/dL (0-40)
[2019-12-08 06:47] LABS: Chol/HDL Ratio 3.2 (1-3.5); HDL Cholesterol 37 mg/dl (40-60); Iron 37 ug/dL (37-170)
[2019-12-08 06:57] LABS: Direct LDL Cholesterol 62.44 mg/dL (100-129)
--- NOTE | 2019-12-08 06:58 | P.CONPHA_ITS ---
[facility] Pharmacy VTE Monitoring - Patient Demographics Admission date: 12/07/19 Report Date: 12/08/19 Time: 06:58 Allergies/Adverse Reactions: Patient Allergies No Known Allergies Allergy (Verified 12/07/19 08:54) Height: 1.52 m Weight: 35.834 kg Patient Problems: Current Active Problems Hypokalemia (Acute) - VTE Risk Labs: VTE Related Lab Results Hgb 10.6 g/dL (12.2-16.2) L D 12/08/19 06:05 Hct 34.9 % (37.0-47.0) L 12/08/19 06:05 Plt Count 298 K/mm3 (142-424) 12/08/19 06:05 BUN 10 mg/dl (7-17) 12/07/19 09:42 Creatinine 0.30 mg/dl (0.52-1.04) L 12/07/19 09:42 Was VTE Risk Assessment Performed: Yes VTE Score: 3 VTE Risk Level: Low Risk - Prophylaxis VTE Prophylaxis Ordered?: Yes Types of VTE Prophylaxis: TEDS Knee High Location of Applied Device: Bilateral Lower Extremeties - VTE Diagnosis Confirmed Treatment or plan recommended: Continue Current Treatment
[2019-12-08 07:00] LABS: Anion Gap 9.8 mEq/L (5-15); Chloride 78 mmol/L (98-107)
--- NOTE | 2019-12-08 07:00 | PC.NURSE ---
LAB CALLED WITH CRITICAL RESULTS OF K 2.8 [address] PAGED [address] FUNK AT 7:05. AWAITING PHONE CALL BACK. DAY SHIFT RN AWARE.
[2019-12-08 07:01] LABS: Carbon Dioxide 53 mmol/L (22.0-30.0); Potassium 2.8 mmoL/L (3.5-5.1)
[2019-12-08 07:21] LABS: Ferritin 10.6 ng/ml (11.1-264)
--- NOTE | 2019-12-08 08:50 | HMH.DCSUM ---
General - General Admission date:: 12/07/19 Discharge date: 12/08/19 HPI HPI: Patient is a 59-year-old white female who was direct admitted from the office. Mariah saw her earlier today, she had come in for injuries sustained in a fall over her oxygen tubing. He had some ecchymosis over her left patella. Lab work was done which showed market abnormalities. Her hemoglobin was 5.9. Potassium was 2.5. CO2 was 59. Patient has a longstanding history of COPD and is O2 dependent. It sounds like she had an abnormal Cologuard few years ago and declined work-up. She relays decent appetite but has had marketed weight loss. She denies overt signs of upper or lower GI bleeding, no hematemesis, no black tarry stools. She has no significant abdominal pain. She looks much older than her stated age. Hospital Course Hospital Course: 59-year-old female patient resting in bed quietly eating breakfast, she reports she had a good evening and she is ready to be discharged she reports she feels a lot better today. Oxygen is on 2 L per nasal cannula with oxygen saturation of 98%. She does report she has been tobacco free for 1 year, encouragement provided 59-year-old female patient was admitted from the office after sustaining multiple falls at home, she does have a bruising area over her left patella. She does have history of COPD and is on home oxygen. She reports she had a positive Cologuard, she was scheduled for a colonoscopy and she states that had to be rescheduled to 2 COVID-19. She denies any visible blood in stool at home. In the ER her H/H was 5.9/22.8, potassium was 2.8. On the floor she did receive 3 units of packed red blood cells postinfusion H/H was 10.6/34.9, she did refuse her potassium IV replacement. 12/07/[address]: FINDINGS: The lack of IV contrast greatly limits evaluation of the mediastinal and vascular structures in this patient with very minimal amount of subcutaneous and mediastinal fat. There are large thick wall bulla in both lung apices with adjacent consolidation in the upper lobes. The adjacent consolidation has increased compared to the previous exam. There is an air-fluid level in the upper pole on the right. There is irregularity of the wall of the bulla superiorly on both sides. There are numerous pulmonary nodules scattered throughout both lungs many of which have decreased or resolved. Some however have increased in size. No effusions. There is an old fracture of the body of the sternum. There are old left-sided rib fractures. IMPRESSION: 1. Large thick wall bulla in both lung apices with adjacent consolidation. The consolidation is somewhat worse. There is an air-fluid level in the upper bulla on the right suggesting superimposed infection. 2. Numerous small bilateral pulmonary nodules with mixed response some of which have resolved and some are new. Inflammatory/infectious process or metastatic disease is a consideration Dictated by: Shlomo, 12/07/19 CXR: FINDINGS: Biapical bullous/cavitation changes noted similar to the previous exam. There is adjacent volume loss/atelectatic change. There is mild cardiomegaly without failure. There is some patchy density in the right lung base medially consistent with an area of infiltrate. No acute bony abnormalities. IMPRESSION: Bullous changes/cavitation in both lung apices similar to the previous study. Infiltrate present in the right middle lobe. Dictated by: Shlomo, 12/07/19 Abd/Pelvis CT: FINDINGS: The liver, gallbladder, spleen, adrenal glands, and kidneys have an unremarkable appearance. There is pancreatic atrophy. No intestinal obstruction or free air. Small right renal cyst noted in the superior pole of the right kidney. Lack of abdominal fat somewhat limits evaluation of the exam. No intestinal obstruction or free air. No acute bony findings. Please see chest CT report for descrip
--- NOTE | 2019-12-08 09:01 | HMH.PHAINT ---
home medication reconciliation completed using list from home pharmacy. suboxone dose verified with hometown pharmacy in [place], [place].
[2019-12-08 10:10] LABS: Coronavirus 19 IgG Antibody Positive (Negative); Coronavirus 19 IgM Antibody Negative (Negative)
--- NOTE | 2019-12-08 11:09 | HMH.PHAINT ---
PATIENT COUNSELED ON NEW MEDICATIONS: POTASSIUM CL, AZITHROMYCIN AND CEPHALEXIN. PATIENT WILL CONTINUE ALL HOME MEDICATIONS. THE PATIENT DID NOT HAVE ANY QUESTIONS.
[2019-12-10 09:54] LABS: Covid-19 Nasal PCR Sendout Lex Not Detected
[2019-12-14 15:17] LABS: 1,25 Dihydroxy Vitamin D 78 pg/mL (.); 1,25-Dihydroxy, Vitamin D-2 <10 pg/mL (.); 1,25-Dihydroxy, Vitamin D-3 78 pg/mL (.)
== END 2019-12-08 11:30 | disposition home or self-care (01) ==
LOC: 2ND 15:34
PROVIDERS: Family Medicine; Nurse Practitioner Family; Admitting Provider Emergency Medicine; PCP Physician Assistant; Visit Provider Emergency Medicine
DX: D64.9 Anemia, unspecified (principal); E03.9 Hypothyroidism, unspecified; E55.9 Vitamin D deficiency, unspecified; I27.20 Pulmonary hypertension, unspecified; R53.83 Other fatigue; Z86.19 Personal history of other infectious and parasitic diseases; Z99.81 Dependence on supplemental oxygen; I10 Essential (primary) hypertension; M81.0 Age-related osteoporosis without current pathological fracture; R63.4 Abnormal weight loss; Z87.891 Personal history of nicotine dependence; E87.6 Hypokalemia; R64 Cachexia; Z68.1 Body mass index [BMI] 19.9 or less, adult; J44.9 Chronic obstructive pulmonary disease, unspecified
CPT/HCPCS: 36415; 71046; 71250; 74177; 80048; 80053; 80061; 82652; 82728; 82803; 83540; 83550; 83735; 84436; 84443; 85025; 86328; 86850; 93005; 94760; 94761; G0378; P9016; Q9967; U0004

== ENCOUNTER 2019-12-31 15:12 | Observation (INO) | payer OTHER, SELFPAY ==
[2019-12-31] VITALS (9 sets, daily range): BP systolic 108–131; BP diastolic 69–88; PULSE 80–101; RESP 16–20; TEMP 36.6–37; O2SAT 95–100; BMI 14.1; BMI 13.4; BMI 12.3
--- NOTE | 2019-12-31 15:35 | XR_ITS ---
PROCEDURE: XR CHEST PORTABLE CLINICAL HISTORY: general weakness COMPARISON: CR XR CHEST PORTABLE from 01/16/2019 CR XR CHEST PORTABLE from 01/18/2019 CR XR CHEST 2V from 12/07/[address] CHEST WO CON from 12/07/2019 FINDINGS: Chronic cavitary changes noted in both apices left more prominent than right not significantly changed with pleural parenchymal thickening. Lower lobes are clear. No acute bony findings. No new areas of consolidation. IMPRESSION: Chronic changes with cavitation in both upper lobes. No change Dictated b Billy Keenan MD 12/31/2019 17:08 Billy Keenan MD in [facility] 12/31/2019 17:08
--- NOTE | 2019-12-31 15:47 | ECG_ITS ---
APPROVED REPORT Exam: Resting ECG HR:98 bpm ECG Measurements Heart Rate 98 AXES NJ 140 P 58 QRSd 74 QRS 107 QT 350 T 63 QTc 446 <Conclusion> Sinus rhythm with premature atrial complexes Biatrial enlargement Rightward axis Abnormal ECG Electronically signed by : Joey Reilly, 01/01/2020 08:26:05
--- NOTE | 2019-12-31 15:54 | HMH.EDGENADL ---
ED Disposition Clinical Impression: Weakness, Shakiness, Multiple falls, Dehydration Disposition: Admitted as Observation Condition on Discharge: Good - Critical Care Critical Care Time: No Attestation: On 12/31/19, the high probability of a clinically significant, sudden or life threatening deterioration of the following system(s) required my full and direct attention, intervention and personal management. The time I documented below is in addition to time spent performing reported procedures but includes the following listed in this critical care notation. Medical Decision Making - Medical Records Medical records reviewed: Yes: I reviewed the patient's medical records. MR Comment: Recent admission 12/08/2019 for anemia with hemoglobin 5.9 and low potassium of 2.5. Patient was admitted from her primary care provider's office. - Nikolai Inquiry Pt receiving controlled substance: No Vital Signs: 12/31/19 15:37 12/31/19 15:43 12/31/19 18:13 Temperature 98 F Temperature Source Oral Pulse Rate [Right] 101 H 100 H 80 Respiratory Rate 20 16 20 Blood Pressure [Right Arm] 131/80 128/70 128/70 Blood Pressure Mean [Right Arm] 97 89 89 Blood Pressure Source [Right Arm] Automatic Cuff Automatic Cuff Automatic Cuff Blood Pressure Position [Right Arm] Sitting Sitting 02 Sat by Pulse Oximetry 98 98 95 Oxygen Delivery Method Nasal Cannula Nasal Cannula Nasal Cannula Oxygen Flow Rate (LPM) 3 3 12/31/19 18:58 Temperature Temperature Source Pulse Rate [Right] 96 H Respiratory Rate 20 Blood Pressure [Right Arm] 111/69 Blood Pressure Mean [Right Arm] 83 Blood Pressure Source [Right Arm] Automatic Cuff Blood Pressure Position [Right Arm] Sitting 02 Sat by Pulse Oximetry 99 Oxygen Delivery Method Nasal Cannula Oxygen Flow Rate (LPM) 3 - Lab Data Lab results reviewed: Yes: I reviewed the patient's lab results. Lab Results 12/31/19 16:00: WBC 5.5, RBC 4.06 L, Hgb 9.2 L, Hct 30.5 L, MCV 75.3 L, MCH 22.8 L, MCHC 30.3 L, RDW 23.2 H, Plt Count 208, MPV 7.5, Neut % (Auto) 76.7, Lymph % (Auto) 12.0, Villalba % (Auto) 8.5, Eos % (Auto) 2.7, Baso % (Auto) 0.2, Neut # (Auto) 4.2, Lymph # (Auto) 0.7, Villalba # (Auto) 0.5, Eos # (Auto) 0.2, Baso # (Auto) 0.0 12/31/19 16:00: Sodium 134 L, Potassium 4.1, Chloride 80 L, Carbon Dioxide 47 H*, Anion Gap 11.1, BUN 12, Creatinine 0.20 L, Estimated Creat Clear 176, Estimated GFR 364, Est GFR ( Amer) 440, Glucose 110 H, Calcium 8.2 L, Troponin I < 0.01 12/31/19 16:00: TSH 2.04 12/31/19 16:50: Urine Color Yellow, Urine Appearance Clear, Urine pH 8.5, Ur Specific Newman 1.015, Urine Protein Negative, Urine Glucose (UA) Negative, Urine Ketones Negative, Urine Blood Negative, Urine Nitrate Negative, Urine Bilirubin Negative, Urine Urobilinogen 1.0, Ur Leukocyte Esterase Trace, Urine RBC Occasional, Urine WBC 5-10, Ur Squamous Epith Cells 3-5, Urine Bacteria None Result diagrams: 12/31/19 16:00 12/31/19 16:00 Orders (Tests/Meds): ED MEDICATIONS Generic Name Dose Route Start Last Admin Trade Name Freq PRN Reason Stop Dose Admin Sodium Chloride 1,000 mls @ 999 mls/hr 12/31/19 19:00 12/31/19 18:58 Sod Chlor 0.9% 1000ml Bag IV 12/31/19 20:00 999 mls/hr .Q1H1M DONAL Administration ORDERS Category Date Time Status CT head/brain wo con Stat Cat Scan 12/31/19 16:49 Taken Full Resp Panel (COVID)(INPT) Routine Lab 12/31/19 18:51 Received ABG [Arterial Blood Gas] Stat RT 12/31/19 16:49 Ordered - Radiology Data #1 Image(s): Chest Image Reviewed: Yes I reviewed the patient's radiology image, Yes I have reviewed radiologist's interpretation PROCEDURE: XR CHEST PORTABLE CLINICAL HISTORY: general weakness COMPARISON: CR XR CHEST PORTABLE from 01/16/2019 CR XR CHEST PORTABLE from 01/18/2019 CR XR CHEST 2V from 12/07/[address] CHEST WO CON from 12/07/2019 FINDINGS: Chronic cavitary changes noted in both apices left more prominent than right not sig
[2019-12-31 16:07] LABS: Eosinophils # 0.2 K/mm3 (0.0-0.4); Lymphocytes # 0.7 K/mm3 (0.7-4.5); Mean Platelet Volume 7.5 fl (7.4-10.4); Monocytes # 0.5 K/mm3 (0.1-1.0); Neutrophils # 4.2 K/mm3 (1.8-7.8)
[2019-12-31 16:11] LABS: Basophils % 0.2 % (0.1-2.0); Eosinophils % 2.7 % (0.1-12.0); Hematocrit 30.5 % (37.0-47.0); Hemoglobin 9.2 g/dL (12.2-16.2); Mean Corpuscular HGB Conc 30.3 g/dL (31.8-35.4); Mean Corpuscular Hemoglobin 22.8 pg (27.0-31.2); Mean Corpuscular Volume 75.3 fl (81-99); Monocytes % 8.5 % (1.7-9.3); Neutrophils % 76.7 % (37.0-80.0); Platelet Count 208 K/mm3 (142-424); Red Blood Count 4.06 M/mm3 (4.20-5.40); Red Cell Distribution Width 23.2 % (11.5-17.5); White Blood Count 5.5 K/mm3 (4.8-10.8)
[2019-12-31 16:12] LABS: Potassium 4.1 mmoL/L (3.5-5.1); Sodium 134 mmol/L (136-145)
[2019-12-31 16:15] LABS: Blood Urea Nitrogen 12 mg/dl (7-17); Calcium 8.2 mg/dl (8.4-10.2); Chloride 80 mmol/L (98-107); Creatinine Clearance Estimated 176 mL/min (50-200); Estimated Glomerular Filt Rate 364 ml/min (>60); GFR (African American) 440 ML/MIN (>60); Glucose 110 mg/dl (74-100)
[2019-12-31 16:23] LABS: Anion Gap 11.1 mEq/L (5-15)
[2019-12-31 16:24] LABS: Carbon Dioxide 47 mmol/L (22.0-30.0)
--- NOTE | 2019-12-31 16:24 | PC.NURSE ---
Notified of CO2
[2019-12-31 16:30] LABS: Troponin I < 0.01 ng/ml (0.00-0.034)
--- NOTE | 2019-12-31 16:49 | CT_ITS ---
PROCEDURE: CT HEAD/BRAIN WO CON CLINICAL INDICATION: fall Head injury with headache/pain, contusion, abrasion or hematoma Headache COMPARISON: No exams were available for comparison TECHNIQUE: Axial images obtained. All CT scans at the facility use one or more dose reduction, viz: automated exposure control, ma/kV adjustment per patient size (including targeted exams where dose is matched to indication, i.e. head), or iterative reconstruction technique. FINDINGS: No midline shift, mass effect, intracranial hemorrhage, hydrocephalus, or extra-axial fluid collection is evident. The calvarium has an unremarkable appearance. No mastoid effusion. Mucosal thickening involves the right ethmoid sinus in the right frontal sinus. IMPRESSION: 1. No acute intracranial findings. 2. Sinus disease Dictated b Billy Keenan MD 01/01/2020 07:21 Billy Keenan MD in [facility] 01/01/2020 07:21
[2019-12-31 16:54] LABS: Microscopic, Urine URINE MICROSCOPIC (MICROSCOPIC)
[2019-12-31 16:57] LABS: Appearance,Urine CLEAR (Clear); Bilirubin,Urine Negative (Negative); Blood, Urine Negative (Negative); Color,Urine YELLOW (Yellow); Glucose,Urine (UA) Negative (Negative); Ketones,Urine Negative (Negative); Leukocyte Esterase,Urine TRACE (Negative); Nitrate,Urine Negative (Negative); PH,Urine 8.5 (5.0-8.5); Protein,Urine Negative (Negative); Specific Gravity, Urine 1.015 (1.005-1.030)
[2019-12-31 17:09] LABS: RBC,Urine Occasional #/hpf (0-3)
[2019-12-31 17:25] LABS: Thyroid Stimulating Hormone 2.04 uIU/mL (0.465-4.68)
--- NOTE | 2019-12-31 18:33 | PC.NURSE ---
dr dallas sanchez for possible admission
[2019-12-31 18:56] LABS: Adenovirus,PCR Not Detected (NotDetected); Bordetella Pertussis Not Detected (NotDetected); Chlamydophila Pneumoniae, PCR Not Detected (NotDetected); Coronavirus 19, PCR Not Detected (NotDetected); Coronavirus 229E Not Detected (NotDetected); Coronavirus NL63 Not Detected (NotDetected); Coronavirus OC43 Not Detected (NotDetected); Coronovirus HKU1,PCR Not Detected (NotDetected); Human Metapneumovirus Not Detected (NotDetected); Influenza A, PCR Not Detected (NotDetected); Influenza AH1, 2009 Not Detected (NotDetected); Influenza AH1, PCR Not Detected (NotDetected); Influenza AH3,PCR Not Detected (NotDetected); Influenza B, PCR Not Detected (NotDetected); Mycoplasma Pneumoniae, PCR Not Detected (NotDetected); Parainfluenza 1, PCR Not Detected (NotDetected); Parainfluenza 2, PCR Not Detected (NotDetected); Parainfluenza 3, PCR Not Detected (NotDetected); Parainfluenza 4, PCR Not Detected (NotDetected); Respiratory Syncytial Virus Not Detected (NotDetected); Rhinovirus/Enterovirus Not Detected (NotDetected)
--- NOTE | 2019-12-31 18:59 | PC.NURSE ---
Covid swab collected
--- NOTE | 2019-12-31 21:53 | PC.NURSE ---
PATIENT BROUGHT TO THE FLOOR BY CYRIL JASON AT 1155
--- NOTE | 2019-12-31 23:26 | HMH.HP ---
*Admission Date: 12/31/19 *Chief complaint: weakness *History of present illness: this wf presented to the ed - advises she has been weak all week with congestion. Advises she has fell twice this week, last time she felt like this she was anemic Complains of generalized weakness and shakiness. Symptoms for several days. She has fallen twice this week. She says she did hit her head. He has a scrape on her right arm. Otherwise denies any other injuries. She denies fever. She denies cough. She has chronic shortness of breath from COPD, which is unchanged. She wears oxygen at home. She denies chest pain, abdominal pain, vomiting, or diarrhea. Denies urinary symptoms. She has a history of anemia and the last time this happened she had to get a blood transfusion. The patient does not have a visible tremor, she says the shaking is intermittent, sudden jerks. She seems distressed by it and wants to know what is causing it because she says she cannot function with it, she cannot even text on the phone, and states that it has been going on for years. pt admitted with ivf at this time [facility] History I have reviewed the patient's past medical history: Yes Medical History: Reports:: Asthma, Chronic Obstructive Pulmonary Disease (COPD), Home Oxygen, Hypertension Denies:: Cancer, Diabetes Mellitus Type 1, Diabetes Mellitus Type 2, MRSA *Have you ever received a pneumonia vaccine?: No *Have you received a flu vaccine this season?: Yes Other Medical History: Reports: Anemia, Arthritis, Cataracts, Hypothyroidism, Sinus Problems, Thyroid Disease Other Surgeries: Yes: Appendectomy, Other Amputation: No Fractures: No - *Social History Last grade of school completed: High school graduate Smoking Status: Former smoker Tobacco Type: cigarettes # Packs/Day (cigarettes): 1 #Yrs smoked (if former smoker): 43 Alcohol Intake: never Substance Use Type: painkillers, prescription drug *Occupational Status:: unemployed Housing: apartment Household Members: spouse *Travel in the last 8 weeks: None Family Hx:: Anemia, Cancer, Alcoholism Review of Systems - Review of Systems Review of systems:: pertinent systems reviewed and negative unless documented below - Constitutional Reports weakness, Denies fever(s) - Eyes Denies change in vision - ENT Denies sore throat - *Cardiovascular Denies chest pain at rest - *Respiratory Denies cough - *Gastrointestinal Denies abdominal pain - *Genitourinary Denies painful urination, Denies blood in urine - *Musculoskeletal Reports other (falls ), Denies joint pain - Integumentary/Breasts Denies rash - *Neurologic Reports unsteadiness, Reports frequent falls, Reports weakness, Denies localized weakness - Psychiatric Denies paranoia Meds Home Medications Medication Instructions Recorded Confirmed Type buprenorphine 8 mg-naloxone 2 mg 2 tab SL DAILY 01/27/19 12/31/19 History sublingual film Cholecalciferol (Vitamin D3) 1 ml PO DAILY 12/07/19 01/01/20 History [D--Kailey] Ergocalciferol (Vitamin D2) 1 ml PO DAILY 12/07/19 12/31/19 History [Calcidol] Furosemide [Furosemide 20mg Tab] 20 mg PO DAILY 12/07/19 12/31/19 History Levothyroxine Sodium [Synthroid 125 mcg PO DAILY 12/07/19 12/31/19 History 125mcg (0.125mg) tablet] Potassium Chloride [Pot Chlor 20 20 meq PO BID 12/31/19 12/31/19 History mEq Packet] Cromolyn Sodium [Nasal Allergy 1 spray NS DAILY 01/01/20 01/01/20 History [place]] Allergies Allergy/AdvReac Type Severity Reaction Status Date / Time No Known Allergies Allergy Verified 12/07/19 08:54 Exam Vital signs and Labs for Last 24 Hours: Temp Pulse Resp BP Pulse Ox 98.6 F 92 H 16 127/69 95 12/31/19 21:53 12/31/19 21:53 12/31/19 21:53 12/31/19 21:53 12/31/19 21:53 Laboratory Results - last 24 hr 12/31/19 16:00: WBC 5.5, RBC 4.06 L, Hgb 9.2 L, Hct 30.5 L, MCV 75.3 L, MCH 22.8 L, MCHC 30.3 L, RDW 23.2 H, Plt Count 208, MPV
[2020-01-01 03:45] VITALS: BP 108/61; PULSE 93; RESP 14; TEMP 36.7; O2SAT 98
--- NOTE | 2020-01-01 04:12 | PC.NURSE ---
Pt has rested well since arrival to floor. No complaints noted. Pt was noted during check that O2 NC was off. O2 NC was placed back in nostrils and pt was reminded to leave on at this time. Pt stated during admission that she wears 3L to 4L L O2 at home and that her manages it. She has had peanut butter and crackers, wesley crackers and soda. Pt states that her appetite was great. IV replacement fluids, 0.9% NS infusing at this time. Call light within reach. No other concerns at this time. Will continue to monitor.
[2020-01-01 04:59] VITALS: O2SAT 95
[2020-01-01 05:35] VITALS: BMI 12.5
[2020-01-01 05:50] VITALS: O2SAT 93
[2020-01-01 05:51] LABS: Basophils % 0.3 % (0.1-2.0); Eosinophils # 0.2 K/mm3 (0.0-0.4); Eosinophils % 3.7 % (0.1-12.0); Hemoglobin 8.6 g/dL (12.2-16.2); Lymphocytes # 0.6 K/mm3 (0.7-4.5); Mean Corpuscular HGB Conc 29.1 g/dL (31.8-35.4); Mean Corpuscular Hemoglobin 22.3 pg (27.0-31.2); Mean Corpuscular Volume 76.5 fl (81-99); Monocytes # 0.3 K/mm3 (0.1-1.0); Monocytes % 7.4 % (1.7-9.3); Neutrophils # 3.2 K/mm3 (1.8-7.8); Neutrophils % 74.6 % (37.0-80.0); Platelet Count 196 K/mm3 (142-424); Red Blood Count 3.84 M/mm3 (4.20-5.40); Red Cell Distribution Width 22.7 % (11.5-17.5); White Blood Count 4.3 K/mm3 (4.8-10.8)
--- NOTE | 2020-01-01 05:51 | PC.NURSE ---
O2 NC titrated. Pt is currently on 2L O2 NC. Sats 93-94%. Tolerating well. Education given on checking O2 sats at home and O2 administration.
[2020-01-01 05:52] LABS: Hematocrit 29.4 % (37.0-47.0)
[2020-01-01 06:18] LABS: Chloride 89 mmol/L (98-107); Potassium 3.9 mmoL/L (3.5-5.1); Sodium 138 mmol/L (136-145)
[2020-01-01 06:21] LABS: Blood Urea Nitrogen 8 mg/dl (7-17); Calcium 7.9 mg/dl (8.4-10.2); Creatinine Clearance Estimated 109 mL/min (50-200); Estimated Glomerular Filt Rate 228 ml/min (>60); GFR (African American) 276 ML/MIN (>60); Glucose 106 mg/dl (74-100)
[2020-01-01 06:29] LABS: Anion Gap 9.9 mEq/L (5-15); Carbon Dioxide 43 mmol/L (22.0-30.0)
[2020-01-01 08:00] VITALS: BP 117/64; PULSE 90; RESP 16; TEMP 36.7; O2SAT 96
--- NOTE | 2020-01-01 09:21 | PC.NURSE ---
Rounded w/ Dr. Womack. Pt wishes to go home, possible DC later today. Pt to ambulate and OOB up to chair.
--- NOTE | 2020-01-01 09:52 | HMH.DCSUM ---
General - General Admission date:: 12/31/19 Discharge date: 01/01/20 HPI HPI: this wf presented to the ed - advises she has been weak all week with congestion. Advises she has fell twice this week, last time she felt like this she was anemic Complains of generalized weakness and shakiness. Symptoms for several days. She has fallen twice this week. She says she did hit her head. He has a scrape on her right arm. Otherwise denies any other injuries. She denies fever. She denies cough. She has chronic shortness of breath from COPD, which is unchanged. She wears oxygen at home. She denies chest pain, abdominal pain, vomiting, or diarrhea. Denies urinary symptoms. She has a history of anemia and the last time this happened she had to get a blood transfusion. The patient does not have a visible tremor, she says the shaking is intermittent, sudden jerks. She seems distressed by it and wants to know what is causing it because she says she cannot function with it, she cannot even text on the phone, and states that it has been going on for years. pt admitted with ivf at this time Hospital Course Hospital Course: pt has improved with ivf and she has been tolerating her baseline activity and diet - she is at baseline mental status - we discussed oxygen use Objective Vital signs: Temp Pulse Resp BP Pulse Ox 98.1 F 90 16 117/64 96 01/01/20 08:00 01/01/20 08:00 01/01/20 08:00 01/01/20 08:00 01/01/20 08:00 no acute distress, thin - *Routine HEENT Exam Head: Present: normocephalic Eye: Present: EOMI, PERRL ENT: Present: mucous membranes dry - *Routine Neck Exam Present: supple - *Routine Respiratory Exam Present: decreased breath sounds - *Routine Cardiovascular Exam Present: RRR, murmur, S4 - *Routine Abdominal Exam Present: soft - *Routine Extremities Exam Present: full ROM - *Routine Skin Exam Present: intact - *Routine Neurological Exam Present: alert, CN II-XII intact - Routine Psychiatric Exam Present: cooperative Results Labs on day of discharge: Labs from last 24 hours 01/01/20 01/01/20 12/31/19 05:35 05:35 18:51 WBC 4.3 L RBC 3.84 L Hgb 8.6 L Hct 29.4 L MCV 76.5 L MCH 22.3 L MCHC 29.1 L RDW 22.7 H Plt Count 196 MPV 8.0 Neut % (Auto) 74.6 Lymph % (Auto) 14.0 [place] % (Auto) 7.4 Eos % (Auto) 3.7 Baso % (Auto) 0.3 Neut # (Auto) 3.2 Lymph # (Auto) 0.6 L [place] # (Auto) 0.3 Eos # (Auto) 0.2 Baso # (Auto) 0.0 Sodium 138 Potassium 3.9 Chloride 89 L Carbon Dioxide 43 H* Anion Gap 9.9 BUN 8 D Creatinine 0.30 L D Estimated Creat Clear 109 Estimated GFR 228 Est GFR ( Amer) 276 D Glucose 106 H Calcium 7.9 L Troponin I TSH Urine Color Urine Appearance Urine pH Ur Specific [place] Urine Protein Urine Glucose (UA) Urine Ketones Urine Blood Urine Nitrate Urine Bilirubin Urine Urobilinogen Ur Leukocyte Esterase Urine RBC Urine WBC Ur Squamous Epith Cells Urine Bacteria Chlamy pneumoniae PCR Not detected Adenovirus (PCR) Not detected B. pertussis DNA (PCR) Not detected Coronavirus OC43 (PCR) Not detected Coronavirus HKU1 (PCR) Not detected Coronavirus 229E (PCR) Not detected COVID-19 PCR Not detected Coronavirus NL63 (PCR) Not detected Human Metapneumovir PCR Not detected Influenza A (H1) PCR Not detected Influ A (H1N1/09) PCR Not detected Influenza A (H3) PCR Not detected Influenza Type A (PCR) Not detected Influenza Type B (PCR) Not detected M. pneumoniae (PCR) Not detected Parainfluenza 1 (PCR) Not detected Parainfluenza 2 (PCR) Not detected Parainfluenza 3 (PCR) Not detected Parainfluenza 4 (PCR) Not detected RSV (PCR) Not detected Entero/Rhino (PCR) Not detected 12/31/19 12/31/19 12/31/19 16:50 16:00 16:00 WBC
== END 2020-01-01 10:45 | disposition home or self-care (01) ==
LOC: ER 18:45 → 2ND 20:53
PROVIDERS: Admitting Provider Internal Medicine Adolescent Medicine; Emergency Provider Emergency Medicine; PCP Physician Assistant; Visit Provider Emergency Medicine
DX: E86.0 Dehydration (principal); R53.1 Weakness; R29.6 Repeated falls; E03.9 Hypothyroidism, unspecified; J44.9 Chronic obstructive pulmonary disease, unspecified; Z99.81 Dependence on supplemental oxygen; I10 Essential (primary) hypertension; Z87.891 Personal history of nicotine dependence; D64.9 Anemia, unspecified
CPT/HCPCS: 36415; 70450; 71045; 80048; 81001; 84443; 84484; 85025; 87581; 87633; 87798; 93005; 94761; 96365; 99284; G0378

== ENCOUNTER 2020-02-13 09:53 | Observation (INO) | payer OTHER, SELFPAY ==
[2020-02-13] VITALS (14 sets, daily range): BP systolic 98–125; BP diastolic 58–74; PULSE 67–115; RESP 18–22; TEMP 36.6–36.9; O2SAT 93–100; BMI 15.6; BMI 11.8
--- NOTE | 2020-02-13 09:55 | XR_ITS ---
PROCEDURE: XR KNEE LT 3V Referring Doctor: Madhav Staples Patient Age:59Y CLINICAL INDICATION: injury, effusion Fall a few days ago. Swollen effusion unable to straighten leg. COMPARISON: CR KNEE3R KNEE-3 VIEWS-RT from 01/08/2017 CR LLR LOWER LEG-RT from 01/08/2017 CR XR KNEE LT 3V from 11/08/[address] ABDOMEN PELVIS W CON from 12/07/[address] HEAD/BRAIN WO CON from 12/31/2019 FINDINGS: Portable 3 view Left Knee-nonweightbearing: AP lateral and oblique No acute fracture evident. No fracture nor dislocation. No lytic or blastic change.. The muscles here at the left leg have dramatic atrophy compared to a right knee study from December 2016. Correlation required There is swelling about the knee. There does appear to be a joint effusion at the suprapatellar bursa on the lateral view. I would also question possible slight bulging posteriorly which could reflect a developing Navarro cyst but correlation required. Also note diffuse edema and swelling I throughout anterior superficial soft tissues. SQ edema is seen throughout the anterior aspect knee, extending above and below patella.. Anterior soft tissue swelling in the subcutaneous tissues overlying the patella. The joint spaces are well-preserved. No significant degenerative/arthritic changes. No erosive changes evident. Other findings:None. IMPRESSION: . No fracture left knee-. Osseous structures intact at left knee. . Joint effusion most evident suprapatellar bursa. (Effusion possibly bulging posteriorly as well, raising question regarding possible developing navarro cyst. Correlation required) . Diffuse soft tissue swelling and edema throughout SQ, superficial soft tissues overlying anterior aspect of the knee.. . Pronounced muscular atrophy about knee, most notable at visualized distal left thigh. This asymmetric muscular atrophy is particularly evident when compared to right knee 2017 Dictated by: Karlo Valenzuela MD 02/13/2020 11:02 Karlo Valenzuela MD in [place] 02/13/2020 11:02
--- NOTE | 2020-02-13 10:12 | HMH.EDGENADL ---
ED Disposition Clinical Impression: Effusion, left knee Left knee injury Qualifiers: Encounter type: initial encounter Qualified Code(s): S89.92XA - Unspecified injury of left lower leg, initial encounter Disposition: Admitted as Observation Condition on Discharge: Fair Referrals: PCP,No [Non-Staff] - - Critical Care Critical Care Time: No Attestation: On 02/13/20, the high probability of a clinically significant, sudden or life threatening deterioration of the following system(s) required my full and direct attention, intervention and personal management. The time I documented below is in addition to time spent performing reported procedures but includes the following listed in this critical care notation. Medical Decision Making - Medical Records Medical records reviewed: Yes: I reviewed the patient's medical records. - Nikolai Inquiry Pt receiving controlled substance: No Nikolai was queried for this patient: Yes Reference #:: [id number] Comment: 47 rxs for suboxone. Vital Signs: 02/13/20 09:54 02/13/20 10:28 02/13/20 10:35 Temperature 98.1 F Temperature Source Oral Pulse Rate [Left Radial] 115 H 98 H 110 H Respiratory Rate 22 Blood Pressure [Right Arm] 119/68 116/74 116/74 Blood Pressure Mean [Right Arm] 85 88 88 Blood Pressure Source [Right Arm] Automatic Cuff Automatic Cuff Automatic Cuff Blood Pressure Position [Right Arm] Sitting Sitting 02 Sat by Pulse Oximetry 100 93 L 100 Oxygen Delivery Method Room Air Nasal Cannula Nasal Cannula Oxygen Flow Rate (LPM) 2 2 02/13/20 11:00 Temperature Temperature Source Pulse Rate [Left Radial] 100 H Respiratory Rate Blood Pressure [Right Arm] 110/58 L Blood Pressure Mean [Right Arm] 75 Blood Pressure Source [Right Arm] Automatic Cuff Blood Pressure Position [Right Arm] Sitting 02 Sat by Pulse Oximetry 96 Oxygen Delivery Method Nasal Cannula Oxygen Flow Rate (LPM) 2 - Lab Data Lab results reviewed: Yes: I reviewed the patient's lab results. Lab Results 02/13/20 10:40: WBC 8.9, RBC 3.92 L, Hgb 9.4 L, Hct 30.6 L, MCV 78.0 L, MCH 24.0 L, MCHC 30.7 L, RDW 17.5, Plt Count 340, MPV 7.2 L, Neut % (Auto) 86.2 H, Lymph % (Auto) 5.4 L, [place] % (Auto) 7.5, Eos % (Auto) 0.3, Baso % (Auto) 0.5, Neut # (Auto) 7.6, Lymph # (Auto) 0.5 L, [place] # (Auto) 0.7, Eos # (Auto) 0.0, Baso # (Auto) 0.1, Total Counted 100, Neutrophils % (Manual) 87 H, Lymphocytes % (Manual) 6 L, Monocytes % (Manual) 6, Basophils % (Manual) 1.0, Platelet Estimate Normal, Hypochromasia 1+, Anisocytosis 1+, Microcytosis 1+ 02/13/20 10:40: Sodium 133 L, Potassium 3.9, Chloride 81 L, Carbon Dioxide 47 H*, Anion Gap 8.9, BUN 13, Creatinine 0.30 L, Estimated Creat Clear 116, Estimated GFR 228, Est GFR ( Amer) 276, Glucose 114 H, Calcium 8.5 Result diagrams: 02/13/20 10:40 02/13/20 10:40 - Radiology Data #1 Image(s): Knee Image Reviewed: Yes I reviewed the patient's radiology image Effusion. No fracture seen. - Physician Consults Physician Consulted: Vibha Time: 11:44 Reason -: Admission Comment/Response: Agrees to admit the patient to the hospital. We discussed the patient's clinical information, including history, exam, laboratory and radiology results and ED course. Per hospital procedure, I will write temporary bridge inpatient orders on the patient. Specific orders requested by the admitting physician: Ortho consult for tomorrow morning. Physical therapy consult. Medical Decision Narrative: Patient says she is unable to straighten her leg, I would not be able to put her in a knee immobilizer. She says she cannot put any weight on her left leg. I think she is high risk of falling. She does not feel that she can manage at home, she had to come in by ambulance. I discussed disposition with her. She does not feel she can go home and I feel it would be appropriate to admit her overnight for observation, orthopedic and physical therapy consultation. General Adult H
--- NOTE | 2020-02-13 10:20 | PC.NURSE ---
Rad taking xrays
[2020-02-13 10:52] LABS: Basophils # 0.1 K/mm3 (0-0.2); Basophils % 0.5 % (0.1-2.0); Eosinophils % 0.3 % (0.1-12.0); Hematocrit 30.6 % (37.0-47.0); Hemoglobin 9.4 g/dL (12.2-16.2); Lymphocytes # 0.5 K/mm3 (0.7-4.5); Lymphocytes % 5.4 % (10-50); Mean Corpuscular HGB Conc 30.7 g/dL (31.8-35.4); Mean Platelet Volume 7.2 fl (7.4-10.4); Monocytes # 0.7 K/mm3 (0.1-1.0); Monocytes % 7.5 % (1.7-9.3); Neutrophils # 7.6 K/mm3 (1.8-7.8); Neutrophils % 86.2 % (37.0-80.0); Platelet Count 340 K/mm3 (142-424); Red Blood Count 3.92 M/mm3 (4.20-5.40); Red Cell Distribution Width 17.5 % (11.5-17.5); White Blood Count 8.9 K/mm3 (4.8-10.8)
[2020-02-13 10:54] LABS: MANUAL DIFFERENTIAL MANUAL DIFFERENTIAL (MANUAL DIFF)
[2020-02-13 10:55] LABS: Blood Urea Nitrogen 13 mg/dl (7-17); Calcium 8.5 mg/dl (8.4-10.2); Chloride 81 mmol/L (98-107); Creatinine Clearance Estimated 116 mL/min (50-200); Estimated Glomerular Filt Rate 228 ml/min (>60); GFR (African American) 276 ML/MIN (>60); Glucose 114 mg/dl (74-100); Potassium 3.9 mmoL/L (3.5-5.1); Sodium 133 mmol/L (136-145)
[2020-02-13 11:08] LABS: Anion Gap 8.9 mEq/L (5-15); Carbon Dioxide 47 mmol/L (22.0-30.0)
[2020-02-13 11:18] LABS: Hypochromasia 1+; Lymphocytes % 6 % (10-50); Monocytes % 6 % (2-9); Neutrophils % 87 % (42-76); Platelet Estimate Normal; Total Cells Counted 100
[2020-02-13 11:19] LABS: Anisocytosis 1+; Microcytosis 1+
--- NOTE | 2020-02-13 11:31 | PC.NURSE ---
scallop raker for Dr Womack paged. Dr Dunne to be returning call.
--- NOTE | 2020-02-13 11:38 | PC.NURSE ---
Dr Dunne returned call
[2020-02-13 12:42] LABS: Coronavirus 19 IgG Antibody Negative (Negative); Coronavirus 19 IgM Antibody Negative (Negative)
--- NOTE | 2020-02-13 13:06 | PC.NURSE ---
pt arrived to the floor at this time.
--- NOTE | 2020-02-13 13:06 | P.CONPHA_ITS ---
[facility] Pharm[facility] VTE Monitoring - Patient Demographics Admission date: 02/13/20 Report Date: 02/13/20 Time: 13:06 Allergies/Adverse Reactions: Patient Allergies No Known Allergies Allergy (Verified 12/07/19 08:54) Height: 1.52 m Weight: 36.287 kg Patient Problems: Current Active Problems Left knee injury (Acute) Effusion, left knee (Acute) - VTE Risk Labs: VTE Related Lab Results Hgb 9.4 g/dL (12.2-16.2) L 02/13/20 10:40 Hct 30.6 % (37.0-47.0) L 02/13/20 10:40 Plt Count 340 K/mm3 (142-424) 02/13/20 10:40 BUN 13 mg/dl (7-17) 02/13/20 10:40 Creatinine 0.30 mg/dl (0.52-1.04) L 02/13/20 10:40 Estimated Creat Clear 116 mL/min (50-200) 02/13/20 10:40 - Prophylaxis VTE Prophylaxis Ordered?: Yes Types of VTE Prophylaxis: TEDS Knee High Location of Applied Device: Bilateral Lower Extremeties
--- NOTE | 2020-02-13 13:06 | HMH.PHAINT ---
MEDICATION RECONCILIATION COMPLETED ON PATIENT USING LAN REPORT AND EXTERNAL FILL HISTORY FROM PHARMACY. -JENNIFER DENNEY, STARRD
--- NOTE | 2020-02-13 17:04 | PC.NURSE ---
Pt was a new admit this shift from the ER. Pleasant and cooperative. A&O X4. No complaints of pain. Pt is currently receiving O2 via NC @ 2 LPM with sats. >93%. Pt wears home oxygen at 2 LPM. Lung sounds reveal faint inspiratory wheezing. Skin is C/D/I and no edema is noted. Pt ambulates with stand-by assistance to the [facility] and voids clear, yellow urine without issue. No BM this shift. 20 G peripheral IV in the RT AC is patent and SL. HR noted to be slightly elevated since arrival to the unit, although other VSS. Call light within reach. Will continue to monitor.
[2020-02-14] VITALS (20 sets, daily range): BP systolic 78–128; BP diastolic 42–80; PULSE 86–123; RESP 12–18; TEMP 36.6–37.3; O2SAT 91–100; BMI 12.1
--- NOTE | 2020-02-14 03:40 | PC.NURSE ---
Pt is A&Ox4. Expiratory wheezing auscultated t/o all lung guadalupe. Active bowel sounds in all 4 quads. Left knee is elevated and pt has not complained of pain thus far this shift. Pt is tolerating 2 L NC appropriately with o2 sats in the mid-90's. Call light within reach. No other acute changes at this time. Will continue to monitor.
--- NOTE | 2020-02-14 08:01 | PC.NURSE ---
pt explains to me that she has her bottle of Suboxone in her ayan pack that is on her bed right beside her. She refused to let me have it to lock in the drawer. She showed me the bottle and she counted them. She showed me that she has 6 tabs in the bottle. Still refused to let me lock them up. She tells me that she took 2tabs @ 5am this morning. She takes 2tabs @ 5am daily. Called pharmacy (Olivia Marie) and informed her of the situation. Will notify Dr. Womack's team during AM rounds.
--- NOTE | 2020-02-14 08:35 | MR_ITS ---
PROCEDURE: MR KNEE LT WO CON CLINICAL INDICATION: knee pain Posttraumatic pain with popping noise and swelling COMPARISON: CR XR KNEE LT 3V from 02/13/2020 TECHNIQUE: Routine multiplanar multi echo sequences are performed without gadolinium enhancement. FINDINGS: The cruciate ligaments are intact as are the collateral ligaments. The patellar tendon and quadriceps tendon are intact. There is a moderate to large size knee joint effusion mainly in the suprapatellar region. There is a Navarro's cyst as well measuring 4 cm. Motion artifact somewhat obscures fine detail of the menisci. There does appear to be a complex tear involving the posterior horn of the medial meniscus. The anterior horn of the medial meniscus is unremarkable. A horizontal tear is present involving the central aspect of the posterior horn of the medial meniscus. There also appears to be a horizontal tear involving the anterior horn of the lateral meniscus medially. There is abnormal signal intensity involving the distal femur. There is a nondisplaced fracture which involves the lateral femoral condyle with a transverse component extending laterally to medially at the epiphyseal remnant region thin with a longitudinal component extending distally exiting at the articular surface of the medial aspect of the lateral femoral condyle. In addition, there is a curvilinear area of jagged decreased T1 signal involving the lateral aspect of the medial femoral condyle at the diaphyseal metaphyseal junction consistent with nondisplaced fracture or mild impaction injury. In addition, there are areas of decreased T1 and T2 signal involving the distal aspect of the femur at the intercondylar region and the proximal aspect of the tibia centrally. These areas show increased STIR signal. It is not clear as to the etiology of these areas of abnormal signal intensity. Follow-up is suggested. Etiology IMPRESSION: 1. Abnormal MRI of the left knee with a large knee joint effusion 2. Complex tear posterior horn medial meniscus with also a horizontal component laterally 3. Horizontal tear involves the anterior horn of the lateral meniscus 4. Nondisplaced fracture with both transverse and longitudinal component involving the medial femoral condyle with longitudinal extension into the articular surface medially along with nondisplaced fracture/impaction of the medial femoral condyle. Suggest correlation with CT if any surgical intervention is contemplated. Dictated by: Billy Keenan MD 02/14/2020 15:01 Billy Keenan MD in [place] 02/14/2020 15:01
--- NOTE | 2020-02-14 09:03 | PC.NURSE ---
called Dr. Womack's office and spoke to Rema Farrar. Informed her that pt has a bottle of Suboxone @ the BS that she will not allow me to lock in med drawer. Rema explains that she will inform Dr. Womack and call me back with any questions/concerns/recommendations. I also informed Sweta Castellanos RN, med surg geographic information systems manager.
--- NOTE | 2020-02-14 09:30 | PC.NURSE ---
Pt's @ BS and told pt to let us have her bottle of Suboxone to lock up. She handed me the bottle. It has 6 tabs in it. Radha Pérez RN verified and both RNs, along with pt, signed the blue controlled med sheet. Bottle locked in med drawer. Pt asked that we rescheduled time of med to 5am as this is when she takes it at home. Called pharmacist, Arnoldo Beckford, and updated him. He verbalized that he would reschedule administration time to 5am. Pt updated.
--- NOTE | 2020-02-14 10:08 | HMH.PTEV ---
Physical Therapy Evaluation Rehab PT IP Evaluation Start: 02/13/20 12:47 Freq: ONCE Status: Active Protocol: Document 02/14/20 09:44 COURTNEY (Rec: 02/14/20 10:08 COURTNEY [id number]) Subjective/History History History Pt. is a 59 yo female who was walking in her home when she reports that she twisted and injured her L knee. She reports pain and swelling in the L Knee. Subjective Subjective Pt. reports that she has pain and swelling in her L knee. The pt. also stated that she had pain in her R wrist. Note done by FADIA Martinez Rehab PT IP Eval Objective Appearance Patient Behavior Appropriate,Guarded Patient Orientation Person,Place,Time,Name,Year Difficulty following instructions mild Speech Pattern Appropriate,Coherent,Soft- Spoken Ambulation Patient Able to Ambulate No Balance Ability to Arise Unable Sitting Balance Steady, safe Dynamic Sitting Balance Ability Good Transfers Bed Transfer Ability Supervision/Stand by ROM LLE PT ROM Status ABN Abnormal ROM Comment Pt. has about 50% of ROM per secondary to pain. MMT LLE PT MMT ABN Abnormal MMT Grade Pt. is at a 3/5 with pain. Rehab PT IP prob,goals,plan Problems Date of Evaluation: 02/14/20 PT IP Problems Transfers,Gait,Balance,Self care,Safety Rehab Potential Rehab Potential Fair Equipment Needs Assistive Devices Standard Walker,Rolling / Wheeled Walker Plan PT Intervention Plan Transfers,Gait,Balance,Self care,Safety,Therapeutic Exercise PT Plan Frequency BID Duration LOS Discharge Goals Bed Transfer Ability Supervision/Stand by Sit to Stand Chair Transfer Ability Minimal x 2 (25% assist) Ambulation Assistive Device Standard Walker,Rolling Walker Ambulation Distance (feet) 2 Discharge Plan PT Discharge Plan Pt. would benefit from discharge to a SNF d/t multiple comorbidities and probable difficulty to withstand longer durations of PT secondary to pulmonary
--- NOTE | 2020-02-14 11:04 | SW/DCPLANNER ---
Addendum entered by [facility] 02/16/20 11:47: [facility] does not have a pediatric hinge brace available at this time but will look into ordering and follow up with the patient. Addendum entered by [facility] 02/16/20 10:59: This patient will discharge to [facility] today. Family will purchase hinge brace and bring to [facility] for placement prior to discharge. I have updated Libertad at [facility]. Patient will discharge DONALD pending today to [facility]. Addendum entered by [facility] 02/15/20 13:16: This patient has been accepted to [facility] under DONALD pending once COVID results are back and negative. Libertad with [facility] has stated they would prefer patient wait till tomorrow for admission. I have informed patient and MD. Addendum entered by [facility] 02/15/20 11:53: Meryl with [facility] has stated they can NOT accept this patient at this time. Libertad with [facility] is reviewing and will be speaking with patients . Addendum entered by [facility] 02/15/20 10:46: Patient information has also been faxed to [facility]. Addendum entered by [facility] 02/15/20 09:37: Patient is now agreeable to placement at this time. Patient stated that [facility] or [facility] would be preference. Patient information has been faxed to [facility] at this time. I will follow up with [facility] and patient today. Original Note: I have spoke with this patient regarding discharge plans once medically stable for discharge. Patients was in present during time of my visit. Patient stated that she resides at home with her , has never had any home health, uses home O2 and would need a rollator walker at time of discharge. I did discuss PT evaluation with patient regarding recommendation of placement: patient was quick to become emotional and refusing placement at this time. Patient stated that she wants to discharge home with home health services. I will also order patient a rollator walker at time of discharge. Discharge date is unknown at this time. Patients is agreeable to plan as well.
--- NOTE | 2020-02-14 11:08 | PC.NURSE ---
received call from Cam for [facility] in Dr. Barba office. She reports that Radha is putting orders in for NPO to start NOW and for pt to have a EGD sometime this afternoon. Orders read back and verified. Updated pt and NPO sticker placed on pt's door. Also updated tech (Abilio).
--- NOTE | 2020-02-14 12:08 | PC.NURSE ---
pt to MRI
--- NOTE | 2020-02-14 12:36 | HMH.CONS ---
*Admission Date: 02/13/20 *Reason for consult:: anemia *History of present illness: This is a 59-year-old female with a history of emphysema/COPD. She came through the ED yesterday after injuring her left knee and was admitted for orthopedic and PT consultation. She was found to have anemia on lab work with a history of the same and GI was consulted on this patient. The patient was admitted in November of this year for anemia. At that time she had a hemoglobin as low as 5.9 and required 3 units packed red cells. Upon discharge her hemoglobin was up to 10.6 but she had a ferritin level about 10. She was scheduled to follow-up with gastroenterology and was actually scheduled in my office this morning. The patient reports that she has been taking liquid iron supplements maybe once or twice per week since discharge and upon admission her hemoglobin was down again to 9.4. She denies any NSAID use, denies abdominal pain, melena or hematochezia. Have not done any Hemoccult testing thus far during this visit. After discussion with patient and family, she reports that she has had a weight loss and is now at 73 pounds. She has also had multiple falls. She reports that she eats all the time but her states that it is minimal in volume and is usually just crackers. She does have emphysema but quit smoking about a year ago. She denies any diagnosis of cancer but has been at the [facility] and is waiting to be scheduled for bronchoscopy for evaluation of possible infection in her lungs . She does report that she had an abnormal Cologuard testing within the past couple years and was scheduled for colonoscopy but due to COVID-19, that was canceled. She has not scheduled a repeat colonoscopy at this point. [facility] History Medical History: Reports:: Asthma, Chronic Obstructive Pulmonary Disease (COPD), Home Oxygen, Hypertension Denies:: Cancer, Diabetes Mellitus Type 1, Diabetes Mellitus Type 2, MRSA *Have you ever received a pneumonia vaccine?: Yes *Have you received a flu vaccine this season?: No Other Medical History: Reports: Anemia, Arthritis, Cataracts, Hypothyroidism, Sinus Problems, Thyroid Disease Other Surgeries: Yes: Appendectomy, Dilation and Curettage, Other Amputation: No Fractures: Yes - *Social History Last grade of school completed: High school graduate Smoking Status: Never smoker Tobacco Type: cigarettes # Packs/Day (cigarettes): 1 #Yrs smoked (if former smoker): 43 Alcohol Intake: never Substance Use Type: painkillers *Occupational Status:: unemployed Housing: apartment Household Members: spouse *Travel in the last 8 weeks: None Family Hx:: Cancer, Heart Attack Review of Systems - Constitutional Reports weight loss, Denies anorexia, Denies body ache(s), Denies chills, Denies fatigue - Eyes Denies change in vision, Denies loss of vision, Denies pain - ENT Denies abnormal hearing, Denies dizziness, Denies hoarseness, Denies pain with swallowing, Denies sore throat - *Cardiovascular Reports shortness of breath, Denies chest pain, Denies generalized swelling, Denies rapid, pounding, or irregular heartbeat - *Respiratory Reports cough, Reports shortness of breath, Denies chest congestion, Denies coughing up blood, Denies pain with cough - *Gastrointestinal Denies abdominal pain, Denies belching, Denies bloating, Denies change in bowel habits, Denies coffee ground vomit, Denies constipation, Denies loose stools, Denies heartburn, Denies difficulty swallowing, Denies feeling full early, Denies bright, red blood in stools, Denies black, tarry stools, Denies nausea, Denies vomiting - *Musculoskeletal Reports joint pain, Reports joint swelling, Reports muscle weakness, Denies numbness, Denies tingling - Integumentary/Breasts Denies hair loss, Denies yellowing of the skin, Denies wounds - *Neurologic Denies confusion, Denies dizziness, Denies numbness, Denies weakness - Endocrine Denies cold intolerance, Denies heat in
--- NOTE | 2020-02-14 14:29 | HMH.ANESCL ---
[facility] Anesthesia Checklist - Patient Identification Patient Identification: Arm Band, Verbal (Name & ) - Structural Data Admitted From: Inpatient Planned Operative Procedure/s: EGD Consent for Planned Operative Procedure(s) Verified: Yes Verified Documents: Surgical Consent, History and Physical - NPO Status Verified Time NPO: 00:00 - Chart Verification Results Verified: CBC, BMP - Additional verifications Anesthesia Reactions: No - Airway Assessment C-Spine Mobility Assessed: Yes TMJ Mobility Assessed: Yes Dentition: Edentulous - Neurological Assessment Level of Consciousness: Awake, Alert, Appropriate, Follows Commands Hx Seizures: No Numbness or tingling in extremities: No - Anesthesia Plan Anesthesia Risk discussed: Yes Anesthesia Plan: Verified ASA Class: III Anesthesia Type: MAC [facility] History I have reviewed the patient's past medical history: Yes Medical History: Reports:: Asthma, Chronic Obstructive Pulmonary Disease (COPD), Gastroesophageal Reflux Disease(GERD), Home Oxygen, Hypertension Denies:: Cancer, Diabetes Mellitus Type 1, Diabetes Mellitus Type 2, MRSA *Have you ever received a pneumonia vaccine?: Yes *Have you received a flu vaccine this season?: No Other Medical History: Reports: Anemia, Arthritis, Cataracts, Hypothyroidism, Sinus Problems, Thyroid Disease Comment:: home oxygen Anesthesia experience/problems:: None Other Surgeries: Yes: Appendectomy, Dilation and Curettage, Other Amputation: No Fractures: Yes - *Social History Last grade of school completed: High school graduate Smoking Status: Former smoker Tobacco Type: cigarettes # Packs/Day (cigarettes): 1 #Yrs smoked (if former smoker): 43 Alcohol Intake: never Substance Use Type: opiates, painkillers *Occupational Status:: unemployed Housing: apartment Household Members: spouse *Travel in the last 8 weeks: None Family Hx:: Cancer, Heart Attack
--- NOTE | 2020-02-14 14:45 | P.PCN_ITS ---
[facility] Procedure Note Procedure Note:: Upper Endoscopy Procedure Report: Esophagogastroduodenoscopy with cold biopsies and TTS balloon dilation Endoscopost: Jb aBrba II, MD Referring Physician: Fausto Womack MD Date of Procedure: February 14, 2020 Equipment: Olympus GIF 180 standard upper endoscope Sedation: MAC sedation Indications: Mrs. Phoenix is a 59-year-old female with a history of COPD and emphysema. She came to the emergency department after injuring her left knee and was admitted to orthopedic and for physical therapy consultation. She was found to have moderate anemia. The patient was admitted for this and November and at that time her hemoglobin was 5.9 and she received 3 units of PRBCs. Her ferritin level was 10. Her hemoglobin improved to 10.6. During this hospitalization her hemoglobin was back down to 9.4. The patient has been using liquid iron supplements. She does have some dysphagia. She has had moderate weight loss and her weight is down to 73 pounds. She had an abnormal Cologuard test within the last couple of years and was scheduled for colonoscopy. This was canceled due to COVID?19. Procedure: Prior to the procedure, a history and physical exam was performed, and patient's medications and allergies were reviewed. The risks, benefits and alternatives of the sedation and procedure were discussed with the patient. All questions were answered and informed consent was obtained. The patient was brought to the procedure room. Patient identification and proposed procedure were verified by the physician and the nurse. The patient was placed in a left lateral decubitus position and the scope was passed under direct vision. Throughout the procedure, the patient's blood pressure, pulse, and oxygen saturations were monitored continuously. The upper GI endoscopy was accomplished without difficulty. The patient tolerated the procedure well. Findings: The scope was passed directly into the upper esophagus and advanced to the third portion of the duodenum. The post bulbar duodenum and duodenal bulb were normal with normal mucosa and conniventes. Cold biopsies were taken to rule out celiac disease. The scope was withdrawn through a normal duodenal bulb and pylorus into the stomach. There was mild reactive gastropathy of the antrum. There was also mucosal fibrosis in the antrum of the stomach suggestive of prior gastric ulcer disease/peptic ulcer disease. The remainder of the antrum, body and fundus of the stomach were grossly normal. Upon retroflexion there was a 2 to 3 cm hiatal hernia. There were no Gui's erosions. 2 biopsies were taken in the antrum and along the lesser curvature for histology to rule out gastritis and/or H pylori. The scope was then withdrawn into the esophagus. There was a distal Schatzki's ring. There was also some corrugation. The distal esophagus was dilated up to 16 mm with a TTS hydrostatic balloon. The remainder of the esophageal mucosa was normal. Impression: 1. Schatzki's ring/esophageal stricture status post dilation to 16 mm 2. Small to medium sized hiatal hernia (2 to 3 cm) 3. Mild gastropathy with evidence of prior gastric ulcer disease (evidence of fibrosis of the antrum from prior PUD) Plan: I will follow-up the biopsies. There was no clear source for the patient's anemia. I do feel that she should undergo colonoscopy especially with the positive Cologuard. I will discuss this with the patient and request for this to be arranged.
--- NOTE | 2020-02-14 15:08 | PC.NURSE ---
pt will need a rolling walker rather than a cane due to gait and mobility issues
--- NOTE | 2020-02-14 15:09 | HMH.ORTHOCON ---
*Admission Date: 02/13/20 *Reason for consult:: L knee pain *History of present illness: 59yo F admitted yesterday from the ER with complaints of L knee pain. Pain initially started around 3 months ago after an injury, at which time she was seen in the ER and diagnosed with traumatic prepatellar bursitis; XR were negative for fracture at that time. Subsequent falls after that injury led to hospital admissions for anemia, hypokalemia, dehydration. Two days ago she twisted her knee while walking in the kitchen. Immediate pain occurred and she was unable to bear weight on the leg after that. She typically uses a walker for ambulation. Denies having cough, shortness of breath, fever, vomiting, diarrhea. She has been anemic, and EGD was performed today showing esophageal stricture and evidence of prior PUD. Colonoscopy has been recommended. She has had ongoing weight loss and is currently 75lbs. She has been diagnosed with COPD; she quit smoking around 1 year ago. She denies cancer diagnosis, but has been seen at [facility] and is waiting to be scheduled for bronchoscopy for evaluation of possible infection in her lungs . She does not know if she's ever had a bone density test. [facility] History I have reviewed the patient's past medical history: Yes Medical History: Reports:: Asthma, Chronic Obstructive Pulmonary Disease (COPD), Gastroesophageal Reflux Disease(GERD), Home Oxygen, Hypertension Denies:: Cancer, Diabetes Mellitus Type 1, Diabetes Mellitus Type 2, MRSA, Seizures *Have you ever received a pneumonia vaccine?: Yes *Have you received a flu vaccine this season?: No Other Medical History: Reports: Anemia, Arthritis, Cataracts, Hypothyroidism, Sinus Problems, Thyroid Disease Anesthesia experience/problems:: None Other Surgeries: Yes: Appendectomy, Dilation and Curettage, Other Amputation: No Fractures: Yes - *Social History Last grade of school completed: High school graduate Smoking Status: Former smoker Tobacco Type: cigarettes # Packs/Day (cigarettes): 1 #Yrs smoked (if former smoker): 43 Alcohol Intake: never Substance Use Type: opiates, painkillers *Occupational Status:: unemployed Housing: apartment Household Members: spouse *Travel in the last 8 weeks: None Family Hx:: Cancer, Heart Attack Review of Systems - Review of Systems Review of systems:: pertinent systems reviewed and negative unless documented below - *Neurologic Denies abnormal hearing, Denies confusion, Denies dizziness, Denies loss of vision, Denies numbness, Denies tingling, Denies weakness Meds Home Medications Medication Instructions Recorded Confirmed Type buprenorphine 8 mg-naloxone 2 mg 2 tab SL 0500 01/27/19 02/14/20 History sublingual film Cholecalciferol (Vitamin D3) 1 ml PO DAILY 12/07/19 02/13/20 History [D--Kailey] Ergocalciferol (Vitamin D2) 1 ml PO DAILY 12/07/19 02/13/20 History [Calcidol] Potassium Chloride [Pot Chlor 20 20 meq PO BID 12/31/19 02/13/20 History mEq Packet] Cromolyn Sodium [Nasal Allergy 1 spray NS DAILY 01/01/20 02/13/20 History J[place]] furosemide 20 mg tablet 20 mg PO DAILY #30 tab 02/02/20 02/13/20 Rx levothyroxine 125 mcg tablet 125 mcg PO DAILY #30 tab 02/02/20 02/13/20 Rx Allergies Allergy/AdvReac Type Severity Reaction Status Date / Time No Known Allergies Allergy Verified 02/13/20 13:20 Exam Vital signs and Labs for Last 24 Hours: Temp Pulse Resp BP Pulse Ox 97.9 F 98 H 12 78/42 L 94 L 02/14/20 14:57 02/14/20 14:57 02/14/20 14:57 02/14/20 14:57 02/14/20 14:57 I & O for Last 24 hours: Intake & Output 02/12/20 02/13/20 02/14/20 02/15/20 11:59 11:59 11:59 11:59 Intake Total 480 / 480 0 / 0 Output Total 0 / 0 Balance 480 / 480 0 / 0 Weight 80 lb 75 lb 6.017 oz - Constitutional no acute distress, cachectic - *Routine HEENT Exam Head: Present: normocephalic Eye: Present: EOMI ENT: Present: mucous membranes moist - *Routine Neck Exam P
--- NOTE | 2020-02-14 16:40 | HMH.HP ---
*Admission Date: 02/13/20 *Chief complaint: knee pain *History of present illness: 59 yr old female brought in by ambulance for left knee injury. Patient states that she was walking in the kitchen yesterday and somehow twisted or injured her left knee, states knee gave out. Pt states she has pain, swelling and she is unable to bear weight on her leg. Pt states she has a walker, but has been unable to use it since the injury. Pt states she is unable to stand or walk due to knee pain. She denies any other injuries. Pt states hx of anemia and has an appointment for tomorrow with gastroenterology due to her anemia to be evaluated for blood loss. Pt states was unable to go home due to not being able to care for self due to not walking. Pt states she can not care for self if she can not walk.Pt admitted for care management consult. Ortho consult and gi consult. [facility] History I have reviewed the patient's past medical history: Yes Medical History: Reports:: Asthma, Chronic Obstructive Pulmonary Disease (COPD), Gastroesophageal Reflux Disease(GERD), Home Oxygen, Hypertension Denies:: Cancer, Diabetes Mellitus Type 1, Diabetes Mellitus Type 2, MRSA, Seizures *Have you ever received a pneumonia vaccine?: Yes *Have you received a flu vaccine this season?: No Other Medical History: Reports: Anemia, Arthritis, Cataracts, Hypothyroidism, Sinus Problems, Thyroid Disease Anesthesia experience/problems:: None Other Surgeries: Yes: Appendectomy, Dilation and Curettage, Other Amputation: No Fractures: Yes - *Social History Last grade of school completed: High school graduate Smoking Status: Former smoker Tobacco Type: cigarettes # Packs/Day (cigarettes): 1 #Yrs smoked (if former smoker): 43 Alcohol Intake: never Substance Use Type: opiates, painkillers *Occupational Status:: unemployed Housing: apartment Household Members: spouse *Travel in the last 8 weeks: None Family Hx:: Cancer, Heart Attack Review of Systems - Review of Systems Review of systems:: pertinent systems reviewed and negative unless documented below - Constitutional Reports malaise, Reports weakness, Denies body ache(s) - Eyes Denies blurry vision, Denies requires corrective lenses - ENT Denies bleeding gums, Denies sore throat - *Cardiovascular Denies chest pain at rest, Denies shortness of breath causing sudden awakening - *Respiratory Denies change in phlegm color, Denies chest congestion, Denies cough - *Gastrointestinal Denies nausea, Denies vomiting - *Genitourinary Denies abnormal vaginal bleeding, Denies urinary urgency - *Musculoskeletal Reports abnormal walking, Reports joint pain, Reports joint swelling, Reports limited joint movement, Reports radiating pain into limb, Reports stiffness - Integumentary/Breasts Denies bleeding lesions, Denies rash - *Neurologic Denies abnormal hearing, Denies confusion, Denies dizziness, Denies loss of vision, Denies numbness, Denies tingling, Denies weakness - Psychiatric Denies lack of enjoyment - Endocrine Denies excessive sweating - Hematologic/Lymphatic Denies easy bruising - Allergic/Immunologic Denies itchy eyes Meds Home Medications Medication Instructions Recorded Confirmed Type buprenorphine 8 mg-naloxone 2 mg 2 tab SL 0500 01/27/19 02/14/20 History sublingual film Cholecalciferol (Vitamin D3) 1 ml PO DAILY 12/07/19 02/13/20 History [D--Kailey] Ergocalciferol (Vitamin D2) 1 ml PO DAILY 12/07/19 02/13/20 History [Calcidol] Potassium Chloride [Pot Chlor 20 20 meq PO BID 12/31/19 02/13/20 History mEq Packet] Cromolyn Sodium [Nasal Allergy 1 spray NS DAILY 01/01/20 02/13/20 History Pharr] furosemide 20 mg tablet 20 mg PO DAILY #30 tab 02/02/20 02/13/20 Rx levothyroxine 125 mcg tablet 125 mcg PO DAILY #30 tab 02/02/20 02/13/20 Rx Allergies Allergy/AdvReac Type Severity Reaction Status Date / Time No Known Allergies Allergy Verified 02/13/20 13:20 Exam Vital sign
--- NOTE | 2020-02-14 17:35 | PC.NURSE ---
knee immobilizer applied to left leg
--- NOTE | 2020-02-14 19:09 | PC.NURSE ---
report given to ham
[2020-02-15] VITALS (9 sets, daily range): BP systolic 99–131; BP diastolic 66–75; PULSE 94–106; RESP 12–20; TEMP 36.6–36.9; O2SAT 93–100
[2020-02-15 07:08] LABS: Basophils % 0.3 % (0.1-2.0); Eosinophils % 0.6 % (0.1-12.0); Hematocrit 30.4 % (37.0-47.0); Lymphocytes # 0.6 K/mm3 (0.7-4.5); Lymphocytes % 9.1 % (10-50); Mean Corpuscular HGB Conc 29.7 g/dL (31.8-35.4); Mean Platelet Volume 7.5 fl (7.4-10.4); Monocytes # 0.5 K/mm3 (0.1-1.0); Monocytes % 7.1 % (1.7-9.3); Neutrophils # 5.6 K/mm3 (1.8-7.8); Neutrophils % 82.9 % (37.0-80.0); Platelet Count 317 K/mm3 (142-424); Red Blood Count 3.75 M/mm3 (4.20-5.40); Red Cell Distribution Width 17.6 % (11.5-17.5); White Blood Count 6.7 K/mm3 (4.8-10.8)
[2020-02-15 07:16] LABS: Chloride 85 mmol/L (98-107); Potassium 3.8 mmoL/L (3.5-5.1); Sodium 134 mmol/L (136-145)
[2020-02-15 07:18] LABS: Iron 19 ug/dL (37-170)
[2020-02-15 07:19] LABS: Blood Urea Nitrogen 8 mg/dl (7-17); Calcium 8.4 mg/dl (8.4-10.2); Creatinine Clearance Estimated 109 mL/min (50-200); Estimated Glomerular Filt Rate 228 ml/min (>60); GFR (African American) 276 ML/MIN (>60); Glucose 128 mg/dl (74-100)
[2020-02-15 07:27] LABS: Total Iron Binding Capacity 317 ug/dL (265-497)
[2020-02-15 07:48] LABS: Anion Gap 9.8 mEq/L (5-15); Carbon Dioxide 43 mmol/L (22.0-30.0)
[2020-02-15 07:54] LABS: Ferritin 66.4 ng/ml (11.1-264)
[2020-02-15 08:30] LABS: Total Iron Binding Capacity 280 ug/dL (265-497)
--- NOTE | 2020-02-15 09:09 | HMH.ORTHPN ---
Subjective Date: 02/15/20 Time: 08:30 Principal diagnosis: L knee distal femur fracture Interval history: The patient is wearing knee immobilizer and reports pain in the knee. No new complaints. PN: Obj Ex Vital signs: Temp Pulse Resp BP Pulse Ox 98.0 F 97 H 20 99/66 L 100 02/15/20 07:16 02/15/20 07:16 02/15/20 07:16 02/15/20 07:16 02/15/20 07:16 - Constitutional no acute distress, cachectic - Routine HEENT Exam Head: Present: normocephalic Eye: Present: EOMI ENT: Present: mucous membranes moist - Routine Neck Exam Present: trachea midline - Routine Respiratory Exam Absent: respiratory distress - Routine Cardiovascular Exam Present: RRR - Routine Abdominal Exam Present: soft - Routine Extremities Exam Comments: L knee w/o gross deformity, no abrasions/lacerations or ecchymosis mild-moderate effusion present L knee L knee diffusely tender to palpation both medially and laterally; worst medially over MFC patient does not tolerate ROM testing of L knee, yells in pain +DF/PF/EHL LLE SILT distally LLE palpable pedal pulses LLE, foot pink/warm L calf soft, non-tender; negative Homans - Routine Skin Exam Present: intact, warm - Routine Neurological Exam Present: alert, oriented X3, moving all extremities, normal tone, vision grossly intact, hearing grossly intact, normal speech. Absent: sensory deficit, motor deficit, altered mental status - Routine Psychiatric Exam Present: anxious Progress Note: A&P (1) Anemia Status: Acute Current Visit: No (2) Tear of meniscus of left knee Status: Acute Current Visit: Yes (3) Fracture of medial condyle of femur Status: Acute Current Visit: Yes (4) Cachexia Status: Acute Current Visit: Yes (5) Severe protein-calorie malnutrition Status: Acute Current Visit: Yes (6) Multiple falls Status: Acute Current Visit: No (7) On home oxygen therapy Status: Acute Current Visit: No (8) Weight loss Status: Acute Current Visit: No (9) Anemia Status: Chronic Current Visit: No (10) Arthritis Status: Chronic Current Visit: No (11) COPD (chronic obstructive pulmonary disease) Status: Chronic Current Visit: No (12) Hypothyroid Status: Chronic Current Visit: No (13) Low body mass index (BMI) Status: Chronic Current Visit: No (14) Lumbar degenerative disc disease Problem details: RF [place] Status: Chronic Current Visit: No (15) Nicotine abuse Status: Chronic Current Visit: No Assessment and Plan for All Diagnoses:: 59yo F with acute on chronic L knee pain sustained 2 days ago while walking in kitchen. No injury seen on XR, but MRI reveals medial and lateral meniscus tears and non-displaced fracture of medial femoral condyle. -- NWB LLE, recommend hinged knee brace -- in knee immobilizer for now, hinged knee brace will need to be ordered, as there are not any braces in the hospital small enough to fit the patient. Recommend ordering pediatric hinged knee brace. -- ice, elevation L knee for effusion -- compression stockings as needed for leg swelling -- PT evaluation for mobilization; patient with baseline h/o multiple falls and deconditioning, ongoing PT will be helpful. Recommend SNF placement. -- given patient's age and health issues I strongly recommend DEXA scan and checking vitamin D levels -- may f/u with me as an outpatient 2-3 weeks after discharge
--- NOTE | 2020-02-15 13:30 | HMH.ACPN2 ---
Internal Medicine - PN: Subj *Date: 02/16/20 *Time: 09:52 Interval history: pt doing better but has sig knee issues with fx and nonwt bearing will need therapy at [facility] - Exam Vital signs and Labs for Last 24 Hours: Temp Pulse Resp BP Pulse Ox 98.0 F 104 H 20 99/66 L 98 02/15/20 07:16 02/15/20 11:03 02/15/20 07:16 02/15/20 07:16 02/15/20 11:03 Laboratory Results - last 24 hr 02/15/20 06:50: Iron 19 L, TIBC 317, Iron Saturation 5.40867 L, Ferritin 66.4 D 02/15/20 06:50: TIBC 280 02/15/20 06:50: WBC 6.7, RBC 3.75 L, Hgb 9.0 L, Hct 30.4 L, MCV 81.0, MCH 24.0 L, MCHC 29.7 L, RDW 17.6 H, Plt Count 317, MPV 7.5, Neut % (Auto) 82.9 H, Lymph % (Auto) 9.1 L, [place] % (Auto) 7.1, Eos % (Auto) 0.6, Baso % (Auto) 0.3, Neut # (Auto) 5.6, Lymph # (Auto) 0.6 L, [place] # (Auto) 0.5, Eos # (Auto) 0.0, Baso # (Auto) 0.0 02/15/20 06:50: Sodium 134 L, Potassium 3.8, Chloride 85 L, Carbon Dioxide 43 H*, Anion Gap 9.8, BUN 8 D, Creatinine 0.30 L, Estimated Creat Clear 109, Estimated GFR 228, Est GFR ( Amer) 276, Glucose 128 H, Calcium 8.4 I & O for Last 24 hours: Intake & Output 02/13/20 02/14/20 02/15/20 02/16/20 11:59 11:59 11:59 11:59 Intake Total 480 / 480 360 / 360 Output Total 1200 / 1200 Balance 480 / 480 -840 / -840 Weight 80 lb 75 lb 6.017 oz - Constitutional no acute distress, thin - *Routine HEENT Exam Head: Present: normocephalic Eye: Present: EOMI, PERRL ENT: Present: mucous membranes dry - *Routine Neck Exam Present: supple. Absent: JVD - *Routine Respiratory Exam Present: CTA bilaterally - *Routine Cardiovascular Exam Present: RRR, murmur - *Routine Abdominal Exam Present: soft - *Routine Extremities Exam Comments: lt knee in splint - *Routine Skin Exam Present: intact - *Routine Neurological Exam Present: alert, CN II-XII intact - Routine Psychiatric Exam Present: normal affect Assessment and Plan (1) Anemia Current visit: No Status: Acute Qualifiers: Anemia type: unspecified type Qualified Code(s): D64.9 - Anemia, unspecified Category: Medical Code(s): D64.9 - Anemia, unspecified (2) Tear of meniscus of left knee Current visit: Yes Status: Acute Category: Medical Code(s): S83.207A - Unspecified tear of unspecified meniscus, current injury, left knee, initial encounter (3) Fracture of medial condyle of femur Current visit: Yes Status: Acute Category: Medical Code(s): S72.433A - Displaced fracture of medial condyle of unspecified femur, initial encounter for closed fracture (4) Cachexia Current visit: Yes Status: Acute Category: Medical Code(s): R64 - Cachexia (5) Severe protein-calorie malnutrition Current visit: Yes Status: Acute Category: Medical Code(s): E43 - Unspecified severe protein-calorie malnutrition (6) Multiple falls Current visit: No Status: Acute Category: Medical Code(s): R29.6 - Repeated falls (7) On home oxygen therapy Current visit: No Status: Acute Category: Medical Code(s): Z99.81 - Dependence on supplemental oxygen (8) Weight loss Current visit: No Status: Acute Category: Medical Code(s): R63.4 - Abnormal weight loss (9) Anemia Current visit: No Status: Chronic Qualifiers: Anemia type: unspecified type Qualified Code(s): D64.9 - Anemia, unspecified Category: Medical Code(s): D64.9 - Anemia, unspecified (10) Arthritis Current visit: No Status: Chronic Category: Medical Code(s): M19.90 - Unspecified osteoarthritis, unspecified site (11) COPD (chronic obstructive pulmonary disease) Current visit: No Status: Chronic Qualifiers: COPD type: COPD with acute exacerbation Qualified Code(s): J44.1 - Chronic obstructive pulmonary disease with (acute) exacerbation Category: Medical Code(s): J44.9 - Chronic obstructive pulmonary disease, unspecified (12) Hypothyroid Current visit: No Status: Chronic Quali
--- NOTE | 2020-02-15 18:23 | PC.NURSE ---
Pt alert and oriented and able to make needs known. No complaints at this time. Lungs cta/diminished. S1,S2. BS active x 4. Plans to go to NH for rehab. Remains on 2 L NC. Remains safe. VSS. CB in reach.
--- NOTE | 2020-02-15 18:24 | PC.NURSE ---
Knee immobilizer on to left leg and brace to R arm in place.
[2020-02-16] VITALS: BP 160/70; PULSE 82; RESP 17; TEMP 36.6; O2SAT 99
[2020-02-16 04:00] VITALS: BP 99/61; PULSE 91; RESP 18; TEMP 36.8; O2SAT 99; BMI 12.2
--- NOTE | 2020-02-16 04:55 | PC.NURSE ---
No acute changes. Pt has rested well this shift. Has c/o itching to splint. She also c/o some gastric upset early in shift. No additional complaints stated. VSS. Pt remains on 2 L NC. Lungs diminished t/o. BS active. Medications administered per jul. Pt has been up to [facility] this shift. No other concerns at this time. Will continue to monitor.
[2020-02-16 06:06] VITALS: PULSE 89; PULSE 92; O2SAT 98
[2020-02-16 08:00] VITALS: BP 104/56; PULSE 101; RESP 18; TEMP 36.9; O2SAT 100
[2020-02-16 10:02] VITALS: PULSE 103; PULSE 105; O2SAT 99
--- NOTE | 2020-02-16 10:44 | HMH.DCSUM ---
General - General Admission date:: 02/13/20 Discharge date: 02/16/20 HPI HPI: 59 yr old female brought in by ambulance for left knee injury. Patient states that she was walking in the kitchen yesterday and somehow twisted or injured her left knee, states knee gave out. Pt states she has pain, swelling and she is unable to bear weight on her leg. Pt states she has a walker, but has been unable to use it since the injury. Pt states she is unable to stand or walk due to knee pain. She denies any other injuries. Pt states hx of anemia and has an appointment for tomorrow with gastroenterology due to her anemia to be evaluated for blood loss. Pt states was unable to go home due to not being able to care for self due to not walking. Pt states she can not care for self if she can not walk.Pt admitted for care management consult. Ortho consult and gi consult. Hospital Course Hospital Course: pt was admitted as she had lt knee injury and was unable to bear wt - she was seen by ortho -9yo F admitted yesterday from the ER with complaints of L knee pain. Pain initially started around 3 months ago after an injury, at which time she was seen in the ER and diagnosed with traumatic prepatellar bursitis; XR were negative for fracture at that time. Subsequent falls after that injury led to hospital admissions for anemia, hypokalemia, dehydration. Two days ago she twisted her knee while walking in the kitchen. Immediate pain occurred and she was unable to bear weight on the leg after that. She typically uses a walker for ambulation. Denies having cough, shortness of breath, fever, vomiting, diarrhea. She has been anemic, and EGD was performed today showing esophageal stricture and evidence of prior PUD. Colonoscopy has been recommended. She has had ongoing weight loss and is currently 75lbs. She has been diagnosed with COPD; she quit smoking around 1 year ago. She denies cancer diagnosis, but has been seen at [facility] cancer center and is waiting to be scheduled for bronchoscopy for evaluation of possible infection in her lungs . She does not know if she's ever had a bone density test 9yo F with acute on chronic L knee pain sustained 2 days ago while walking in kitchen. No injury seen on XR, but MRI reveals medial and lateral meniscus tears and non-displaced fracture of medial femoral condyle. -- I cannot attest to the chronicity of the meniscal tears; these may have been present prior to the current injury, as she's has multiple previous falls and chronic L knee pain. She has a non-displaced fracture of the medial femoral condyle at present, which does not require surgical intervention. This is likely an insufficiency fracture due to underlying osteopenia/osteoporosis. -- NWB LLE, recommend hinged knee brace -- ice, elevation L knee for effusion -- compression stockings as needed for leg swelling -- PT evaluation for mobilization; patient with baseline h/o multiple falls and deconditioning, ongoing PT will be helpful. Recommend SNF placement. -- given patient's age and health issues I strongly recommend DEXA scan and checking vitamin D levels -- september f/u with me as an outpatient 2-3 weeks after discharge pt has iron def anemia-she was seen by gi-ndications: Mrs. Phoenix is a 59-year-old female with a history of COPD and emphysema. She came to the emergency department after injuring her left knee and was admitted to orthopedic and for physical therapy consultation. She was found to have moderate anemia. The patient was admitted for this and November and at that time her hemoglobin was 5.9 and she received 3 units of PRBCs. Her ferritin level was 10. Her hemoglobin improved to 10.6. During this hospitalization her hemoglobin was back down to 9.4. The patient has been using liquid iron supplements. She does have some dysphagia. She has had moderate weight loss and her weight is down to 73 pounds. She had an abnormal Cologuard test within the last couple of years and was
--- NOTE | 2020-02-16 10:48 | XR_ITS ---
PROCEDURE: XR WRIST RT MIN 3V CLINICAL INDICATION: R wrist pain COMPARISON: No exams were available for comparison FINDINGS: There is a nondisplaced impacted fracture involving the distal radius with mild dorsal angulation of the distal fracture fragment. The fracture is 13 mm proximal to the epiphyseal plate. No other significant anomalies are evident. IMPRESSION: Nondisplaced distal radial fracture with mild impaction of the fracture fragments Dictated by: Billy Keenan MD 02/16/2020 15:59 Billy Keenan MD in [place] 02/16/2020 15:59
--- NOTE | 2020-02-16 10:54 | HMH.ORTHPN ---
Subjective Date: 02/16/20 Time: 10:00 Principal diagnosis: L knee distal femur fracture Interval history: The patient is very tearful and anxious this morning. She is worried about being in a SNF and away from her . Additionally she reports R wrist pain and is worried it is fractured; this is the first time she's endorsed wrist pain to me. XR have been ordered. PN: Obj Ex Vital signs: Temp Pulse Resp BP Pulse Ox 98.5 F 105 H 18 104/56 L 99 02/16/20 08:00 02/16/20 10:02 02/16/20 08:00 02/16/20 08:00 02/16/20 10:02 - Constitutional no acute distress, cachectic - Routine HEENT Exam Head: Present: normocephalic Eye: Present: EOMI ENT: Present: mucous membranes moist - Routine Neck Exam Present: trachea midline - Routine Respiratory Exam Absent: respiratory distress - Routine Cardiovascular Exam Present: RRR - Routine Abdominal Exam Present: soft - Routine Extremities Exam Comments: L knee w/o gross deformity, no abrasions/lacerations or ecchymosis mild-moderate effusion present L knee L knee diffusely tender to palpation both medially and laterally; worst medially over MFC patient does not tolerate ROM testing of L knee, yells in pain +DF/PF/EHL LLE SILT distally LLE palpable pedal pulses LLE, foot pink/warm L calf soft, non-tender; negative Homans R wrist w/o gross deformity patient wearing R wrist brace brought from home moderate tenderness over R distal radius/ulna AIN/PIN/ulnar nerves motor intact RUE SILT distally RUE in m/r/u distributions palpable radial pulse R wrist, fingers pink/warm - Routine Skin Exam Present: intact, warm - Routine Neurological Exam Present: alert, oriented X3, moving all extremities, normal tone, vision grossly intact, hearing grossly intact, normal speech. Absent: sensory deficit, motor deficit, altered mental status - Routine Psychiatric Exam Present: anxious Progress Note: A&P (1) Anemia Status: Acute Current Visit: No (2) Tear of meniscus of left knee Status: Acute Current Visit: Yes (3) Fracture of medial condyle of femur Status: Acute Current Visit: Yes (4) Cachexia Status: Acute Current Visit: Yes (5) Severe protein-calorie malnutrition Status: Acute Current Visit: Yes (6) Multiple falls Status: Acute Current Visit: No (7) On home oxygen therapy Status: Acute Current Visit: No (8) Weight loss Status: Acute Current Visit: No (9) Anemia Status: Chronic Current Visit: No (10) Arthritis Status: Chronic Current Visit: No (11) COPD (chronic obstructive pulmonary disease) Status: Chronic Current Visit: No (12) Hypothyroid Status: Chronic Current Visit: No (13) Low body mass index (BMI) Status: Chronic Current Visit: No (14) Lumbar degenerative disc disease Problem details: RF [place] Status: Chronic Current Visit: No (15) Nicotine abuse Status: Chronic Current Visit: No Assessment and Plan for All Diagnoses:: 59yo F with acute on chronic L knee pain sustained 2 days ago while walking in kitchen. No injury seen on XR, but MRI reveals medial and lateral meniscus tears and non-displaced fracture of medial femoral condyle. -- NWB LLE, recommend hinged knee brace -- in knee immobilizer for now, hinged knee brace will need to be ordered, as there are not any braces in the hospital small enough to fit the patient. Recommend ordering pediatric hinged knee brace. My office has ordered this, and [employer] has a brace; her will pick it up this morning. -- ice, elevation L knee for effusion -- compression stockings as needed for leg swelling -- continue PT/OT at SNF, remain NWB LLE. If she is unable to remain NWB LLE, TTWB is ok, but recommend walker. -- given patient's age and health issues I strongly recommend DEXA scan and checking vitamin D levels -- may f/u with me as an outpatient 2-3 weeks after discharge
--- NOTE | 2020-02-16 14:43 | DIET.NUTRFU ---
Pt is enjoying diet being liberalized to Regular. PO intakes have increased with 75,50,75% recorded at last three meals. Pt is receiving Ensure TID for additional supplementation. Pt has been helped with menu selections to make sure she received her preferences. Will continue to monitor.
--- NOTE | 2020-02-16 18:27 | PC.NURSE ---
PT d/cd to [facility] this shift. E Script sent to [facility].
== END 2020-02-16 14:35 ==
LOC: ER 11:45 → 2ND 12:59
PROVIDERS: Internal Medicine Gastroenterology; Nurse Practitioner Family; Admitting Provider Internal Medicine Adolescent Medicine; Emergency Provider Emergency Medicine; PCP Emergency Medicine; Visit Provider Emergency Medicine
PROC: 0DJ08ZZ Inspection of Upper Intestinal Tract, Via Natural or Artificial Opening Endoscopic (ICD-10-PCS; CPT 43235; principal; 2020-02-14 15:30)
DX: S72.435A Nondisplaced fracture of medial condyle of left femur, initial encounter for closed fracture (principal); S83.242A Other tear of medial meniscus, current injury, left knee, initial encounter; S83.282A Other tear of lateral meniscus, current injury, left knee, initial encounter; M25.462 Effusion, left knee; R29.6 Repeated falls; Z72.0 Tobacco use; J44.9 Chronic obstructive pulmonary disease, unspecified; Z99.81 Dependence on supplemental oxygen; K22.2 Esophageal obstruction; D50.9 Iron deficiency anemia, unspecified; E43 Unspecified severe protein-calorie malnutrition; K44.9 Diaphragmatic hernia without obstruction or gangrene; Z68.1 Body mass index [BMI] 19.9 or less, adult; W01.0XXA Fall on same level from slipping, tripping and stumbling without subsequent striking against object, initial encounter; Z91.81 History of falling; Y92.019 Unspecified place in single-family (private) house as the place of occurrence of the external cause; M51.36 Other intervertebral disc degeneration, lumbar region; E03.9 Hypothyroidism, unspecified; I10 Essential (primary) hypertension
CPT/HCPCS: 43239; 43249; 36415; 73110; 73562; 73721; 80048; 82728; 83540; 83550; 85007; 85025; 86328; 88305; 94640; 94760; 97110; 97162; 99284; C1726; G0378; J0574; U0003

== ENCOUNTER → 2020-02-23 09:48 | Outpatient (CLI) | payer OTHER, SELFPAY ==
--- NOTE | 2020-02-23 09:53 | XR_ITS ---
PROCEDURE: XR DEXA AXIAL SKELETON CLINICAL HISTORY: SCREENING COMPARISON: [place] REAL BONE3 BONE DENSITOMETRY(HIP:LT SPINE from 05/22/2017 FINDINGS: The right hip BMD is 0.466 with a T-score of -3.4. The left hip BMD is 0.521 with a T-score of -3.5. The lumbar spine BMD is 0.671 with a T-score of -3.4. Previously the lowest bone density was in the right hip with a T-score of -3.6 IMPRESSION: This patient is considered osteoporotic according to the World Health Organization criteria. Fracture risk is high. Treatment is advised. Based on these results a follow-up exam is recommended in 1 year. Dictated by: Billy Keenan MD 02/24/2020 07:26 Billy Keenan MD in [place] 02/24/2020 07:26
== END ==
PROVIDERS: PCP Emergency Medicine; Visit Provider Emergency Medicine
DX: Z13.820 Encounter for screening for osteoporosis (principal)
CPT/HCPCS: 77080

== ENCOUNTER → 2020-03-20 08:49 | Outpatient (CLI) | payer OTHER, SELFPAY ==
--- NOTE | 2020-03-20 08:58 | XR_ITS ---
PROCEDURE: XR WRIST RT MIN 3V CLINICAL INDICATION: Rt wrist FX Follow-up fracture COMPARISON: CR XR WRIST RT MIN 3V from 02/16/2020 FINDINGS: Healing fractures present involving the distal shaft of the radius. Increasing sclerosis is present at the fracture site. There is mild dorsal angulation of the distal fracture fragment. IMPRESSION: Nondisplaced healing distal radial fracture Dictated by: Billy Keenan MD 03/20/2020 09:55 Billy Keenan MD in [place] 03/20/2020 09:55
--- NOTE | 2020-03-20 09:00 | XR_ITS ---
PROCEDURE: XR KNEE LT 3V CLINICAL INDICATION: LT knee pain COMPARISON: CR KNEE3R KNEE-3 VIEWS-RT from 01/08/2017 CR XR KNEE LT 3V from 11/08/2019 CR XR KNEE LT 3V from 02/13/2020 FINDINGS: No fracture or dislocation. No lytic or blastic change. There is normal mineralization. There is generalized osteopenia of the proximal tibia. There is an ill-defined oblique zone of increased density of the distal femur as seen on the lateral view. This is not readily apparent on 11/08/2019 or 02/13/2020 however, the rotation is somewhat different. This could be seen with a stress type fracture. MRI may provide further evaluation if clinically warranted. Other findings:None. IMPRESSION: Possible stress fracture of the distal femur. Consider MRI for further evaluation. Dictated by: Billy Keenan MD 03/20/2020 09:52 Billy Keenan MD in [place] 03/20/2020 09:52
== END ==
PROVIDERS: PCP Emergency Medicine; Visit Provider Orthopaedic Surgery
DX: S52.501A Unspecified fracture of the lower end of right radius, initial encounter for closed fracture (principal); S72.433A Displaced fracture of medial condyle of unspecified femur, initial encounter for closed fracture; S83.207A Unspecified tear of unspecified meniscus, current injury, left knee, initial encounter
CPT/HCPCS: 73110; 73562

== ENCOUNTER → 2020-05-08 13:36 | Outpatient (CLI) | payer OTHER, SELFPAY ==
--- NOTE | 2020-05-08 13:41 | XR_ITS ---
PROCEDURE: XR WRIST RT MIN 3V CLINICAL INDICATION: R distal radius fracture Follow-up fracture COMPARISON: CR XR WRIST RT MIN 3V from 02/16/2020 CR XR WRIST RT MIN 3V from 03/20/2020 FINDINGS: Distal radial fracture line transverse in nature once again noted but less apparent consistent with healing of the fracture with mild dorsal angulation and dorsal displacement. Generalized osteopenia Other findings:None. IMPRESSION: Healing distal radial fracture Dictated by: Billy Keenan MD 05/08/2020 14:13 Billy Keenan MD in [place] 05/08/2020 14:13
--- NOTE | 2020-05-08 13:41 | XR_ITS ---
PROCEDURE: XR KNEE LT 3V CLINICAL INDICATION: non-displaced distal femur fracture Follow-up fracture COMPARISON: CR KNEE3R KNEE-3 VIEWS-RT from 01/08/2017 CR XR KNEE LT 3V from 11/08/2019 CR XR KNEE LT 3V from 02/13/2020 CR XR KNEE LT 3V from 03/20/2020 FINDINGS: Previously noted area of sclerosis of the distal femur is somewhat less apparent indicating healing fracture. There is generalized osteopenia. Minimal osteoarthritic changes. Other findings:None. IMPRESSION: Distal femoral sclerosis less apparent consistent with healing fracture Dictated by: Billy Keenan MD 05/08/2020 14:15 Billy Keenan MD in [place] 05/08/2020 14:15
== END ==
PROVIDERS: PCP Emergency Medicine; Visit Provider Orthopaedic Surgery
DX: S52.501A Unspecified fracture of the lower end of right radius, initial encounter for closed fracture (principal); S83.207A Unspecified tear of unspecified meniscus, current injury, left knee, initial encounter; S72.433A Displaced fracture of medial condyle of unspecified femur, initial encounter for closed fracture
CPT/HCPCS: 73110; 73562

== ENCOUNTER 2020-05-09 08:36 | Emergency (ER) | payer OTHER, SELFPAY ==
[2020-05-09] VITALS (8 sets, daily range): BP systolic 129–150; BP diastolic 70–91; PULSE 70–111; RESP 16; TEMP 36.6–36.9; O2SAT 96–99; BMI 14.6
--- NOTE | 2020-05-09 08:43 | HMH.EDGENADL ---
ED Disposition Clinical Impression: Ankle pain, left Qualifiers: Chronicity: acute Qualified Code(s): M25.572 - Pain in left ankle and joints of left foot Disposition: Home, Self-Care Condition on Discharge: Good Instructions: DI for Acute Pain -- Adult Additional Instructions: Go to [employer] to spanish moss picker short walking boot. Do not weight-bear until asymptomatic. Please follow-up with PT team as scheduled. If any worsening pain, neurovascular symptoms, or other new complaints please immediately return back to our emergency department. Referrals: Fausto Wmoack MD [Primary Care Provider] - - Critical Care Critical Care Time: No Attestation: On , the high probability of a clinically significant, sudden or life threatening deterioration of the following system(s) required my full and direct attention, intervention and personal management. The time I documented below is in addition to time spent performing reported procedures but includes the following listed in this critical care notation. Medical Decision Making - Medical Records Medical records reviewed: Yes: I reviewed the patient's medical records. - Nikolai Inquiry Pt receiving controlled substance: Yes Nikolai was queried for this patient: No Reason not queried -: Emergent pt cond-no time Risks and benefits of using a controlled substance: were discussed with pt by me Vital Signs: 05/09/20 08:37 05/09/20 08:48 05/09/20 09:17 Temperature 98.5 F Temperature Source Oral Pulse Rate [Right] 78 111 H 103 H Respiratory Rate 16 Blood Pressure [Right Arm] 138/70 138/70 134/79 Blood Pressure Mean [Right Arm] 92 92 97 Blood Pressure Source [Right Arm] Automatic Cuff Automatic Cuff Automatic Cuff Blood Pressure Position [Right Arm] Sitting Sitting Sitting 02 Sat by Pulse Oximetry 98 97 96 Oxygen Delivery Method Room Air Room Air Nasal Cannula Oxygen Flow Rate (LPM) 2 05/09/20 09:30 05/09/20 10:02 05/09/20 10:30 Temperature Temperature Source Pulse Rate [Right] 101 H 90 91 H Respiratory Rate Blood Pressure [Right Arm] 150/70 H 149/88 H 131/91 H Blood Pressure Mean [Right Arm] 96 108 104 Blood Pressure Source [Right Arm] Automatic Cuff Automatic Cuff Automatic Cuff Blood Pressure Position [Right Arm] Sitting Sitting Sitting 02 Sat by Pulse Oximetry 98 98 99 Oxygen Delivery Method Nasal Cannula Nasal Cannula Room Air Oxygen Flow Rate (LPM) 2 2 05/09/20 11:06 Temperature Temperature Source Pulse Rate [Right] 96 H Respiratory Rate Blood Pressure [Right Arm] 129/76 Blood Pressure Mean [Right Arm] 93 Blood Pressure Source [Right Arm] Automatic Cuff Blood Pressure Position [Right Arm] Sitting 02 Sat by Pulse Oximetry 99 Oxygen Delivery Method Nasal Cannula Oxygen Flow Rate (LPM) 2 Orders (Tests/Meds): ED MEDICATIONS Discontinued Medications Generic Name Dose Route Start Last Admin Trade Name Freq PRN Reason Stop Dose Admin Hydrocodone Bitart/Acetaminophen 1 tab 05/09/20 08:43 05/09/20 08:50 Hydrocodone/Apap 5/325 Mg Tablet PO 05/09/20 08:44 1 tab ONCE ONE Administration Hydrocodone Bitart/Acetaminophen 1 tab 05/09/20 08:45 Hydrocodone/Apap 5/325 Mg Tablet PO 05/09/20 08:46 ONCE ONE Medical Decision Narrative: Patient 60-year-old female presenting with left ankle pain after misstep yesterday. Patient arrives in quite a bit of distress secondary to her left ankle pain. Differential diagnosis does include left ankle fracture versus calcaneus fracture versus Achilles tendon rupture versus left ankle sprain versus tear of the plantar fascia. At this time, due to her extreme pain she be given 1 5 mg - 325 mg hydrocodone?acetaminophen. She does take Suboxone and I went over the risks and benefits of doing this in the emergency department. She understands. I did tell her list there is a strict indication for narcotic pain medicine I would not we will provide her prescription for any additional narcotics.
--- NOTE | 2020-05-09 08:44 | XR_ITS ---
PROCEDURE: XR ANKLE LT 2V CLINICAL INDICATION: calcaneal/lower leg pain s/p misstep COMPARISON: CR XR FOOT LT 2V from 05/09/2020 FINDINGS: Osteopenia. No fracture or dislocation. IMPRESSION: No acute findings. Dictated by: Billy Keenan MD 05/09/2020 10:48 Billy Keenan MD in [place] 05/09/2020 10:48
--- NOTE | 2020-05-09 08:44 | XR_ITS ---
PROCEDURE: XR FOOT LT 2V CLINICAL INDICATION: calcaneal/lower leg pain s/p misstep COMPARISON: No exams were available for comparison FINDINGS: No fracture or dislocation. No lytic or blastic change. There is generalized osteopenia. No acute fracture or dislocation. IMPRESSION: No acute findings. Dictated by: Billy Keenan MD 05/09/2020 10:49 Billy Keenan MD in [place] 05/09/2020 10:49
--- NOTE | 2020-05-09 08:44 | XR_ITS ---
PROCEDURE: XR TIBIA FIBULA LT 2V CLINICAL INDICATION: calcaneal/lower leg pain s/p misstep COMPARISON: No exams were available for comparison FINDINGS: There is generalized osteopenia No obvious fracture or dislocation. Other findings:None. IMPRESSION: No acute findings. Dictated by: Billy Keenan MD 05/09/2020 10:38 Billy Keenan MD in [place] 05/09/2020 10:38
--- NOTE | 2020-05-09 08:56 | PC.NURSE ---
Rad at bedside
--- NOTE | 2020-05-09 11:03 | PC.NURSE ---
placed post op shoe on pt.
== END 2020-05-09 11:37 | disposition home or self-care (01) ==
PROVIDERS: Emergency Provider Emergency Medicine; PCP Emergency Medicine
DX: M25.572 Pain in left ankle and joints of left foot (principal); W01.0XXA Fall on same level from slipping, tripping and stumbling without subsequent striking against object, initial encounter; Y92.89 Other specified places as the place of occurrence of the external cause; J44.9 Chronic obstructive pulmonary disease, unspecified; Z99.81 Dependence on supplemental oxygen; I10 Essential (primary) hypertension; K21.9 Gastro-esophageal reflux disease without esophagitis; E03.9 Hypothyroidism, unspecified; Z87.891 Personal history of nicotine dependence
CPT/HCPCS: 29515; 73590; 73600; 73620; 99284

== ENCOUNTER 2020-12-04 11:07 | Observation (INO) | payer OTHER, SELFPAY ==
[2020-12-04] VITALS (18 sets, daily range): BP systolic 87–132; BP diastolic 51–73; PULSE 84–110; RESP 12–23; TEMP 36.3–37.3; O2SAT 94–100; BMI 16.6; BMI 15.3
--- NOTE | 2020-12-04 11:41 | HMH.EDGENADL ---
ED Disposition Clinical Impression: Anemia Qualifiers: Anemia type: iron deficiency Iron deficiency anemia type: other iron deficiency Qualified Code(s): D50.8 - Other iron deficiency anemias Disposition: Admitted as Observation Condition on Discharge: [facility] - Critical Care Critical Care Time: No Attestation: On , the high probability of a clinically significant, sudden or life threatening deterioration of the following system(s) required my full and direct attention, intervention and personal management. The time I documented below is in addition to time spent performing reported procedures but includes the following listed in this critical care notation. Medical Decision Making - Nikolai Inquiry Pt receiving controlled substance: No Vital Signs: 12/04/20 11:08 12/04/20 11:19 12/04/20 11:30 Temperature 99.2 F Temperature Source Oral Pulse Rate 101 H 98 H Pulse Rate [Right] 104 H Respiratory Rate 20 14 15 Blood Pressure 132/70 117/73 Blood Pressure [Right Arm] 132/70 Blood Pressure Mean 90 Blood Pressure Mean [Right Arm] 90 02 Sat by Pulse Oximetry 96 94 L Oxygen Delivery Method Nasal Cannula Oxygen Flow Rate (LPM) 3 12/04/20 12:00 12/04/20 12:23 12/04/20 12:31 Temperature Temperature Source Pulse Rate 96 H 106 H 110 H Pulse Rate [Right] Respiratory Rate 16 12 15 Blood Pressure 119/68 119/68 100/52 L Blood Pressure [Right Arm] Blood Pressure Mean 85 81 Blood Pressure Mean [Right Arm] 02 Sat by Pulse Oximetry 97 98 98 Oxygen Delivery Method Room Air Oxygen Flow Rate (LPM) 3 12/04/20 13:30 12/04/20 14:00 12/04/20 14:10 Temperature Temperature Source Pulse Rate 91 H 86 85 Pulse Rate [Right] Respiratory Rate 15 13 12 Blood Pressure 87/51 L 97/54 L 97/54 L Blood Pressure [Right Arm] Blood Pressure Mean 63 64 Blood Pressure Mean [Right Arm] 02 Sat by Pulse Oximetry 100 99 98 Oxygen Delivery Method Nasal Cannula Oxygen Flow Rate (LPM) 3 12/04/20 14:30 12/04/20 15:00 12/04/20 15:13 Temperature Temperature Source Pulse Rate 84 99 H 104 H Pulse Rate [Right] Respiratory Rate 13 15 15 Blood Pressure 99/56 L 108/58 L 108/58 L Blood Pressure [Right Arm] Blood Pressure Mean 70 80 Blood Pressure Mean [Right Arm] 02 Sat by Pulse Oximetry 98 96 97 Oxygen Delivery Method Oxygen Flow Rate (LPM) 12/04/20 15:31 Temperature Temperature Source Pulse Rate 100 H Pulse Rate [Right] Respiratory Rate 14 Blood Pressure 117/72 Blood Pressure [Right Arm] Blood Pressure Mean 86 Blood Pressure Mean [Right Arm] 02 Sat by Pulse Oximetry 94 L Oxygen Delivery Method Oxygen Flow Rate (LPM) - Lab Data Lab Results 12/04/20 11:25: WBC 4.3 L, RBC 4.27, Hgb 7.2 L*, Hct 26.5 L, MCV 62.0 L, MCH 16.9 L, MCHC 27.3 L, RDW 16.3, Plt Count 358, MPV 6.3 L, Neut % (Auto) 74.0, Lymph % (Auto) 13.9, [place] % (Auto) 10.8 H, Eos % (Auto) 0.8, Baso % (Auto) 0.4, Neut # (Auto) 3.2, Lymph # (Auto) 0.6 L, [place] # (Auto) 0.5, Eos # (Auto) 0.0, Baso # (Auto) 0.0 12/04/20 11:25: Sodium 134 L, Potassium 3.8, Chloride 87 L, Carbon Dioxide 39 H, Anion Gap 11.8, BUN 10, Creatinine 0.20 L, Estimated Creat Clear 182, Estimated GFR 362, Est GFR ( Amer) 438, Glucose 103 H, Calcium 8.2 L, Total Bilirubin 0.3, AST 17, ALT 5 L, Alkaline Phosphatase 93, Total Protein 6.8, Albumin 3.2 L, Globulin 3.6 H, Albumin/Globulin Ratio 0.9 L 12/04/20 11:25: TSH 1.22, Free T4 Index 4.1 L, Thyroxine (T4) 10.5, T3 Uptake 39 12/04/20 11:25: Sodium 134 L, Potassium 3.8, Chloride 87 L, Carbon Dioxide 41 H*, Anion Gap 9.8, BUN 9, Estimated Creat Clear 182, Estimated GFR 362, Est GFR ( Amer) 438, Glucose 100, Calcium 8.2 L, Total Bilirubin 0.4, AST 22 D, ALT 5 L, Alkaline Phosphatase 92, Total Protein 6.7, Albumin 3.3 L, Globulin 3.4 H, Albumin/Globulin Ratio 1.0 L 12/04/20 13:01: Stool Occult Blood Negative 12/04/20 14:37: Specimen Source Right radial, O2 % 2l, ABG pH 7
[2020-12-04 11:44] LABS: Basophils % 0.4 % (0.1-2.0); Eosinophils % 0.8 % (0.1-12.0); Hematocrit 26.5 % (37.0-47.0); Lymphocytes # 0.6 K/mm3 (0.7-4.5); Lymphocytes % 13.9 % (10-50); Mean Corpuscular HGB Conc 27.3 g/dL (31.8-35.4); Mean Corpuscular Hemoglobin 16.9 pg (27.0-31.2); Mean Platelet Volume 6.3 fl (7.4-10.4); Monocytes # 0.5 K/mm3 (0.1-1.0); Monocytes % 10.8 % (1.7-9.3); Neutrophils # 3.2 K/mm3 (1.8-7.8); Platelet Count 358 K/mm3 (142-424); Red Blood Count 4.27 M/mm3 (4.20-5.40); Red Cell Distribution Width 16.3 % (11.5-17.5); White Blood Count 4.3 K/mm3 (4.8-10.8)
[2020-12-04 11:47] LABS: Chloride 87 mmol/L (98-107); Potassium 3.8 mmoL/L (3.5-5.1); Sodium 134 mmol/L (136-145)
[2020-12-04 11:50] LABS: Alanine Aminotransferase 5 U/L (12-78); Albumin Level 3.2 g/dl (3.5-5.0); Albumin/Globulin Ratio 0.9 (1.1-1.8); Alkaline Phosphatase 93 U/L (38-126); Aspartate Amino Transferase 17 U/L (14-36); Bilirubin,Total 0.3 mg/dl (0.2-1.3); Blood Urea Nitrogen 10 mg/dl (7-17); Calcium 8.2 mg/dl (8.4-10.2); Creatinine Clearance Estimated 182 mL/min (50-200); Estimated Glomerular Filt Rate 362 ml/min (>60); GFR (African American) 438 ML/MIN (>60); Globulin 3.6 g/dL (1.3-3.2); Glucose 103 mg/dl (74-100); Total Protein,Serum 6.8 g/dl (6.3-8.2)
[2020-12-04 11:52] LABS: Hemoglobin 7.2 g/dL (12.2-16.2)
--- NOTE | 2020-12-04 11:52 | PC.NURSE ---
lab called to say pt's hemoglobin was 7.2
--- NOTE | 2020-12-04 11:54 | PC.NURSE ---
notified ER of critical hgb, pt name and verified with Gudelia in lab when she called with result
[2020-12-04 11:57] LABS: Anion Gap 11.8 mEq/L (5-15); Carbon Dioxide 39 mmol/L (22.0-30.0)
[2020-12-04 12:41] LABS: Free Thyroxine Index 4.1 ug/dL (5.93-13.13); T4 (Thyroxine) 10.5 ug/dl (5.53-11.0); Triiodothryronine (T3) Uptake 39 % (23.5-40.5)
[2020-12-04 12:54] LABS: Thyroid Stimulating Hormone 1.22 uIU/mL (0.465-4.68)
[2020-12-04 13:13] LABS: Occult Blood,Stool Negative (Negative)
[2020-12-04 14:30] LABS: Chloride 87 mmol/L (98-107); Potassium 3.8 mmoL/L (3.5-5.1); Sodium 134 mmol/L (136-145)
[2020-12-04 14:32] LABS: Alanine Aminotransferase 5 U/L (12-78); Alkaline Phosphatase 92 U/L (38-126); Aspartate Amino Transferase 22 U/L (14-36); Bilirubin,Total 0.4 mg/dl (0.2-1.3); Blood Urea Nitrogen 9 mg/dl (7-17); Estimated Glomerular Filt Rate 362 ml/min (>60); GFR (African American) 438 ML/MIN (>60)
--- NOTE | 2020-12-04 14:32 | PC.NURSE ---
waiting construction executive back from Dr. Womack, staff states he is in a room
[2020-12-04 14:33] LABS: Albumin Level 3.3 g/dl (3.5-5.0); Calcium 8.2 mg/dl (8.4-10.2); Globulin 3.4 g/dL (1.3-3.2); Glucose 100 mg/dl (74-100); Total Protein,Serum 6.7 g/dl (6.3-8.2)
--- NOTE | 2020-12-04 14:35 | PC.NURSE ---
per mikael in lab, pt CO2 on chemistry panel is greater than 40. Pt name and verified. notified SHEYLA GUAJARDO of critical result SHEYLA GUAJARDO gave verbal order for ABG
[2020-12-04 14:42] LABS: Anion Gap 9.8 mEq/L (5-15); Carbon Dioxide 41 mmol/L (22.0-30.0)
--- NOTE | 2020-12-04 14:49 | PC.NURSE ---
Respiratory called about BAG order
--- NOTE | 2020-12-04 14:56 | PC.NURSE ---
notified care management of admission, spoke with marv
--- NOTE | 2020-12-04 14:57 | PC.NURSE ---
Respiratory therapy unable to get ABG. ANOTHER RT ATTEMPTING
[2020-12-04 15:03] LABS: Coronavirus 19, PCR Not Detected (NotDetected); Influenza A, PCR Not Detected (NotDetected); Influenza B, PCR Not Detected (NotDetected)
[2020-12-04 15:09] LABS: ABG Base Excess 16.2 mmol/L (-2.4-2.3); ABG Oxygen Saturation 94 % (90-100); ABG PH 7.33 mmol/L (7.35-7.45); ABG TCO2 44.5 mmhg (23-27); Allen's Test Acceptable; Oxygen 2L %; Source Right Radial
--- NOTE | 2020-12-04 15:11 | PC.NURSE ---
AWARE OF ABG RESULTS AT THIS TIME
--- NOTE | 2020-12-04 15:20 | PC.NURSE ---
pt on bedside commode
--- NOTE | 2020-12-04 15:41 | PC.NURSE ---
Report called to Erika CUELLAR at this time
--- NOTE | 2020-12-04 15:41 | PC.NURSE ---
Erika CUELLAR made aware that UA collected but has not yet resulted at this time
[2020-12-04 16:22] LABS: Microscopic, Urine URINE MICROSCOPIC (MICROSCOPIC)
[2020-12-04 16:36] LABS: Appearance,Urine SL CLOUDY (Clear); Bilirubin,Urine Negative (Negative); Blood, Urine Negative (Negative); Color,Urine AMBER (Yellow); Glucose,Urine (UA) Negative (Negative); Ketones,Urine Negative (Negative); Leukocyte Esterase,Urine TRACE (Negative); Nitrate,Urine Negative (Negative); PH,Urine 6.5 (5.0-8.5); Protein,Urine Negative (Negative); Specific Gravity, Urine 1.015 (1.005-1.030)
[2020-12-04 16:53] LABS: RBC,Urine Occasional #/hpf (0-3)
[2020-12-04 16:54] LABS: Bacteria,Urine Trace /lpf
[2020-12-04 20:41] LABS: Creatinine Clearance Estimated 168 mL/min (50-200)
--- NOTE | 2020-12-04 20:41 | PC.NURSE ---
Snack passed and trash pulled
--- NOTE | 2020-12-04 21:43 | PC.NURSE ---
Sheis A&Ox3. She is drowsy but awakens easily. She reported her last BM was today. She reported pain in her back and her left knee and rated 6/10. She was repositioned. She reports that she turns independently. She reports an intermittent non-productive cough.
[2020-12-05] VITALS (25 sets, daily range): BP systolic 102–134; BP diastolic 56–84; PULSE 68–113; RESP 14–20; TEMP 36.4–36.9; O2SAT 91–100; BMI 14.8
[2020-12-05 06:43] LABS: Basophils # 0.1 K/mm3 (0-0.2); Basophils % 1.2 % (0.1-2.0); Eosinophils % 1.2 % (0.1-12.0); Hematocrit 27.1 % (37.0-47.0); Lymphocytes # 0.4 K/mm3 (0.7-4.5); Lymphocytes % 11.6 % (10-50); Mean Corpuscular HGB Conc 26.5 g/dL (31.8-35.4); Mean Corpuscular Hemoglobin 16.6 pg (27.0-31.2); Mean Corpuscular Volume 62.7 fl (81-99); Mean Platelet Volume 6.9 fl (7.4-10.4); Monocytes # 0.5 K/mm3 (0.1-1.0); Monocytes % 12.4 % (1.7-9.3); Neutrophils # 2.8 K/mm3 (1.8-7.8); Neutrophils % 73.6 % (37.0-80.0); Platelet Count 364 K/mm3 (142-424); Red Blood Count 4.32 M/mm3 (4.20-5.40); Red Cell Distribution Width 16.2 % (11.5-17.5); White Blood Count 3.7 K/mm3 (4.8-10.8)
--- NOTE | 2020-12-05 06:49 | CA_ITS ---
APPROVED REPORT EXAM: Comprehensive 2D, Doppler, and color-flow Echocardiogram Hammer Driver: Mera Hoskins CRT Ht: 4 ft 11 in Wt: 75lbs BSA: 1.22 BP: 117/72 mmHg Indications: COPD, Murmur, Hypertension/HDD, home O2, GERD 2D Dimensions LVOT 1.90 cm (M/F) 1.5-2.5 LA Volume 37.10 mL LA Volume Index 30.40 mL/m2 (M/F) 16-34 M-Mode Dimensions RVDd 1.45 cm (0.9-2.6) LA Diam 1.61 cm (1.9-4.0) LVDd 3.44 cm (3.5-5.7) Ao Diam 2.53 cm (2.0-3.7) LVDs 2.54 cm (3.5-5.7) IVSd 0.98 cm (0.6-1.1) PWd 0.57 cm (0.6-1.1) EF (Teich) 52.50% FS 26.20% EDV (Teich) 48.80 mL TAPSE 1.38 (<1.7) ESV (Teich) 23.20 mL LV Diastology E Decel Time 323.00 (160-240 msec) E/A Ratio 0.77 MED E' 12.60 (< 7 cm/sec) MED A' 13.20 cm/s E'/MED E' Ratio 6.44 (>14) LAT E' 10.00 (<10 cm/sec) LAT A' 16.40 cm/s E/LAT E' Ratio 8.12 (>14) Aortic Valve AO Peak GR. 12.00 mmHg Mitral Valve MV E Max Brian. 81.00 (40-130 cm/s) MV A Velocity 105.00 (40-130 cm/s) E/A Ratio 0.77 MV Decel. Time 323.00 (160-240 ms) MV PHT 95.00 ms Tricuspid Valve TR P. Velocity 141.00 cm/s RAP Estimate 10.00 mmHg RVSP 18.00 mmHg Left Ventricle Left atrium is normal size, left ventricle is normal size, visually estimated ejection fraction 55% with no regional wall motion abnormality, diastolic parameters are inconclusive. Right Ventricle Right atrium and right ventricle mildly enlarged with normal contractility. Aortic Valve Aortic valve is minimally thickened and fibrosed, there is no aortic stenosis or aortic insufficiency. Mitral Valve Mitral valve grossly normal, there is trace mitral regurgitation. Tricuspid Valve Tricuspid valve grossly normal, there is trace tricuspid regurgitation, tricuspid regurgitation jet velocity is inadequate for calculation of the right ventricular systolic pressure. Pulmonic Valve Pulmonic valve is poorly visualized. Great Vessels Aortic root is normal size. Pericardium No significant pericardial effusion noted. Conclusion 1. Normal left ventricular size, preserved left ventricular systolic function, visually estimated ejection fraction 55% with no regional wall motion abnormality, diastolic parameters are inconclusive. 2. Mildly enlarged right ventricle with normal contractility. 3. Trace mitral and tricuspid regurgitation. 4. No significant pericardial effusion noted. Electronically signed by : Kennedy Fountain, 12/05/2020 19:21:03
[2020-12-05 06:52] LABS: Hemoglobin 7.2 g/dL (12.2-16.2)
[2020-12-05 07:11] LABS: Blood Urea Nitrogen 8 mg/dl (7-17); Calcium 8.1 mg/dl (8.4-10.2); Chloride 84 mmol/L (98-107); Creatinine Clearance Estimated 108 mL/min (50-200); Estimated Glomerular Filt Rate 227 ml/min (>60); GFR (African American) 275 ML/MIN (>60); Glucose 95 mg/dl (74-100); Potassium 3.6 mmoL/L (3.5-5.1); Sodium 135 mmol/L (136-145)
[2020-12-05 07:24] LABS: Anion Gap 11.6 mEq/L (5-15)
[2020-12-05 07:26] LABS: Carbon Dioxide 43 mmol/L (22.0-30.0)
--- NOTE | 2020-12-05 07:28 | P.CONPHA_ITS ---
[facility] Pharmacy VTE Monitoring - Patient Demographics Admission date: 12/04/20 Report Date: 12/05/20 Time: 07:28 Allergies/Adverse Reactions: Patient Allergies No Known Allergies Allergy (Verified 06/26/20 11:10) Height: 1.52 m Weight: 34.218 kg Patient Problems: Current Active Problems Anemia (Acute) - VTE Risk Labs: VTE Related Lab Results Hgb 7.2 g/dL (12.2-16.2) L* 12/05/20 05:54 Hct 27.1 % (37.0-47.0) L 12/05/20 05:54 Plt Count 364 K/mm3 (142-424) 12/05/20 05:54 BUN 8 mg/dl (7-17) 12/05/20 05:54 Creatinine 0.30 mg/dl (0.52-1.04) L D 12/05/20 05:54 Estimated Creat Clear 108 mL/min (50-200) 12/05/20 05:54 Was VTE Risk Assessment Performed: Yes VTE Score: 5 VTE Risk Level: Low Risk Clinical Trial Participant: No - Prophylaxis VTE Prophylaxis Ordered?: Yes Types of VTE Prophylaxis: TEDS Knee High
--- NOTE | 2020-12-05 07:41 | HMH.PHAINT ---
VERIFIED HOME MEDICATION LIST USING LIST FROM OUTPATIENT PHARMACY
--- NOTE | 2020-12-05 08:14 | HMH.CNCARD ---
History of Present Illness Consult date: 12/05/20 Requesting physician: Fausto Womack Consult reason: shortness of breath Chief complaint: AMS, unusual movements Additional Medical History:: 1. Hypothyroidism, on replacement therapy 2. Ex-smoker, discontinued 1 to 2 years ago A. Oxygen requiring COPD 3. Pulmonary hypertension A. Echocardiogram 01/2019, 1. Normal left ventricular size, preserved left ventricular systolic function, visually estimated ejection fraction of 55% with no regional wall motion abnormality, Doppler evidence of impaired LV relaxation seen. 2. Mildly enlarged right ventricle with normal contractility. 3. Mild mitral and tricuspid regurgitation, calculated right ventricular systolic pressure is 49 mmHg consistent with moderately elevated right ventricular systolic pressure. 4. No significant pericardial effusion noted. Electronically signed by : Kennedy Fountain, 02/12/2019 17:02:42 4. Lexiscan Myoview 03/2019, EF 65% with no ischemia. 5. Recurrent anemia A. EGD, Dr. Barba, 01/2020, 1. Schatzki's ring/esophageal stricture status post dilation to 16 mm 2. Small to medium sized hiatal hernia (2 to 3 cm) 3. 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 History of GERD History of present illness: 60-year-old white female with severe COPD requiring home oxygen therapy presented to the emergency department for evaluation of altered mental status and unusual movements. Patient is on oxygen chronically at home with oxygen saturation per noted to be around 88 to 90% yesterday. Patient has had recurrent anemia requiring transfusions over the past few years with symptoms of unusual movements noted prior to that including shaking. She does confirm she has had some of these symptoms recently. On exam in the ER patient was noted to have a cardiac murmur and cardiology consulted for further evaluation. Patient had a echocardiogram in 2019 that showed no significant valvular heart disease but did have evidence of pulmonary hypertension. She also had a stress test later part of 2019 that showed no ischemia with normal ejection fraction. Patient denies any chest pain, pressure or tightness at this time. She does have chronic shortness of breath. [facility] History Medical History: Reports:: Asthma, Chronic Obstructive Pulmonary Disease (COPD), Gastroesophageal Reflux Disease(GERD), Home Oxygen, Hypertension Denies:: Cancer, Diabetes Mellitus Type 1, Diabetes Mellitus Type 2, MRSA, Seizures *Have you ever received a pneumonia vaccine?: Yes *Have you received a flu vaccine this season?: Yes Other Medical History: Reports: Anemia, Arthritis, Cataracts, Hypothyroidism, Sinus Problems, Thyroid Disease Other Surgeries: Yes: Appendectomy, Dilation and Curettage, Other Amputation: No Fractures: Yes - *Social History Smoking Status: Former smoker Tobacco Type: cigarettes # Packs/Day (cigarettes): 1 #Yrs smoked (if former smoker): 43 Alcohol Intake: never Substance Use Type: opiates, painkillers, former substance user *Occupational Status:: retired Housing: apartment Household Members: spouse *Travel in the last 8 weeks: None Family Hx:: Cancer, Diabetes, Hypertension Meds Home Medications Medication Instructions Recorded Confirmed Type Buprenorphine HCl/Naloxone HCl 1.75 tab PO DAILY 12/04/20 12/04/20 History [Buprenorphine-Nalox 8-2 mg Tab] Levothyroxine Sodium [Synthroid 125 mcg PO DAILY 12/04/20 12/05/20 History 125mcg (0.125mg) tablet] Allergies Allergy/AdvReac Type Severity Reaction Status Date / Time No Known Allergies Allergy Verified 06/26/20 11:10 Exam Vital signs and Labs for Last 24 Hours: Temp Pulse Resp BP Pulse Ox 98 F 68 18 105/56 L 100 12/05/20 07:25 12/05/20 07:25 12/05/20 07:25 12/05/20 07:25 12/05/20 07:25 Laboratory Results - last 24 hr 12/04/20 11:25: WBC 4.3 L,
--- NOTE | 2020-12-05 09:32 | HMH.HP ---
*Admission Date: 12/04/20 *Chief complaint: Altered mental staus *History of present illness: 60-year-old white female with severe COPD requiring home oxygen therapy presented to the emergency department for evaluation of altered mental status and unusual movements. Patient is on oxygen chronically at home with oxygen saturation per noted to be around 88 to 90% yesterday. Patient has had recurrent anemia requiring transfusions over the past few years with symptoms of unusual movements noted prior to that including shaking. She does confirm she has had some of these symptoms recently. She does have chronic shortness of breath (Per Chelly XAVIER). In the emergency department white blood cell count 4.3, hemoglobin 7.3, hematocrit 26.5 60-year-old female patient sitting up in bed echocardiogram in progress. No respiratory distress noted, oxygen saturations 96% on 2 L, she is on 2 L per nasal cannula at home also. [facility] History I have reviewed the patient's past medical history: Yes Medical History: Reports:: Asthma, Chronic Obstructive Pulmonary Disease (COPD), Gastroesophageal Reflux Disease(GERD), Home Oxygen, Hypertension Denies:: Cancer, Diabetes Mellitus Type 1, Diabetes Mellitus Type 2, MRSA, Seizures *Have you ever received a pneumonia vaccine?: Yes *Have you received a flu vaccine this season?: Yes Other Medical History: Reports: Anemia, Arthritis, Cataracts, Hypothyroidism, Sinus Problems, Thyroid Disease Other Surgeries: Yes: Appendectomy, Dilation and Curettage, Other Amputation: No Fractures: Yes - *Social History Smoking Status: Former smoker Tobacco Type: cigarettes # Packs/Day (cigarettes): 1 #Yrs smoked (if former smoker): 43 Alcohol Intake: never Substance Use Type: opiates, painkillers, former substance user *Occupational Status:: retired Housing: apartment Household Members: spouse *Travel in the last 8 weeks: None Family Hx:: Cancer, Diabetes, Hypertension Review of Systems - Review of Systems Review of systems:: pertinent systems reviewed and negative unless documented below - Constitutional Reports fatigue, Reports lack of energy, Reports weakness - Eyes Denies blind spots, Denies change in vision - ENT Denies abnormal hearing, Denies hearing loss - *Cardiovascular Reports shortness of breath, Reports shortness of breath with activity, Denies chest pain - *Respiratory Reports cough, Reports shortness of breath, Reports shortness of breath with activity - *Gastrointestinal Denies abdominal pain, Denies change in stools - *Musculoskeletal Denies abnormal walking, Denies joint swelling - Integumentary/Breasts Denies dry skin, Denies yellowing of the skin - *Neurologic Reports confusion, Reports headache(s), Denies dizziness - Psychiatric Reports confusion, Denies anxiety, Denies depression - Endocrine Denies cold intolerance, Denies heat intolerance - Hematologic/Lymphatic Denies easy bleeding, Denies enlarged lymph nodes - Allergic/Immunologic Denies GI upset with certain foods, Denies tongue swelling Meds Home Medications Medication Instructions Recorded Confirmed Type Buprenorphine HCl/Naloxone HCl 1.75 tab PO DAILY 12/04/20 12/04/20 History [Buprenorphine-Nalox 8-2 mg Tab] Levothyroxine Sodium [Synthroid 125 mcg PO DAILY 12/04/20 12/05/20 History 125mcg (0.125mg) tablet] Allergies Allergy/AdvReac Type Severity Reaction Status Date / Time No Known Allergies Allergy Verified 06/26/20 11:10 Exam Vital signs and Labs for Last 24 Hours: Temp Pulse Resp BP Pulse Ox 98 F 68 18 105/56 L 100 12/05/20 07:25 12/05/20 07:25 12/05/20 07:25 12/05/20 07:25 12/05/20 07:25 Laboratory Results - last 24 hr 12/04/20 11:25: WBC 4.3 L, RBC 4.27, Hgb 7.2 L*, Hct 26.5 L, MCV 62.0 L, MCH 16.9 L, MCHC 27.3 L, RDW 16.3, Plt Count 358, MPV 6.3 L, Neut % (Auto) 74.0, Lymph % (Auto) 13.9, [place] % (Auto) 10.8 H, Eos % (Auto) 0.8, Baso % (Auto) 0.4, Neut
[2020-12-05 09:36] LABS: Eosinophils # 0.1 K/mm3 (0.0-0.4); Hematocrit 27.6 % (37.0-47.0); Lymphocytes # 0.6 K/mm3 (0.7-4.5); Mean Corpuscular Hemoglobin 16.8 pg (27.0-31.2); Mean Platelet Volume 7.2 fl (7.4-10.4); Red Blood Count 4.41 M/mm3 (4.20-5.40); Red Cell Distribution Width 16.3 % (11.5-17.5); White Blood Count 4.8 K/mm3 (4.8-10.8)
[2020-12-05 09:41] LABS: Basophils % 0.5 % (0.1-2.0); Eosinophils % 1.3 % (0.1-12.0); Lymphocytes % 12.8 % (10-50); Mean Corpuscular HGB Conc 26.8 g/dL (31.8-35.4); Mean Corpuscular Volume 62.7 fl (81-99); Monocytes # 0.6 K/mm3 (0.1-1.0); Monocytes % 11.9 % (1.7-9.3); Neutrophils # 3.5 K/mm3 (1.8-7.8); Neutrophils % 73.6 % (37.0-80.0); Platelet Count 377 K/mm3 (142-424)
[2020-12-05 09:45] LABS: Hemoglobin 7.4 g/dL (12.2-16.2)
--- NOTE | 2020-12-05 09:56 | XR_ITS ---
PROCEDURE: XR CHEST PORTABLE CLINICAL HISTORY: SOA COMPARISON: CR XR CHEST PORTABLE from 01/18/[address] CHEST WO CON from 12/07/2019 CR XR CHEST 2V from 12/07/2019 CR XR CHEST PORTABLE from 12/31/2019 FINDINGS: Normal heart size. COPD changes. Chronic cavitation noted in both upper lobes with scarring not significantly changed. The mid and lower lung zones have an unremarkable appearance. Patient is tilted toward the right in the head is tilted toward the left. IMPRESSION: COPD with chronic cavitation in both upper lobes not significantly changed Dictated by: Billy Keenan MD 12/05/2020 10:37 Billy Keenan MD in OV 12/05/2020 10:37
--- NOTE | 2020-12-05 16:50 | PC.NURSE ---
Pt has been pleasant and cooperative this shift. A&O X4. No complaints of pain. Pt is currently receiving O2 @ 2 LPM via NC with sats. >90%. Lung sounds reveal expiratory wheezing. No edema noted. Appetite is good and pt eats about 75-100% of all meals. Pt ambulates with stand-by assistance and uses the BSC to void clear, dark-yellow urine. No BM this shift. Pt has received 2 units of PRBC's this shift. 20 G peripheral IV in the LT hand is patent and SL. VSS. Call light within reach. Will continue to monitor.
[2020-12-05 19:03] LABS: Hematocrit 37.8 % (37.0-47.0)
[2020-12-05 23:11] LABS: Hemoglobin 10.7 g/dL (12.2-16.2)
--- NOTE | 2020-12-05 23:54 | PC.NURSE ---
RA SATS WERE 86% RETURNED PT TO 2L NC
[2020-12-06 03:40] VITALS: BP 110/67; PULSE 93; RESP 18; TEMP 36.8; O2SAT 96
--- NOTE | 2020-12-06 04:10 | PC.NURSE ---
pt is AxOx4, has remained on 2L NC this shift, expiratory wheezing noted on auscultation, has had no complaints of SOA or chest pain, using BSC with standby assist
[2020-12-06 05:00] VITALS: BMI 14.4
[2020-12-06 06:44] LABS: Basophils % 0.4 % (0.1-2.0); Eosinophils # 0.1 K/mm3 (0.0-0.4); Eosinophils % 1.4 % (0.1-12.0); Hemoglobin 10.6 g/dL (12.2-16.2); Lymphocytes # 0.7 K/mm3 (0.7-4.5); Lymphocytes % 13.2 % (10-50); Mean Corpuscular Hemoglobin 19.2 pg (27.0-31.2); Mean Corpuscular Volume 68.5 fl (81-99); Mean Platelet Volume 6.2 fl (7.4-10.4); Monocytes # 0.7 K/mm3 (0.1-1.0); Monocytes % 13.5 % (1.7-9.3); Neutrophils # 3.9 K/mm3 (1.8-7.8); Neutrophils % 71.5 % (37.0-80.0); Platelet Count 330 K/mm3 (142-424); Red Blood Count 5.55 M/mm3 (4.20-5.40); Red Cell Distribution Width 18.4 % (11.5-17.5); White Blood Count 5.4 K/mm3 (4.8-10.8)
[2020-12-06 06:52] LABS: Blood Urea Nitrogen 6 mg/dl (7-17); Calcium 8.3 mg/dl (8.4-10.2); Chloride 82 mmol/L (98-107); Creatinine Clearance Estimated 105 mL/min (50-200); Estimated Glomerular Filt Rate 227 ml/min (>60); GFR (African American) 275 ML/MIN (>60); Glucose 96 mg/dl (74-100); Potassium 3.7 mmoL/L (3.5-5.1); Sodium 133 mmol/L (136-145)
[2020-12-06 07:24] LABS: Anion Gap 10.7 mEq/L (5-15)
[2020-12-06 07:25] LABS: Carbon Dioxide 44 mmol/L (22.0-30.0)
[2020-12-06 08:00] VITALS: BP 111/66; PULSE 107; RESP 16; TEMP 36.8; O2SAT 100
[2020-12-06 09:38] LABS: ABG Base Excess 19.9 mmol/L (-2.4-2.3); ABG HCO3 44.2 mmhg (22.0-26.0); ABG Oxygen Saturation 97 % (90-100); ABG PH 7.44 mmol/L (7.35-7.45); ABG PO2 86.1 mmhg (80-100); ABG TCO2 46.2 mmhg (23-27)
[2020-12-06 09:40] LABS: Allen's Test Acceptable; Oxygen 3L NC %; Source Left Radial
[2020-12-06 09:42] LABS: ABG PCO2 67.3 mmhg (35.0-45.0)
--- NOTE | 2020-12-06 10:19 | HMH.PNCARD ---
Subjective Date: 12/06/20 Time: 10:19 Principal diagnosis: Anemia Interval history: 60-year-old white female in bed in no acute distress. She does notice some improvement in her shortness of breath since the blood transfusions yesterday. Hemoglobin is 10.6 now. Echocardiogram yesterday shows normal ejection fraction with no significant valvular heart disease. Exam Vital signs and Labs for Last 24 Hours: Temp Pulse Resp BP Pulse Ox 98.3 F 107 H 16 111/66 100 12/06/20 08:00 12/06/20 08:00 12/06/20 08:00 12/06/20 08:00 12/06/20 08:00 Laboratory Results - last 24 hr 12/05/20 10:36: Blood Type A Negative, Antibody Screen Negative, Crossmatch (AHG) See Detail 12/05/20 18:20: Hgb 10.7 L D, Hct 37.8 12/06/20 05:31: WBC 5.4, RBC 5.55 H D, Hgb 10.6 L, Hct 38.0, MCV 68.5 L, MCH 19.2 L, MCHC 28.0 L, RDW 18.4 H, Plt Count 330, MPV 6.2 L, Neut % (Auto) 71.5, Lymph % (Auto) 13.2, [place] % (Auto) 13.5 H, Eos % (Auto) 1.4, Baso % (Auto) 0.4, Neut # (Auto) 3.9, Lymph # (Auto) 0.7, [place] # (Auto) 0.7, Eos # (Auto) 0.1, Baso # (Auto) 0.0 12/06/20 05:31: Sodium 133 L, Potassium 3.7, Chloride 82 L, Carbon Dioxide 44 H*, Anion Gap 10.7, BUN 6 L, Creatinine 0.30 L, Estimated Creat Clear 105, Estimated GFR 227, Est GFR ( Amer) 275, Glucose 96, Calcium 8.3 L 12/06/20 08:59: Specimen Source Left radial, O2 % 3l nc, ABG pH 7.44, ABG pCO2 67.3 H, ABG pO2 86.1, ABG HCO3 44.2 H, ABG Total CO2 46.2 H, ABG O2 Saturation 97, ABG Base Excess 19.9 H, Billy Test Acceptable I & O for Last 24 hours: Intake & Output 12/03/20 12/04/20 12/05/20 12/06/20 11:59 11:59 11:59 11:59 Intake Total 310 / 310 1070 / 1070 Output Total 0 / 0 800 / 800 Balance 310 / 310 270 / 270 Weight 85 lb 75 lb 7 oz 73 lb 7 oz - Constitutional no acute distress, chronically ill appearing - *Routine HEENT Exam Head: Present: normocephalic Eye: Present: EOMI, PERRL ENT: Present: mucous membranes moist - *Routine Neck Exam Present: supple. Absent: lymphadenopathy - *Routine Respiratory Exam Present: decreased breath sounds, CTA bilaterally - *Routine Cardiovascular Exam Present: RRR - *Routine Abdominal Exam Present: soft, normoactive bowel sounds. Absent: tenderness - *Routine Extremities Exam Absent: cyanosis, clubbing, edema - *Routine Skin Exam Present: warm. Absent: rash - *Routine Neurological Exam Present: alert, oriented X3 Progress Note: A&P (1) Anemia Status: Acute (2) COPD (chronic obstructive pulmonary disease) Status: Acute (3) Hypothyroidism (acquired) Status: Acute (4) Pulmonary HTN Status: Acute (5) Cachectic Status: Acute (6) Body mass index (BMI) less than 16.5 Status: Acute (7) Weakness Status: Acute (8) On home oxygen therapy Status: Acute (9) Nicotine abuse Status: Chronic Assessment and Plan for All Diagnoses:: Continue Lasix 40 mg daily for pulmonary hypertension along with supplemental potassium. We will give a dose of IV Lasix today due to transfusions yesterday and low BUN today. Cardiac status is stable. Okay for discharge home from cardiology standpoint when PCP is ready. Follow-up in our office in 2 to 3 weeks.
--- NOTE | 2020-12-06 11:08 | HMH.PTEV ---
Physical Therapy Evaluation Rehab PT IP Evaluation Start: 12/06/20 08:50 Freq: ONCE Status: Active Protocol: Document 12/06/20 10:58 [email or web address] (Rec: 12/06/20 11:07 COURTNEY [id number]) Subjective/History History History 60-year-old white female with severe COPD requiring home oxygen therapy presented to the emergency department for evaluation of altered mental status and unusual movements. Patient is on oxygen chronically at home with oxygen saturation per noted to be around 88 to 90% yesterday. Patient has had recurrent anemia requiring transfusions over the past few years with symptoms of unusual movements noted prior to that including shaking. She does confirm she has had some of these symptoms recently. - copied from H&P Subjective Subjective Pt reports she is going home soon - pt reprots she remembers Physical Therapist from last admission. Pt states she uses wc and walker at home but is limited in mobility due to L knee being broke and her sig. COPD- pt reports she has not seen orthopod for knee in a long time and can not reports what was wrong w/ knee - Pt states she has assist her at home for ADL's and mobility - Pt agreed to particpate w/ eval but states she does not wish to have therapy while in [facility] - Rehab PT IP Eval Objective Appearance Patient Behavior Resistive to Care Patient Orientation Person,Place,Time Difficulty following instructions none Speech Pattern Clear Ambulation Patient Able to Ambulate Yes Ambulation Observation IP General Gait Pattern Observation Decrease Weight Bear (L) Ambulation Distance (feet) 2 Ambulation Assistive Device Rolling Walker Ambulation Ability Contact Guard/Hand Hold Balance Ability to Arise
--- NOTE | 2020-12-06 11:45 | HMH.OTEV ---
OT Inpatient Evaluation Rehab OT IP Evaluation Start: 12/06/20 08:50 Freq: ONCE Status: Active Protocol: Document 12/06/20 11:39 [email or web address] (Rec: 12/06/20 11:45 [facility] [id number]) Rehab OT IP Assessment Subjective History Pt oriented x 3 on arrival. Pt agreeable to engage in therapy evaluation, but reports she is not doing therapy . Pt reports at home she does minimal walking. She usually only does short transfers with the help of walker. She does use wheelchair often to get around . She lives at home with . He assists her with ADLs. Pt does dependent on daughter to complete IADLS. is able to do some but not all. Pt was admitted via ED on 12/04/20 due to altered mental status. Pt has a past medical history of Asthma, Chronic Obstructive Pulmonary Disease (COPD), Gastroesophageal Reflux Disease(GERD), Home Oxygen, Hypertension. Subjective Pt reports multiple times during evaluation she does not need therapy and she does not want to participate in it. She explains she has a boken knee and cannot walk, so she does not need therapy. Therapist also recommended further evaluation at knee with ortho and possible home health, but pt refused. Objective Patient Orientation Person,Place,Birthday Upper Extremity Gross ROM WFL Bed Mobility bed mobility-scooting,bed mobility - supine/sit,bed mobility - rolling Assist Level Supervision/Stand by Transfer Training Sit/Stand Transfer Assist Level Supervision/Stand by Feeding Ability Independent Lower Body Dressing Ability Standby Assistance Performing Toilet Hygiene Ability Standby Assistance Overall Commode/Toilet Transfer Ability Standby Assistance Commode/Toilet Transfer Technique Stand
--- NOTE | 2020-12-06 11:59 | HMH.OTEV ---
OT Inpatient Evaluation Rehab OT IP Evaluation Start: 12/06/20 08:50 Freq: ONCE Status: Active Protocol: Document 12/06/20 11:39 RMARSLOS ANGELES (Rec: 12/06/20 11:45 [facility] [id number]) Rehab OT IP Assessment Subjective History Pt oriented x 3 on arrival. Pt agreeable to engage in therapy evaluation, but reports she is not doing therapy . Pt reports at home she does minimal walking. She usually only does short transfers with the help of walker. She does use wheelchair often to get around . She lives at home with . He assists her with ADLs. Pt does dependent on daughter to complete IADLS. is able to do some but not all. Pt was admitted via ED on 12/04/20 due to altered mental status. Pt has a past medical history of Asthma, Chronic Obstructive Pulmonary Disease (COPD), Gastroesophageal Reflux Disease(GERD), Home Oxygen, Hypertension. Subjective Pt reports multiple times during evaluation she does not need therapy and she does not want to participate in it. She explains she has a boken knee and cannot walk, so she does not need therapy. Therapist also recommended further evaluation at knee with ortho and possible home health, but pt refused. Objective Patient Orientation Person,Place,Birthday Upper Extremity Gross ROM WNL Bed Mobility bed mobility-scooting,bed mobility - supine/sit,bed mobility - rolling Assist Level Supervision/Stand by Transfer Training Sit/Stand Transfer Assist Level Supervision/Stand by Feeding Ability Independent Lower Body Dressing Ability Standby Assistance Performing Toilet Hygiene Ability Standby Assistance Overall Commode/Toilet Transfer Ability Standby Assistance Commode/Toilet Transfer Technique Stand
--- NOTE | 2020-12-06 13:11 | HMH.DCSUM ---
General - General Admission date:: 12/04/20 Discharge date: 12/06/20 HPI HPI: 60-year-old white female with severe COPD requiring home oxygen therapy presented to the emergency department for evaluation of altered mental status and unusual movements. Patient is on oxygen chronically at home with oxygen saturation per noted to be around 88 to 90% yesterday. Patient has had recurrent anemia requiring transfusions over the past few years with symptoms of unusual movements noted prior to that including shaking. She does confirm she has had some of these symptoms recently. She does have chronic shortness of breath (Per Chelly XAVIER). In the emergency department white blood cell count 4.3, hemoglobin 7.3, hematocrit 26.5 60-year-old female patient sitting up in bed echocardiogram in progress. No respiratory distress noted, oxygen saturations 96% on 2 L, she is on 2 L per nasal cannula at home also. Hospital Course Hospital Course: Laboratory Tests 12/04/20 12/04/20 12/04/20 11:25 11:25 11:25 WBC 4.3 L RBC 4.27 Hgb 7.2 L* Hct 26.5 L MCV 62.0 L MCH 16.9 L MCHC 27.3 L RDW 16.3 Plt Count 358 MPV 6.3 L Neut % (Auto) 74.0 Lymph % (Auto) 13.9 [place] % (Auto) 10.8 H Eos % (Auto) 0.8 Baso % (Auto) 0.4 Neut # (Auto) 3.2 Lymph # (Auto) 0.6 L [place] # (Auto) 0.5 Eos # (Auto) 0.0 Baso # (Auto) 0.0 Specimen Source O2 % ABG pH ABG pCO2 ABG pO2 ABG HCO3 ABG Total CO2 ABG O2 Saturation ABG Base Excess Billy Test Sodium 134 L Potassium 3.8 Chloride 87 L Carbon Dioxide 39 H Anion Gap 11.8 BUN 10 Creatinine 0.20 L Estimated Creat Clear 182 Estimated GFR 362 Est GFR ( Amer) 438 Glucose 103 H Calcium 8.2 L Total Bilirubin 0.3 AST 17 ALT 5 L Alkaline Phosphatase 93 Total Protein 6.8 Albumin 3.2 L Globulin 3.6 H Albumin/Globulin Ratio 0.9 L TSH 1.22 Free T4 Index 4.1 L Thyroxine (T4) 10.5 T3 Uptake 39 Urine Color Urine Appearance Urine pH Ur Specific [place] Urine Protein Urine Glucose (UA) Urine Ketones Urine Blood Urine Nitrate Urine Bilirubin Urine Urobilinogen Ur Leukocyte Esterase Urine RBC Urine WBC Ur Squamous Epith Cells Urine Bacteria Stool Occult Blood SARS-CoV-2 (PCR) Influenza A Untype (PCR) Influenza Type B (PCR) Blood Type Antibody Screen Crossmatch (AHG) 12/04/20 12/04/20 12/04/20 11:25 13:01 14:37 WBC RBC Hgb Hct MCV MCH MCHC RDW Plt Count MPV Neut % (Auto) Lymph % (Auto) [place] % (Auto) Eos % (Auto) Baso % (Auto) Neut # (Auto) Lymph # (Auto) [place] # (Auto) Eos # (Auto) Baso # (Auto) Specimen Source Right radial O2 % 2l ABG pH 7.33 L ABG pCO2 81.0 H ABG pO2 75.0 L ABG HCO3 42.0 H ABG Total CO2 44.5 H ABG O2 Saturation 94 ABG Base Excess 16.2 H Billy Test Acceptable Sodium 134 L Potassium 3.8 Chloride 87 L Carbon Dioxide 41 H* Anion Gap 9.8 BUN 9 Creatinine 0.20 L Estimated Creat Clear 168 Estimated GFR 362 Est GFR ( Amer) 438 Glucose 100 Calcium 8.2 L Total Bilirubin 0.4 AST 22 D ALT 5 L Alkaline Phosphatase 92 Total Protein 6.7 Albumin 3.3 L Globulin 3.4 H Albumin/Globulin Ratio 1.0 L TSH Free T4 Index Thyroxine (T4) T3 Uptake Urine Color Urine Appearance Urine pH Ur Specific [place] Urine Protein Urine Glucose (UA) Urine Ketones Urine Blood Urine Nitrate Urine Bilirubin Urine Urobilinogen Ur Leukocyte Esterase Urine RBC Urine WBC Ur Squamous Epith Cells Urine Bacteria Stool Occult Blood Negative SARS-CoV-2 (PCR) Influenza A Untype (PCR) Influenza Type B (PCR) Blood Ty
--- NOTE | 2020-12-06 13:59 | SW/DCPLANNER ---
SET UP HOME HEALTH SERVICES FOR PT/OT AND [facility] FOR THIS PATIENT THAT IS DISCHARGING HOME LATER IN THE AFTERNOON... PATIENT WISHES TO USE [facility]... SHE ALSO WAS ORDERED A NEBULIZER FROM [facility], THIS WILL BE DELIVERED TO THE HOSPITAL PRIOR TO DISCHARGING TO HOME...
--- NOTE | 2020-12-06 15:10 | PC.NURSE ---
Report received from beba Flood RN
[2020-12-06 15:45] VITALS: BP 111/72; PULSE 108; RESP 17; TEMP 36.7; O2SAT 98
[2020-12-06 16:10] VITALS: BMI 12.1
== END 2020-12-06 17:32 | disposition home health service (06) ==
LOC: ER 13:37 → 2ND 15:09
PROVIDERS: Nurse Practitioner Family; Physician Assistant; Admitting Provider Emergency Medicine; Emergency Provider Emergency Medicine; PCP Emergency Medicine; Visit Provider Emergency Medicine
DX: D50.8 Other iron deficiency anemias (principal); J44.1 Chronic obstructive pulmonary disease with (acute) exacerbation; Z99.81 Dependence on supplemental oxygen; R64 Cachexia; Z68.1 Body mass index [BMI] 19.9 or less, adult; I27.20 Pulmonary hypertension, unspecified; F17.210 Nicotine dependence, cigarettes, uncomplicated; Z79.899 Other long term (current) drug therapy; Z20.822 Contact with and (suspected) exposure to COVID-19; F11.21 Opioid dependence, in remission
CPT/HCPCS: 36415; 71045; 80048; 80053; 81001; 82272; 82803; 84436; 84443; 84479; 85014; 85018; 85025; 86850; 93306; 94760; 94761; 97162; 97165; 99284; 99291; G0328; G0378; J0574; P9016; U0003

== ENCOUNTER 2020-12-16 03:27 | Emergency (ER) | payer OTHER, SELFPAY ==
[2020-12-16 03:20] VITALS: BP 124/72; PULSE 121; RESP 20; TEMP 37.3; O2SAT 97; BMI 13.3
--- NOTE | 2020-12-16 03:28 | XR_ITS ---
PROCEDURE INFORMATION: Exam: XR Left Knee Exam date and time: 12/16/2020 3:28 AM Age: 60 years old Clinical indication: Injury or trauma; Fall; Blunt trauma; Knee; Left TECHNIQUE: Imaging protocol: XR Left knee. Views: 2 AP views COMPARISON: CR XR KNEE LT 3V 05/08/2020 1:46 PM FINDINGS: Bones/joints: Osteopenia and degenerative change. No acute bony injury in the visualized left knee on the AP views obtained. A corresponding lateral view was not performed. Soft tissues: No radiopaque foreign body. IMPRESSION: No acute bony injury in the visualized left knee on the AP views obtained. A corresponding lateral view was not performed.
--- NOTE | 2020-12-16 03:28 | XR_ITS ---
PROCEDURE INFORMATION: Exam: XR Pelvis Exam date and time: 12/16/2020 3:28 AM Age: 60 years old Clinical indication: Injury or trauma; Fall; Blunt trauma (contusions or hematomas); Bilateral; Pelvic region TECHNIQUE: Imaging protocol: XR pelvis. Views: 1 or 2 view. COMPARISON: CT ABDOMEN PELVIS W CON 12/07/2019 7:07 PM FINDINGS: Bones/joints: Osteopenia and degenerative change. No gross evidence for acute bony injury in the visualized pelvis on the single AP view obtained. If an occult fracture is of clinical concern, CT correlation can be performed. Soft tissues: Nonspecific 1 mm punctate radiopaque density overlying the right ilium. Other findings: Prominent stool. IMPRESSION: No gross evidence for acute bony injury in the visualized pelvis on the single AP view obtained.
--- NOTE | 2020-12-16 03:28 | XR_ITS ---
PROCEDURE INFORMATION: Exam: XR Left Ankle Exam date and time: 12/16/2020 3:28 AM Age: 60 years old Clinical indication: Injury or trauma; Fall; Blunt trauma; Ankle; Left TECHNIQUE: Imaging protocol: XR Left ankle. Views: 3 or more views. COMPARISON: CR XR ANKLE LT 2V 05/09/2020 9:08 AM FINDINGS: Bones/joints: Minimally displaced distal tibial fracture with fracture lines extending to the articular surface, transversely to medial aspect at the level of the metadiaphysis and suspected to extend transversely to the lateral aspect at the level of the epiphysis. Soft tissues: Unremarkable. IMPRESSION: Minimally displaced distal tibial fracture with fracture lines extending to the articular surface, transversely to medial aspect at the level of the metadiaphysis and suspected to extend transversely to the lateral aspect at the level of the epiphysis.
--- NOTE | 2020-12-16 03:28 | XR_ITS ---
PROCEDURE INFORMATION: Exam: XR Left Tibia and Fibula Exam date and time: 12/16/2020 3:28 AM Age: 60 years old Clinical indication: Injury or trauma; Blunt trauma; Lower leg; Patient HX: Fall, left leg pain, ; additional info: Fal TECHNIQUE: Imaging protocol: XR Left tibia and fibula. Views: 2 AP views. COMPARISON: CR XR TIBIA FIBULA LT 2V 05/09/2020 9:08 AM FINDINGS: Bones/joints: A lateral view was not performed. Osteopenia limits evaluation. Linear radiolucency within the medullary cavity of the mid tibial diaphysis. Clinical correlation is recommended to exclude nondisplaced fracture. Degenerative change. Soft tissues: No significant soft tissue swelling or radiopaque foreign body. IMPRESSION: Osteopenia limits evaluation. Linear radiolucency within the medullary cavity of the mid tibial diaphysis. Clinical correlation is recommended to exclude nondisplaced fracture.
--- NOTE | 2020-12-16 03:28 | XR_ITS ---
PROCEDURE INFORMATION: Exam: XR Chest Exam date and time: 12/16/2020 3:28 AM Age: 60 years old Clinical indication: Injury or trauma; Fall; Blunt trauma (contusions or hematomas); Patient HX: PT wears oxygen at home TECHNIQUE: Imaging protocol: XR of the chest. Views: 1 view. COMPARISON: CR XR CHEST PORTABLE 12/05/2020 10:09 AM FINDINGS: Lungs: COPD with severe biapical emphysematous change. Interstitial disease. Subcentimeter nodules. Pleural spaces: Mild pleural thickening. No dependent pleural effusion. Heart/Mediastinum: No cardiomegaly. No cardiomegaly. Bones/joints: Osteopenia, degenerative change, and mild scoliosis. When correlating with the previous study, no significant interval changes are present. IMPRESSION: Stable appearance of the chest, not significantly changed from 12/05/2020 .
--- NOTE | 2020-12-16 04:15 | PC.NURSE ---
fuel storage technician reports pt refused to have all xray taken stating that she couldn't lay in those positions
--- NOTE | 2020-12-16 04:21 | HMH.EDFALL ---
ED Disposition Clinical Impression: Ankle fracture, left Qualifiers: Encounter type: initial encounter Fracture type: closed Qualified Code(s): S82.892A - Other fracture of left lower leg, initial encounter for closed fracture Fall Qualifiers: Encounter type: initial encounter Qualified Code(s): W19.XXXA - Unspecified fall, initial encounter COPD (chronic obstructive pulmonary disease) Qualifiers: COPD type: unspecified COPD Qualified Code(s): J44.9 - Chronic obstructive pulmonary disease, unspecified Disposition: Home, Self-Care Condition on Discharge: Good Instructions: DI for Ankle Fracture Additional Instructions: ice and no wt bearing and call pcp and ortho Referrals: Fausto Womack MD [Primary Care Provider] - Jesse Lazar MD [Staff Physician] - - Critical Care Critical Care Time: No Attestation: On 12/16/20, the high probability of a clinically significant, sudden or life threatening deterioration of the following system(s) required my full and direct attention, intervention and personal management. The time I documented below is in addition to time spent performing reported procedures but includes the following listed in this critical care notation. Medical Decision Making - Medical Records Medical records reviewed: Yes: I reviewed the patient's medical records. - Nikolai Inquiry Pt receiving controlled substance: No Vital Signs: 12/16/20 03:20 12/16/20 05:01 12/16/20 05:30 Temperature 99.1 F Temperature Source Oral Pulse Rate 105 H 97 H Pulse Rate [Right] 121 H Respiratory Rate 20 Blood Pressure 110/57 L 100/55 L Blood Pressure [Right Arm] 124/72 Blood Pressure Mean 89 80 Blood Pressure Mean [Right Arm] 89 02 Sat by Pulse Oximetry 97 99 99 Oxygen Flow Rate (LPM) 3 3 12/16/20 06:00 12/16/20 06:30 Temperature Temperature Source Pulse Rate 92 H 93 H Pulse Rate [Right] Respiratory Rate Blood Pressure 101/62 L 127/64 Blood Pressure [Right Arm] Blood Pressure Mean 78 85 Blood Pressure Mean [Right Arm] 02 Sat by Pulse Oximetry 99 100 Oxygen Flow Rate (LPM) 3 - Lab Data Lab results reviewed: Yes: I reviewed the patient's lab results. Orders (Tests/Meds): ED MEDICATIONS Discontinued Medications Generic Name Dose Route Start Last Admin Trade Name Freq PRN Reason Stop Dose Admin Ketorolac Tromethamine 60 mg 12/16/20 03:30 12/16/20 03:41 Ketorolac 60mg/2ml Vial IM 12/16/20 03:31 Not Given ONCE ONE Ketorolac Tromethamine 30 mg 12/16/20 03:38 12/16/20 03:41 Ketorolac 30mg/Ml Vial IM 12/16/20 03:39 30 mg ONCE ONE Administration Methylprednisolone Sodium Succinate 125 mg 12/16/20 03:30 12/16/20 03:40 Methylprednisolone Sod Succ 125mg Vial IM 12/16/20 03:31 125 mg ONCE ONE Administration - Radiology Data #1 Image(s): Chest, Pelvis, Knee, Tib/Fib, Ankle Image Reviewed: Yes I have reviewed radiologist's interpretation Preliminary Findings: Abnormal (ankle fx) Medical Decision Narrative: nondisplaced fx lt ankle Fall HPI - General Chief Complaint: Fall Stated Complaint: fall Time Seen by Provider: 12/16/20 04:00 Mode of Arrival: EMS Source of Information: Patient, Spouse, EMS, Medical Record Limitations: No Limitations Description of Symptoms (Recalled from ER Triage Doc. by RN): pt states got tangled in O2 tubing and fell landing on lt leg/ pt c/o rt knee and ankle pain - History of Present Illness HPI Narrative: acute injury lt lower leg and ankle as pt tripped over o2 tubing - pt has copd - no neck or pelvic pain MD complaint: fall Onset (ago): hour(s) Fall from: walking Fall witnessed: yes, by family Place fall occurred: home Loss of consciousness: none Prolonged down time: no Symptoms prior to fall: none Context: tripped/slipped Location of injury - extremities: Left: lower leg, ankle Severity: moderate Associated symptoms (after fall): denies - Related Data Home Medicatio
[2020-12-16 05:01] VITALS: BP 110/57; PULSE 105; O2SAT 99
[2020-12-16 05:30] VITALS: BP 100/55; PULSE 97; O2SAT 99
[2020-12-16 06:00] VITALS: BP 101/62; PULSE 92; O2SAT 99
[2020-12-16 06:30] VITALS: BP 127/64; PULSE 93; O2SAT 100
[2020-12-16 06:56] VITALS: BP 127/64; PULSE 93; RESP 20; TEMP 37.1; O2SAT 97
== END 2020-12-16 06:59 | disposition home or self-care (01) ==
PROVIDERS: Emergency Provider Emergency Medicine; PCP Emergency Medicine
DX: S82.302A Unspecified fracture of lower end of left tibia, initial encounter for closed fracture (principal); W18.00XA Striking against unspecified object with subsequent fall, initial encounter; Y92.019 Unspecified place in single-family (private) house as the place of occurrence of the external cause; J44.9 Chronic obstructive pulmonary disease, unspecified; I10 Essential (primary) hypertension; K21.9 Gastro-esophageal reflux disease without esophagitis; Z87.891 Personal history of nicotine dependence
CPT/HCPCS: 29515; 71045; 72170; 73562; 73590; 73610; 96372; 99284

== ENCOUNTER 2021-01-08 17:37 | Inpatient (IN) | payer OTHER, SELFPAY ==
[2021-01-08] VITALS (9 sets, daily range): BP systolic 91–109; BP diastolic 55–71; PULSE 97–125; RESP 12–30; TEMP 36.6–36.9; O2SAT 86–100; BMI 14.1; BMI 14.4
--- NOTE | 2021-01-08 17:42 | XR_ITS ---
PROCEDURE INFORMATION: Exam: XR Chest Exam date and time: 01/08/2021 5:42 PM Age: 60 years old Clinical indication: Cough TECHNIQUE: Imaging protocol: XR of the chest. Views: 1 view. COMPARISON: CR XR CHEST PORTABLE 12/16/2020 3:43 AM FINDINGS: Airway: Patent Lungs: New complete opacification of the previously pneumatized segments of the left lung. Mild increase in size of known air-filled cavity in the left lung apex, now measuring 11 cm (previously 8.3 cm when measured in similar fashion). Stable right apical bullous emphysema. Stable linear scarring/atelectasis in the right upper lung. Remainder of the right lung is clear. Pleural spaces: Stable biapical pleural thickening. Blunting of the left costophrenic angle. Right costophrenic angle is clear. Heart/Mediastinum: There is leftward displacement of the mediastinal structures. Heart size is difficult to evaluate in this examination. Bones/joints: No acute skeletal abnormality or aggressive osseous lesion. IMPRESSION: 1. New complete atelectasis of the previously pneumatized segments of the left lung with associated ipsilateral shifting of the mediastinal structures. 2. Concern for a small left pleural effusion. 3. Superimposed infectious pneumonia in the atelectatic left lung should be entertained in the appropriate clinical setting. 4. Increase in size in known air-filled cavity or bullous emphysema in the left lung apex. This is most probably related to traction from the atelectatic left lung. 5. Otherwise, essentially stable examination.
--- NOTE | 2021-01-08 18:49 | HMH.EDWEAK ---
ED Disposition Clinical Impression: Cachectic, Hypokalemia, Weakness, Dehydration Community acquired pneumonia Qualifiers: Laterality: left Lung location: lower lobe of lung Qualified Code(s): J18.9 - Pneumonia, unspecified organism COPD (chronic obstructive pulmonary disease) Qualifiers: COPD type: chronic bronchitis Chronic bronchitis type: simple Qualified Code(s): J41.0 - Simple chronic bronchitis Acute respiratory failure Qualifiers: Respiratory failure complication: hypoxia Qualified Code(s): J96.01 - Acute respiratory failure with hypoxia Disposition: Admitted As Inpatient Condition on Discharge: Fair Referrals: Mariah Ramirez PA [Primary Care Provider] - - Critical Care Critical Care Time: No Attestation: On 01/08/21, the high probability of a clinically significant, sudden or life threatening deterioration of the following system(s) required my full and direct attention, intervention and personal management. The time I documented below is in addition to time spent performing reported procedures but includes the following listed in this critical care notation. Medical Decision Making - Medical Records Medical records reviewed: Yes: I reviewed the patient's medical records. - Nikolai Inquiry Pt receiving controlled substance: No Vital Signs: 01/08/21 17:39 Temperature 98 F Temperature Source Oral Pulse Rate [Radial] 125 H Respiratory Rate 30 H Blood Pressure [Right Arm] 105/69 L Blood Pressure Mean [Right Arm] 81 Blood Pressure Position [Right Arm] Sitting 02 Sat by Pulse Oximetry 92 L Oxygen Delivery Method Room Air - Lab Data Lab Results 01/08/21 18:50: WBC 14.2 H, RBC 4.68, Hgb 9.4 L, Hct 32.6 L, MCV 69.6 L, MCH 20.1 L, MCHC 28.9 L, RDW 19.4 H, Plt Count 462 H, MPV 7.1 L, Neut % (Auto) 93.7 H, Lymph % (Auto) 2.1 L, [place] % (Auto) 3.8, Eos % (Auto) 0.3, Baso % (Auto) 0.3, Neut # (Auto) 13.3 H, Lymph # (Auto) 0.3 L, [place] # (Auto) 0.5, Eos # (Auto) 0.0, Baso # (Auto) 0.0 01/08/21 18:50: PT 14.9 H, INR 1.29 H, APTT 30.8 H 01/08/21 18:50: Sodium 128 L, Potassium 2.8 L*, Chloride 70 L, Carbon Dioxide 51 H*, Anion Gap 9.8, BUN 18 H, Creatinine 0.50 L, Estimated Creat Clear 69, Estimated GFR 126, Est GFR ( Amer) 152, Glucose 127 H, Calcium 7.9 L, Total Bilirubin 1.0, AST 17, ALT 6 L, Alkaline Phosphatase 165 H, Troponin I < 0.01, NT-Pro-B Natriuret Pep 780 H, Total Protein 6.7, Albumin 3.1 L, Globulin 3.6 H, Albumin/Globulin Ratio 0.9 L, TSH 0.89 01/08/21 18:50: SARS-CoV-2 (PCR) Not detected, Influenza A Untype (PCR) Not detected, Influenza Type B (PCR) Not detected Result diagrams: 01/08/21 18:50 01/08/21 18:50 Orders (Tests/Meds): ED MEDICATIONS Generic Name Dose Route Start Last Admin Trade Name Freq PRN Reason Stop Dose Admin Sodium Chloride 1,000 mls @ 999 mls/hr 01/08/21 17:45 01/08/21 18:59 Sod Chlor 0.9% 1000ml Bag IV 01/08/21 18:45 999 mls/hr .Q1H1M DONAL Administration Ceftriaxone Sodium 1 gm/ 50 mls @ 100 mls/hr 01/08/21 19:30 Sodium Chloride IV 01/22/21 19:29 Q24H DONAL Doxycycline Hyclate 100 mg/ 250 mls @ 166.667 mls/hr 01/08/21 19:30 Sodium Chloride IV 01/22/21 19:29 Q12H DONAL Potassium Chloride/Water 100 mls @ 100 mls/hr 01/08/21 19:45 Potassium Chloride 10meq/100ml Ivpb IV 01/08/21 21:44 Q1H DONAL Discontinued Medications Generic Name Dose Route Start Last Admin Trade Name Freq PRN Reason Stop Dose Admin Potassium Chloride 40 meq 01/08/21 19:33 Potassium Chloride 20meq Tab PO 01/08/21 19:34 ONCE ONE ORDERS Category Date Time Status CTA Chest [CT angio chest PE protocol] Stat Cat Scan 01/08/21 18:53 Ordered Complete Blood Count Auto Diff Stat Lab 01/08/21 18:50 Results Troponin I Q3H Lab 01/08/21 20:45 Ordered Troponin I Q3H Lab 01/08/21 23:45 Ordered Urinalysis and Microscopic Stat Lab 01/08/21 17:42 Ordered - Radiology Data #1 Image(s): Chest Image Reviewed: Yes I rev
--- NOTE | 2021-01-08 18:53 | CT_ITS ---
PROCEDURE INFORMATION: Exam: CTA Chest With Contrast Exam date and time: 01/08/2021 6:53 PM Age: 60 years old Clinical indication: Shortness of breath; Patient HX: SOA, cough, HX smoker; Additional info: Short of breath TECHNIQUE: Imaging protocol: Computed tomographic angiography of the chest with contrast. 3D rendering (Not supervised by radiologist): MIP and/or 3D reconstructed images were created by the technologist. Radiation optimization: All CT scans at this facility use at least one of these dose optimization techniques: automated exposure control; mA and/or kV adjustment per patient size (includes targeted exams where dose is matched to clinical indication); or iterative reconstruction. Contrast material: ISO 370; Contrast volume: 70 ml; Contrast route: INTRAVENOUS (IV); COMPARISON: [facility] CT angio chest 08/23/2018 5:44 PM FINDINGS: Pulmonary arteries: Normal. No pulmonary emboli. Aorta: No aortic aneurysm. No aortic dissection. Lungs: Increased size of the air-filled cavity at the left lung apex now measuring 6.2 cm in cc dimension compared to 4.8 on prior examination. Increased size of the air-filled cavity at the right lung apex now measuring 3.9 cm in thickness compared to 1.9 on prior examination. Consolidation throughout the left lung with minimal sparing of the lingula. Emphysema with innumerable pulmonary nodules within the right lung measuring up to 8 mm as seen on prior examination. Pleural spaces: See above. Lobular pleural thickening superiorly, bilaterally. Heart: No cardiomegaly. No pericardial effusion. Mediastinal space: Debris within the esophagus. Lymph nodes: No enlarged lymph nodes. Bones/joints: Chronic appearing sternal deformity. No acute fracture. Soft tissues: No significant swelling. IMPRESSION: Increased size of apical air collections bilaterally with nodular pleural thickening. Complete consolidation the left lung with severe emphysema with multifocal nodules throughout the right. Findings may be infectious or inflammatory or can be seen with metastatic disease. Clinical correlation with continued radiographic follow-up is recommended.
[2021-01-08 19:00] LABS: Basophils % 0.3 % (0.1-2.0); Eosinophils % 0.3 % (0.1-12.0); Hematocrit 32.6 % (37.0-47.0); Hemoglobin 9.4 g/dL (12.2-16.2); Lymphocytes # 0.3 K/mm3 (0.7-4.5); Lymphocytes % 2.1 % (10-50); Mean Corpuscular HGB Conc 28.9 g/dL (31.8-35.4); Mean Corpuscular Hemoglobin 20.1 pg (27.0-31.2); Mean Corpuscular Volume 69.6 fl (81-99); Mean Platelet Volume 7.1 fl (7.4-10.4); Monocytes # 0.5 K/mm3 (0.1-1.0); Monocytes % 3.8 % (1.7-9.3); Neutrophils # 13.3 K/mm3 (1.8-7.8); Neutrophils % 93.7 % (37.0-80.0); Platelet Count 462 K/mm3 (142-424); Red Blood Count 4.68 M/mm3 (4.20-5.40); Red Cell Distribution Width 19.4 % (11.5-17.5); White Blood Count 14.2 K/mm3 (4.8-10.8)
[2021-01-08 19:02] LABS: Coronavirus 19, PCR Not Detected (NotDetected); Influenza A, PCR Not Detected (NotDetected); Influenza B, PCR Not Detected (NotDetected)
--- NOTE | 2021-01-08 19:02 | ECG_ITS ---
APPROVED REPORT Exam: Resting ECG HR:108 bpm ECG Measurements Heart Rate 108 AXES NV 156 P 60 QRSd 82 QRS 115 QT 342 T 46 QTc 458 Conclusion Sinus tachycardia Left atrial enlargement Possible Right ventricular hypertrophy T wave abnormality, consider anterior ischemia Abnormal ECG Electronically signed by : Joey Reilly MD 01/10/2021 11:48:22
[2021-01-08 19:03] LABS: Sodium 128 mmol/L (136-145)
[2021-01-08 19:05] LABS: Alanine Aminotransferase 6 U/L (12-78); Aspartate Amino Transferase 17 U/L (14-36); Blood Urea Nitrogen 18 mg/dl (7-17); Creatinine Clearance Estimated 69 mL/min (50-200); Estimated Glomerular Filt Rate 126 ml/min (>60); GFR (African American) 152 ML/MIN (>60)
[2021-01-08 19:06] LABS: Albumin Level 3.1 g/dl (3.5-5.0); Albumin/Globulin Ratio 0.9 (1.1-1.8); Calcium 7.9 mg/dl (8.4-10.2); Globulin 3.6 g/dL (1.3-3.2); Glucose 127 mg/dl (74-100); Total Protein,Serum 6.7 g/dl (6.3-8.2)
[2021-01-08 19:10] LABS: Activated Partial Thrombo Time 30.8 seconds (22.8-30.6); Prothrombin Time 14.9 seconds (10.1-12.5)
[2021-01-08 19:11] LABS: Alkaline Phosphatase 165 U/L (38-126)
[2021-01-08 19:12] LABS: MANUAL DIFFERENTIAL MANUAL DIFFERENTIAL (MANUAL DIFF)
[2021-01-08 19:16] LABS: NT Pro Brain Natriuretic Pep. 780 pg/mL (0-125)
[2021-01-08 19:17] LABS: INR 1.29 (0.9-1.1)
[2021-01-08 19:18] LABS: Anion Gap 9.8 mEq/L (5-15); Chloride 70 mmol/L (98-107)
[2021-01-08 19:19] LABS: Potassium 2.8 mmoL/L (3.5-5.1)
[2021-01-08 19:20] LABS: Carbon Dioxide 51 mmol/L (22.0-30.0); Troponin I < 0.01 ng/ml (0.00-0.034)
--- NOTE | 2021-01-08 19:21 | PC.NURSE ---
received critical notification on potassium and co2; dr hawkins notified at this time.
[2021-01-08 19:37] LABS: Thyroid Stimulating Hormone 0.89 uIU/mL (0.465-4.68)
[2021-01-08 19:43] LABS: Anisocytosis 2+; Eosinophils % 2 % (0-3); Lymphocytes % 9 % (10-50); Microcytosis 2+; Monocytes % 2 % (2-9); Neutrophils % 69 % (42-76); Platelet Estimate Normal; Total Cells Counted 100
[2021-01-08 19:44] LABS: Hypochromasia 3+
[2021-01-08 21:58] LABS: Troponin I < 0.01 ng/ml (0.00-0.034)
--- NOTE | 2021-01-08 22:30 | PC.NURSE ---
patient up to floor via stretcher.
[2021-01-09] VITALS (14 sets, daily range): BP systolic 96–112; BP diastolic 56–64; PULSE 68–106; RESP 16–20; TEMP 36.5–36.8; O2SAT 93–99; BMI 14.4
[2021-01-09 01:28] LABS: Troponin I < 0.01 ng/ml (0.00-0.034)
[2021-01-09 07:06] LABS: Basophils % 0.2 % (0.1-2.0); Eosinophils % 0.3 % (0.1-12.0); Hematocrit 29.7 % (37.0-47.0); Lymphocytes # 0.4 K/mm3 (0.7-4.5); Lymphocytes % 4.3 % (10-50); Mean Corpuscular HGB Conc 28.3 g/dL (31.8-35.4); Mean Corpuscular Hemoglobin 20.2 pg (27.0-31.2); Mean Corpuscular Volume 71.4 fl (81-99); Mean Platelet Volume 7.6 fl (7.4-10.4); Monocytes # 0.5 K/mm3 (0.1-1.0); Monocytes % 4.7 % (1.7-9.3); Neutrophils # 8.6 K/mm3 (1.8-7.8); Neutrophils % 90.6 % (37.0-80.0); Platelet Count 390 K/mm3 (142-424); Red Blood Count 4.16 M/mm3 (4.20-5.40); Red Cell Distribution Width 19.5 % (11.5-17.5); White Blood Count 9.5 K/mm3 (4.8-10.8)
[2021-01-09 07:11] LABS: MANUAL DIFFERENTIAL MANUAL DIFFERENTIAL (MANUAL DIFF)
[2021-01-09 07:14] LABS: Chloride 82 mmol/L (98-107); Potassium 3.3 mmoL/L (3.5-5.1); Sodium 132 mmol/L (136-145)
[2021-01-09 07:17] LABS: Albumin Level 2.6 g/dl (3.5-5.0); Albumin/Globulin Ratio 0.8 (1.1-1.8); Alkaline Phosphatase 134 U/L (38-126); Aspartate Amino Transferase 15 U/L (14-36); Bilirubin,Total 0.5 mg/dl (0.2-1.3); Blood Urea Nitrogen 13 mg/dl (7-17); Calcium 7.7 mg/dl (8.4-10.2); Creatinine Clearance Estimated 116 mL/min (50-200); Estimated Glomerular Filt Rate 227 ml/min (>60); GFR (African American) 275 ML/MIN (>60); Globulin 3.1 g/dL (1.3-3.2); Glucose 94 mg/dl (74-100); Total Protein,Serum 5.7 g/dl (6.3-8.2)
[2021-01-09 07:26] LABS: Hemoglobin 8.4 g/dL (12.2-16.2)
[2021-01-09 07:34] LABS: Alanine Aminotransferase < 4 U/L (12-78); Anion Gap 5.3 mEq/L (5-15)
--- NOTE | 2021-01-09 07:35 | HMH.PHAVTE ---
[facility] Pharmacy VTE Monitoring - Patient Demographics Admission date: 01/08/21 Report Date: 01/09/21 Time: 07:35 Allergies/Adverse Reactions: Patient Allergies No Known Allergies Allergy (Verified 06/26/20 11:10) Height: 1.6 m Weight: 36.996 kg Patient Problems: Current Active Problems Hypokalemia (Acute) Weakness (Acute) Dehydration (Acute) Cachexia (Acute) COPD (chronic obstructive pulmonary disease) (Acute) Acute respiratory failure (Acute) CAP (community acquired pneumonia) (Acute) - VTE Risk Labs: VTE Related Lab Results Hgb 8.4 g/dL (12.2-16.2) L D 01/09/21 06:28 Hct 29.7 % (37.0-47.0) L 01/09/21 06:28 Plt Count 390 K/mm3 (142-424) 01/09/21 06:28 PT 14.9 seconds (10.1-12.5) H 01/08/21 18:50 INR 1.29 (0.9-1.1) H 01/08/21 18:50 APTT 30.8 seconds (22.8-30.6) H 01/08/21 18:50 BUN 18 mg/dl (7-17) H 01/08/21 18:50 Creatinine 0.50 mg/dl (0.52-1.04) L 01/08/21 18:50 Estimated Creat Clear 69 mL/min (50-200) 01/08/21 18:50 - Prophylaxis VTE Prophylaxis Ordered?: Yes Types of VTE Prophylaxis: TEDS Knee High, Pharmacological Location of Applied Device: Bilateral Lower Extremeties Pharmacologic Type: Enoxaparin
[2021-01-09 07:36] LABS: Carbon Dioxide 48 mmol/L (22.0-30.0)
[2021-01-09 07:59] LABS: Microscopic, Urine URINE MICROSCOPIC (MICROSCOPIC)
[2021-01-09 08:03] LABS: Appearance,Urine CLEAR (Clear); Bilirubin,Urine Negative (Negative); Blood, Urine Negative (Negative); Color,Urine YELLOW (Yellow); Glucose,Urine (UA) Negative (Negative); Ketones,Urine TRACE (Negative); Leukocyte Esterase,Urine Negative (Negative); Nitrate,Urine Negative (Negative); Protein,Urine Negative (Negative)
[2021-01-09 08:44] LABS: Anisocytosis 2+; Hypochromasia 3+; Microcytosis 2+; Monocytes % 3 % (2-9); Neutrophils % 97 % (42-76); Platelet Estimate Normal; Total Cells Counted 100
--- NOTE | 2021-01-09 09:01 | HMH.HP ---
*Admission Date: 01/08/21 *Chief complaint: Shortness of Breath *History of present illness: 60-year-old female patient presented to the emergency department via EMS with reports of increased shortness of breath, productive cough, and weakness. She is a very poor historian but she did report that she has been having increased breathing difficulties and coughing up phlegm and she believes her hemoglobin has been dropping as well as her oxygen levels as this is happened in the past. She reports that she has been very weak and has felt so for the past 2 weeks she denies any chest pain. She denies any visible blood nor nausea/vomiting/diarrhea or abdominal pain WBC=14.2, H/H 9.4/32.6 K=2.8 Received PO and IV KCL in ED Ceftriaxone and Doxy in ED 01/08/2021 chest x-ray: IMPRESSION: 1. New complete atelectasis of the previously pneumatized segments of the left lung with associated ipsilateral shifting of the mediastinal structures. 2. Concern for a small left pleural effusion. 3. Superimposed infectious pneumonia in the atelectatic left lung should be entertained in the appropriate clinical setting. 4. Increase in size in known air-filled cavity or bullous emphysema in the left lung apex. This is most probably related to traction from the atelectatic left lung. 5. Otherwise, essentially stable examination. Electronically signed by Demetrius Wren MD 01/08/21 Chest CTA: FINDINGS: Pulmonary arteries: Normal. No pulmonary emboli. Aorta: No aortic aneurysm. No aortic dissection. Lungs: Increased size of the air-filled cavity at the left lung apex now measuring 6.2 cm in cc dimension compared to 4.8 on prior examination. Increased size of the air-filled cavity at the right lung apex now measuring 3.9 cm in thickness compared to 1.9 on prior examination. Consolidation throughout the left lung with minimal sparing of the lingula. Emphysema with innumerable pulmonary nodules within the right lung measuring up to 8 mm as seen on prior examination. Pleural spaces: See above. Lobular pleural thickening superiorly, bilaterally. Heart: No cardiomegaly. No pericardial effusion. Mediastinal space: Debris within the esophagus. Lymph nodes: No enlarged lymph nodes. Bones/joints: Chronic appearing sternal deformity. No acute fracture. Soft tissues: No significant swelling. IMPRESSION: Increased size of apical air collections bilaterally with nodular pleural thickening. Complete consolidation the left lung with severe emphysema with multifocal nodules throughout the right. Findings may be infectious or inflammatory or can be seen with metastatic disease. Clinical correlation with continued radiographic follow-up is recommended. Electronically signed by Jf Hernandez MD [facility] History Medical History: Reports:: Asthma, Chronic Obstructive Pulmonary Disease (COPD), Gastroesophageal Reflux Disease(GERD), Home Oxygen, Hypertension Denies:: Cancer, Diabetes Mellitus Type 1, Diabetes Mellitus Type 2, MRSA, Seizures *Have you ever received a pneumonia vaccine?: Yes *Have you received a flu vaccine this season?: Yes Other Medical History: Reports: Anemia, Arthritis, Cataracts, Hypothyroidism, Sinus Problems, Thyroid Disease Other Surgeries: Yes: Appendectomy, Dilation and Curettage, Other Amputation: No Fractures: Yes - *Social History Last grade of school completed: High school graduate Smoking Status: Former smoker Tobacco Type: cigarettes # Packs/Day (cigarettes): 0 #Yrs smoked (if former smoker): 43 Alcohol Intake: never Substance Use Type: opiates, painkillers, former substance user *Occupational Status:: retired Housing: apartment Household Members: spouse *Travel in the last 8 weeks: None Family Hx:: No significant family history Review of Systems - Review of Systems Review of systems:: pertinent systems reviewed and negative unless
--- NOTE | 2021-01-09 09:20 | HMH.PULMCON ---
*Admission Date: 01/08/21 *Reason for consult:: Acute on chronic hypoxic respiratory failure, necrotizing pneumonia *History of present illness: Ms. Phoenix is a 60-year-old female chronic smoker on triple inhaler therapy presented to the hospital with worsening respiratory status and pulmonary was called for further management. Patient admits worsening cough with productive phlegm. [facility] History Medical History: Reports:: Asthma, Chronic Obstructive Pulmonary Disease (COPD), Gastroesophageal Reflux Disease(GERD), Home Oxygen, Hypertension Denies:: Cancer, Diabetes Mellitus Type 1, Diabetes Mellitus Type 2, MRSA, Seizures *Have you ever received a pneumonia vaccine?: Yes *Have you received a flu vaccine this season?: Yes Other Medical History: Reports: Anemia, Arthritis, Cataracts, Hypothyroidism, Sinus Problems, Thyroid Disease Other Surgeries: Yes: Appendectomy, Dilation and Curettage, Other Amputation: No Fractures: Yes - *Social History Last grade of school completed: High school graduate Smoking Status: Former smoker Tobacco Type: cigarettes # Packs/Day (cigarettes): 0 #Yrs smoked (if former smoker): 43 Alcohol Intake: never Substance Use Type: opiates, painkillers, former substance user *Occupational Status:: retired Housing: apartment Household Members: spouse *Travel in the last 8 weeks: None Family Hx:: No significant family history ROS - Cons Reports anorexia, Reports body ache(s) - Card Reports shortness of breath, Reports shortness of breath with activity - Resp Respiratory: Reports change in phlegm color, Reports chest congestion, Reports excessive phlegm production - GI Gastrointestingal: Denies: abdominal pain Meds Home Medications Medication Instructions Recorded Confirmed Type Buprenorphine HCl/Naloxone HCl 1.75 tab PO DAILY 12/04/20 01/09/21 History [Buprenorphine-Nalox 8-2 mg Tab] Levothyroxine Sodium [Synthroid 125 mcg PO DAILY 12/04/20 01/09/21 History 125mcg (0.125mg) tablet] Albuterol Sulfate [Albuterol 2.5 mg IH Q6HP PRN 01/09/21 01/09/21 History Sulfate 2.5mg/0.5ml Neb] Furosemide [Lasix 40mg tablet] 40 mg PO DAILY 01/09/21 01/09/21 History Allergies Allergy/AdvReac Type Severity Reaction Status Date / Time No Known Allergies Allergy Verified 06/26/20 11:10 Exam - Constitutional Constitutional:: Present: no acute distress, comfortable - HENMT Exam HENMT: Present: normocephalic, atraumatic - Eye Exam Eyes:: Present: normal appearance both eyes and related structures - Neck Exam Neck:: Present: normal visual inspection - Respiratory Exam Respiratory:: Present: able to speak in complete sentences, decreased breath sounds, crackles - Cardiovascular Exam Cardiac:: Present: S1, S2 - GI Exam GI:: Present: soft - Skin Exam Skin: Present: warm, no rash - Neurological Exam Neurological: Present: alert, awake, normal cognition - Extremities Exam Extremities: Present: no cyanosis, no clubbing, no edema Internal Medicine - CN: Reslt - Labs CBC & Chem 7: 01/09/21 06:28 01/09/21 06:28 Labs: Short CBC 01/08/21 01/09/21 Range/Units 18:50 06:28 WBC 14.2 H 9.5 D (4.8-10.8) K/mm3 Hgb 9.4 L 8.4 L D (12.2-16.2) g/dL Hct 32.6 L 29.7 L (37.0-47.0) % Plt Count 462 H 390 (142-424) K/mm3 BMP 01/08/21 01/09/21 18:50 06:28 Sodium 128 L 132 L Potassium 2.8 L* 3.3 L Chloride 70 L 82 L Carbon Dioxide 51 H* 48 H* BUN 18 H 13 D Creatinine 0.50 L 0.30 L D Glucose 127 H 94 D Calcium 7.9 L 7.7 L Cardiac Enzymes 01/08/21 01/08/21 01/08/21 Range/Units 18:50 20:45 23:40 Troponin I < 0.01 < 0.01 < 0.01 (0.00-0.034) ng/ml Liver Function 01/08/21 01/09/21 Range/Units 18:50 06:28 Total Bilirubin 1.0 0.5 (0.2-1.3) mg/dl AST 17 15 (14-36) U/L ALT 6 L < 4 L D (12-78) U/L Alkaline Phosphatase 165 H 134 H (38-126) U/L Albumin 3.1 L 2.6 L D (3.5-5.0) g/dl Urine 08
--- NOTE | 2021-01-09 10:17 | SW/DCPLANNER ---
Addendum entered by [facility] 01/24/21 11:42: Tamiko has also confirmed that patient can have bi pap at home: this will be ordered by Hospice as well. Addendum entered by [facility] 01/24/21 10:22: Per Tamiko equipment will be set up patients home today around 12PM. Addendum entered by [facility] 01/24/21 09:23: The plan per patients and patient is to discharge home today with Hospice services. I have spoke with Tamiko from [facility]osp[facility] this AM to ask that DME be set up this morning for discharge this afternoon. I will follow up with Hospice and family regarding discharge. Addendum entered by [facility] 01/23/21 12:52: Nery with Hospice evaluated this patient. Nery stated that once discharge date is known (Garth is unsure of discharge date) she will order DME at home. Patient has requested to discharge home with Hospice and is not interested in placement at this time. Addendum entered by [facility] 01/23/21 10:16: Per Dr Latham Hospice has been consulted, information has been faxed and Tamiko morales/Hospice stated that she will send a nurse up to evaluate this patient. Addendum entered by Priscilla Sundown 01/19/21 14:43: Dr Latham has requested that I speak with patients regarding Hospice service in preparation if services are needed over the weekend. I spoke with and he has stated that he prefer to wait and speak with Hospice until necessary. Patient information has been faxed to Hospice in case if needed over the weekend: I have asked Tamiko with Hospice that they do not make contact with family at this time. I have informed patients nurse (Yazmin) of situation and if Hospice is needed to contact special education paraprofessional this weekend. Original Note: This patient was previously referred to [facility] but due to refusal services did not start per Dianna with [facility]. I will follow up with this patient at time of discharge regarding discharge plans. Discharge date is unknown at this time.
--- NOTE | 2021-01-09 11:22 | HMH.PHAINT ---
MEDICATION RECONCILIATION COMPLETED ON PATIENT USING EXTERNAL FILL HISTORY FROM PHARMACY. SUBOXONE DOSE VERIFIED WITH PHARMACY. -JENNIFER DENNEY, STARRD
[2021-01-09 14:09] LABS: C-Reactive Protein 197.4 mg/L (0-4)
--- NOTE | 2021-01-09 15:16 | HMH.PHACONS ---
- Pharmacy Consult Date: 01/09/21 Time: 15:16 Referring provider: DR. PEARL Reason for Consult:: VANCOMYCIN DOSING Allergies and ADEs:: Allergies Allergy/AdvReac Type Severity Reaction Status Date / Time No Known Allergies Allergy Verified 06/26/20 11:10 Home Medications:: Home Medications Medication Instructions Recorded Confirmed Type Buprenorphine HCl/Naloxone HCl 1.75 tab PO DAILY 12/04/20 01/09/21 History [Buprenorphine-Nalox 8-2 mg Tab] Levothyroxine Sodium [Synthroid 125 mcg PO DAILY 12/04/20 01/09/21 History 125mcg (0.125mg) tablet] Albuterol Sulfate [Albuterol 2.5 mg IH Q6HP PRN 01/09/21 01/09/21 History Sulfate 2.5mg/0.5ml Neb] Furosemide [Lasix 40mg tablet] 40 mg PO DAILY 01/09/21 01/09/21 History Height: 1.6 m Weight: 36.996 kg Laboratory Results:: Laboratory Results - last 24 hr 01/08/21 18:50: WBC 14.2 H, RBC 4.68, Hgb 9.4 L, Hct 32.6 L, MCV 69.6 L, MCH 20.1 L, MCHC 28.9 L, RDW 19.4 H, Plt Count 462 H, MPV 7.1 L, Neut % (Auto) 93.7 H, Lymph % (Auto) 2.1 L, [place] % (Auto) 3.8, Eos % (Auto) 0.3, Baso % (Auto) 0.3, Neut # (Auto) 13.3 H, Lymph # (Auto) 0.3 L, [place] # (Auto) 0.5, Eos # (Auto) 0.0, Baso # (Auto) 0.0, Total Counted 100, Neutrophils % (Manual) 69, Band Neutrophils % 16.0 H, Lymphocytes % (Manual) 9 L, Atypical Lymphs % 1.0, Monocytes % (Manual) 2, Eosinophils % (Manual) 2, Basophils % (Manual) 1.0, Platelet Estimate Normal, Hypochromasia 3+, Anisocytosis 2+, Microcytosis 2+ 01/08/21 18:50: PT 14.9 H, INR 1.29 H, APTT 30.8 H 01/08/21 18:50: Sodium 128 L, Potassium 2.8 L*, Chloride 70 L, Carbon Dioxide 51 H*, Anion Gap 9.8, BUN 18 H, Creatinine 0.50 L, Estimated Creat Clear 69, Estimated GFR 126, Est GFR ( Amer) 152, Glucose 127 H, Calcium 7.9 L, Total Bilirubin 1.0, AST 17, ALT 6 L, Alkaline Phosphatase 165 H, Troponin I < 0.01, NT-Pro-B Natriuret Pep 780 H, Total Protein 6.7, Albumin 3.1 L, Globulin 3.6 H, Albumin/Globulin Ratio 0.9 L, TSH 0.89 01/08/21 18:50: SARS-CoV-2 (PCR) Not detected, Influenza A Untype (PCR) Not detected, Influenza Type B (PCR) Not detected 01/08/21 20:45: Troponin I < 0.01 01/08/21 23:40: Troponin I < 0.01 01/09/21 06:15: C-Reactive Protein 197.4 H 01/09/21 06:28: WBC 9.5 D, RBC 4.16 L, Hgb 8.4 L D, Hct 29.7 L, MCV 71.4 L, MCH 20.2 L, MCHC 28.3 L, RDW 19.5 H, Plt Count 390, MPV 7.6, Neut % (Auto) 90.6 H, Lymph % (Auto) 4.3 L, [place] % (Auto) 4.7, Eos % (Auto) 0.3, Baso % (Auto) 0.2, Neut # (Auto) 8.6 H, Lymph # (Auto) 0.4 L, Becker # (Auto) 0.5, Eos # (Auto) 0.0, Baso # (Auto) 0.0, Total Counted 100, Neutrophils % (Manual) 97 H, Monocytes % (Manual) 3, Platelet Estimate Normal, RBC Morphology Not Reportable, Hypochromasia 3+, Anisocytosis 2+, Microcytosis 2+ 01/09/21 06:28: Sodium 132 L, Potassium 3.3 L, Chloride 82 L, Carbon Dioxide 48 H*, Anion Gap 5.3, BUN 13 D, Creatinine 0.30 L D, Estimated Creat Clear 116, Estimated GFR 227, Est GFR ( Amer) 275 D, Glucose 94 D, Calcium 7.7 L, Total Bilirubin 0.5, AST 15, ALT < 4 L D, Alkaline Phosphatase 134 H, Total Protein 5.7 L, Albumin 2.6 L D, Globulin 3.1, Albumin/Globulin Ratio 0.8 L 01/09/21 07:45: Urine Color Yellow, Urine Appearance Clear, Urine pH 6.0, Ur Specific [place] 1.010, Urine Protein Negative, Urine Glucose (UA) Negative, Urine Ketones Trace, Urine Blood Negative, Urine Nitrate Negative, Urine Bilirubin Negative, Urine Urobilinogen 1.0, Ur Leukocyte Esterase Negative, Urine RBC None, Urine WBC 3-5, Ur Squamous Epith Cells 3-5, Urine Bacteria None Medical History: Reports:: Asthma, Chronic Obstructive Pulmonary Disease (COPD), Gastroesophageal Reflux Disease(GERD), Home Oxygen, Hypertension Denies:: Cancer, Diabetes Mellitus Type 1, Diabetes Mellitus Type 2, MRSA, Seizures Assessment and Plan - Assessment and plan all Dx Assessment and Plan for all problems:: Age: 60 yo Serum creatinine: 1 mg/dL Height: 63.0 Inches Weight (kg): 37 Assessment: IBW (kg): 52.40
--- NOTE | 2021-01-09 18:06 | PC.NURSE ---
1545 RN reassessment completed. Pt remains A&O X4. She has rested in intervals throughout the shift. Pt is tolerating 2L NC well, denies any SOA or difficulty breathing. Pt continues to have persistent, productive cough. Yellow sputum noted. Lung sounds are diminished throughout. Abd soft and nontender with active BS. Pt reports voiding this shift without any difficulty, no BM reported. Pt has slightly moved herself in bed throughout the day and has been assisted by staff, no significant movement. Pt c/o pain with movement related to her broken left ankle. Left ankle has a splint applied, MD is aware of this. Pillow under pts leg for comfort. Bed locked and in lowest position with side rails up x2, call light within reach. Will continue to monitor.
[2021-01-10] VITALS (26 sets, daily range): BP systolic 99–157; BP diastolic 37–97; PULSE 66–118; RESP 12–24; TEMP 36.6–37.2; O2SAT 89–99; BMI 15.0; BMI 14.8
--- NOTE | 2021-01-10 03:54 | PC.NURSE ---
Pt has been very fatigued this shift, no c/o pain. Lungs are diminished, on 2L NC. Pt has a stage 2 DTI on her coccyx, a drsg was applied. Pt was instructed to turn every two hours or more and to sleep on her side. Pt appetite has been improved. IV patent, VSS, call light in reach, no concerns at this time.
[2021-01-10 06:36] LABS: Basophils % 0.3 % (0.1-2.0); Eosinophils % 0.7 % (0.1-12.0); Hematocrit 26.1 % (37.0-47.0); Lymphocytes # 0.3 K/mm3 (0.7-4.5); Lymphocytes % 4.6 % (10-50); Mean Corpuscular HGB Conc 28.4 g/dL (31.8-35.4); Mean Corpuscular Hemoglobin 20.1 pg (27.0-31.2); Mean Corpuscular Volume 70.9 fl (81-99); Mean Platelet Volume 7.9 fl (7.4-10.4); Monocytes # 0.4 K/mm3 (0.1-1.0); Monocytes % 5.9 % (1.7-9.3); Neutrophils # 5.2 K/mm3 (1.8-7.8); Neutrophils % 88.4 % (37.0-80.0); Platelet Count 342 K/mm3 (142-424); Red Blood Count 3.68 M/mm3 (4.20-5.40); Red Cell Distribution Width 18.8 % (11.5-17.5); White Blood Count 5.8 K/mm3 (4.8-10.8)
[2021-01-10 06:39] LABS: Chloride 84 mmol/L (98-107); Sodium 131 mmol/L (136-145)
[2021-01-10 06:42] LABS: Blood Urea Nitrogen 10 mg/dl (7-17); Estimated Glomerular Filt Rate 362 ml/min (>60); GFR (African American) 438 ML/MIN (>60)
[2021-01-10 06:43] LABS: Calcium 7.4 mg/dl (8.4-10.2); Glucose 97 mg/dl (74-100)
[2021-01-10 06:49] LABS: MANUAL DIFFERENTIAL MANUAL DIFFERENTIAL (MANUAL DIFF)
[2021-01-10 06:50] LABS: Hemoglobin 7.4 g/dL (12.2-16.2)
[2021-01-10 07:38] LABS: Carbon Dioxide 46 mmol/L (22.0-30.0)
[2021-01-10 07:56] LABS: Eosinophils % 1 % (0-3); Hypochromasia 2+; Lymphocytes % 5 % (10-50); Microcytosis 2+; Monocytes % 4 % (2-9); Neutrophils % 90 % (42-76); Platelet Estimate Normal; Total Cells Counted 100
--- NOTE | 2021-01-10 08:52 | HMH.PULMPN ---
Internal Medicine - PN: Subj *Date: 01/10/21 *Time: 13:00 Interval history: No acute respiratory vents overnight. Patient respiratory status remained stable. Exam - Constitutional Constitutional:: Present: no acute distress, comfortable - HENMT Exam HENMT: Present: normocephalic, moist mucous membranes - Eye Exam Eyes:: Present: normal appearance both eyes and related structures - Neck Exam Neck:: Present: normal visual inspection - Respiratory Exam Respiratory:: Present: able to speak in complete sentences, no respiratory distress, decreased breath sounds, crackles Comments: Pectus excavatum noted - Cardiovascular Exam Cardiac:: Present: S1, S2 - GI Exam GI:: Present: soft - Skin Exam Skin: Present: warm, no rash - Neurological Exam Neurological: Present: alert, awake, normal cognition - Extremities Exam Extremities: Present: no cyanosis, no clubbing, no edema Assessment and Plan (1) Respiratory failure with hypercapnia Status: Acute Category: Medical Code(s): J96.92 - Respiratory failure, unspecified with hypercapnia (2) Hypokalemia Status: Acute Category: Medical Code(s): E87.6 - Hypokalemia (3) Cachectic Status: Acute Category: Medical Code(s): R64 - Cachexia (4) Body mass index (BMI) less than 16.5 Status: Acute Category: Medical Code(s): Z68.1 - Body mass index [BMI] 19.9 or less, adult (5) Weakness Status: Acute Category: Medical Code(s): R53.1 - Weakness (6) Dehydration Status: Acute Category: Medical Code(s): E86.0 - Dehydration (7) Severe protein-calorie malnutrition Status: Acute Category: Medical Code(s): E43 - Unspecified severe protein-calorie malnutrition (8) Iron deficiency anemia Status: Acute Category: Medical Code(s): D50.9 - Iron deficiency anemia, unspecified (9) Mitral regurgitation Status: Acute Qualifiers: Cardiac valve disease etiology: etiology unspecified Qualified Code(s): I34.0 - Nonrheumatic mitral (valve) insufficiency Category: Medical Code(s): I34.0 - Nonrheumatic mitral (valve) insufficiency (10) Pulmonary HTN Status: Acute Category: Medical Code(s): I27.20 - Pulmonary hypertension, unspecified (11) Community acquired pneumonia Status: Acute Qualifiers: Laterality: unspecified laterality Qualified Code(s): J18.9 - Pneumonia, unspecified organism Category: Medical Code(s): J18.9 - Pneumonia, unspecified organism (12) Acute and chronic respiratory failure Status: Acute Qualifiers: Respiratory failure complication: hypoxia and hypercapnia Qualified Code(s): J96.21 - Acute and chronic respiratory failure with hypoxia; J96.22 - Acute and chronic respiratory failure with hypercapnia Category: Medical Code(s): J96.20 - Acute and chronic respiratory failure, unspecified whether with hypoxia or hypercapnia (13) SIRS (systemic inflammatory response syndrome) Status: Acute Category: Medical Code(s): R65.10 - Systemic inflammatory response syndrome (SIRS) of non-infectious origin without acute organ dysfunction - Assessment and plan all Dx Assessment and Plan for all problems:: #Necrotizing Lobar pneumonia: #Lung abscess: 60-year-old with bilateral upper lobe cavitary lung lesions dated back to CAT scan from 2018 presented to the hospital worsening respiratory: Repeat CT showed worsening left-sided cavity with air-fluid levels along with lobar pneumonia completely involving the remaining of the left lung. The possibility of underlying mass cannot be completely ruled out at this point of time. Patient's CAT scans dating back to 2018 in 2019 showed bilateral lower lobe micronodule patttern predominantly on the left side which has been worsening since then. Prior sputum cultures grew Klebsiella, Haemophilus influenza and MRSA. Patient on this admission admits worsening respiratory distress along with cough and productive phlegm. I have extensively discu
--- NOTE | 2021-01-10 09:50 | HMH.ACPN2 ---
Internal Medicine - PN: Subj *Date: 01/10/21 *Time: 08:35 Interval history: pt sitting up in bed states she feels better today family at bedside Exam Vital signs and Labs for Last 24 Hours: Temp Pulse Resp BP Pulse Ox 97.9 F 110 H 22 113/58 L 90 L 01/10/21 04:00 01/10/21 04:00 01/10/21 04:00 01/10/21 04:00 01/10/21 04:00 Laboratory Results - last 24 hr 01/09/21 06:15: C-Reactive Protein 197.4 H 01/10/21 05:34: WBC 5.8 D, RBC 3.68 L, Hgb 7.4 L D, Hct 26.1 L, MCV 70.9 L, MCH 20.1 L, MCHC 28.4 L, RDW 18.8 H, Plt Count 342, MPV 7.9, Neut % (Auto) 88.4 H, Lymph % (Auto) 4.6 L, [place] % (Auto) 5.9, Eos % (Auto) 0.7, Baso % (Auto) 0.3, Neut # (Auto) 5.2, Lymph # (Auto) 0.3 L, [place] # (Auto) 0.4, Eos # (Auto) 0.0, Baso # (Auto) 0.0, Total Counted 100, Neutrophils % (Manual) 90 H, Lymphocytes % (Manual) 5 L, Monocytes % (Manual) 4, Eosinophils % (Manual) 1, Platelet Estimate Normal, RBC Morphology Not Reportable, Hypochromasia 2+, Microcytosis 2+ 01/10/21 05:34: Sodium 131 L, Potassium 3.0 L, Chloride 84 L, Carbon Dioxide 46 H*, Anion Gap 4.0 L, BUN 10, Estimated Creat Clear 181, Estimated GFR 362, Est GFR ( Amer) 438 D, Glucose 97, Calcium 7.4 L I & O for Last 24 hours: Intake & Output 01/07/21 01/08/21 01/09/21 01/10/21 11:59 11:59 11:59 11:59 Intake Total 1720 / 1720 480 / 480 Output Total 800 / 800 Balance 920 / 920 480 / 480 Weight 81 lb 9 oz 84 lb 11.2 oz Microbiology Reports for the Last 24 Hours: Microbiology 01/09/21 10:10 Sputum - Expectorated Sputum Gram Stain - Final 01/09/21 10:10 Sputum - Expectorated Sputum RICHARD Preparation - Final - Constitutional no acute distress, thin - *Routine HEENT Exam Head: Present: normocephalic Eye: Present: PERRL ENT: Present: mucous membranes moist - *Routine Neck Exam Present: supple. Absent: lymphadenopathy - *Routine Respiratory Exam Present: CTA bilaterally - *Routine Cardiovascular Exam Present: RRR, murmur - *Routine Abdominal Exam Present: soft, normoactive bowel sounds. Absent: tenderness - *Routine Extremities Exam Present: normal capillary refill. Absent: cyanosis, clubbing, edema - *Routine Skin Exam Present: warm. Absent: rash - *Routine Neurological Exam Present: alert, oriented X3 - Routine Psychiatric Exam Present: normal affect Assessment and Plan (1) Respiratory failure with hypercapnia Status: Acute Category: Medical Code(s): J96.92 - Respiratory failure, unspecified with hypercapnia (2) Hypokalemia Status: Acute Category: Medical Code(s): E87.6 - Hypokalemia (3) Cachectic Status: Acute Category: Medical Code(s): R64 - Cachexia (4) Body mass index (BMI) less than 16.5 Status: Acute Category: Medical Code(s): Z68.1 - Body mass index [BMI] 19.9 or less, adult (5) Weakness Status: Acute Category: Medical Code(s): R53.1 - Weakness (6) Dehydration Status: Acute Category: Medical Code(s): E86.0 - Dehydration (7) Severe protein-calorie malnutrition Status: Acute Category: Medical Code(s): E43 - Unspecified severe protein-calorie malnutrition (8) Iron deficiency anemia Status: Acute Category: Medical Code(s): D50.9 - Iron deficiency anemia, unspecified (9) Mitral regurgitation Status: Acute Qualifiers: Cardiac valve disease etiology: etiology unspecified Qualified Code(s): I34.0 - Nonrheumatic mitral (valve) insufficiency Category: Medical Code(s): I34.0 - Nonrheumatic mitral (valve) insufficiency (10) Pulmonary HTN Status: Acute Category: Medical Code(s): I27.20 - Pulmonary hypertension, unspecified (11) Community acquired pneumonia Status: Acute Qualifiers: Laterality: unspecified laterality Qualified Code(s): J18.9 - Pneumonia, unspecified organism Category: Medical Code(s): J18.9 - Pneumonia, unspecified organism (12) Acute and chronic respiratory failure Status: Acute Qual
--- NOTE | 2021-01-10 11:00 | HMH.OTEV ---
OT Inpatient Evaluation Rehab OT IP Evaluation Start: 01/10/21 09:32 Freq: ONCE Status: Complete Protocol: Document 01/10/21 10:53 [facility] (Rec: 01/10/21 11:00 [facility] [id number]) Rehab OT IP Assessment Subjective History Pt oriented x 3 on arrival. Pt agreeable to engage in therapy evaluation after Max verbal cues for participation. Pt was admitted via ED on due to SOB. Pt has a past medical history of Asthma , Chronic Obstructive Pulmonary Disease (COPD), Gastroesophageal Reflux Disease(GERD), Home Oxygen, Hypertension. Pt also has a broken left foot with a splint /cast on. Pt reports she broke the foot in November,. Pt reports prior to being hosptialized she lived at home with her and daughter . Pt claims she is independent with ADLs such as dressing, bathing, and showering (sponge baths only). However, she is dependent upon family to complete all IADLs. She is able to cook small meals, but must take frequent breaks due to decreased endurance. She normally uses a walker for transfers and ambulation. Recently has not been ambulating and only completing stand pivot transfers due to foot fx. Pt is very adamant about only going home with family. Subjective I don't need to do this right now. Objective Patient Orientation Person,Place,Birthday Upper Extremity Gross ROM WFL Bed Mobility bed mobility-scooting,bed mobility - supine/sit,bed mobility - rolling Assist Level Supervision/Stand by Transfer Training Sit/Stand/Pivot Transfer Assist Level Contact Guard/Hand Hold Rehab OT IP prob,goals,plan Problems Date of Evaluation: 01/10/21
--- NOTE | 2021-01-10 13:51 | HMH.PTEV ---
Physical Therapy Evaluation Rehab PT IP Evaluation Start: 01/10/21 09:32 Freq: ONCE Status: Active Protocol: Document 01/10/21 13:42 [facility] (Rec: 01/10/21 13:51 [facility] [id number]) Subjective/History History History Patient is a 60-year-old female admitted to [facility] 01/08/21 via EMS with reports of increased shortness of breath, productive cough, and weakness. Patient has chronic COPD. She currently lives at home with . She currently is dealing with a L ankle fracture since 12/13 per patient report. Patient reports that she peviously required a walker for ambulation, but has been non- ambulatory since the injury to the ankle. Subjective Subjective My leg just hurts so bad. Rehab PT IP Eval Objective Appearance Patient Behavior Appropriate Patient Orientation Person,Place,Birthday Difficulty following instructions none Speech Pattern Appropriate Ambulation Patient Able to Ambulate No Balance Ability to Arise Unable Sitting Balance Steady, safe Standing Balance Unsteady Dynamic Sitting Balance Ability Good Dynamic Standing Balance Ability Zero Transfers Bed Transfer Ability Minimal x 1 (25% assist) Sit to Stand Bed Transfer Ability Moderate x 2 (50% assist) Sit to Stand Chair Transfer Ability Moderate x 2 (50% assist) ROM LLE PT ROM Status ABN Abnormal ROM Comment NT secondary to fractur and wrapping. MMT All Extremities PT MMT WFL Rehab PT IP prob,goals,plan Problems Date of Evaluation: 01/10/21 PT IP Problems Bed Mobility,Transfers,Gait, Balance,Self care,Safety Rehab Potential Rehab Potential Fair Equipment Needs Assistive Devices Rolling / Wheeled Walker Plan PT Intervention Plan Bed Mobility,Transfers,Gait, Balance,Self care,Safety, Therapeutic Exercise PT Plan Frequency BID Duration LOS Discharge Goals Bed Transfer Ability Supervision/Stand by Sit to Stand Chair Transfer Ability Minimal x 1 (25% assist) Ambulation Assistive Device Rolling Walker Ambulation Distance (feet) 25
[2021-01-10 17:15] LABS: Creatinine Clearance Estimated 179 mL/min (50-200)
[2021-01-11] VITALS (10 sets, daily range): BP systolic 119–131; BP diastolic 64–84; PULSE 74–108; RESP 17–24; TEMP 36.8–37.2; O2SAT 86–96
[2021-01-11 07:04] LABS: Basophils % 0.4 % (0.1-2.0); Eosinophils % 0.7 % (0.1-12.0); Hematocrit 39.7 % (37.0-47.0); Hemoglobin 11.9 g/dL (12.2-16.2); Lymphocytes # 0.4 K/mm3 (0.7-4.5); Mean Corpuscular HGB Conc 30.1 g/dL (31.8-35.4); Mean Corpuscular Hemoglobin 22.4 pg (27.0-31.2); Mean Corpuscular Volume 74.6 fl (81-99); Mean Platelet Volume 7.5 fl (7.4-10.4); Monocytes # 0.4 K/mm3 (0.1-1.0); Monocytes % 6.9 % (1.7-9.3); Neutrophils # 4.3 K/mm3 (1.8-7.8); Platelet Count 252 K/mm3 (142-424); Red Blood Count 5.32 M/mm3 (4.20-5.40)
[2021-01-11 07:06] LABS: MANUAL DIFFERENTIAL MANUAL DIFFERENTIAL (MANUAL DIFF)
[2021-01-11 07:16] LABS: Chloride 84 mmol/L (98-107)
[2021-01-11 07:17] LABS: Potassium 3.1 mmoL/L (3.5-5.1); Sodium 134 mmol/L (136-145)
[2021-01-11 07:20] LABS: Blood Urea Nitrogen 8 mg/dl (7-17); Calcium 7.7 mg/dl (8.4-10.2); Creatinine Clearance Estimated 120 mL/min (50-200); Estimated Glomerular Filt Rate 227 ml/min (>60); GFR (African American) 275 ML/MIN (>60); Glucose 103 mg/dl (74-100)
[2021-01-11 07:36] LABS: Anion Gap 8.1 mEq/L (5-15); Carbon Dioxide 45 mmol/L (22.0-30.0)
[2021-01-11 07:54] LABS: Lymphocytes % 13 % (10-50); Monocytes % 4 % (2-9); Neutrophils % 83 % (42-76); Platelet Estimate Normal; RBC Morphology Normal; Total Cells Counted 100
--- NOTE | 2021-01-11 08:18 | XR_ITS ---
PROCEDURE: XR CHEST PORTABLE CLINICAL HISTORY: COPD COMPARISON: CR XR CHEST PORTABLE from 12/05/2020 CR XR CHEST PORTABLE from 12/16/[address] ANGIO CHEST PE PROTOCOL from 01/08/2021 CR XR CHEST PORTABLE from 01/08/2021 FINDINGS: There is collapse of the left lung with air bronchograms similar to the previous exam with possible small left effusion. Biapical cavities/bullous change once again noted. Increased density noted in the right mid and lower lung zone suggestive pneumonia. The mediastinal shift toward the left as before. IMPRESSION: Left lung collapse with mediastinal shift toward the left. No change biapical cavities. Increasing density right mid lower lung zone consistent with pneumonia. Dictated by: Billy Keenan MD 01/11/2021 09:18 Billy Keenan MD in [facility] 01/11/2021 09:18
--- NOTE | 2021-01-11 11:34 | HMH.PULMPN ---
Internal Medicine - PN: Subj *Date: 01/11/21 *Time: 11:34 Interval history: No acute respiratory vents overnight. Exam - Constitutional Constitutional:: Present: no acute distress, comfortable - HENMT Exam HENMT: Present: normocephalic, moist mucous membranes - Eye Exam Eyes:: Present: normal appearance both eyes and related structures - Neck Exam Neck:: Present: normal visual inspection - Respiratory Exam Respiratory:: Present: able to speak in complete sentences, no respiratory distress, decreased breath sounds, crackles - Cardiovascular Exam Cardiac:: Present: S1, S2 - GI Exam GI:: Present: soft - Skin Exam Skin: Present: warm, no rash - Neurological Exam Neurological: Present: alert, awake, normal cognition - Extremities Exam Extremities: Present: no cyanosis, no clubbing, no edema - Psychiatric Exam Psychiatric: Present: normal affect Assessment and Plan (1) Respiratory failure with hypercapnia Status: Acute Category: Medical Code(s): J96.92 - Respiratory failure, unspecified with hypercapnia (2) Hypokalemia Status: Acute Category: Medical Code(s): E87.6 - Hypokalemia (3) Cachectic Status: Acute Category: Medical Code(s): R64 - Cachexia (4) Body mass index (BMI) less than 16.5 Status: Acute Category: Medical Code(s): Z68.1 - Body mass index [BMI] 19.9 or less, adult (5) Weakness Status: Acute Category: Medical Code(s): R53.1 - Weakness (6) Dehydration Status: Acute Category: Medical Code(s): E86.0 - Dehydration (7) Severe protein-calorie malnutrition Status: Acute Category: Medical Code(s): E43 - Unspecified severe protein-calorie malnutrition (8) Iron deficiency anemia Status: Acute Category: Medical Code(s): D50.9 - Iron deficiency anemia, unspecified (9) Mitral regurgitation Status: Acute Qualifiers: Cardiac valve disease etiology: etiology unspecified Qualified Code(s): I34.0 - Nonrheumatic mitral (valve) insufficiency Category: Medical Code(s): I34.0 - Nonrheumatic mitral (valve) insufficiency (10) Pulmonary HTN Status: Acute Category: Medical Code(s): I27.20 - Pulmonary hypertension, unspecified (11) Community acquired pneumonia Status: Acute Qualifiers: Laterality: unspecified laterality Qualified Code(s): J18.9 - Pneumonia, unspecified organism Category: Medical Code(s): J18.9 - Pneumonia, unspecified organism (12) Acute and chronic respiratory failure Status: Acute Qualifiers: Respiratory failure complication: hypoxia and hypercapnia Qualified Code(s): J96.21 - Acute and chronic respiratory failure with hypoxia; J96.22 - Acute and chronic respiratory failure with hypercapnia Category: Medical Code(s): J96.20 - Acute and chronic respiratory failure, unspecified whether with hypoxia or hypercapnia (13) SIRS (systemic inflammatory response syndrome) Status: Acute Category: Medical Code(s): R65.10 - Systemic inflammatory response syndrome (SIRS) of non-infectious origin without acute organ dysfunction - Assessment and plan all Dx Assessment and Plan for all problems:: #Necrotizing Lobar pneumonia: #Lung abscess: 60-year-old with bilateral upper lobe cavitary lung lesions dated back to CAT scan from 2018 presented to the hospital worsening respiratory: Repeat CT showed worsening left-sided cavity with air-fluid levels along with lobar pneumonia completely involving the remaining of the left lung. The possibility of underlying mass cannot be completely ruled out at this point of time. Patient's CAT scans dating back to 2018 in 2019 showed bilateral lower lobe micronodule patttern predominantly on the left side which has been worsening since then. Prior sputum cultures grew Klebsiella, Haemophilus influenza and MRSA. Patient on this admission admits worsening respiratory distress along with cough and productive phlegm. I have extensively discussed with the patient an
--- NOTE | 2021-01-11 12:07 | HMH.ACPN2 ---
Internal Medicine - PN: Subj *Date: 01/11/21 *Time: 19:58 Interval history: 60-year-old female patient resting quietly with eyes closed, awakens to verbal stimuli. in chair beside bed. Patient reports she had a good evening denies any increased shortness of breath or chest pain, oxygen saturation 92% on 3 L per nasal cannula still awaiting sputum cultures received packed red blood cells and hemoglobin 11.9 this morning. Exam Vital signs and Labs for Last 24 Hours: Temp Pulse Resp BP Pulse Ox 98.9 F 108 H 18 128/69 90 L 01/11/21 08:00 01/11/21 08:00 01/11/21 08:00 01/11/21 08:00 01/11/21 08:00 Laboratory Results - last 24 hr 01/10/21 05:34: Creatinine 0.20 L D, Estimated Creat Clear 179 01/10/21 10:16: Blood Type A Negative, Antibody Screen Negative, Crossmatch (AHG) See Detail 01/11/21 06:28: WBC 5.0, RBC 5.32 D, Hgb 11.9 L, Hct 39.7, MCV 74.6 L, MCH 22.4 L, MCHC 30.1 L, RDW 18.0 H, Plt Count 252 D, MPV 7.5, Neut % (Auto) 85.0 H, Lymph % (Auto) 7.0 L, [place] % (Auto) 6.9, Eos % (Auto) 0.7, Baso % (Auto) 0.4, Neut # (Auto) 4.3, Lymph # (Auto) 0.4 L, [place] # (Auto) 0.4, Eos # (Auto) 0.0, Baso # (Auto) 0.0, Total Counted 100, Neutrophils % (Manual) 83 H, Lymphocytes % (Manual) 13, Monocytes % (Manual) 4, Platelet Estimate Normal, RBC Morphology Normal 01/11/21 06:28: Sodium 134 L, Potassium 3.1 L, Chloride 84 L, Carbon Dioxide 45 H*, Anion Gap 8.1, BUN 8, Creatinine 0.30 L D, Estimated Creat Clear 120, Estimated GFR 227, Est GFR ( Amer) 275 D, Glucose 103 H, Calcium 7.7 L I & O for Last 24 hours: Intake & Output 01/08/21 01/09/21 01/10/21 01/11/21 23:59 23:59 23:59 23:59 Intake Total 1000 / 1240 1200 / 1200 2170 / 2410 600 / 600 Output Total 800 / 800 200 / 200 Balance 1000 / 1240 400 / 400 2170 / 2210 400 / 400 Weight 81 lb 9 oz 81 lb 9 oz 83 lb 12.41 oz Microbiology Reports for the Last 24 Hours: Microbiology 01/11/21 09:30 Sputum - Expectorated Sputum - Final Not Reportable 01/11/21 09:30 Sputum - Expectorated Sputum - Final Not Reportable 01/09/21 10:10 Sputum - Expectorated Sputum Gram Stain - Final 01/09/21 10:10 Sputum - Expectorated Sputum Sputum Culture - Preliminary - Constitutional no acute distress, cachectic, chronically ill appearing - *Routine HEENT Exam Head: Present: normocephalic Eye: Present: EOMI ENT: Present: mucous membranes moist - *Routine Neck Exam Present: trachea midline. Absent: tracheal deviation - *Routine Respiratory Exam Present: decreased breath sounds. Absent: accessory muscle use - *Routine Cardiovascular Exam Present: RRR, murmur - *Routine Abdominal Exam Present: soft, normoactive bowel sounds. Absent: tenderness, firm - *Routine Extremities Exam Present: pulses intact. Absent: cyanosis, clubbing, edema, full ROM, calf tenderness Comments: Splint to LLE - *Routine Skin Exam Present: dry, wounds. Absent: intact, cyanosis, erythema Comments: Stage III Pressure ulcer coccyx with drsg - *Routine Neurological Exam Present: alert, oriented X3. Absent: sensory deficit - Routine Psychiatric Exam Present: normal affect, normal thought process, homicidal ideation. Absent: auditory hallucinations Assessment and Plan (1) Respiratory failure with hypercapnia Status: Acute Category: Medical Code(s): J96.92 - Respiratory failure, unspecified with hypercapnia (2) Hypokalemia Status: Acute Category: Medical Code(s): E87.6 - Hypokalemia (3) Cachectic Status: Acute Category: Medical Code(s): R64 - Cachexia (4) Body mass index (BMI) less than 16.5 Status: Acute Category: Medical Code(s): Z68.1 - Body mass index [BMI] 19.9 or less, adult (5) Weakness Status: Acute Category: Medical Code(s): R53.1 - Weakness (6) Dehydration Status: Acute Category: Medical Code(s): E86.0 - Dehydration (7) Severe protein-carlos
[2021-01-11 17:32] LABS: Fungitell(Beta D-Glucan) Serum <31 pg/mL (<80)
[2021-01-12] VITALS (24 sets, daily range): BP systolic 89–130; BP diastolic 44–72; PULSE 92–125; RESP 12–100; TEMP 36.1–36.9; O2SAT 85–97; BMI 14.5
--- NOTE | 2021-01-12 05:25 | PC.NURSE ---
Patient alert and oriented x4. Patient has had no complaints this shift. Dressing is applied to coccyx. Patient has slept on and off this shift. Patient is on 3L NC lung sound are clear but diminished. Patient has coughed some through the night. Vital signs are stable, call light within reach, will continue to monitor.
[2021-01-12 06:41] LABS: Basophils % 0.6 % (0.1-2.0); Eosinophils # 0.1 K/mm3 (0.0-0.4); Hematocrit 38.9 % (37.0-47.0); Hemoglobin 11.8 g/dL (12.2-16.2); Lymphocytes # 0.3 K/mm3 (0.7-4.5); Lymphocytes % 6.9 % (10-50); Mean Corpuscular HGB Conc 30.3 g/dL (31.8-35.4); Mean Corpuscular Hemoglobin 22.9 pg (27.0-31.2); Mean Corpuscular Volume 75.6 fl (81-99); Mean Platelet Volume 7.7 fl (7.4-10.4); Monocytes # 0.3 K/mm3 (0.1-1.0); Monocytes % 6.1 % (1.7-9.3); Neutrophils # 4.2 K/mm3 (1.8-7.8); Neutrophils % 85.4 % (37.0-80.0); Platelet Count 243 K/mm3 (142-424); Red Blood Count 5.15 M/mm3 (4.20-5.40); Red Cell Distribution Width 18.4 % (11.5-17.5); White Blood Count 4.9 K/mm3 (4.8-10.8)
[2021-01-12 06:45] LABS: MANUAL DIFFERENTIAL MANUAL DIFFERENTIAL (MANUAL DIFF)
[2021-01-12 07:11] LABS: Chloride 81 mmol/L (98-107); Sodium 134 mmol/L (136-145)
[2021-01-12 07:14] LABS: Blood Urea Nitrogen 6 mg/dl (7-17); Creatinine Clearance Estimated 117 mL/min (50-200); Estimated Glomerular Filt Rate 227 ml/min (>60); GFR (African American) 275 ML/MIN (>60)
[2021-01-12 07:15] LABS: Calcium 7.6 mg/dl (8.4-10.2); Carbon Dioxide > 40 mmol/L (22.0-30.0); Glucose 89 mg/dl (74-100)
[2021-01-12 07:41] LABS: Anisocytosis 1+; Hypochromasia 2+; Lymphocytes % 10 % (10-50); Microcytosis 1+; Monocytes % 5 % (2-9); Neutrophils % 85 % (42-76); Platelet Estimate Normal; Total Cells Counted 100
--- NOTE | 2021-01-12 07:43 | PC.NURSE ---
0715-spoke to reji in lab regarding pt's K+ 3.0. 0731- notified MD Womack in ED. NNO @ this time
--- NOTE | 2021-01-12 09:07 | HMH.ACPN2 ---
Internal Medicine - PN: Subj *Date: 01/12/21 *Time: 08:30 Interval history: pt laying in bed and states doing ok. scheduled for bronch today Exam Vital signs and Labs for Last 24 Hours: Temp Pulse Resp BP Pulse Ox 97.9 F 103 H 19 128/64 91 L 01/12/21 04:00 01/12/21 06:24 01/12/21 04:00 01/12/21 04:00 01/12/21 06:24 Laboratory Results - last 24 hr 01/09/21 12:45: Beta-(1,3)-D-Glucan <31 01/12/21 06:11: WBC 4.9, RBC 5.15, Hgb 11.8 L, Hct 38.9, MCV 75.6 L, MCH 22.9 L, MCHC 30.3 L, RDW 18.4 H, Plt Count 243, MPV 7.7, Neut % (Auto) 85.4 H, Lymph % (Auto) 6.9 L, [place] % (Auto) 6.1, Eos % (Auto) 1.0, Baso % (Auto) 0.6, Neut # (Auto) 4.2, Lymph # (Auto) 0.3 L, [place] # (Auto) 0.3, Eos # (Auto) 0.1, Baso # (Auto) 0.0, Total Counted 100, Neutrophils % (Manual) 85 H, Lymphocytes % (Manual) 10, Monocytes % (Manual) 5, Platelet Estimate Normal, Hypochromasia 2+, Anisocytosis 1+, Microcytosis 1+ 01/12/21 06:11: Sodium 134 L, Potassium 3.0 L, Chloride 81 L, Carbon Dioxide > 40 H*, Anion Gap 16.0 H, BUN 6 L, Creatinine 0.30 L, Estimated Creat Clear 117, Estimated GFR 227, Est GFR ( Amer) 275, Glucose 89, Calcium 7.6 L I & O for Last 24 hours: Intake & Output 01/09/21 01/10/21 01/11/21 01/12/21 11:59 11:59 11:59 11:59 Intake Total 1720 / 1720 840 / 840 2410 / 2410 1360 / 1360 Output Total 800 / 800 200 / 200 300 / 300 Balance 920 / 920 840 / 840 2210 / 2210 1060 / 1060 Weight 81 lb 9 oz 83 lb 12.41 oz 81 lb 14.4 oz Microbiology Reports for the Last 24 Hours: Microbiology 01/09/21 10:10 Sputum - Expectorated Sputum Gram Stain - Final 01/09/21 10:10 Sputum - Expectorated Sputum Sputum Culture - Final 01/09/21 10:10 Sputum - Expectorated Sputum Acid Fast Bacilli Smear - Final 01/11/21 09:30 Sputum - Expectorated Sputum - Final Not Reportable 01/11/21 09:30 Sputum - Expectorated Sputum - Final Not Reportable - Constitutional no acute distress, thin, chronically ill appearing - *Routine HEENT Exam Head: Present: normocephalic Eye: Present: PERRL ENT: Present: mucous membranes moist - *Routine Neck Exam Present: supple. Absent: lymphadenopathy - *Routine Respiratory Exam Present: wheezes - *Routine Cardiovascular Exam Present: RRR - *Routine Abdominal Exam Present: soft, normoactive bowel sounds. Absent: tenderness - *Routine Extremities Exam Present: normal capillary refill. Absent: cyanosis, clubbing, edema - *Routine Skin Exam Present: warm. Absent: rash - *Routine Neurological Exam Present: alert, oriented X3 - Routine Psychiatric Exam Present: normal affect Assessment and Plan (1) Respiratory failure with hypercapnia Status: Acute Category: Medical Code(s): J96.92 - Respiratory failure, unspecified with hypercapnia (2) Hypokalemia Status: Acute Category: Medical Code(s): E87.6 - Hypokalemia (3) Cachectic Status: Acute Category: Medical Code(s): R64 - Cachexia (4) Body mass index (BMI) less than 16.5 Status: Acute Category: Medical Code(s): Z68.1 - Body mass index [BMI] 19.9 or less, adult (5) Weakness Status: Acute Category: Medical Code(s): R53.1 - Weakness (6) Dehydration Status: Acute Category: Medical Code(s): E86.0 - Dehydration (7) Severe protein-calorie malnutrition Status: Acute Category: Medical Code(s): E43 - Unspecified severe protein-calorie malnutrition (8) Iron deficiency anemia Status: Acute Category: Medical Code(s): D50.9 - Iron deficiency anemia, unspecified (9) Mitral regurgitation Status: Acute Qualifiers: Cardiac valve disease etiology: etiology unspecified Qualified Code(s): I34.0 - Nonrheumatic mitral (valve) insufficiency Category: Medical Code(s): I34.0 - Nonrheumatic mitral (valve) insufficiency (10) Pulmonary HTN Status: Acute Category: Medical Code(s): I27.20 - Pulmonary hyperte
--- NOTE | 2021-01-12 09:55 | DIET.NUTRFU ---
Addendum entered by Andressa Garrett 01/15/21 15:26: Pt on BiPAP but able to eat 50-75%, continues on regular diet with BID ensure. Weight documented to be up 20# from admission. She is receiving IVF at 75ml/h. First BM t/o stay(6d) yesterday. Na and K remain slightly low but stable, Ca continues to decrease. She has had some moderate hyperglycemia. Original Note: Pt with ongoing severe protein calorie malnutrition rt COPD and social/behavioral circumstances. She actually has gained 9# since last admission 1ma, though this may be fluid retention rt malnutrition. She has stage II PA on coccyx. She has received in depth diet edu/counseling for malnutrition at all admissions. She continues to state she eats well and is drinking ensure BID at home. PO intakes 50% + BID ensure this admission which is actually better than in the past. She has also had some outside food brought in. Weight stable. No BM t/o stay. Moderate improvement electrolyte disturbances.
--- NOTE | 2021-01-12 10:31 | HMH.ACPN ---
Internal Medicine - PN: Subj *Date: 01/12/21 *Time: 10:31 Exam Vital signs and Labs for Last 24 Hours: Temp Pulse Resp BP Pulse Ox 97.9 F 105 H 24 116/65 85 L 01/12/21 08:00 01/12/21 08:00 01/12/21 08:00 01/12/21 08:00 01/12/21 08:00 Laboratory Results - last 24 hr 01/09/21 12:45: Beta-(1,3)-D-Glucan <31 01/12/21 06:11: WBC 4.9, RBC 5.15, Hgb 11.8 L, Hct 38.9, MCV 75.6 L, MCH 22.9 L, MCHC 30.3 L, RDW 18.4 H, Plt Count 243, MPV 7.7, Neut % (Auto) 85.4 H, Lymph % (Auto) 6.9 L, [place] % (Auto) 6.1, Eos % (Auto) 1.0, Baso % (Auto) 0.6, Neut # (Auto) 4.2, Lymph # (Auto) 0.3 L, [place] # (Auto) 0.3, Eos # (Auto) 0.1, Baso # (Auto) 0.0, Total Counted 100, Neutrophils % (Manual) 85 H, Lymphocytes % (Manual) 10, Monocytes % (Manual) 5, Platelet Estimate Normal, Hypochromasia 2+, Anisocytosis 1+, Microcytosis 1+ 01/12/21 06:11: Sodium 134 L, Potassium 3.0 L, Chloride 81 L, Carbon Dioxide > 40 H*, Anion Gap 16.0 H, BUN 6 L, Creatinine 0.30 L, Estimated Creat Clear 117, Estimated GFR 227, Est GFR ( Amer) 275, Glucose 89, Calcium 7.6 L I & O for Last 24 hours: Intake & Output 01/09/21 01/10/21 01/11/21 01/12/21 23:59 23:59 23:59 23:59 Intake Total 1200 / 1200 2170 / 2410 1560 / 1560 400 / 400 Output Total 800 / 800 200 / 500 300 / 300 Balance 400 / 400 2170 / 2210 1360 / 1060 100 / 100 Weight 36.996 kg 38 kg 37.149 kg Microbiology Reports for the Last 24 Hours: Microbiology 01/09/21 10:10 Sputum - Expectorated Sputum Gram Stain - Final 01/09/21 10:10 Sputum - Expectorated Sputum Sputum Culture - Final 01/09/21 10:10 Sputum - Expectorated Sputum Acid Fast Bacilli Smear - Final 01/11/21 09:30 Sputum - Expectorated Sputum - Final Not Reportable 01/11/21 09:30 Sputum - Expectorated Sputum - Final Not Reportable Assessment and Plan (1) Respiratory failure with hypercapnia Status: Acute Category: Medical Code(s): J96.92 - Respiratory failure, unspecified with hypercapnia (2) Hypokalemia Status: Acute Category: Medical Code(s): E87.6 - Hypokalemia (3) Cachectic Status: Acute Category: Medical Code(s): R64 - Cachexia (4) Body mass index (BMI) less than 16.5 Status: Acute Category: Medical Code(s): Z68.1 - Body mass index [BMI] 19.9 or less, adult (5) Weakness Status: Acute Category: Medical Code(s): R53.1 - Weakness (6) Dehydration Status: Acute Category: Medical Code(s): E86.0 - Dehydration (7) Severe protein-calorie malnutrition Status: Acute Category: Medical Code(s): E43 - Unspecified severe protein-calorie malnutrition (8) Iron deficiency anemia Status: Acute Category: Medical Code(s): D50.9 - Iron deficiency anemia, unspecified (9) Mitral regurgitation Status: Acute Qualifiers: Cardiac valve disease etiology: etiology unspecified Qualified Code(s): I34.0 - Nonrheumatic mitral (valve) insufficiency Category: Medical Code(s): I34.0 - Nonrheumatic mitral (valve) insufficiency (10) Pulmonary HTN Status: Acute Category: Medical Code(s): I27.20 - Pulmonary hypertension, unspecified (11) Community acquired pneumonia Status: Acute Qualifiers: Laterality: unspecified laterality Qualified Code(s): J18.9 - Pneumonia, unspecified organism Category: Medical Code(s): J18.9 - Pneumonia, unspecified organism (12) Acute and chronic respiratory failure Status: Acute Qualifiers: Respiratory failure complication: hypoxia and hypercapnia Qualified Code(s): J96.21 - Acute and chronic respiratory failure with hypoxia; J96.22 - Acute and chronic respiratory failure with hypercapnia Category: Medical Code(s): J96.20 - Acute and chronic respiratory failure, unspecified whether with hypoxia or hypercapnia (13) SIRS (systemic inflammatory response syndrome) Status: Acute Category: Medical Code(s): R65.10 - Systemic inflammator
--- NOTE | 2021-01-12 11:14 | HMH.PULMPN ---
Internal Medicine - PN: Subj *Date: 01/12/21 *Time: 11:14 Interval history: No acute respiratory vents overnight. Patient respiratory status remained stable. Exam - Constitutional Constitutional:: Present: comfortable - HENMT Exam HENMT: Present: normocephalic, atraumatic - Eye Exam Eyes:: Present: normal appearance both eyes and related structures - Neck Exam Neck:: Present: normal visual inspection - Respiratory Exam Respiratory:: Present: able to speak in complete sentences, no respiratory distress, decreased breath sounds, crackles - Cardiovascular Exam Cardiac:: Present: S1, S2 - GI Exam GI:: Present: soft - Skin Exam Skin: Present: warm, no rash - Neurological Exam Neurological: Present: alert, awake, normal cognition - Extremities Exam Extremities: Present: no cyanosis, no clubbing, no edema Assessment and Plan (1) Respiratory failure with hypercapnia Status: Acute Category: Medical Code(s): J96.92 - Respiratory failure, unspecified with hypercapnia (2) Hypokalemia Status: Acute Category: Medical Code(s): E87.6 - Hypokalemia (3) Cachectic Status: Acute Category: Medical Code(s): R64 - Cachexia (4) Body mass index (BMI) less than 16.5 Status: Acute Category: Medical Code(s): Z68.1 - Body mass index [BMI] 19.9 or less, adult (5) Weakness Status: Acute Category: Medical Code(s): R53.1 - Weakness (6) Dehydration Status: Acute Category: Medical Code(s): E86.0 - Dehydration (7) Severe protein-calorie malnutrition Status: Acute Category: Medical Code(s): E43 - Unspecified severe protein-calorie malnutrition (8) Iron deficiency anemia Status: Acute Category: Medical Code(s): D50.9 - Iron deficiency anemia, unspecified (9) Mitral regurgitation Status: Acute Qualifiers: Cardiac valve disease etiology: etiology unspecified Qualified Code(s): I34.0 - Nonrheumatic mitral (valve) insufficiency Category: Medical Code(s): I34.0 - Nonrheumatic mitral (valve) insufficiency (10) Pulmonary HTN Status: Acute Category: Medical Code(s): I27.20 - Pulmonary hypertension, unspecified (11) Community acquired pneumonia Status: Acute Qualifiers: Laterality: unspecified laterality Qualified Code(s): J18.9 - Pneumonia, unspecified organism Category: Medical Code(s): J18.9 - Pneumonia, unspecified organism (12) Acute and chronic respiratory failure Status: Acute Qualifiers: Respiratory failure complication: hypoxia and hypercapnia Qualified Code(s): J96.21 - Acute and chronic respiratory failure with hypoxia; J96.22 - Acute and chronic respiratory failure with hypercapnia Category: Medical Code(s): J96.20 - Acute and chronic respiratory failure, unspecified whether with hypoxia or hypercapnia (13) SIRS (systemic inflammatory response syndrome) Status: Acute Category: Medical Code(s): R65.10 - Systemic inflammatory response syndrome (SIRS) of non-infectious origin without acute organ dysfunction (14) Stage III pressure ulcer Status: Acute Category: Medical Code(s): L89.93 - Pressure ulcer of unspecified site, stage 3 - Assessment and plan all Dx Assessment and Plan for all problems:: #Necrotizing Lobar pneumonia: #Lung abscess: 60-year-old with bilateral upper lobe cavitary lung lesions dated back to CAT scan from 2017 presented to the hospital worsening respiratory: Repeat CT showed worsening left-sided cavity with air-fluid levels along with lobar pneumonia completely involving the remaining of the left lung. The possibility of underlying mass cannot be completely ruled out at this point of time. Patient's CAT scans dating back to 2018 in 2019 showed bilateral lower lobe micronodule pattern predominantly on the left side which has been worsening since then. Prior sputum cultures grew Klebsiella, Haemophilus influenza and MRSA. Patient on this admission admits worsening respiratory distress
--- NOTE | 2021-01-12 12:44 | XR_ITS ---
PROCEDURE: XR CHEST AP CLINICAL HISTORY: BRONCHOSCOPY WITH BIOPSY COMPARISON: CR XR CHEST PORTABLE from 01/11/2021 FINDINGS: Fluoroscopy time: 2.8 minutes. Single image is submitted with C-arm demonstrating biopsy catheter in the left lower lung zone. IMPRESSION: S/p fluoroscopy assisted bronchoscopy and biopsy Dictated by: Billy Keenan MD 01/19/2021 17:01 Billy Keenan MD in [facility] 01/19/2021 17:01
--- NOTE | 2021-01-12 13:23 | HMH.ANESCL ---
[facility] Anesthesia Checklist - Patient Identification Patient Identification: Arm Band, Verbal (Name & ) - Structural Data Admitted From: Inpatient Planned Operative Procedure/s: bronchoscopy Consent for Planned Operative Procedure(s) Verified: Yes Verified Documents: History and Physical - NPO Status Verified Time NPO: 00:00 - Additional verifications Patient : No Anesthesia Reactions: No Hx Blood Transfusions: No Blood Transfusion Reaction: No - Cardiovascular Assessment Heart Sounds: S1 & S2 Pulse Strength: Baseline Pulse Rhythm: Regular Peripheral Edema: No - Airway Assessment C-Spine Mobility Assessed: Yes TMJ Mobility Assessed: Yes Dentition: Edentulous - Neurological Assessment Level of Consciousness: Awake, Alert, Appropriate Hx Seizures: No Numbness or tingling in extremities: No - Anesthesia Plan Anesthesia Risk discussed: Yes Anesthesia Plan: Verified ASA Class: III Anesthesia Type: General [facility] History I have reviewed the patient's past medical history: Yes Medical History: Reports:: Asthma, Chronic Obstructive Pulmonary Disease (COPD), Gastroesophageal Reflux Disease(GERD), Home Oxygen, Hypertension Denies:: Cancer, Diabetes Mellitus Type 1, Diabetes Mellitus Type 2, MRSA, Seizures *Have you ever received a pneumonia vaccine?: Yes *Have you received a flu vaccine this season?: Yes Other Medical History: Reports: Anemia, Arthritis, Cataracts, Hypothyroidism, Sinus Problems, Thyroid Disease Anesthesia experience/problems:: none Other Surgeries: Yes: Appendectomy, Dilation and Curettage, Other Amputation: No Fractures: Yes - *Social History Last grade of school completed: High school graduate Smoking Status: Former smoker Tobacco Type: cigarettes # Packs/Day (cigarettes): 0 #Yrs smoked (if former smoker): 43 Alcohol Intake: never Substance Use Type: opiates, painkillers, former substance user *Occupational Status:: retired Housing: apartment Household Members: spouse *Travel in the last 8 weeks: None Family Hx:: No significant family history
--- NOTE | 2021-01-12 13:25 | HMH.ANESI ---
[facility] Anesthesia Record Part I Intake, IV Amount: 750 Estimated blood loss (mL): 0 Urine output (mL): 0 Blood Products used (#): none Blood Pressure: 113/63 SaO2: 93 Pulse Rate: 112 Respiratory Rate: 22 Temperature: 97.0 F Patient is:: Mask O2, Somnolent Stable to PACU at:: 13:08
--- NOTE | 2021-01-12 13:35 | XR_ITS ---
PROCEDURE: XR CHEST PORTABLE CLINICAL HISTORY: s/p bronch COMPARISON: CR XR CHEST PORTABLE from 12/16/[address] ANGIO CHEST PE PROTOCOL from 01/08/2021 CR XR CHEST PORTABLE from 01/08/2021 CR XR CHEST PORTABLE from 01/11/2021 FINDINGS: 1327 hours. Biapical bullous changes once again noted with left lung collapse. There is consolidation in the right lower lobe consistent with pneumonia not significantly changed. No acute bony abnormalities. IMPRESSION: Overall no change in the left lung collapse with biapical cavities and right-sided pneumonia Dictated by: Billy Keenan MD 01/12/2021 14:24 Billy Keenan MD in [facility] 01/12/2021 14:24
--- NOTE | 2021-01-12 13:36 | XR_ITS ---
PROCEDURE: XR CHEST PORTABLE CLINICAL HISTORY: post intubation COMPARISON: CT CT ANGIO CHEST PE PROTOCOL from 01/08/2021 CR XR CHEST PORTABLE from 01/08/2021 CR XR CHEST PORTABLE from 01/11/2021 CR XR CHEST PORTABLE from 01/12/2021 FINDINGS: 1359 hours. Endotracheal tube is in good position nearly 3 cm above the raf. No change in the biapical bullous changes with left lung collapse and right-sided pneumonia. IMPRESSION: Endotracheal tube in good position. Dictated by: Billy Keenan MD 01/12/2021 14:23 Billy Keenan MD in [facility] 01/12/2021 14:23
[2021-01-12 14:01] LABS: ABG Base Excess 19.2 mmol/L (-2.4-2.3); ABG HCO3 42.5 mmhg (22.0-26.0); ABG Oxygen Saturation 99 % (90-100); ABG PO2 148.8 mmhg (80-100); ABG TCO2 44.2 mmhg (23-27); Oxygen 70 %; PEEP 5; Tidal Volume 320; Vent Rate 20
[2021-01-12 14:02] LABS: ABG PCO2 56.4 mmhg (35.0-45.0); Allen's Test Patient Unable; Source Right Brachial
--- NOTE | 2021-01-12 14:05 | HMH.BRONCH ---
- Procedure: Date: 01/12/21 Patient Date of :: 1960 Procedure Performed:: Bronchoscopy with bronchoalveolar lavage and transbronchial biopsy Indications:: Lobar pneumonia Performing Provider:: Sukhjinder Latham MD Referring Provider:: Dr. Womack Sedation:: General anesthesia Procedure:: Bronchoscopy with bronchoalveolar lavage and transbronchial biopsy: A clean therapeutic bronchoscope advanced to the ET tube and airways were examined up to subsegmental bronchi airways in the right cerebellum appeared normal. Airways in the left lung grossly appear patent. Copious amount of thick mucoid secretions were suctioned from the left upper and left lower lobes. Bronchoalveolar lavage was performed in the left upper lobe with a total of instillation of 60 cc of normal saline with 40 cc return. BAL fluid was sent for cell count differential, bacterial fungal and AFB stain culture along with cytopathology. Transbronchial biopsies was performed the right lower lobe and samples were sent for bacterial fungal AFB stain culture in normal saline and cytopathology in formalin. Patient tolerated the procedure well. Findings:: Please see the procedure note Specimens:: Bronchoalveolar lavage and transbronchial biopsy Recommendations:: Please see the procedure note and progress note from today Complications:: None. No immediate complications noted Estimated blood obtained (mL): 10
--- NOTE | 2021-01-12 14:27 | SUR.PHASEI ---
1308 patient to pacu with simple mask, unable to keep O2 sat above 85 with O2. patient with very little air movement, wheezing (see documentation) patient unresponsive to commands, does not open eyes, insufficient respiration, ambu bag per anesthesia, respiratory and dr oyo notified, respiratory to bring vent to PACU, radiology to bedside for chest xray per dr yoo, bagged until able to be re-intubated. yeison, respiratory, anesthesia, radiology at bedside with Joy RN, and LAISA Salazar. Per dr yoo- 500 ml fluid bolus normal saline started at 1350. Vent settings per annty/respiratory, ABG's obtained per Respiratory, called results to Yeison at 1400, vent settings adjusted per his orders/respiratory, patient continues to be non- responsive to commands. per dr yoo- NO SEDATION, transfer to ICU/Stepdown when able. Per PRICE, room unavailable at this time, continue to monitor in PACU with respiratory at bedside.
--- NOTE | 2021-01-12 15:00 | PC.NURSE ---
pt arrived to the floor @ 1500 from PACU. Pt was intubated upon arrival.
--- NOTE | 2021-01-12 15:12 | SUR.PHASEI ---
report to ALISA Porter, patient transported with respiratory staff, shobha rodriguez to stepdown monitored with ambu ventilation. patient began to respond during transport, was responding to commands when handed off to Charlotte CUELLAR, respiratory at bedside communicating with dr yoo. patient stable, awake at 1500
--- NOTE | 2021-01-12 15:35 | PC.NURSE ---
Pt extubated and placed on 4L. Dr Latham was at bedside.
[2021-01-12 18:15] LABS: Vancomycin,Trough < 5.0 ug/mL (5.0-10.0)
[2021-01-12 22:11] LABS: Aspergillus flavus Negative (Neg:<1:1); Aspergillus fumigatus Negative (Neg:<1:1); Aspergillus niger Negative (Neg:<1:1); Blastomyces Antibody Negative (Neg:<1:1)
[2021-01-13] VITALS (16 sets, daily range): BP systolic 95–119; BP diastolic 51–70; PULSE 87–116; RESP 6–29; TEMP 36.6–36.8; O2SAT 88–96; BMI 18.4
[2021-01-13 06:11] LABS: Basophils % 0.3 % (0.1-2.0); Hemoglobin 12.1 g/dL (12.2-16.2); Lymphocytes # 0.3 K/mm3 (0.7-4.5); Lymphocytes % 5.7 % (10-50); Mean Corpuscular HGB Conc 29.5 g/dL (31.8-35.4); Mean Corpuscular Hemoglobin 22.7 pg (27.0-31.2); Mean Corpuscular Volume 76.9 fl (81-99); Mean Platelet Volume 7.4 fl (7.4-10.4); Monocytes # 0.4 K/mm3 (0.1-1.0); Neutrophils # 4.5 K/mm3 (1.8-7.8); Platelet Count 258 K/mm3 (142-424); Red Blood Count 5.33 M/mm3 (4.20-5.40); Red Cell Distribution Width 18.5 % (11.5-17.5); White Blood Count 5.2 K/mm3 (4.8-10.8)
[2021-01-13 06:14] LABS: MANUAL DIFFERENTIAL MANUAL DIFFERENTIAL (MANUAL DIFF)
[2021-01-13 06:21] LABS: Chloride 83 mmol/L (98-107); Potassium 3.5 mmoL/L (3.5-5.1); Sodium 134 mmol/L (136-145)
[2021-01-13 06:24] LABS: Blood Urea Nitrogen 10 mg/dl (7-17); Creatinine Clearance Estimated 149 mL/min (50-200); Estimated Glomerular Filt Rate 227 ml/min (>60); GFR (African American) 275 ML/MIN (>60)
[2021-01-13 06:25] LABS: Calcium 7.6 mg/dl (8.4-10.2); Glucose 109 mg/dl (74-100)
[2021-01-13 06:33] LABS: Anion Gap 8.5 mEq/L (5-15); Carbon Dioxide 46 mmol/L (22.0-30.0)
[2021-01-13 07:19] LABS: Lymphocytes % 12 % (10-50); Neutrophils % 81 % (42-76); Platelet Estimate Normal; Total Cells Counted 100
[2021-01-13 07:20] LABS: Anisocytosis 1+; Hypochromasia 2+; Microcytosis 2+
--- NOTE | 2021-01-13 08:45 | HMH.ACPN2 ---
Internal Medicine - PN: Subj *Date: 01/15/21 *Time: 02:09 Interval history: pt with increased o2 requirement and low sat - pt with recent bronchoscopy- Exam Vital signs and Labs for Last 24 Hours: Temp Pulse Resp BP Pulse Ox 98.2 F 94 H 17 98/61 L 93 L 01/13/21 04:00 01/13/21 06:32 01/13/21 06:00 01/13/21 06:00 01/13/21 06:32 Laboratory Results - last 24 hr 01/09/21 12:45: Blastomyces Antibody Negative, Aspergillus flavus Ab Negative, Aspergill fumigatus Ab Negative, Aspergillus niger Ab Negative 01/12/21 13:37: Specimen Source Right brachial, O2 % 70, ABG pH 7.50 H, ABG pCO2 56.4 H, ABG pO2 148.8 H, ABG HCO3 42.5 H, ABG Total CO2 44.2 H, ABG O2 Saturation 99, ABG Base Excess 19.2 H, Billy Test Patient unable, Vent Rate 20, Tidal Volume 320, PEEP 5 01/12/21 16:36: Vancomycin Trough < 5.0 L 01/12/21 19:15: Vancomycin Peak 21.0 01/13/21 05:20: WBC 5.2, RBC 5.33, Hgb 12.1 L, Hct 41.0, MCV 76.9 L, MCH 22.7 L, MCHC 29.5 L, RDW 18.5 H, Plt Count 258, MPV 7.4, Neut % (Auto) 86.0 H, Lymph % (Auto) 5.7 L, [place] % (Auto) 8.0, Eos % (Auto) 0.0 L, Baso % (Auto) 0.3, Neut # (Auto) 4.5, Lymph # (Auto) 0.3 L, [place] # (Auto) 0.4, Eos # (Auto) 0.0, Baso # (Auto) 0.0, Total Counted 100, Neutrophils % (Manual) 81 H, Band Neutrophils % 7.0, Lymphocytes % (Manual) 12, Platelet Estimate Normal, Hypochromasia 2+, Anisocytosis 1+, Microcytosis 2+ 01/13/21 05:20: Sodium 134 L, Potassium 3.5, Chloride 83 L, Carbon Dioxide 46 H*, Anion Gap 8.5, BUN 10 D, Creatinine 0.30 L, Estimated Creat Clear 149, Estimated GFR 227, Est GFR ( Amer) 275, Glucose 109 H D, Calcium 7.6 L I & O for Last 24 hours: Intake & Output 01/10/21 01/11/21 01/12/21 01/13/21 11:59 11:59 11:59 11:59 Intake Total 840 / 840 2410 / 2410 1360 / 1360 1892 / 1892 Output Total 200 / 200 300 / 300 Balance 840 / 840 2210 / 2210 1060 / 1060 1892 / 1892 Weight 83 lb 12.41 oz 81 lb 14.4 oz 104 lb 3 oz Microbiology Reports for the Last 24 Hours: Microbiology 01/12/21 12:40 Bronchial Lavage - Left Upper Lobe Gram Stain - Final 01/09/21 10:10 Sputum - Expectorated Sputum Gram Stain - Final 01/09/21 10:10 Sputum - Expectorated Sputum Sputum Culture - Final - Constitutional thin - *Routine HEENT Exam Head: Present: normocephalic Eye: Present: EOMI, PERRL ENT: Present: mucous membranes dry - *Routine Neck Exam Absent: JVD - *Routine Respiratory Exam Present: decreased breath sounds - *Routine Cardiovascular Exam Present: RRR, murmur, S4 - *Routine Abdominal Exam Present: soft - *Routine Extremities Exam Absent: calf tenderness - *Routine Skin Exam Present: intact - *Routine Neurological Exam Present: alert. Absent: motor deficit - Routine Psychiatric Exam Present: cooperative Assessment and Plan (1) Respiratory failure with hypercapnia Status: Acute Category: Medical Code(s): J96.92 - Respiratory failure, unspecified with hypercapnia (2) Hypokalemia Status: Acute Category: Medical Code(s): E87.6 - Hypokalemia (3) Cachectic Status: Acute Category: Medical Code(s): R64 - Cachexia (4) Body mass index (BMI) less than 16.5 Status: Acute Category: Medical Code(s): Z68.1 - Body mass index [BMI] 19.9 or less, adult (5) Weakness Status: Acute Category: Medical Code(s): R53.1 - Weakness (6) Dehydration Status: Acute Category: Medical Code(s): E86.0 - Dehydration (7) Severe protein-calorie malnutrition Status: Acute Category: Medical Code(s): E43 - Unspecified severe protein-calorie malnutrition (8) Iron deficiency anemia Status: Acute Category: Medical Code(s): D50.9 - Iron deficiency anemia, unspecified (9) Mitral regurgitation Status: Acute Qualifiers: Cardiac valve disease etiology: etiology unspecified Qualified Code(s): I34.0 - Nonrheumatic mitral (valve) insufficiency Category: Medical Code(s): I34.0 - Nonrheumatic mitral (valve) insufficiency
--- NOTE | 2021-01-13 10:35 | HMH.PHACONS ---
- Pharmacy Consult Date: 01/13/21 Time: 10:35 Referring provider: DR. PEARL Reason for Consult:: VANCOMYCIN LEVELS AND INTERVAL CHANGE Allergies and ADEs:: Allergies Allergy/AdvReac Type Severity Reaction Status Date / Time No Known Allergies Allergy Verified 06/26/20 11:10 Home Medications:: Home Medications Medication Instructions Recorded Confirmed Type Buprenorphine HCl/Naloxone HCl 1.75 tab PO DAILY 12/04/20 01/09/21 History [Buprenorphine-Nalox 8-2 mg Tab] Levothyroxine Sodium [Synthroid 125 mcg PO DAILY 12/04/20 01/09/21 History 125mcg (0.125mg) tablet] Albuterol Sulfate [Albuterol 2.5 mg IH Q6HP PRN 01/09/21 01/09/21 History Sulfate 2.5mg/0.5ml Neb] Furosemide [Lasix 40mg tablet] 40 mg PO DAILY 01/09/21 01/09/21 History Height: 1.6 m Weight: 47.259 kg Laboratory Results:: Laboratory Results - last 24 hr 01/09/21 12:45: Blastomyces Antibody Negative, Aspergillus flavus Ab Negative, Aspergill fumigatus Ab Negative, Aspergillus niger Ab Negative 01/12/21 13:37: Specimen Source Right brachial, O2 % 70, ABG pH 7.50 H, ABG pCO2 56.4 H, ABG pO2 148.8 H, ABG HCO3 42.5 H, ABG Total CO2 44.2 H, ABG O2 Saturation 99, ABG Base Excess 19.2 H, Billy Test Patient unable, Vent Rate 20, Tidal Volume 320, PEEP 5 01/12/21 16:36: Vancomycin Trough < 5.0 L 01/12/21 19:15: Vancomycin Peak 21.0 01/13/21 05:20: WBC 5.2, RBC 5.33, Hgb 12.1 L, Hct 41.0, MCV 76.9 L, MCH 22.7 L, MCHC 29.5 L, RDW 18.5 H, Plt Count 258, MPV 7.4, Neut % (Auto) 86.0 H, Lymph % (Auto) 5.7 L, [place] % (Auto) 8.0, Eos % (Auto) 0.0 L, Baso % (Auto) 0.3, Neut # (Auto) 4.5, Lymph # (Auto) 0.3 L, [place] # (Auto) 0.4, Eos # (Auto) 0.0, Baso # (Auto) 0.0, Total Counted 100, Neutrophils % (Manual) 81 H, Band Neutrophils % 7.0, Lymphocytes % (Manual) 12, Platelet Estimate Normal, Hypochromasia 2+, Anisocytosis 1+, Microcytosis 2+ 01/13/21 05:20: Sodium 134 L, Potassium 3.5, Chloride 83 L, Carbon Dioxide 46 H*, Anion Gap 8.5, BUN 10 D, Creatinine 0.30 L, Estimated Creat Clear 149, Estimated GFR 227, Est GFR ( Amer) 275, Glucose 109 H D, Calcium 7.6 L Medical History: Reports:: Asthma, Chronic Obstructive Pulmonary Disease (COPD), Gastroesophageal Reflux Disease(GERD), Home Oxygen, Hypertension Denies:: Cancer, Diabetes Mellitus Type 1, Diabetes Mellitus Type 2, MRSA, Seizures Assessment and Plan (1) Respiratory failure with hypercapnia Status: Acute Category: Medical Code(s): J96.92 - Respiratory failure, unspecified with hypercapnia (2) Hypokalemia Status: Acute Category: Medical Code(s): E87.6 - Hypokalemia (3) Cachectic Status: Acute Category: Medical Code(s): R64 - Cachexia (4) Body mass index (BMI) less than 16.5 Status: Acute Category: Medical Code(s): Z68.1 - Body mass index [BMI] 19.9 or less, adult (5) Weakness Status: Acute Category: Medical Code(s): R53.1 - Weakness (6) Dehydration Status: Acute Category: Medical Code(s): E86.0 - Dehydration (7) Severe protein-calorie malnutrition Status: Acute Category: Medical Code(s): E43 - Unspecified severe protein-calorie malnutrition (8) Iron deficiency anemia Status: Acute Category: Medical Code(s): D50.9 - Iron deficiency anemia, unspecified (9) Mitral regurgitation Status: Acute Qualifiers: Cardiac valve disease etiology: etiology unspecified Qualified Code(s): I34.0 - Nonrheumatic mitral (valve) insufficiency Category: Medical Code(s): I34.0 - Nonrheumatic mitral (valve) insufficiency (10) Pulmonary HTN Status: Acute Category: Medical Code(s): I27.20 - Pulmonary hypertension, unspecified (11) Community acquired pneumonia Status: Acute Qualifiers: Laterality: unspecified laterality Qualified Code(s): J18.9 - Pneumonia, unspecified organism Category: Medical Code(s): J18.9 - Pneumonia, unspecified organism (12) Acute and chronic respiratory failure Status: Acute Qualifiers: R
--- NOTE | 2021-01-13 11:42 | XR_ITS ---
PROCEDURE INFORMATION: Exam: XR Chest Exam date and time: 01/13/2021 11:42 AM Age: 60 years old Clinical indication: Shortness of breath; Prior surgery; Surgery date: Post-operative (0-2 days); Surgery type: Bronch; Additional info: SOB TECHNIQUE: Imaging protocol: XR of the chest. Views: 1 view. COMPARISON: CR XR CHEST PORTABLE 01/12/2021 1:59 PM FINDINGS: Tubes, catheters and devices: Endotracheal tube has been removed. Lungs: Persistent left lower thorax consolidative opacity, likely atelectasis, pleural fluid, and possibly pneumonia, similar to prior study. Patchy ground-glass and tree-in-bud opacities within the right mid and lower lung zone, similar to prior study, likely areas of pneumonitis/bronchopneumonia. Lucencies within the lung apices bilaterally, right larger than left, similar to prior study, possibly representing emphysematous bulla or cavitations. Pleural spaces: See Lungs finding. Heart/Mediastinum: Normal. Bones/joints: No acute abnormality. IMPRESSION: 1. Patchy ground-glass and tree-in-bud opacities within the right mid and lower lung zone, similar to prior study, likely areas of pneumonitis/bronchopneumonia. 2. Lucencies within the lung apices bilaterally, right larger than left, similar to prior study, possibly representing emphysematous bulla or cavitations.
[2021-01-13 13:32] LABS: ABG Base Excess 14.8 mmol/L (-2.4-2.3); ABG HCO3 41.1 mmhg (22.0-26.0); ABG Oxygen Saturation 79 % (90-100); ABG PH 7.31 mmol/L (7.35-7.45); ABG TCO2 43.6 mmhg (23-27)
[2021-01-13 13:36] LABS: Allen's Test Acceptable; Source Right Brachial
[2021-01-13 13:37] LABS: ABG PCO2 83.8 mmhg (35.0-45.0); ABG PO2 43.6 mmhg (80-100)
[2021-01-13 18:07] LABS: Microscopic, Urine URINE MICROSCOPIC (MICROSCOPIC)
[2021-01-13 18:14] LABS: Appearance,Urine CLEAR (Clear); Bilirubin,Urine Negative (Negative); Blood, Urine Negative (Negative); Color,Urine YELLOW (Yellow); Glucose,Urine (UA) Negative (Negative); Ketones,Urine Negative (Negative); Leukocyte Esterase,Urine Negative (Negative); Nitrate,Urine Negative (Negative); Protein,Urine TRACE (Negative); Specific Gravity, Urine 1.025 (1.005-1.030); Urobilinogen,Urine 0.2 EU/dl (0.2)
[2021-01-13 18:28] LABS: Amorphous Sediment,Urine Trace /lpf; Mucus,Urine 4+ /lpf; Squamous Epithelial Cell,Urine Occasional #/hpf (0-5); WBC,Urine Occasional #/hpf (0-3)
--- NOTE | 2021-01-13 19:58 | PC.NURSE ---
DURING ROUNDS WITH PCP THIS MORNING PT WAS VERY ILL APPEARING AND WAS STRUGGLING TO STAY AWAKE. PCP STATED HE WAS NOT GOING TO BE ABLE TO SEND HER HOME TODAY B/C SHE HAD NOT BEEN OOB AND OXYGEN WAS AT 4L WHEN AT HOME SHE IS USUALLY AT 2.5-3 L. O2 SATURATION WAS MAINTAINING 82-92% ON 4 L THIS MORNING. PT WAS VERY UPSET OVER NOT BEING ABLE TO BE DISCHARGED. DURING ASSESSMENT THIS MORNING PT STATED SHE WAS WANTING HER MEDICINE BUT REFUSED HER PROTONIX AND STATED SHE TOOK HER SUBOXONE BROKE UP AND SHE TOOK SMALL DOSES T/O THE DAY B/C SHE DID NOT WANT TO TAKE THE ENTIRE DOSE AT ONCE. PT WAS INSTRUCTED THAT SHE WAS NOT ABLE TO DO THAT WHILE SHE WAS HERE IT WAS EITHER TAKE THE DOSE PRESCRIBED OR NOT TAKE IT AT ALL (PHARMACY NOTIFIED AND THEY STATED THE MEDICATION HAD TO BE ADMINISTERED THE WAY IT WAS ORDERED) PT STARTED TO BECOME MORE DROWSY AND HER O2 SATURATION WAS ONLY MAINTAINING 80-85%. PT WAS ASSISTED UP TO THE CHAIR ALTHOUGH SHE WAS NOT THRILLED ABOUT THE FACT THAT SHE NEEDED TO SIT UP. PT CONTINUED TO BE DROWSY AND THERE WAS STILL NO IMPROVEMENT WITH O2 SATURATION. NOTIFIED AND ORDERED FOR PT TO HAVE CXR/VENTI MASK/DUONEBS Q4 TO IMPROVE SATURATION. RT APPLIED 50% VENTI WITH NO IMPROVEMENT IN SATURATION. DAE NOTIFIED ABG WAS ORDERED. DAE NOTIFIED RT TO PUT PT ON BIPAP AFTER ABG RESULTS. O2 SATURATION HAS MAINTAINED IN THE MID 90'S SINCE PT HAS BEEN ON BIPAP. PT CONTINUES TO BE VERY DROWSY. LUNG SOUNDS DIMINISHED. THIS AFTERNOON ON ASSESSMENT BLADDER WAS DISTENDED. PCP NOTIFIED (CATHETER INSERTED). PT HAS A STAGE 2 NOTED TO THE COCCYX AND THE LT THIGH WITH DRESSING C/D/I. TURNED AND REPOSITIONED FREQUENTLY. APPETITE HAS BEEN VERY POOR THIS SHIFT DUE TO RESPIRATORY STATUS. WILL CONTINUE TO MONITOR.
[2021-01-14] VITALS (25 sets, daily range): BP systolic 81–150; BP diastolic 51–83; PULSE 74–113; RESP 16–26; TEMP 36.6–37.1; O2SAT 89–97; BMI 18.8
[2021-01-14 02:20] LABS: POC Glucose,Bedside 78 (70-110)
--- NOTE | 2021-01-14 02:46 | PC.NURSE ---
blood pressure has been decreasing now with a manual pressure of 81/51, temp 98.6, fsbs 76. patient very difficult to awaken and immediately goes back to sleep. dr anderson paged and notified of vs, urine output, lethargy and fsbs. new orders received.
--- NOTE | 2021-01-14 02:51 | PC.NURSE ---
0225 1 amp d50 given
--- NOTE | 2021-01-14 03:02 | PC.NURSE ---
0250 patient more awake now, blood pressure 120/77. dr. anderson notified of abg results. resp rate on bipap settings increased to 20
--- NOTE | 2021-01-14 04:44 | PC.NURSE ---
0400 patients blood pressure has been trending down and patietn has become very lethargic again, 0.6 mg of narcan given ivp in small increments. currently patient is now awake, alert and oriented watching tv. fully awake with blood pressure 120s to 140s systolic. this nurse discussed home narcan. patient states she doesn't take whole dose at once, she splits it into quarters throughout the day. this rn asked if the clinic knows that she takes it like and she replied yes.
--- NOTE | 2021-01-14 05:58 | PC.NURSE ---
when patients awake she refuses to wear bipap, patient o2 sats on 4 l nc 93-94%, rr 20, hr 99. explained to patient the bipap helps bring her co2 down, states she doesn't feel like she needs it right now.
[2021-01-14 06:40] LABS: Basophils % 0.3 % (0.1-2.0); Eosinophils % 0.6 % (0.1-12.0); Hematocrit 39.2 % (37.0-47.0); Hemoglobin 11.2 g/dL (12.2-16.2); Lymphocytes # 0.2 K/mm3 (0.7-4.5); Lymphocytes % 6.2 % (10-50); Mean Corpuscular HGB Conc 28.6 g/dL (31.8-35.4); Mean Corpuscular Hemoglobin 23.4 pg (27.0-31.2); Mean Corpuscular Volume 81.7 fl (81-99); Mean Platelet Volume 7.6 fl (7.4-10.4); Monocytes # 0.3 K/mm3 (0.1-1.0); Monocytes % 8.3 % (1.7-9.3); Neutrophils # 3.1 K/mm3 (1.8-7.8); Neutrophils % 84.7 % (37.0-80.0); Platelet Count 207 K/mm3 (142-424); Red Cell Distribution Width 18.7 % (11.5-17.5); White Blood Count 3.7 K/mm3 (4.8-10.8)
--- NOTE | 2021-01-14 06:40 | PC.NURSE ---
received notification from lab mrsa screen positive, dr. anderson notified scottn placed in contact isolation
[2021-01-14 06:48] LABS: Chloride 87 mmol/L (98-107)
[2021-01-14 06:49] LABS: Sodium 135 mmol/L (136-145)
[2021-01-14 06:51] LABS: Blood Urea Nitrogen 6 mg/dl (7-17); Creatinine Clearance Estimated 152 mL/min (50-200); Estimated Glomerular Filt Rate 227 ml/min (>60); GFR (African American) 275 ML/MIN (>60)
[2021-01-14 06:52] LABS: Calcium 7.2 mg/dl (8.4-10.2); Glucose 114 mg/dl (74-100)
[2021-01-14 07:00] LABS: Carbon Dioxide 46 mmol/L (22.0-30.0)
--- NOTE | 2021-01-14 09:57 | PC.NURSE ---
Spoke w/ Dr. Latham via phone for update. States to wean O2 as tolerated to maintain sat 88-90%. Change neb treatments to q4h.
--- NOTE | 2021-01-14 11:04 | HMH.ANESII ---
[facility] Anesthesia Record Part II Discharge Time: 13:18 Destination: Medical Surgical Department PACU nurse assessment reviewed?: Yes Patient Condition:: Critical Anesthesia Complications:: None Swallowing reflex intact?: Yes Cyanosis?: No Blood Pressure: 104/59 Pulse Rate: 96 Temperature: 98.1 F Mental Status: Alert & Oriented Pain level:: 3 Nausea and/or vomitting:: None Intake, IV Amount: 100
--- NOTE | 2021-01-14 18:23 | PC.NURSE ---
No acute changes. She has remained on 4 L O2, no s/s of resp distress. Sat ranging 88-94%. Continues to have a productive cough, suction is set up at bedside, pt uses this independently. Sinus tach on tely. VSS. Remains afebrile. Pt did work w/ PT this AM and sat on side of bed for a few minutes, she does de-sat to high 70-low 80's. Pt has been alert throughout shift. No complaints voiced. has been at bedside throughout shift.
--- NOTE | 2021-01-14 20:17 | HMH.ACPN2 ---
Internal Medicine - PN: Subj *Date: 01/14/21 *Time: 10:15 Interval history: pt laying in bed family at bedside. Exam Vital signs and Labs for Last 24 Hours: Temp Pulse Resp BP Pulse Ox 98.1 F 90 20 150/83 H 91 L 01/14/21 16:00 01/14/21 18:44 01/14/21 16:00 01/14/21 16:00 01/14/21 16:00 Laboratory Results - last 24 hr 01/14/21 02:11: POC Glucose 78 01/14/21 06:29: WBC 3.7 L D, RBC 4.80, Hgb 11.2 L, Hct 39.2, MCV 81.7, MCH 23.4 L, MCHC 28.6 L, RDW 18.7 H, Plt Count 207, MPV 7.6, Neut % (Auto) 84.7 H, Lymph % (Auto) 6.2 L, Gonzales % (Auto) 8.3, Eos % (Auto) 0.6, Baso % (Auto) 0.3, Neut # (Auto) 3.1, Lymph # (Auto) 0.2 L, Gonzales # (Auto) 0.3, Eos # (Auto) 0.0, Baso # (Auto) 0.0 01/14/21 06:29: Sodium 135 L, Potassium 3.0 L, Chloride 87 L, Carbon Dioxide 46 H*, Anion Gap 5.0, BUN 6 L D, Creatinine 0.30 L, Estimated Creat Clear 152, Estimated GFR 227, Est GFR ( Amer) 275, Glucose 114 H, Calcium 7.2 L I & O for Last 24 hours: Intake & Output 01/12/21 01/13/21 01/14/21 01/15/21 11:59 11:59 11:59 11:59 Intake Total 1360 / 1360 215 / 2152 2903 / 2903 600 / 600 Output Total 300 / 300 1125 / 1125 675 / 675 Balance 1060 / 1060 215 / 2151 1778 / 1778 -75 / -75 Weight 81 lb 14.4 oz 104 lb 3 oz 106 lb 9 oz Microbiology Reports for the Last 24 Hours: Microbiology 01/12/21 12:40 Transbronchial Biopsy - Left Lower Lobe Gram Stain - Final 01/12/21 12:40 Transbronchial Biopsy - Left Lower Lobe Surgical Biopsy Culture - Preliminary NO GROWTH AFTER 48 HOURS 01/12/21 12:40 Transbronchial Biopsy - Left Lower Lobe Acid Fast Bacilli Smear - Final 01/12/21 12:40 Bronchial Lavage - Left Upper Lobe Acid Fast Bacilli Smear - Final 01/11/21 14:15 Nose - Nasal MRSA Culture - Final - Constitutional no acute distress, thin, chronically ill appearing - *Routine HEENT Exam Head: Present: normocephalic Eye: Present: PERRL ENT: Present: mucous membranes moist - *Routine Neck Exam Present: supple. Absent: lymphadenopathy - *Routine Respiratory Exam Present: wheezes - *Routine Cardiovascular Exam Present: RRR - *Routine Abdominal Exam Present: soft, normoactive bowel sounds. Absent: tenderness - *Routine Extremities Exam Absent: cyanosis, clubbing, edema - *Routine Skin Exam Present: warm. Absent: rash - *Routine Neurological Exam Present: alert, oriented X3 - Routine Psychiatric Exam Present: normal affect Assessment and Plan (1) Respiratory failure with hypercapnia Status: Acute Category: Medical Code(s): J96.92 - Respiratory failure, unspecified with hypercapnia (2) Hypokalemia Status: Acute Category: Medical Code(s): E87.6 - Hypokalemia (3) Cachectic Status: Acute Category: Medical Code(s): R64 - Cachexia (4) Body mass index (BMI) less than 16.5 Status: Acute Category: Medical Code(s): Z68.1 - Body mass index [BMI] 19.9 or less, adult (5) Weakness Status: Acute Category: Medical Code(s): R53.1 - Weakness (6) Dehydration Status: Acute Category: Medical Code(s): E86.0 - Dehydration (7) Severe protein-calorie malnutrition Status: Acute Category: Medical Code(s): E43 - Unspecified severe protein-calorie malnutrition (8) Iron deficiency anemia Status: Acute Category: Medical Code(s): D50.9 - Iron deficiency anemia, unspecified (9) Mitral regurgitation Status: Acute Qualifiers: Cardiac valve disease etiology: etiology unspecified Qualified Code(s): I34.0 - Nonrheumatic mitral (valve) insufficiency Category: Medical Code(s): I34.0 - Nonrheumatic mitral (valve) insufficiency (10) Pulmonary HTN Status: Acute Category: Medical Code(s): I27.20 - Pulmonary hypertension, unspecified (11) Community acquired pneumonia Status: Acute Qualifiers: Laterality: unspecified laterality Qualified Code(s): J18.9 - Pneumonia, unspecified organism Category: Medical
[2021-01-15] VITALS (14 sets, daily range): BP systolic 95–135; BP diastolic 56–81; PULSE 70–104; RESP 18–28; TEMP 36.2–37; O2SAT 88–97
[2021-01-15 04:04] LABS: ABG Base Excess 18.7 mmol/L (-2.4-2.3); ABG HCO3 44.6 mmhg (22.0-26.0); ABG Oxygen Saturation 94 % (90-100); ABG PH 7.33 mmol/L (7.35-7.45); ABG PO2 72.7 mmhg (80-100); ABG TCO2 47.3 mmhg (23-27)
[2021-01-15 05:03] LABS: Allen's Test Patient Unable; Oxygen 45 %; Pressure Support 12; Vent Rate 18
[2021-01-15 05:04] LABS: Source Right Radial
[2021-01-15 05:05] LABS: ABG PCO2 86.2 mmhg (35.0-45.0)
[2021-01-15 06:15] LABS: Basophils % 1.2 % (0.1-2.0); Eosinophils % 0.2 % (0.1-12.0); Hematocrit 38.9 % (37.0-47.0); Hemoglobin 10.9 g/dL (12.2-16.2); Lymphocytes # 0.3 K/mm3 (0.7-4.5); Mean Corpuscular HGB Conc 28.1 g/dL (31.8-35.4); Mean Corpuscular Hemoglobin 22.7 pg (27.0-31.2); Mean Corpuscular Volume 80.8 fl (81-99); Mean Platelet Volume 7.8 fl (7.4-10.4); Monocytes # 0.3 K/mm3 (0.1-1.0); Neutrophils # 2.8 K/mm3 (1.8-7.8); Neutrophils % 80.6 % (37.0-80.0); Platelet Count 172 K/mm3 (142-424); Red Blood Count 4.82 M/mm3 (4.20-5.40); Red Cell Distribution Width 18.2 % (11.5-17.5); White Blood Count 3.5 K/mm3 (4.8-10.8)
[2021-01-15 06:26] LABS: Chloride 85 mmol/L (98-107); Potassium 3.3 mmoL/L (3.5-5.1); Sodium 134 mmol/L (136-145)
[2021-01-15 06:29] LABS: Blood Urea Nitrogen 6 mg/dl (7-17); Creatinine Clearance Estimated 152 mL/min (50-200); Estimated Glomerular Filt Rate 227 ml/min (>60); GFR (African American) 275 ML/MIN (>60)
[2021-01-15 06:30] LABS: Calcium 7.3 mg/dl (8.4-10.2); Glucose 97 mg/dl (74-100)
[2021-01-15 06:37] LABS: Anion Gap 5.3 mEq/L (5-15); Carbon Dioxide 47 mmol/L (22.0-30.0)
--- NOTE | 2021-01-15 08:53 | HMH.ACPN2 ---
Internal Medicine - PN: Subj *Date: 01/16/21 *Time: 02:29 Interval history: obtunded on bpap - Exam Vital signs and Labs for Last 24 Hours: Temp Pulse Resp BP Pulse Ox 98 F 83 19 95/56 L 93 L 01/15/21 04:00 01/15/21 06:33 01/15/21 04:00 01/15/21 04:00 01/15/21 04:00 Laboratory Results - last 24 hr 01/14/21 02:34: Specimen Source Right radial, O2 % 45, ABG pH 7.33 L, ABG pCO2 86.2 H, ABG pO2 72.7 L, ABG HCO3 44.6 H, ABG Total CO2 47.3 H, ABG O2 Saturation 94, ABG Base Excess 18.7 H, Billy Test Patient unable, Vent Rate 18 01/15/21 05:45: WBC 3.5 L, RBC 4.82, Hgb 10.9 L, Hct 38.9, MCV 80.8 L, MCH 22.7 L, MCHC 28.1 L, RDW 18.2 H, Plt Count 172, MPV 7.8, Neut % (Auto) 80.6 H, Lymph % (Auto) 9.0 L, Gibson % (Auto) 9.0, Eos % (Auto) 0.2, Baso % (Auto) 1.2, Neut # (Auto) 2.8, Lymph # (Auto) 0.3 L, Gibson # (Auto) 0.3, Eos # (Auto) 0.0, Baso # (Auto) 0.0 01/15/21 05:45: Sodium 134 L, Potassium 3.3 L, Chloride 85 L, Carbon Dioxide 47 H*, Anion Gap 5.3, BUN 6 L, Creatinine 0.30 L, Estimated Creat Clear 152, Estimated GFR 227, Est GFR ( Amer) 275, Glucose 97, Calcium 7.3 L I & O for Last 24 hours: Intake & Output 01/12/21 01/13/21 01/14/21 01/15/21 11:59 11:59 11:59 11:59 Intake Total 1360 / 1360 2152 / 2152 2903 / 2903 215 / 2157 Output Total 300 / 300 1125 / 1125 1575 / 1575 Balance 1060 / 1060 2152 / 2152 1778 / 1778 582 / 582 Weight 81 lb 14.4 oz 104 lb 3 oz 106 lb 9 oz Microbiology Reports for the Last 24 Hours: Microbiology 01/12/21 12:40 Transbronchial Biopsy - Left Lower Lobe Gram Stain - Final 01/12/21 12:40 Transbronchial Biopsy - Left Lower Lobe Surgical Biopsy Culture - Preliminary NO GROWTH AFTER 48 HOURS 01/12/21 12:40 Transbronchial Biopsy - Left Lower Lobe Acid Fast Bacilli Smear - Final 01/12/21 12:40 Bronchial Lavage - Left Upper Lobe Acid Fast Bacilli Smear - Final 01/11/21 14:15 Nose - Nasal MRSA Culture - Final - Constitutional somnolent - *Routine HEENT Exam Head: Present: normocephalic Eye: Present: EOMI, PERRL ENT: Present: mucous membranes dry - *Routine Neck Exam Absent: JVD - *Routine Respiratory Exam Present: decreased breath sounds - *Routine Cardiovascular Exam Present: RRR - *Routine Abdominal Exam Present: soft - *Routine Extremities Exam Absent: calf tenderness - *Routine Skin Exam Present: intact - *Routine Neurological Exam Present: altered mental status - Routine Psychiatric Exam Present: unable to assess Assessment and Plan (1) Respiratory failure with hypercapnia Status: Acute Category: Medical Code(s): J96.92 - Respiratory failure, unspecified with hypercapnia (2) Hypokalemia Status: Acute Category: Medical Code(s): E87.6 - Hypokalemia (3) Cachectic Status: Acute Category: Medical Code(s): R64 - Cachexia (4) Body mass index (BMI) less than 16.5 Status: Acute Category: Medical Code(s): Z68.1 - Body mass index [BMI] 19.9 or less, adult (5) Weakness Status: Acute Category: Medical Code(s): R53.1 - Weakness (6) Dehydration Status: Acute Category: Medical Code(s): E86.0 - Dehydration (7) Severe protein-calorie malnutrition Status: Acute Category: Medical Code(s): E43 - Unspecified severe protein-calorie malnutrition (8) Iron deficiency anemia Status: Acute Category: Medical Code(s): D50.9 - Iron deficiency anemia, unspecified (9) Mitral regurgitation Status: Acute Qualifiers: Cardiac valve disease etiology: etiology unspecified Qualified Code(s): I34.0 - Nonrheumatic mitral (valve) insufficiency Category: Medical Code(s): I34.0 - Nonrheumatic mitral (valve) insufficiency (10) Pulmonary HTN Status: Acute Category: Medical Code(s): I27.20 - Pulmonary hypertension, unspecified (11) Community acquired pneumonia Status: Acute Qualifiers: Laterality: unspecified laterality Qualified Code(s):
--- NOTE | 2021-01-15 10:35 | HMH.PULMPN ---
Internal Medicine - PN: Subj *Date: 01/15/21 *Time: 10:35 Interval history: Patient respiratory status postprocedure was complicated by continued altered mentation hypercarbic respiratory failure for which she was reintubated and then extubated on the needing BiPAP for noninvasive ventilatory therapy. Patient alert and oriented this morning, denies any new complaints. Exam - Constitutional Constitutional:: Present: no acute distress, comfortable - HENMT Exam HENMT: Present: normocephalic, atraumatic - Eye Exam Eyes:: Present: normal appearance both eyes and related structures - Neck Exam Neck:: Present: normal visual inspection - Respiratory Exam Respiratory:: Present: able to speak in complete sentences, decreased breath sounds, crackles - Cardiovascular Exam Cardiac:: Present: S1, S2 - GI Exam GI:: Present: soft - Skin Exam Skin: Present: warm, no rash - Neurological Exam Neurological: Present: alert, awake, normal cognition - Extremities Exam Extremities: Present: no cyanosis, no clubbing, no edema Assessment and Plan (1) Respiratory failure with hypercapnia Status: Acute Category: Medical Code(s): J96.92 - Respiratory failure, unspecified with hypercapnia (2) Hypokalemia Status: Acute Category: Medical Code(s): E87.6 - Hypokalemia (3) Cachectic Status: Acute Category: Medical Code(s): R64 - Cachexia (4) Body mass index (BMI) less than 16.5 Status: Acute Category: Medical Code(s): Z68.1 - Body mass index [BMI] 19.9 or less, adult (5) Weakness Status: Acute Category: Medical Code(s): R53.1 - Weakness (6) Dehydration Status: Acute Category: Medical Code(s): E86.0 - Dehydration (7) Severe protein-calorie malnutrition Status: Acute Category: Medical Code(s): E43 - Unspecified severe protein-calorie malnutrition (8) Iron deficiency anemia Status: Acute Category: Medical Code(s): D50.9 - Iron deficiency anemia, unspecified (9) Mitral regurgitation Status: Acute Qualifiers: Cardiac valve disease etiology: etiology unspecified Qualified Code(s): I34.0 - Nonrheumatic mitral (valve) insufficiency Category: Medical Code(s): I34.0 - Nonrheumatic mitral (valve) insufficiency (10) Pulmonary HTN Status: Acute Category: Medical Code(s): I27.20 - Pulmonary hypertension, unspecified (11) Community acquired pneumonia Status: Acute Qualifiers: Laterality: unspecified laterality Qualified Code(s): J18.9 - Pneumonia, unspecified organism Category: Medical Code(s): J18.9 - Pneumonia, unspecified organism (12) Acute and chronic respiratory failure Status: Acute Qualifiers: Respiratory failure complication: hypoxia and hypercapnia Qualified Code(s): J96.21 - Acute and chronic respiratory failure with hypoxia; J96.22 - Acute and chronic respiratory failure with hypercapnia Category: Medical Code(s): J96.20 - Acute and chronic respiratory failure, unspecified whether with hypoxia or hypercapnia (13) SIRS (systemic inflammatory response syndrome) Status: Acute Category: Medical Code(s): R65.10 - Systemic inflammatory response syndrome (SIRS) of non-infectious origin without acute organ dysfunction (14) Stage III pressure ulcer Status: Acute Category: Medical Code(s): L89.93 - Pressure ulcer of unspecified site, stage 3 - Assessment and plan all Dx Assessment and Plan for all problems:: #Necrotizing Lobar pneumonia: #Lung abscess: 60-year-old with bilateral upper lobe cavitary lung lesions dated back to CAT scan from 2018 presented to the hospital worsening respiratory: Repeat CT showed worsening left-sided cavity with air-fluid levels along with lobar pneumonia completely involving the remaining of the left lung. The possibility of underlying mass cannot be completely ruled out at this point of time. Patient's CAT scans dating back to 2018 in 2019 showed bilateral lower lobe micronodule pattern
--- NOTE | 2021-01-15 18:46 | PC.NURSE ---
Pt is alert and oriented x4. She is on 4L NC and sating in the 90's. Dressing to left hip and coccyx changed today. Appetite has been good. She has been encouraged to get oob but she has refused. She did get up to the bsc but wanted to get back in bed afterwards. No changes from morning assessment.
--- NOTE | 2021-01-15 19:05 | PC.NURSE ---
Sputum specimen sent to lab for AFB.
[2021-01-16] VITALS (26 sets, daily range): BP systolic 60–208; BP diastolic 30–122; PULSE 74–194; RESP 20–28; TEMP 36.3–36.9; O2SAT 83–100; BMI 17.9
--- NOTE | 2021-01-16 | ECG_ITS ---
APPROVED REPORT Exam: Resting ECG HR:161 bpm ECG Measurements Heart Rate 161 AXES QRSd 62 QRS 115 QT 294 T 38 QTc 481 Conclusion Supraventricular tachycardia Right axis deviation Low voltage QRS Nonspecific ST abnormality Abnormal ECG Electronically signed by : Joey Reilly MD 01/18/2021 17:36:51
--- NOTE | 2021-01-16 06:30 | PC.NURSE ---
patient has had an uneventful night; has been alert and talking with staff; no s/s of acute distress noted this shift, call light within reach, bed at lowest level for safety, will continue to monitor.
--- NOTE | 2021-01-16 11:34 | HMH.PULMPN ---
Internal Medicine - PN: Subj *Date: 01/16/21 *Time: 11:34 Interval history: No acute respiratory events overnight patient continued to need 4-5 L nasal cannula oxygen supplementation. Exam - Constitutional Constitutional:: Present: no acute distress, comfortable - HENMT Exam HENMT: Present: normocephalic, atraumatic - Eye Exam Eyes:: Present: normal appearance both eyes and related structures - Neck Exam Neck:: Present: normal visual inspection - Respiratory Exam Respiratory:: Present: able to speak in complete sentences, decreased breath sounds, crackles - Cardiovascular Exam Cardiac:: Present: S1, S2 - GI Exam GI:: Present: soft, no hepatosplenomegaly - Skin Exam Skin: Present: warm, no rash - Neurological Exam Neurological: Present: alert, awake, normal cognition - Extremities Exam Extremities: Present: no cyanosis, no clubbing, edema Assessment and Plan (1) Respiratory failure with hypercapnia Status: Acute Category: Medical Code(s): J96.92 - Respiratory failure, unspecified with hypercapnia (2) Hypokalemia Status: Acute Category: Medical Code(s): E87.6 - Hypokalemia (3) Cachectic Status: Acute Category: Medical Code(s): R64 - Cachexia (4) Body mass index (BMI) less than 16.5 Status: Acute Category: Medical Code(s): Z68.1 - Body mass index [BMI] 19.9 or less, adult (5) Weakness Status: Acute Category: Medical Code(s): R53.1 - Weakness (6) Dehydration Status: Acute Category: Medical Code(s): E86.0 - Dehydration (7) Severe protein-calorie malnutrition Status: Acute Category: Medical Code(s): E43 - Unspecified severe protein-calorie malnutrition (8) Iron deficiency anemia Status: Acute Category: Medical Code(s): D50.9 - Iron deficiency anemia, unspecified (9) Mitral regurgitation Status: Acute Qualifiers: Cardiac valve disease etiology: etiology unspecified Qualified Code(s): I34.0 - Nonrheumatic mitral (valve) insufficiency Category: Medical Code(s): I34.0 - Nonrheumatic mitral (valve) insufficiency (10) Pulmonary HTN Status: Acute Category: Medical Code(s): I27.20 - Pulmonary hypertension, unspecified (11) Community acquired pneumonia Status: Acute Qualifiers: Laterality: unspecified laterality Qualified Code(s): J18.9 - Pneumonia, unspecified organism Category: Medical Code(s): J18.9 - Pneumonia, unspecified organism (12) Acute and chronic respiratory failure Status: Acute Qualifiers: Respiratory failure complication: hypoxia and hypercapnia Qualified Code(s): J96.21 - Acute and chronic respiratory failure with hypoxia; J96.22 - Acute and chronic respiratory failure with hypercapnia Category: Medical Code(s): J96.20 - Acute and chronic respiratory failure, unspecified whether with hypoxia or hypercapnia (13) SIRS (systemic inflammatory response syndrome) Status: Acute Category: Medical Code(s): R65.10 - Systemic inflammatory response syndrome (SIRS) of non-infectious origin without acute organ dysfunction (14) Stage III pressure ulcer Status: Acute Category: Medical Code(s): L89.93 - Pressure ulcer of unspecified site, stage 3 - Assessment and plan all Dx Assessment and Plan for all problems:: #Necrotizing Lobar pneumonia: #Lung abscess: #Positive AFB stainin-year-old with bilateral upper lobe cavitary lung lesions dated back to CAT scan from 2017 presented to the hospital worsening respiratory: Repeat CT showed worsening left-sided cavity with air-fluid levels along with lobar pneumonia completely involving the remaining of the left lung. The possibility of underlying mass cannot be completely ruled out at this point of time. Patient's CAT scans dating back to 2018 in 2019 showed bilateral lower lobe micronodule pattern predominantly on the left side which has been worsening since then. Prior sputum cultures grew Klebsiella, Haemophilus influenza and MRSA.
--- NOTE | 2021-01-16 12:19 | HMH.ACPN2 ---
Internal Medicine - PN: Subj *Date: 01/16/21 *Time: 17:17 Interval history: 60-year-old female patient sitting up in bed nasal cannula at 4.5 L per nasal cannula, she does get short of breath when talking and reports shortness of breath during the night. at bedside. Exam Vital signs and Labs for Last 24 Hours: Temp Pulse Resp BP Pulse Ox 98.4 F 87 28 H 117/70 91 L 01/16/21 11:36 01/16/21 11:36 01/16/21 11:36 01/16/21 11:36 01/16/21 11:36 I & O for Last 24 hours: Intake & Output 01/13/21 01/14/21 01/15/21 01/16/21 23:59 23:59 23:59 23:59 Intake Total 2201 / 2201 2440 / 3997 3022 / 3022 1260 / 1260 Output Total 450 / 450 1350 / 2250 900 / 900 0 / 0 Balance 1751 / 1751 1090 / 1747 2122 / 2122 1260 / 1260 Weight 104 lb 3 oz 106 lb 9 oz 98 lb 5 oz Microbiology Reports for the Last 24 Hours: Microbiology 01/15/21 16:35 Sputum - Expectorated Sputum Gram Stain - Final 01/12/21 12:40 Transbronchial Biopsy - Left Lower Lobe Gram Stain - Final 01/12/21 12:40 Transbronchial Biopsy - Left Lower Lobe Surgical Biopsy Culture - Preliminary NO GROWTH AFTER 72 HOURS - Constitutional thin, chronically ill appearing - *Routine HEENT Exam Head: Present: normocephalic Eye: Present: EOMI ENT: Present: mucous membranes moist - *Routine Neck Exam Present: trachea midline. Absent: tracheal deviation - *Routine Respiratory Exam Present: rales. Absent: accessory muscle use - *Routine Cardiovascular Exam Present: RRR - *Routine Abdominal Exam Present: soft, normoactive bowel sounds. Absent: tenderness, firm - *Routine Extremities Exam Present: edema, pulses intact. Absent: cyanosis, clubbing, full ROM, calf tenderness Comments: Splint intact to LLE - *Routine Skin Exam Present: intact, dry, warm. Absent: cyanosis, erythema - *Routine Neurological Exam Present: alert, oriented X3. Absent: motor deficit, normal reflexes - Routine Psychiatric Exam Present: normal affect, normal thought process Assessment and Plan (1) Respiratory failure with hypercapnia Status: Acute Category: Medical Code(s): J96.92 - Respiratory failure, unspecified with hypercapnia (2) Hypokalemia Status: Acute Category: Medical Code(s): E87.6 - Hypokalemia (3) Cachectic Status: Acute Category: Medical Code(s): R64 - Cachexia (4) Body mass index (BMI) less than 16.5 Status: Acute Category: Medical Code(s): Z68.1 - Body mass index [BMI] 19.9 or less, adult (5) Weakness Status: Acute Category: Medical Code(s): R53.1 - Weakness (6) Dehydration Status: Acute Category: Medical Code(s): E86.0 - Dehydration (7) Severe protein-calorie malnutrition Status: Acute Category: Medical Code(s): E43 - Unspecified severe protein-calorie malnutrition (8) Iron deficiency anemia Status: Acute Category: Medical Code(s): D50.9 - Iron deficiency anemia, unspecified (9) Mitral regurgitation Status: Acute Qualifiers: Cardiac valve disease etiology: etiology unspecified Qualified Code(s): I34.0 - Nonrheumatic mitral (valve) insufficiency Category: Medical Code(s): I34.0 - Nonrheumatic mitral (valve) insufficiency (10) Pulmonary HTN Status: Acute Category: Medical Code(s): I27.20 - Pulmonary hypertension, unspecified (11) Community acquired pneumonia Status: Acute Qualifiers: Laterality: unspecified laterality Qualified Code(s): J18.9 - Pneumonia, unspecified organism Category: Medical Code(s): J18.9 - Pneumonia, unspecified organism (12) Acute and chronic respiratory failure Status: Acute Qualifiers: Respiratory failure complication: hypoxia and hypercapnia Qualified Code(s): J96.21 - Acute and chronic respiratory failure with hypoxia; J96.22 - Acute and chronic respiratory failure with hypercapnia Category: Medical Code(s): J96.20 - Acute and chronic respiratory failur
--- NOTE | 2021-01-16 17:42 | PC.NURSE ---
Pt has been lethargic and has slept all day. Pt remains in airborne precautions for pending TB results. Pt has diuresed close to 2L this shift after IV lasix administration. Bilateral hands have +2 non-pitting edema. Pt has been incontinent x1 this shift and has used the BSC other times. Urine is Cloudy and dark yellow. No other acute changes or complaints at this time, will continue to monitor.
--- NOTE | 2021-01-16 23:08 | XR_ITS ---
PROCEDURE INFORMATION: Exam: XR Chest Exam date and time: 01/16/2021 11:08 PM Age: 60 years old Clinical indication: Device placement; Ett placement (vent status); Patient HX: Tube placement, code TECHNIQUE: Imaging protocol: XR of the chest. Views: 1 view. COMPARISON: No relevant prior studies available. FINDINGS: Tubes, catheters and devices: Endotracheal tube is 1.5 cm above the raf, slightly low lying. Lungs: There is extensive bilateral airspace disease. On the left, there is likely a large degree of compressive atelectasis due to the effusion. Bilaterally, there are also extensive ill-defined opacities compatible with either severe multifocal pneumonia or pulmonary edema. Pleural spaces: There is a right pneumothorax measuring 3.7 cm at the apex. Small right pleural effusion, which appears to be layering towards the apex. There is near complete opacification of the left hemithorax, presumably due to a large effusion. There is extensive biapical pleural scarring/thickening. Heart/Mediastinum: Not well evaluated due to extensive lung opacities and large left pleural effusion. Bones/joints: Osteopenia. Some old rib fractures are seen on the left. No acute displaced fracture is visualized. Gastrointestinal tract: There is gaseous distention of the stomach. IMPRESSION: 1. Right pneumothorax, measuring 3.7 cm at the apex. 2. Large left and small right pleural effusions. Extensive bilateral airspace disease compatible with severe multifocal pneumonia or pulmonary edema. Superimposed compressive atelectasis on the left. 3. Endotracheal tube in place with tip 1.5 cm above the raf. If not already performed, recommend withdrawal by approximately 1 to 2 cm. 4. Gaseous distention of the stomach. Consider nasogastric tube decompression. THIS REPORT CONTAINS FINDINGS THAT MAY BE CRITICAL TO PATIENT CARE. The findings were verbally communicated via telephone conference with DRU FUNK at 11:52 PM EDT on 01/16/2021. The findings were acknowledged and understood.
--- NOTE | 2021-01-16 23:32 | ECG_ITS ---
APPROVED REPORT Exam: Resting ECG HR:163 bpm ECG Measurements Heart Rate 163 AXES QRSd 70 QRS 114 QT 300 T 45 QTc 494 Conclusion Supraventricular tachycardia Right axis deviation Low voltage QRS Nonspecific ST abnormality Abnormal ECG Electronically signed by : Joey Reilly MD 01/18/2021 17:36:47
[2021-01-17] VITALS (43 sets, daily range): BP systolic 20–177; BP diastolic 0–96; PULSE 100–205; RESP 20–30; TEMP 36.6–38.1; O2SAT 77–100; BMI 18.9
--- NOTE | 2021-01-17 00:10 | XR_ITS ---
PROCEDURE INFORMATION: Exam: XR Chest Exam date and time: 01/17/2021 12:11 AM Age: 60 years old Clinical indication: Shortness of breath; Patient HX: Check on pneumothorax status TECHNIQUE: Imaging protocol: XR of the chest. Views: 1 view. COMPARISON: No relevant prior studies available. FINDINGS: Tubes, catheters and devices: Endotracheal tube in situ. Multiple leads projecting over the patient's. Lungs: Heterogeneous pulmonary opacities in the right hemithorax. Pleural spaces: Right-sided moderate size pneumothorax. Almost complete obscuration of the left hemithorax. Heart/Mediastinum: Cardiomediastinal silhouette is not well evaluated. Bones/joints: Stable osseous structures. IMPRESSION: No significant interval change including right-sided moderate size apical pneumothorax. THIS REPORT CONTAINS FINDINGS THAT MAY BE CRITICAL TO PATIENT CARE. The findings were verbally communicated via telephone conference with DRU FUNK at 1:09 AM EDT on 01/17/2021. The findings were acknowledged and understood.
--- NOTE | 2021-01-17 00:15 | XR_ITS ---
PROCEDURE INFORMATION: Exam: XR Chest Exam date and time: 01/17/2021 12:20 AM Age: 60 years old Clinical indication: Device placement; Patient HX: Chest tube placement TECHNIQUE: Imaging protocol: XR of the chest. Views: 1 view. COMPARISON: No relevant prior studies available. FINDINGS: Tubes, catheters and devices: Multiple leads projecting over the a lowe. Lungs: Persistent almost complete obscuration of the right hemithorax. Extensive pulmonary opacities in the right hemithorax, stable. Moderate size right-sided pneumothorax with interval placement of chest tube. Pleural spaces: see above. Heart/Mediastinum: Stable cardiomediastinal silhouette. Bones/joints: No acute osseous findings. IMPRESSION: Interval placement of right-sided chest tube . Otherwise no significant overall change including right-sided pneumothorax.
[2021-01-17 01:39] LABS: Alanine Aminotransferase 7 U/L (12-78); Albumin Level 1.8 g/dl (3.5-5.0); Albumin/Globulin Ratio 0.8 (1.1-1.8); Alkaline Phosphatase 72 U/L (38-126); Anion Gap 13.1 mEq/L (5-15); Aspartate Amino Transferase 17 U/L (14-36); Bilirubin,Total 0.1 mg/dl (0.2-1.3); Blood Urea Nitrogen 6 mg/dl (7-17); Calcium 6.3 mg/dl (8.4-10.2); Carbon Dioxide 53 mmol/L (22.0-30.0); Chloride 81 mmol/L (98-107); Creatinine Clearance Estimated 140 mL/min (50-200); Estimated Glomerular Filt Rate 227 ml/min (>60); GFR (African American) 275 ML/MIN (>60); Globulin 2.2 g/dL (1.3-3.2); Glucose 93 mg/dl (74-100); Potassium 4.1 mmoL/L (3.5-5.1); Sodium 143 mmol/L (136-145); Troponin I 0.01 ng/ml (0.00-0.034)
[2021-01-17 01:40] LABS: Hematocrit 36.2 % (37.0-47.0); Hemoglobin 10.5 g/dL (12.2-16.2); Mean Corpuscular HGB Conc 29.1 g/dL (31.8-35.4); Mean Corpuscular Hemoglobin 22.9 pg (27.0-31.2); Mean Corpuscular Volume 78.8 fl (81-99); Red Blood Count 4.59 M/mm3 (4.20-5.40); Red Cell Distribution Width 18.7 % (11.5-17.5); White Blood Count 4.7 K/mm3 (4.8-10.8)
[2021-01-17 01:41] LABS: Basophils # 0.1 K/mm3 (0-0.2); Basophils % 1.3 % (0.1-2.0); Eosinophils % 0.4 % (0.1-12.0); Lymphocytes # 1.4 K/mm3 (0.7-4.5); Lymphocytes % 28.5 % (10-50); Mean Platelet Volume 7.8 fl (7.4-10.4); Monocytes # 0.3 K/mm3 (0.1-1.0); Monocytes % 5.3 % (1.7-9.3); Neutrophils # 2.9 K/mm3 (1.8-7.8); Neutrophils % 61.3 % (37.0-80.0); Platelet Count 179 K/mm3 (142-424)
--- NOTE | 2021-01-17 02:06 | PC.NURSE ---
At 2252 job forwarder called and stated patient's oxygen was rapidly dropping, this RN walked in to find the patient struggling to breath and heart rate dropping. A rapid response was called at 2255 followed by a code blue at 0.
--- NOTE | 2021-01-17 02:19 | PC.NURSE ---
Patient's emergency contact was called at 2305 to give an update on the patient's change of status.
--- NOTE | 2021-01-17 02:35 | PC.NURSE ---
Pt intubated at 2300. Care assumed by this nurse.
--- NOTE | 2021-01-17 02:38 | PC.NURSE ---
Chest tube placed at 0020. Atrium 20 cm to suction. Bubbling in air chamber. 0 drainage. Rhonchi t/o. Friction rub noted. Chest Tube secured. Versed 2 mg IV administered @ 0100. Urine output 375 ml. Vent settings:AC, FiO2 100, TV 340, R20, PEEP 7. New orders received. Metoprolol 2.5 mg IV Admin 0300. CXR 0730. Orders carried out.
--- NOTE | 2021-01-17 02:58 | PC.NURSE ---
Rapid Response called at 2255. While staff was at bedside providing oxygen via ambu bag, patient lost her pulse, and code blue was initiated at 2299. Summary of events: Pt went into asystole, CPR was initiated at 230. 1mg IV Epi given at 2300. Pt intubated with a 7.5 ET Tube at 20cm @ the teeth by Dr Womack. Confirmed with bilateral breath sound auscultation and CO2 detector. Radiology notified of post intubation chest xray order. Pt assisted with ventilation via ambu bag post intubation. Dr. Womack advised to perform pulse check. Pulse rhythm check at 2300, PEA, CPR resumed. 1mg IV Epi given at 230, CPR continued. Pulse/Rhythm check at 2302, no pulse, pt still in PEA. CPR Resumed. 1 liter of NS started at 2302. 1mg IV Epi given at 2303. Pulse/rhythm check @ 2305, PEA, CPR resumed. 1mg IV Atropine given @ 2304. 1mg IV Epi given @ 2305. Pulse/rhythm check @ 2306, femoral pulse detected, HR 150's in sinus tachycardia. Verbal order obtained by Dr Womack for EKG. ABG obtained by Dr Womack at 2306. After receiving results, Dr Womack notified RT to place patient on ventilator, with specified settings. Verbal order for 1 amp of bicarb obtained as well. 1 amp bicarb given IV @ 2307. 2308 post intubation chest xray obtained. 2308 HR 168, sinus tach. Attempting to obtain BP at this time. Verbal orders obtained for CBC, BMP, and Troponin from Dr. Womack at 2309. Obtained via femoral stick by Dr Womack @ 2310. F/C inserted at 2317. Ventilator started at 2324 with 50% Fio2, Rate 20, TV 340, PEEP 7. Dr Womack gave verbal order to RT to titrate as needed. EKG obtained at 2324. Post Code management continued by ALISA Denney. Refer to code flow sheet and vital sign intervention for further documentation.
--- NOTE | 2021-01-17 03:35 | PC.NURSE ---
Late Entry (01/16/21): 2339 - Code Status addressed with , he requested pt remain a FULL CODE. 2345 - notified Dr Womack patient HR was still significantly elevated, and BP was declining. Verbal order obtained to start patient on Levophed gtt and titrate as necessary to keep systolic BP >85. 2350 - Levophed gtt started by ALSIA Denney @ 8mcg/min. 2355 - manual BP 60/30, Levophed gtt titrated to 15 mcg/min. 0000 - manual BP 58/palp. Dr Womack notified. Levophed gtt titrated to 20mcg/min. Code Status addressed with again, requested patient to remain a FULL CODE. 0005 - manual BP 20/doppler. Levophed gtt titrated to 30mcg/min by ALISA Denney. Dr Womack at bedside. 0010 - Dr Womack at bedside to perform chest tube insertion. Pt prepped. 0020 - Chest Tube inserted by Dr Womack with the assistance of ALISA Denney and ALISA Philippe.
--- NOTE | 2021-01-17 04:20 | PC.NURSE ---
MD was notified notified of pt triggering sepsis. Pt received bolus during code. Lactic was obtained, along with blood cultures. New orders received and carried out.
--- NOTE | 2021-01-17 05:54 | PC.NURSE ---
Pt responding to pain. Started bucking the vent. Versed 2mg IV ordered and administered.
[2021-01-17 06:23] LABS: Basophils # 0.1 K/mm3 (0-0.2); Basophils % 0.5 % (0.1-2.0); Eosinophils % 0.1 % (0.1-12.0); Hematocrit 40.7 % (37.0-47.0); Lymphocytes # 0.5 K/mm3 (0.7-4.5); Lymphocytes % 4.6 % (10-50); Mean Corpuscular HGB Conc 29.2 g/dL (31.8-35.4); Mean Corpuscular Hemoglobin 23.2 pg (27.0-31.2); Mean Corpuscular Volume 79.4 fl (81-99); Mean Platelet Volume 8.2 fl (7.4-10.4); Monocytes # 0.5 K/mm3 (0.1-1.0); Monocytes % 4.9 % (1.7-9.3); Platelet Count 277 K/mm3 (142-424); Red Blood Count 5.12 M/mm3 (4.20-5.40); Red Cell Distribution Width 18.4 % (11.5-17.5)
[2021-01-17 06:24] LABS: Chloride 80 mmol/L (98-107)
[2021-01-17 06:25] LABS: MANUAL DIFFERENTIAL MANUAL DIFFERENTIAL (MANUAL DIFF); Sodium 134 mmol/L (136-145)
[2021-01-17 06:27] LABS: Blood Urea Nitrogen 6 mg/dl (7-17); Creatinine Clearance Estimated 147 mL/min (50-200); Estimated Glomerular Filt Rate 227 ml/min (>60); GFR (African American) 275 ML/MIN (>60)
[2021-01-17 06:28] LABS: Calcium 7.3 mg/dl (8.4-10.2); Glucose 119 mg/dl (74-100)
[2021-01-17 06:33] LABS: Lactic Acid 1.7 mmol/L (0.7-2.1)
--- NOTE | 2021-01-17 06:41 | HMH.RR ---
Acute Rapid Response Note - Subjective Date Responded: 01/16/21 Time Responded: 23:00 Provider Note: called for dec resp and code blue - acls protocol was started - pt was intubated with number 7 tube and pt responded with low bp and required bp support and had rt apical pxt requiring chest tube - Objective Findings: Vital Signs - Last 4 Hours Temperature 100.6 F H 01/17/21 03:00 Temperature Source Rectal 01/17/21 03:00 Pulse Rate 106 H 01/17/21 05:20 Respiratory Rate 20 01/17/21 05:00 TAR Vitals Timing Completion Vitals 01/10/21 20:00 Blood Pressure 136/91 H 01/17/21 03:30 Blood Pressure Mean 106 01/17/21 03:30 Blood Pressure Source Automatic Cuff 01/17/21 03:30 Blood Pressure Position Supine 01/16/21 23:10 02 Sat by Pulse Oximetry 98 01/17/21 05:00 Oxygen Delivery Method 01/17/21 06:00 Oxygen Flow Rate (LPM) 4 01/16/21 21:00 Lab Results for Past 12 Hours 01/17/21 05:05: WBC 10.0 D, RBC 5.12, Hgb 12.0 L D, Hct 40.7, MCV 79.4 L, MCH 23.2 L, MCHC 29.2 L, RDW 18.4 H, Plt Count 277 D, MPV 8.2, Neut % (Auto) 90.0 H, Lymph % (Auto) 4.6 L, [place] % (Auto) 4.9, Eos % (Auto) 0.1, Baso % (Auto) 0.5, Neut # (Auto) 9.0 H, Lymph # (Auto) 0.5 L, [place] # (Auto) 0.5, Eos # (Auto) 0.0, Baso # (Auto) 0.1 01/17/21 05:05: Lactate 1.7 01/16/21 23:00: Sodium 143, Potassium 4.1 D, Chloride 81 L, Carbon Dioxide 53 H*, Anion Gap 13.1, BUN 6 L, Creatinine 0.30 L, Estimated Creat Clear 140, Estimated GFR 227, Est GFR ( Amer) 275, Glucose 93, Calcium 6.3 L, Total Bilirubin 0.1 L, AST 17, ALT 7 L, Alkaline Phosphatase 72, Troponin I 0.01, Total Protein 4.0 L D, Albumin 1.8 L, Globulin 2.2, Albumin/Globulin Ratio 0.8 L 01/16/21 23:00: WBC 4.7 L D, RBC 4.59, Hgb 10.5 L, Hct 36.2 L, MCV 78.8 L, MCH 22.9 L, MCHC 29.1 L, RDW 18.7 H, Plt Count 179, MPV 7.8, Neut % (Auto) 61.3, Lymph % (Auto) 28.5, [place] % (Auto) 5.3, Eos % (Auto) 0.4, Baso % (Auto) 1.3, Neut # (Auto) 2.9, Lymph # (Auto) 1.4, [place] # (Auto) 0.3, Eos # (Auto) 0.0, Baso # (Auto) 0.1 My Orders Category Date Time Status Chest tube management QSHIFT Care 01/17/21 02:29 Active Chest tube tray ONCE Care 01/17/21 02:29 Active Education, chest tube care CONT Care 01/17/21 02:29 Active Urinary Catheter, Insert ONCE Care 01/16/21 23:18 Completed Ventilator Monitor/Settings Q4RT Care 01/16/21 23:25 Active Vital Signs Assessment [id number] Care 01/17/21 03:29 Active Chest XR -- portable [XR chest portable] Routine Exams 01/17/21 07:30 Ordered Chest XR -- portable [XR chest portable] Stat Exams 01/17/21 00:10 Taken Chest XR -- portable [XR chest portable] Stat Exams 01/17/21 00:15 Taken XR chest portable Stat Exams 01/16/21 23:08 Taken Basic Metabolic Panel AMLAB Lab 01/17/21 05:05 Received CBC [Complete Blood Count Auto Diff] AMLAB Lab 01/17/21 05:05 Results Complete Blood Count Auto Diff Routine Lab 01/16/21 23:00 Completed Comprehensive Metabolic Panel Routine Lab 01/16/21 23:00 Completed Lactic Acid Stat Lab 01/17/21 05:05 Completed Troponin I Routine Lab 01/16/21 23:00 Completed 0.9 % Sodium Chloride [Sod Chlor 0.9% 1000mL Bag] 1,000 Med 01/16/21 23:03 Discontinued ml IV 999 mls/hr 0.9 % Sodium Chloride [Sod Chlor 0.9% 250mL Bag] 250 ml Med 01/17/21 05:30 Discontinued IV As directed Acetaminophen [Acetaminophen 650mg suppository] Med 01/17/21 04:26 Discontinued 650 mg RC .STK-MED ONE Atropine Sulfate [Atropine 1mg/10mL Syringe] Med 01/16/21 23:05 Discontinued 1 mg IV ONCE ONE Azithromycin [Zithromax 500mg ADV] 500 mg Med 01/17/21 04:30 Ordered 0.9 % Sodium Chloride [Sod Chloride 0.9% 250mL Adv] 250 ml IV Q24H Azithromycin [Zithromax 500mg vial] Med 01/17/21 05:30 Discontinued 500 mg IV .STK-MED ONE Ceftriaxone 1 gm [Rocephin 1gm ADV] Med 01/17/21 05:27 Discontinued 1 gm IV .STK-MED ONE Ceftriaxone Sodium [Rocephin 1gm vial] 1 gm Med 01/17/21 04:30 Ordered 0.9 % Sodium Chloride [Sod Ch
[2021-01-17 07:14] LABS: ABG Base Excess 22.5 mmol/L (-2.4-2.3); ABG HCO3 45.1 mmhg (22.0-26.0); ABG Oxygen Saturation 97 % (90-100); ABG PH 7.54 mmol/L (7.35-7.45); ABG TCO2 46.7 mmhg (23-27)
[2021-01-17 07:17] LABS: Oxygen 100 %; PEEP 7; Tidal Volume 340; Vent Rate 20
[2021-01-17 07:17] LABS: Anion Gap 8.8 mEq/L (5-15); Carbon Dioxide 48 mmol/L (22.0-30.0)
[2021-01-17 07:18] LABS: Allen's Test Patient Unable; Source R RADIAL
[2021-01-17 07:18] LABS: Potassium 2.8 mmoL/L (3.5-5.1)
[2021-01-17 07:20] LABS: ABG PCO2 54.4 mmhg (35.0-45.0)
--- NOTE | 2021-01-17 07:30 | XR_ITS ---
PROCEDURE: XR CHEST PORTABLE CLINICAL HISTORY: daily COMPARISON: CT CT ANGIO CHEST PE PROTOCOL from 01/08/2021 CR XR CHEST PORTABLE from 01/12/2021 CR XR CHEST PORTABLE from 01/12/2021 CR XR CHEST PORTABLE from 01/13/2021 FINDINGS: Endotracheal tube has been placed. The tip is in good position 2.4 cm above the raf. There are overlying external cardiac defibrillator device is obscuring the lower chest centrally and on the left. A small bore tube is noted over the right upper chest. This overlies the cavity in the right upper chest. Left lung collapse once again noted with left-sided effusion. Consolidation is present in the right lower lobe consistent with pneumonia. IMPRESSION: Tubes and lines present as described above. Endotracheal tube tip is in good position. No change in the right lower lobe pneumonia biapical cavities and collapse/consolidation of the left lower lobe with small left effusion. Dictated by: Billy Keenan MD 01/17/2021 07:23 Billy Keenan MD in [place] 01/17/2021 07:23
--- NOTE | 2021-01-17 07:34 | PC.NURSE ---
notified of critical potassium
--- NOTE | 2021-01-17 07:50 | PC.NURSE ---
Levophed titration 8 mcg/min 2350 16 mcg/min 2355 20 mcg/min 0000 30 mcg/min 0005 25 mcg/min 0100 22 mcg/min 0155 20 mcg/min 0320 18 mcg/min 0430 16 mcg/min 0510 14 mcg/min 0606 12 mcg/min 0700
--- NOTE | 2021-01-17 08:11 | PC.NURSE ---
tylenol 650 mg supp administered 5143
--- NOTE | 2021-01-17 08:33 | HMH.GSCON ---
*Admission Date: 01/08/21 *Reason for consult:: Pneumothorax catheter *History of present illness: This is a 60-year-old female who had increasing respiratory distress overnight requiring intubation. Postintubation chest x-ray revealed possible right apical pneumothorax. A 8 [place] pneumothorax catheter was placed in position and the surgical service was consulted for tube management . Review of Systems - Review of Systems Review of systems:: unable to obtain - *Neurologic Reports abnormal walking, Reports confusion, Reports weakness, Denies abnormal hearing, Denies behavioral changes, Denies dizziness, Denies headache(s), Denies numbness [facility] History Medical History: Reports:: Asthma, Chronic Obstructive Pulmonary Disease (COPD), Gastroesophageal Reflux Disease(GERD), Home Oxygen, Hypertension Denies:: Cancer, Diabetes Mellitus Type 1, Diabetes Mellitus Type 2, MRSA, Seizures *Have you ever received a pneumonia vaccine?: Yes *Have you received a flu vaccine this season?: Yes Other Medical History: Reports: Anemia, Arthritis, Cataracts, Hypothyroidism, Sinus Problems, Thyroid Disease. Denies: Blood Transfusion Reaction Anesthesia experience/problems:: none Other Surgeries: Yes: Appendectomy, Dilation and Curettage, Other Amputation: No Fractures: Yes - *Social History Last grade of school completed: High school graduate Smoking Status: Former smoker Tobacco Type: cigarettes # Packs/Day (cigarettes): 0 #Yrs smoked (if former smoker): 43 Alcohol Intake: never Substance Use Type: opiates, painkillers, former substance user *Occupational Status:: retired Housing: apartment Household Members: spouse *Travel in the last 8 weeks: None Family Hx:: No significant family history Meds Home Medications Medication Instructions Recorded Confirmed Type Buprenorphine HCl/Naloxone HCl 1.75 tab PO DAILY 12/04/20 01/09/21 History [Buprenorphine-Nalox 8-2 mg Tab] Levothyroxine Sodium [Synthroid 125 mcg PO DAILY 12/04/20 01/09/21 History 125mcg (0.125mg) tablet] Albuterol Sulfate [Albuterol 2.5 mg IH Q6HP PRN 01/09/21 01/09/21 History Sulfate 2.5mg/0.5ml Neb] Furosemide [Lasix 40mg tablet] 40 mg PO DAILY 01/09/21 01/09/21 History Allergies Allergy/AdvReac Type Severity Reaction Status Date / Time No Known Allergies Allergy Verified 06/26/20 11:10 Exam Vital signs and Labs for Last 24 Hours: Temp Pulse Resp BP Pulse Ox 100.6 F H 109 H 20 130/89 100 01/17/21 06:00 01/17/21 06:30 01/17/21 06:30 01/17/21 06:30 01/17/21 06:30 Laboratory Results - last 24 hr 01/16/21 23:00: WBC 4.7 L D, RBC 4.59, Hgb 10.5 L, Hct 36.2 L, MCV 78.8 L, MCH 22.9 L, MCHC 29.1 L, RDW 18.7 H, Plt Count 179, MPV 7.8, Neut % (Auto) 61.3, Lymph % (Auto) 28.5, [place] % (Auto) 5.3, Eos % (Auto) 0.4, Baso % (Auto) 1.3, Neut # (Auto) 2.9, Lymph # (Auto) 1.4, [place] # (Auto) 0.3, Eos # (Auto) 0.0, Baso # (Auto) 0.1 01/16/21 23:00: Sodium 143, Potassium 4.1 D, Chloride 81 L, Carbon Dioxide 53 H*, Anion Gap 13.1, BUN 6 L, Creatinine 0.30 L, Estimated Creat Clear 140, Estimated GFR 227, Est GFR ( Amer) 275, Glucose 93, Calcium 6.3 L, Total Bilirubin 0.1 L, AST 17, ALT 7 L, Alkaline Phosphatase 72, Troponin I 0.01, Total Protein 4.0 L D, Albumin 1.8 L, Globulin 2.2, Albumin/Globulin Ratio 0.8 L 01/17/21 05:05: Lactate 1.7 01/17/21 05:05: WBC 10.0 D, RBC 5.12, Hgb 12.0 L D, Hct 40.7, MCV 79.4 L, MCH 23.2 L, MCHC 29.2 L, RDW 18.4 H, Plt Count 277 D, MPV 8.2, Neut % (Auto) 90.0 H, Lymph % (Auto) 4.6 L, [place] % (Auto) 4.9, Eos % (Auto) 0.1, Baso % (Auto) 0.5, Neut # (Auto) 9.0 H, Lymph # (Auto) 0.5 L, [place] # (Auto) 0.5, Eos # (Auto) 0.0, Baso # (Auto) 0.1 01/17/21 05:05: Sodium 134 L, Potassium 2.8 L* D, Chloride 80 L, Carbon Dioxide 48 H*, Anion Gap 8.8, BUN 6 L, Creatinine 0.30 L, Estimated Creat Clear 147, Estimated GFR 227, Est GFR ( Amer) 275, Glucose 119 H D, Calcium 7.3 L 01/17/21 07:00: Specimen Source R radial, O2 % 100, ABG pH
[2021-01-17 08:37] LABS: Lymphocytes % 3 % (10-50); Monocytes % 6 % (2-9); Neutrophils % 91 % (42-76); Total Cells Counted 100
[2021-01-17 08:38] LABS: Hypochromasia 2+
[2021-01-17 08:39] LABS: Anisocytosis 1+; Microcytosis 1+
[2021-01-17 08:46] LABS: Platelet Estimate Normal
--- NOTE | 2021-01-17 09:00 | PC.NURSE ---
BP 148/82. Levo gtt decreased to 8mcg/min from 12mcg/min.
[2021-01-17 09:07] LABS: ABG HCO3 38.8 mmhg (22.0-26.0); ABG PCO2 100.1 mmhg (35.0-45.0); ABG PH 7.21 mmol/L (7.35-7.45); ABG PO2 149.7 mmhg (80-100); ABG TCO2 41.8 mmhg (23-27)
[2021-01-17 09:08] LABS: ABG Base Excess 7.9 mmol/L (-2.4-2.3); ABG Oxygen Saturation 99 % (90-100); Oxygen 100% %; PEEP 7; Source Right Femoral; Tidal Volume 340; Vent Rate 20
--- NOTE | 2021-01-17 09:40 | PC.NURSE ---
BP 120/62. Levo gtt turned OFF.
--- NOTE | 2021-01-17 10:21 | P.ENSEP_ITS ---
[facility] Tissue Perfusion Eval Sepsis Re-Evaluation Performed: Yes Date Performed: 01/17/21 Time Performed: 07:00
--- NOTE | 2021-01-17 10:22 | HMH.ACPN2 ---
Internal Medicine - PN: Subj *Date: 01/17/21 *Time: 08:00 Interval history: pt with acute cardiopul arrest last pm with successful resuscitation but possibel rt apical pxt and small chest tube placed - pt on vent and had fever and sepsis and required bp support - doing some better this am- surg will help with tube Exam Vital signs and Labs for Last 24 Hours: Temp Pulse Resp BP Pulse Ox 100.0 F H 139 H 20 98/68 L 95 01/17/21 08:00 01/17/21 10:00 01/17/21 10:00 01/17/21 10:00 01/17/21 10:00 Laboratory Results - last 24 hr 01/16/21 23:00: WBC 4.7 L D, RBC 4.59, Hgb 10.5 L, Hct 36.2 L, MCV 78.8 L, MCH 22.9 L, MCHC 29.1 L, RDW 18.7 H, Plt Count 179, MPV 7.8, Neut % (Auto) 61.3, Lymph % (Auto) 28.5, [place] % (Auto) 5.3, Eos % (Auto) 0.4, Baso % (Auto) 1.3, Neut # (Auto) 2.9, Lymph # (Auto) 1.4, [place] # (Auto) 0.3, Eos # (Auto) 0.0, Baso # (Auto) 0.1 01/16/21 23:00: Sodium 143, Potassium 4.1 D, Chloride 81 L, Carbon Dioxide 53 H*, Anion Gap 13.1, BUN 6 L, Creatinine 0.30 L, Estimated Creat Clear 140, Estimated GFR 227, Est GFR ( Amer) 275, Glucose 93, Calcium 6.3 L, Total Bilirubin 0.1 L, AST 17, ALT 7 L, Alkaline Phosphatase 72, Troponin I 0.01, Total Protein 4.0 L D, Albumin 1.8 L, Globulin 2.2, Albumin/Globulin Ratio 0.8 L 01/16/21 23:15: Specimen Source Right femoral, O2 % 100%, ABG pH 7.21 L*, ABG pCO2 100.1 H, ABG pO2 149.7 H, ABG HCO3 38.8 H, ABG Total CO2 41.8 H, ABG O2 Saturation 99, ABG Base Excess 7.9 H, Vent Rate 20, Tidal Volume 340, PEEP 7 01/17/21 05:05: Lactate 1.7 01/17/21 05:05: WBC 10.0 D, RBC 5.12, Hgb 12.0 L D, Hct 40.7, MCV 79.4 L, MCH 23.2 L, MCHC 29.2 L, RDW 18.4 H, Plt Count 277 D, MPV 8.2, Neut % (Auto) 90.0 H, Lymph % (Auto) 4.6 L, [place] % (Auto) 4.9, Eos % (Auto) 0.1, Baso % (Auto) 0.5, Neut # (Auto) 9.0 H, Lymph # (Auto) 0.5 L, [place] # (Auto) 0.5, Eos # (Auto) 0.0, Baso # (Auto) 0.1, Total Counted 100, Neutrophils % (Manual) 91 H, Lymphocytes % (Manual) 3 L, Monocytes % (Manual) 6, Platelet Estimate Normal, RBC Morphology Not Reportable, Hypochromasia 2+, Anisocytosis 1+, Microcytosis 1+ 01/17/21 05:05: Sodium 134 L, Potassium 2.8 L* D, Chloride 80 L, Carbon Dioxide 48 H*, Anion Gap 8.8, BUN 6 L, Creatinine 0.30 L, Estimated Creat Clear 147, Estimated GFR 227, Est GFR ( Amer) 275, Glucose 119 H D, Calcium 7.3 L 01/17/21 07:00: Specimen Source R radial, O2 % 100, ABG pH 7.54 H, ABG pCO2 54.4 H, ABG pO2 79.0 L, ABG HCO3 45.1 H, ABG Total CO2 46.7 H, ABG O2 Saturation 97, ABG Base Excess 22.5 H, Billy Test Patient unable, Vent Rate 20, Tidal Volume 340, PEEP 7 I & O for Last 24 hours: Intake & Output 01/14/21 01/15/21 01/16/21 01/17/21 11:59 11:59 11:59 11:59 Intake Total 2903 / 2903 2277 / 2277 2605 / 2605 1550.009 / 1550.009 Output Total 1125 / 1125 1575 / 1575 0 / 0 2505 / 2505 Balance 1778 / 1778 702 / 702 2605 / 2605 -954.991 / -954.991 Weight 106 lb 9 oz 98 lb 5 oz 103 lb Microbiology Reports for the Last 24 Hours: Microbiology 01/12/21 12:40 Bronchial Lavage - Left Upper Lobe Gram Stain - Final 01/12/21 12:40 Bronchial Lavage - Left Upper Lobe Bronchoalveolar Lavage Culture - Final No growth. 01/15/21 16:35 Sputum - Expectorated Sputum Gram Stain - Final 01/15/21 16:35 Sputum - Expectorated Sputum Sputum Culture - Preliminary Yeast 01/12/21 12:40 Transbronchial Biopsy - Left Lower Lobe Gram Stain - Final 01/12/21 12:40 Transbronchial Biopsy - Left Lower Lobe Surgical Biopsy Culture - Preliminary NO GROWTH AFTER 4 DAYS - Constitutional obtunded - *Routine HEENT Exam Head: Present: normocephalic Eye: Present: EOMI, PERRL ENT: Present: mucous membranes dry - *Routine Neck Exam Absent: JVD - *Routine Respiratory Exam Present: patient mechanically ventilated - *Routine Cardiovascular Exam Present: tachycardia - *Routine Abdominal Exam Present: soft - *Routi
--- NOTE | 2021-01-17 10:27 | DIET.NUTRFU ---
Nutrition consult for initiating enteral nutrition received. Pt intubated and sedated s/p cold blue early this am. Pt with ongoing severe malnutrition rt COPD and social/behavioral circumstances with stage III PA. She has actually improved nutritionally from last admission 1ma with 9# weight gain and reported adequate intakes at home. She has gained 20# t/o stay in the past week, likely attributed to fluid. UBW is 37kg. Prior to bronchoscopy on 01/12, pt was eating well about 75%, intakes have decreased past 4d to 25-50%. Sodium and Potassium are low, she is receiving IV K. MAP is 78. Levo weaned this am, turned off at 10:12. She was initiated on LR IVF at 75ml/h this am. She is not receiving propofol at this time. She is at moderate risk refeeding syndrome, will initiate slow and low advancement feedings and monitor closely to alter regimen as indicated. Recommend initiating continuous tube feeding regimen of Pulmocare 1.5 at 20ml/h and advancing by 10ml/h q 8h as tolerated to goal rate of 30ml/h. Pt currently meeting fluid needs through IVF, recommend minimal water flushes of 30-60ml at GRV checks for tube irrigation. When IVF dc'd- recommend water flushes of 165 q 6h to meet additional fluid needs not provided by formula. This regimen provides 1035 kcal, 43g protein, 73g cho, 64g fat, and 542ml free water (1202ml total fluids with water flushes).
--- NOTE | 2021-01-17 10:31 | PC.NURSE ---
OG inserted and is 63 @ the lip.
[2021-01-17 10:58] LABS: Microscopic, Urine URINE MICROSCOPIC (MICROSCOPIC)
[2021-01-17 11:08] LABS: Appearance,Urine CLEAR (Clear); Blood, Urine TRACE-I (Negative); Color,Urine YELLOW (Yellow); Glucose,Urine (UA) Negative (Negative); Ketones,Urine 1+ (Negative); Leukocyte Esterase,Urine Negative (Negative); Nitrate,Urine Negative (Negative); PH,Urine 7.5 (5.0-8.5); Protein,Urine 1+ (Negative); Urobilinogen,Urine 0.2 EU/dl (0.2)
[2021-01-17 11:10] LABS: Bilirubin,Urine 1+ (Negative)
--- NOTE | 2021-01-17 11:21 | HMH.PULMPN ---
Internal Medicine - PN: Subj *Date: 01/17/21 *Time: 11:21 Interval history: Patient had acute decompensation yesterday where she got coded and then eventually intubated for airway protection. Exam - Constitutional Constitutional:: Present: no acute distress, comfortable - HENMT Exam HENMT: Present: normocephalic, atraumatic - Eye Exam Eyes:: Present: normal appearance both eyes and related structures - Neck Exam Neck:: Present: normal visual inspection - Respiratory Exam Respiratory:: Present: respiratory distress, decreased breath sounds, crackles - Cardiovascular Exam Cardiac:: Present: S1, S2 - GI Exam GI:: Present: soft - Skin Exam Skin: Present: warm, no rash - Neurological Exam Neurological: Present: awake. Absent: alert, normal cognition - Extremities Exam Extremities: Present: no cyanosis, no clubbing, edema Assessment and Plan (1) Respiratory failure with hypercapnia Status: Acute Category: Medical Code(s): J96.92 - Respiratory failure, unspecified with hypercapnia (2) Hypokalemia Status: Acute Category: Medical Code(s): E87.6 - Hypokalemia (3) Cachectic Status: Acute Category: Medical Code(s): R64 - Cachexia (4) Body mass index (BMI) less than 16.5 Status: Acute Category: Medical Code(s): Z68.1 - Body mass index [BMI] 19.9 or less, adult (5) Weakness Status: Acute Category: Medical Code(s): R53.1 - Weakness (6) Dehydration Status: Acute Category: Medical Code(s): E86.0 - Dehydration (7) Severe protein-calorie malnutrition Status: Acute Category: Medical Code(s): E43 - Unspecified severe protein-calorie malnutrition (8) Iron deficiency anemia Status: Acute Category: Medical Code(s): D50.9 - Iron deficiency anemia, unspecified (9) Mitral regurgitation Status: Acute Qualifiers: Cardiac valve disease etiology: etiology unspecified Qualified Code(s): I34.0 - Nonrheumatic mitral (valve) insufficiency Category: Medical Code(s): I34.0 - Nonrheumatic mitral (valve) insufficiency (10) Pulmonary HTN Status: Acute Category: Medical Code(s): I27.20 - Pulmonary hypertension, unspecified (11) Community acquired pneumonia Status: Acute Qualifiers: Laterality: unspecified laterality Qualified Code(s): J18.9 - Pneumonia, unspecified organism Category: Medical Code(s): J18.9 - Pneumonia, unspecified organism (12) Acute and chronic respiratory failure Status: Acute Qualifiers: Respiratory failure complication: hypoxia and hypercapnia Qualified Code(s): J96.21 - Acute and chronic respiratory failure with hypoxia; J96.22 - Acute and chronic respiratory failure with hypercapnia Category: Medical Code(s): J96.20 - Acute and chronic respiratory failure, unspecified whether with hypoxia or hypercapnia (13) SIRS (systemic inflammatory response syndrome) Status: Acute Category: Medical Code(s): R65.10 - Systemic inflammatory response syndrome (SIRS) of non-infectious origin without acute organ dysfunction (14) Stage III pressure ulcer Status: Acute Qualifiers: Pressure injury location: unspecified location Qualified Code(s): L89.93 - Pressure ulcer of unspecified site, stage 3 Category: Medical Code(s): L89.93 - Pressure ulcer of unspecified site, stage 3 (15) Pneumothorax on right Status: Acute Category: Medical Code(s): J93.9 - Pneumothorax, unspecified (16) Cardiopulmonary arrest with successful resuscitation Status: Acute Category: Medical Code(s): I46.9 - Cardiac arrest, cause unspecified (17) Severe sepsis with acute organ dysfunction Status: Acute Category: Medical Code(s): A41.9 - Sepsis, unspecified organism; R65.20 - Severe sepsis without septic shock (18) Septic shock Status: Acute Category: Medical Code(s): A41.9 - Sepsis, unspecified organism; R65.21 - Severe sepsis with septic shock - Assessment and plan all Dx Assessment and
--- NOTE | 2021-01-17 11:28 | CA_ITS ---
APPROVED REPORT EXAM: Comprehensive 2D, Doppler, and color-flow Echocardiogram Billing Spec: FREDI Strong, RVS Ht: 5 ft 1 in Wt: 103lbs BSA: 1.42 BP: 95/45 mmHg Indications: Tuberculosis, Hypoxia, Shock, s/p code w/ intubation, Afib 2D Dimensions LVOT 1.32 cm (M/F) 1.5-2.5 LA Volume 22.10 mL LA Volume Index 15.837313 mL/m2 (M/F) 16-34 M-Mode Dimensions RVDd 2.04 cm (0.9-2.6) LA Diam 2.45 cm (1.9-4.0) LVDd 2.94 cm (3.5-5.7) Ao Diam 2.36 cm (2.0-3.7) LVDs 1.17 cm (3.5-5.7) IVSd 1.08 cm (0.6-1.1) PWd 1.14 cm (0.6-1.1) EF (Teich) 90.70% EPSs 0.09 cm FS 60.20% EDV (Teich) 33.30 mL TAPSE 1.95 (<1.7) ESV (Teich) 3.10 mL LV Diastology E Decel Time 150.00 (160-240 msec) E/A Ratio 0.68 MED E' 10.60 (< 7 cm/sec) MED A' 15.30 cm/s E'/MED E' Ratio 6.78 (>14) LAT E' 8.90 (<10 cm/sec) LAT A' 11.40 cm/s E/LAT E' Ratio 8.08 (>14) Aortic Valve LVOT Max 139.00 (70-110 cm/s) LVOT VTI 23.15 cm AoV Peak Brian. 171.00 (50-130 cm/s) AO Peak GR. 11.70 mmHg AO Mean GR. 5.70 (<5 mmHg) AO VTI 22.35 (18-25 cm) LEXX (VTI) 1.42 (2.5-4.5 cm2) Mitral Valve MV E Max Brian. 72.00 (40-130 cm/s) MV A Velocity 106.00 (40-130 cm/s) E/A Ratio 0.68 MV Decel. Time 150.00 (160-240 ms) MV PHT 44.00 ms Tricuspid Valve TR P. Velocity 341.00 cm/s RAP Estimate 10.00 mmHg RVSP 56.60 mmHg Left Ventricle Left atrium is normal size, left ventricle is normal size, there is hyperdynamic left ventricular systolic function, visually estimated ejection fraction over 65% with no regional wall motion abnormality. Diastolic parameters are inconclusive. Right Ventricle Right atrium and right ventricle moderately enlarged, contractility right ventricle is mildly reduced. Aortic Valve Aortic valve is minimally thickened and fibrosed, there is no aortic stenosis or aortic insufficiency. Mitral Valve Mitral valve is grossly normal, there is trace mitral regurgitation. Tricuspid Valve Tricuspid grossly normal, there is trace tricuspid regurgitation, calculated right ventricular systolic pressure is 52 mmHg. Pulmonic Valve Pulmonic valve is poorly visualized. Great Vessels Aortic root is normal size. Pericardium No significant pericardial effusion noted. Conclusion 1. Normal left ventricular size, hyperdynamic left ventricular systolic function, visually estimated ejection fraction over 65% with no regional wall motion abnormality, diastolic parameters are inconclusive. 2. Moderately enlarged right ventricle with mild reduced contractility. 3. No significant pericardial effusion noted. 4. Trace mitral and tricuspid regurgitation, calculated right ventricular systolic pressure is 52 mmHg. Electronically signed by : Kennedy Fountain MD 01/18/2021 15:35:17
--- NOTE | 2021-01-17 13:00 | PC.WOUNDNOTE ---
Tubefeeds ([facility]) initiated @ 10mL/hr. Goal rate is 30mL/hr. Will advance rate by 10mL every 8hrs until goal rate is achieved. Pt is alert and able to follow commands. HR continues in 110s-120s. Morphine IV 1mg given twice for agitation. Levo gtt remains off. Has been normotensive.
--- NOTE | 2021-01-17 15:55 | PC.NURSE ---
Pt switched to SBT, following commands. Apnea alarm kept alarming with tidal volumes triggering 50-100. Pt placed back on AC mode.
--- NOTE | 2021-01-17 16:56 | XR_ITS ---
PROCEDURE: Chest single view CLINICAL INDICATION: Subcutaneous emphysema COMPARISON: CR XR CHEST PORTABLE from 01/17/2021 FINDINGS: Small bore right-sided chest tube remains in place. There has been interval development of diffuse subcutaneous emphysema along the right chest wall. Biapical chronic cavities are once again noted. No obvious pneumothorax. Left lower lobe collapse with small left effusion. Increasing consolidation in the right lower lobe. Endotracheal tube tip is in good position 4 cm above the raf. Nasogastric tube is present with the tip not visible on the image but below the diaphragm. IMPRESSION: Interval development of diffuse subcutaneous emphysema involving the right lateral chest wall. No change tubes and lines Right lower lobe pneumonia with left lower lobe collapse and chronic biapical cavities with no obvious pneumothorax Dictated by: Billy Keenan MD 01/17/2021 18:01 Billy Keenan MD in [facility] 01/17/2021 18:01
--- NOTE | 2021-01-17 16:57 | PC.NURSE ---
right breast and right axilla area with subcut air. This is new. Updated Dr. Velazquez by phone, who orders a repeat CXR. Order entered. Will update him by phone after results received.
--- NOTE | 2021-01-17 17:28 | PC.NURSE ---
Spoke to Dr. Velazquez regarding CXR results. He has ordered to increase chest tube suction to 40cm. He also requested to notify him if subcu air gets increasing larger within a 30min time frame. Will also gather needed supplies in the event that a 2nd chest tube needs to be placed. Will relay all info to conchita CUELLAR.
--- NOTE | 2021-01-17 21:15 | PC.NURSE ---
initial assessment, patient restless, attempting to talk around ett, grimace present with furrowed brow. rr 28, heart rate 111. follows all commands, shakes head yes and no appropriately to questions. reach for ett multiple times, mouths she wants it out, rn and resp therapy at bedside explaining events of previous night and need for ett. explained consequences of taking tube out. patient shakes head and rolls eyes. 1 mg morphine ivp given.
--- NOTE | 2021-01-17 21:19 | PC.NURSE ---
2100 patient rested, when resting blood pressure is in the low 80s so levophed drip restarted at 5 mcq. currently patient is awake, restless and aggitated again. heart rate back up into the 110, blood pressure up to 136 systolic.
--- NOTE | 2021-01-17 23:00 | PC.NURSE ---
2229 this rn heard crisis vent alarm sounding, upon entering room patient was found to have extebated herself. patients o2 sats rapidly dropping, rapid response red called. this rn began bagging patient until additional assistance arrived. patient fighting staff to get mask off of face and yelling in ambu bag mask. patient sats back up to 90s, patient placed on nc by respiratory therapy. dr. anderson at bedside. patient assessed, pcxr performed, order received for abgs in 1 hr.patient awake alert and oriented x 4. begging not to be placed back on machine. levophed drip turned off due to patient being awake and agitated and blood pressure 130s . have been treating aggitation with prn morphine as ordered. patient would rest briefly then awaken frantic. dr. palomo notifed of patietn self extebation. new orders received. attempted to notifiy family twice unsuccessfully. voice mailbox full, unable to leave message.
--- NOTE | 2021-01-17 23:07 | XR_ITS ---
PROCEDURE INFORMATION: Exam: XR Chest Exam date and time: 01/17/2021 11:07 PM Age: 60 years old Clinical indication: Shortness of breath; Patient HX: Self extubation; Additional info: Self exetebation TECHNIQUE: Imaging protocol: XR of the chest. Views: 1 view. COMPARISON: CR XR CHEST PORTABLE 01/17/2021 6:51 AM FINDINGS: Lungs: Again, there is severe volume loss within the left hemithorax with mediastinal shift to the left. There is a persistent and stable collection of air or aerated lung present within the left upper lobe. Extensive interstitial parenchymal changes again noted within the right lung field. Overall right pulmonary volume does not appear changed. Again, there is a right thoracic drain in place. No evidence of right pneumothorax. There has been interval development of extensive subcutaneous emphysema noted over the base of the right neck and over the right chest wall since prior examination. Pleural spaces: There are extensive areas of pleural thickening noted within the superior and lateral aspect of the right pleural space. These appear stable. There has been no interval development of pneumothorax. The right lateral costophrenic angle is clear. Heart/Mediastinum: Unremarkable. No cardiomegaly. Bones/joints: There is osteopenia of visualized bones. Advanced degenerative changes of the thoracic spine and shoulders is noted. IMPRESSION: Stable appearance of right thoracic brain since prior examination. Interval development of extensive subcutaneous emphysema over the soft tissues of the base right neck and right chest wall. Overall aeration of both lung guadalupe appear stable when compared to prior examination. Progress examination is suggested.
--- NOTE | 2021-01-17 23:15 | PC.NURSE ---
Dr. Womack s/w Dr. Velazquez and reviewing CXR
[2021-01-17 23:45] LABS: ABG Base Excess 21.5 mmol/L (-2.4-2.3); ABG HCO3 44.8 mmhg (22.0-26.0); ABG Oxygen Saturation 87 % (90-100); ABG PH 7.49 mmol/L (7.35-7.45); ABG TCO2 46.7 mmhg (23-27)
[2021-01-17 23:48] LABS: Allen's Test Acceptable; Oxygen 4L N/C %; Source Right Radial
[2021-01-17 23:50] LABS: ABG PCO2 59.9 mmhg (35.0-45.0)
--- NOTE | 2021-01-17 23:54 | PC.NURSE ---
received critical abg results from [facility] in rt. dr. stacia sanchez
--- NOTE | 2021-01-17 23:59 | PC.NURSE ---
callum on phone with at this time. dr. anderson spoke with dr. mueller regarding cxr, no new orders at this time.
[2021-01-18] VITALS (36 sets, daily range): BP systolic 71–184; BP diastolic 39–109; PULSE 75–150; RESP 0–26; TEMP 36.8–38.1; O2SAT 88–98; BMI 18.6
--- NOTE | 2021-01-18 | ECG_ITS ---
APPROVED REPORT Exam: Resting ECG HR:127 bpm ECG Measurements Heart Rate 127 AXES MN 124 P 69 QRSd 72 QRS 110 QT 294 T 68 QTc 427 Conclusion Sinus tachycardia Left atrial enlargement Left posterior fascicular block Abnormal ECG Electronically signed by : Joey Reilly MD 01/18/2021 17:33:02
--- NOTE | 2021-01-18 00:08 | PC.NURSE ---
dr. anderson notified of critical lab results and patient refusal to wear bipap.
--- NOTE | 2021-01-18 00:22 | PC.NURSE ---
callum has requested at bedside, manager data warehouse has approved visit
--- NOTE | 2021-01-18 01:40 | PC.NURSE ---
at bedside, this rn and discussed importance of bipap, patient angrily refuses to wear bipap. explained that patient will have to be intebated again at some point if resp status continues to deteriorate. pateint awake alert and oriented x 4, sats holding between 87-90% on 4 l nc. patient states she doesn't want that tube in her mouth either. explained to patient and that patietn could code again. unwilling to give clear answer to what she wants if status continues to deteriorate.
--- NOTE | 2021-01-18 01:51 | PC.NURSE ---
this rn and resp therapy discussed with patient wearing the bipap when she is sleeping, patient angrily replied again, no i don't like that thing .
--- NOTE | 2021-01-18 02:04 | PC.NURSE ---
Took bipap to pt room @ 0015. pt refused to wear it. Would not even let me plug it up. She stated she did not want it. Left the bipap in the room incase pt changes her mind. Went back to the room to give the pt a duo neb tx @ 0200 am, I ask her again if she would wear the bipap she stated no she would not. The bipap is still in the pt room on .
--- NOTE | 2021-01-18 02:07 | PC.NURSE ---
chest tube remains intact, borders were marked at the beginning of the shift. no sq air outside border, depth and density of sq air seems to be decreased from beginning of shift.
--- NOTE | 2021-01-18 03:58 | PC.NURSE ---
patient remains awake, alert and oriented x 4 watch tv with at bedside. o2 sats sustaining 88-92 % on 4 l nc. continues to refuse the bipap
--- NOTE | 2021-01-18 05:56 | PC.NURSE ---
patient remains awake alert and oriented x 4o2 sats sustain 88-92%. patient calm in bed watching tv with at bedside.
--- NOTE | 2021-01-18 06:00 | XR_ITS ---
PROCEDURE INFORMATION: Exam: XR Chest Exam date and time: 01/18/2021 6:00 AM Age: 60 years old Clinical indication: Condition or disease; Other: Ptx; Additional info: Sq emphysema / ptx vs blebs TECHNIQUE: Imaging protocol: XR of the chest. Views: 1 view. COMPARISON: CR XR CHEST PORTABLE 01/17/2021 10:41 PM FINDINGS: Tubes, catheters and devices: Right chest tube remains in place, unchanged. Lungs: Stable interstitial changes right lung. Stable opacification of most of the left hemithorax, likely atelectasis and fluid, with mediastinal shift to the left, unchanged. Pleural spaces: Stable pleural thickening right. Heart/Mediastinum: See Lungs finding. Bones/joints: Unremarkable. Soft tissues: There is subcutaneous air right chest, unchanged. IMPRESSION: Stable chest.
[2021-01-18 06:19] LABS: Chloride 81 mmol/L (98-107); Sodium 132 mmol/L (136-145)
[2021-01-18 06:21] LABS: Blood Urea Nitrogen 7 mg/dl (7-17); Creatinine Clearance Estimated 144 mL/min (50-200); Estimated Glomerular Filt Rate 227 ml/min (>60); GFR (African American) 275 ML/MIN (>60)
[2021-01-18 06:22] LABS: Alanine Aminotransferase 7 U/L (12-78); Albumin Level 2.2 g/dl (3.5-5.0); Albumin/Globulin Ratio 0.8 (1.1-1.8); Alkaline Phosphatase 88 U/L (38-126); Aspartate Amino Transferase 34 U/L (14-36); Bilirubin,Total 0.7 mg/dl (0.2-1.3); Globulin 2.7 g/dL (1.3-3.2); Glucose 68 mg/dl (74-100); Total Protein,Serum 4.9 g/dl (6.3-8.2)
[2021-01-18 07:04] LABS: Anion Gap 6.7 mEq/L (5-15); Carbon Dioxide 47 mmol/L (22.0-30.0); Potassium 2.7 mmoL/L (3.5-5.1)
--- NOTE | 2021-01-18 07:05 | PC.NURSE ---
notified dr. anderson of critical potassium level, no new orders received.
--- NOTE | 2021-01-18 07:06 | HMH.GSPN ---
Subjective Narrative: Although no obvious pneumothorax noted on chest x-ray, she did develop subcutaneous emphysema yesterday afternoon. This has improved overnight. In addition, she self extubated overnight. Follow-up chest x-rays once again revealed no obvious pneumothorax. Progress Note: A&P (1) Respiratory failure with hypercapnia Status: Acute (2) Hypokalemia Status: Acute (3) Cachectic Status: Acute (4) Body mass index (BMI) less than 16.5 Status: Acute (5) Weakness Status: Acute (6) Dehydration Status: Acute (7) Severe protein-calorie malnutrition Status: Acute (8) Iron deficiency anemia Status: Acute (9) Mitral regurgitation Status: Acute (10) Pulmonary HTN Status: Acute (11) Community acquired pneumonia Status: Acute (12) Acute and chronic respiratory failure Status: Acute (13) SIRS (systemic inflammatory response syndrome) Status: Acute (14) Stage III pressure ulcer Status: Acute (15) Pneumothorax on right Status: Acute Assessment and plan: No obvious radiographic evidence of true pneumothorax although she does have cavitation/bleb disease. However, subcutaneous emphysema that developed yesterday is certainly consistent with pneumothorax/bleb injury. The small pneumothorax catheter currently has no air leak (leak was in system). It is likely that the catheter at this point has created bleb injury and may create additional bleb injuries. The pneumothorax catheter will be removed. She may require large bore chest tube pending results of follow-up films. (16) Cardiopulmonary arrest with successful resuscitation Status: Acute (17) Severe sepsis with acute organ dysfunction Status: Acute (18) Septic shock Status: Acute Exam Vital signs and Labs for Last 24 Hours: Temp Pulse Resp BP Pulse Ox 98.2 F 101 H 22 137/88 92 L 01/18/21 04:00 01/18/21 07:05 01/18/21 06:00 01/18/21 06:00 01/18/21 07:05 Laboratory Results - last 24 hr 01/16/21 23:15: Specimen Source Right femoral, O2 % 100%, ABG pH 7.21 L*, ABG pCO2 100.1 H, ABG pO2 149.7 H, ABG HCO3 38.8 H, ABG Total CO2 41.8 H, ABG O2 Saturation 99, ABG Base Excess 7.9 H, Vent Rate 20, Tidal Volume 340, PEEP 7 01/17/21 05:05: Total Counted 100, Neutrophils % (Manual) 91 H, Lymphocytes % (Manual) 3 L, Monocytes % (Manual) 6, Platelet Estimate Normal, RBC Morphology Not Reportable, Hypochromasia 2+, Anisocytosis 1+, Microcytosis 1+ 01/17/21 05:05: Sodium 134 L, Potassium 2.8 L* D, Chloride 80 L, Carbon Dioxide 48 H*, Anion Gap 8.8, BUN 6 L, Creatinine 0.30 L, Estimated Creat Clear 147, Estimated GFR 227, Est GFR ( Amer) 275, Glucose 119 H D, Calcium 7.3 L 01/17/21 07:00: Specimen Source R radial, O2 % 100, ABG pH 7.54 H, ABG pCO2 54.4 H, ABG pO2 79.0 L, ABG HCO3 45.1 H, ABG Total CO2 46.7 H, ABG O2 Saturation 97, ABG Base Excess 22.5 H, Billy Test Patient unable, Vent Rate 20, Tidal Volume 340, PEEP 7 01/17/21 10:05: Urine Color Yellow, Urine Appearance Clear, Urine pH 7.5, Ur Specific [place] 1.020, Urine Protein 1+, Urine Glucose (UA) Negative, Urine Ketones 1+, Urine Blood Trace-i, Urine Nitrate Negative, Urine Bilirubin 1+ A, Urine Urobilinogen 0.2, Ur Leukocyte Esterase Negative, Urine RBC 3-5, Urine WBC 3-5, Ur Squamous Epith Cells 3-5, Urine Bacteria None 01/17/21 23:41: Specimen Source Right radial, O2 % 4l n/c, ABG pH 7.49 H, ABG pCO2 59.9 H, ABG pO2 51.0 L, ABG HCO3 44.8 H, ABG Total CO2 46.7 H, ABG O2 Saturation 87 L*, ABG Base Excess 21.5 H, Billy Test Acceptable 01/18/21 05:48: Sodium 132 L, Potassium 2.7 L*, Chloride 81 L, Carbon Dioxide 47 H*, Anion Gap 6.7, BUN 7, Creatinine 0.30 L, Estimated Creat Clear 144, Estimated GFR 227, Est GFR ( Amer) 275, Glucose 68 L, Calcium 7.0 L, Total Bilirubin 0.7, AST 34 D, ALT 7 L, Alkaline Phosphatase 88, Total Protein 4.9 L, Albumin 2.2 L D, Globulin 2.7, Albumin/Globulin Ratio 0.8 L I & O for Last 24 hours: Intake
--- NOTE | 2021-01-18 07:09 | PC.NURSE ---
7913 dr. mueller at bedside patient assessed, ct tube removed. occlusive dressing applied. pateint tolerated without incident.
--- NOTE | 2021-01-18 08:30 | HMH.ACPN2 ---
Internal Medicine - PN: Subj *Date: 01/18/21 *Time: 12:23 Interval history: 60-year-old male patient sitting up in bed, does become short of breath when talking. Oxygenation is 90% on 5 L per nasal cannula. She did self extubate herself last night and she has tolerated nasal cannula since. Patient demanding to be discharged home, Long discussion with patient over possible medical outcomes of discharge and needs to remain in hospital for care. Exam Vital signs and Labs for Last 24 Hours: Temp Pulse Resp BP Pulse Ox 98.2 F 108 H 22 138/85 90 L 01/18/21 07:59 01/18/21 07:59 01/18/21 07:59 01/18/21 07:59 01/18/21 07:59 Laboratory Results - last 24 hr 01/16/21 23:15: Specimen Source Right femoral, O2 % 100%, ABG pH 7.21 L*, ABG pCO2 100.1 H, ABG pO2 149.7 H, ABG HCO3 38.8 H, ABG Total CO2 41.8 H, ABG O2 Saturation 99, ABG Base Excess 7.9 H, Vent Rate 20, Tidal Volume 340, PEEP 7 01/17/21 05:05: Total Counted 100, Neutrophils % (Manual) 91 H, Lymphocytes % (Manual) 3 L, Monocytes % (Manual) 6, Platelet Estimate Normal, RBC Morphology Not Reportable, Hypochromasia 2+, Anisocytosis 1+, Microcytosis 1+ 01/17/21 10:05: Urine Color Yellow, Urine Appearance Clear, Urine pH 7.5, Ur Specific [place] 1.020, Urine Protein 1+, Urine Glucose (UA) Negative, Urine Ketones 1+, Urine Blood Trace-i, Urine Nitrate Negative, Urine Bilirubin 1+ A, Urine Urobilinogen 0.2, Ur Leukocyte Esterase Negative, Urine RBC 3-5, Urine WBC 3-5, Ur Squamous Epith Cells 3-5, Urine Bacteria None 01/17/21 23:41: Specimen Source Right radial, O2 % 4l n/c, ABG pH 7.49 H, ABG pCO2 59.9 H, ABG pO2 51.0 L, ABG HCO3 44.8 H, ABG Total CO2 46.7 H, ABG O2 Saturation 87 L*, ABG Base Excess 21.5 H, Billy Test Acceptable 01/18/21 05:48: Sodium 132 L, Potassium 2.7 L*, Chloride 81 L, Carbon Dioxide 47 H*, Anion Gap 6.7, BUN 7, Creatinine 0.30 L, Estimated Creat Clear 144, Estimated GFR 227, Est GFR ( Amer) 275, Glucose 68 L, Calcium 7.0 L, Total Bilirubin 0.7, AST 34 D, ALT 7 L, Alkaline Phosphatase 88, Total Protein 4.9 L, Albumin 2.2 L D, Globulin 2.7, Albumin/Globulin Ratio 0.8 L I & O for Last 24 hours: Intake & Output 01/15/21 01/16/21 01/17/21 01/18/21 23:59 23:59 23:59 23:59 Intake Total 3022 / 3022 1440 / 1440 2442.009 / 2442.009 450 / 450 Output Total 900 / 900 1800 / 1800 1259 / 1609 925 / 925 Balance 2122 / 2122 -360 / -360 1183.009 / 833.009 -475 / -475 Weight 98 lb 5 oz 103 lb 100 lb 14.489 oz Microbiology Reports for the Last 24 Hours: Microbiology 01/16/21 23:30 Aspirate - Endotracheal Tube Aspirate Gram Stain - Final 01/12/21 12:40 Transbronchial Biopsy - Left Lower Lobe Gram Stain - Final 01/12/21 12:40 Transbronchial Biopsy - Left Lower Lobe Surgical Biopsy Culture - Final NO GROWTH AFTER 5 DAYS 01/12/21 12:40 Bronchial Lavage - Left Upper Lobe - Final 01/12/21 12:40 Bronchial Lavage - Left Upper Lobe Acid Fast Bacilli Smear - Final 01/12/21 12:40 Transbronchial Biopsy - Left Lower Lobe - Final 01/12/21 12:40 Transbronchial Biopsy - Left Lower Lobe Acid Fast Bacilli Smear - Final 01/12/21 12:40 Bronchial Lavage - Left Upper Lobe Gram Stain - Final 01/12/21 12:40 Bronchial Lavage - Left Upper Lobe Bronchoalveolar Lavage Culture - Final No growth. 01/15/21 16:35 Sputum - Expectorated Sputum Gram Stain - Final 01/15/21 16:35 Sputum - Expectorated Sputum Sputum Culture - Preliminary Yeast - Constitutional mild distress, thin, cachectic, chronically ill appearing - *Routine HEENT Exam Head: Present: normocephalic Eye: Present: EOMI ENT: Present: mucous membranes moist - *Routine Neck Exam Present: trachea midline. Absent: tracheal deviation - *Routine Respiratory Exam Present: decreased breath sounds, crackles - *Routine Cardiovascular Exam Present: RRR - *Routine Abdominal Exam Present: soft, normoact
--- NOTE | 2021-01-18 12:00 | XR_ITS ---
PROCEDURE: XR CHEST PORTABLE CLINICAL HISTORY: CODE BLUE COMPARISON: CR XR CHEST 2V from 12/07/[address] ANGIO CHEST PE PROTOCOL from 01/08/2021 CR XR CHEST PORTABLE from 01/17/2021 CR XR CHEST PORTABLE from 01/17/2021 CR XR CHEST PORTABLE from 01/18/2021 FINDINGS: Endotracheal tube tip is 2 cm above the raf. Prominent cavitation once again noted in the upper lung zones. Right sided chest tube is been removed. No evidence of pneumothorax. Subcutaneous emphysema noted along the right lateral chest wall. Left lower lobe collapse with air bronchograms and mediastinal shift toward the left with small left effusion once again noted. Consolidation is present in the right mid and lower lung zone consistent with pneumonia probably unchanged given the difference in technique. IMPRESSION: Endotracheal tube in good position. No change left lower lobe collapse, right lower lobe pneumonia biapical cavities and persistent subcutaneous emphysema along the right lateral chest wall Dictated by: Billy Keenan MD 01/18/2021 12:14 Billy Keenan MD in [facility] 01/18/2021 12:14
--- NOTE | 2021-01-18 12:02 | HMH.PULMPN ---
Internal Medicine - PN: Subj *Date: 01/18/21 *Time: 12:02 Interval history: Patient self extubated overnight. Remains on 6 L nasal cannula this morning saturating 89 to 90%. Patient requesting to be discharged home. Exam - Constitutional Constitutional:: Present: no acute distress, comfortable - HENMT Exam HENMT: Present: normocephalic, atraumatic - Eye Exam Eyes:: Present: normal appearance both eyes and related structures - Neck Exam Neck:: Present: normal visual inspection - Respiratory Exam Respiratory:: Present: able to speak in complete sentences, respiratory distress, decreased breath sounds, crackles - Cardiovascular Exam Cardiac:: Present: S1, S2 - GI Exam GI:: Present: soft - Skin Exam Skin: Present: warm, no rash - Neurological Exam Neurological: Present: alert, awake - Extremities Exam Extremities: Present: no cyanosis, no clubbing, edema - Psychiatric Exam Psychiatric: Present: normal affect Assessment and Plan (1) Respiratory failure with hypercapnia Status: Acute Category: Medical Code(s): J96.92 - Respiratory failure, unspecified with hypercapnia (2) Hypokalemia Status: Acute Category: Medical Code(s): E87.6 - Hypokalemia (3) Cachectic Status: Acute Category: Medical Code(s): R64 - Cachexia (4) Body mass index (BMI) less than 16.5 Status: Acute Category: Medical Code(s): Z68.1 - Body mass index [BMI] 19.9 or less, adult (5) Weakness Status: Acute Category: Medical Code(s): R53.1 - Weakness (6) Dehydration Status: Acute Category: Medical Code(s): E86.0 - Dehydration (7) Severe protein-calorie malnutrition Status: Acute Category: Medical Code(s): E43 - Unspecified severe protein-calorie malnutrition (8) Iron deficiency anemia Status: Acute Category: Medical Code(s): D50.9 - Iron deficiency anemia, unspecified (9) Mitral regurgitation Status: Acute Qualifiers: Cardiac valve disease etiology: etiology unspecified Qualified Code(s): I34.0 - Nonrheumatic mitral (valve) insufficiency Category: Medical Code(s): I34.0 - Nonrheumatic mitral (valve) insufficiency (10) Pulmonary HTN Status: Acute Category: Medical Code(s): I27.20 - Pulmonary hypertension, unspecified (11) Community acquired pneumonia Status: Acute Qualifiers: Laterality: unspecified laterality Qualified Code(s): J18.9 - Pneumonia, unspecified organism Category: Medical Code(s): J18.9 - Pneumonia, unspecified organism (12) Acute and chronic respiratory failure Status: Acute Qualifiers: Respiratory failure complication: hypoxia and hypercapnia Qualified Code(s): J96.21 - Acute and chronic respiratory failure with hypoxia; J96.22 - Acute and chronic respiratory failure with hypercapnia Category: Medical Code(s): J96.20 - Acute and chronic respiratory failure, unspecified whether with hypoxia or hypercapnia (13) SIRS (systemic inflammatory response syndrome) Status: Acute Category: Medical Code(s): R65.10 - Systemic inflammatory response syndrome (SIRS) of non-infectious origin without acute organ dysfunction (14) Stage III pressure ulcer Status: Acute Qualifiers: Pressure injury location: unspecified location Qualified Code(s): L89.93 - Pressure ulcer of unspecified site, stage 3 Category: Medical Code(s): L89.93 - Pressure ulcer of unspecified site, stage 3 (15) Pneumothorax on right Status: Acute Category: Medical Code(s): J93.9 - Pneumothorax, unspecified (16) Cardiopulmonary arrest with successful resuscitation Status: Acute Category: Medical Code(s): I46.9 - Cardiac arrest, cause unspecified (17) Severe sepsis with acute organ dysfunction Status: Acute Category: Medical Code(s): A41.9 - Sepsis, unspecified organism; R65.20 - Severe sepsis without septic shock (18) Septic shock Status: Acute Category: Medical Code(s): A41.9 - Sepsis, unspecified organ
[2021-01-18 12:06] LABS: ABG Base Excess 16.6 mmol/L (-2.4-2.3); ABG HCO3 39.6 mmhg (22.0-26.0); ABG Oxygen Saturation 92 % (90-100); ABG PH 7.51 mmol/L (7.35-7.45); ABG PO2 57.9 mmhg (80-100); ABG TCO2 41.1 mmhg (23-27)
[2021-01-18 12:13] LABS: Oxygen 70 %; PEEP 5; Tidal Volume 340; Vent Rate 20
[2021-01-18 12:14] LABS: ABG PCO2 50.4 mmhg (35.0-45.0); Allen's Test Patient Unable; Source Right Femoral
--- NOTE | 2021-01-18 12:18 | HMH.RR ---
Acute Rapid Response Note - Subjective Date Responded: 01/18/21 Time Responded: 11:26 Provider Note: 60yo F with possible tuberculosis for which a CODE BLUE was called. Nurse states the patient extubated herself at approximately 630 this morning. She was doing well but her O2 saturations began to drop. Her O2 sat reached 70 and then the patient became unresponsive. - Objective Findings: Vital Signs - Last 4 Hours Temperature 98.2 F 01/18/21 07:59 Temperature Source Rectal 01/18/21 07:59 Pulse Rate 103 H 01/18/21 09:00 Respiratory Rate 25 H 01/18/21 09:00 TAR Vitals Timing Completion Vitals 01/10/21 20:00 Blood Pressure 161/88 H 01/18/21 09:00 Blood Pressure Mean 112 01/18/21 09:00 Blood Pressure Source Automatic Cuff 01/18/21 09:00 Blood Pressure Position Supine 01/17/21 20:00 02 Sat by Pulse Oximetry 92 L 01/18/21 10:17 Oxygen Delivery Method 01/18/21 10:37 Oxygen Flow Rate (LPM) 4 01/18/21 10:37 Lab Results for Past 12 Hours 01/18/21 12:04: Specimen Source Right femoral, O2 % 70, ABG pH 7.51 H, ABG pCO2 50.4 H, ABG pO2 57.9 L, ABG HCO3 39.6 H, ABG Total CO2 41.1 H, ABG O2 Saturation 92, ABG Base Excess 16.6 H, Billy Test Patient unable, Vent Rate 20, Tidal Volume 340, PEEP 5 01/18/21 05:48: Sodium 132 L, Potassium 2.7 L*, Chloride 81 L, Carbon Dioxide 47 H*, Anion Gap 6.7, BUN 7, Creatinine 0.30 L, Estimated Creat Clear 144, Estimated GFR 227, Est GFR ( Amer) 275, Glucose 68 L, Calcium 7.0 L, Total Bilirubin 0.7, AST 34 D, ALT 7 L, Alkaline Phosphatase 88, Total Protein 4.9 L, Albumin 2.2 L D, Globulin 2.7, Albumin/Globulin Ratio 0.8 L My Orders Category Date Time Status 0.9 % Sodium Chloride [Sod Chlor 0.9% 250mL Bag] 250 ml Med 01/18/21 12:15 Active EPINEPHrine [Adrenalin 1mg/mL 30mL MDV] 5 mg IV 8 mcg/min - Radiology Findings #1 Xray Reviewed: Chest Image Reviewed: Yes I reviewed the patient's radiology image ED XR Results: Abnormal XR Narrative: Good placement of ET tube. - ECG Data Tracing #1 Attestation EKG: I reviewed this ECG and interpreted as documented below: ECG initial impression date: 01/18/21 ECG initial impression time: 11:37 EKG Narrative: Sinus tachycardia, no ST elevation or depression, normal intervals, no ectopy. Rapid Response Exam - General General appearance: in distress - Head Head exam: atraumatic, other (crepitus to R side of head) - Neck Neck exam: Present: normal inspection, trachea midline - Chest Chest inspection: Present: normal inspection, other (crepitus to R side of chest) - Respiratory Respiratory exam: Present: other (agonal breathing) - Cardiovascular Cardiovascular exam: Present: other (Asystole on initial eval) - Abdominal Exam Abdominal exam: Present: soft - Extremities Exam Extremities exam: Absent: pedal edema - Neurological Exam Neurological exam: Absent: alert, oriented X3, CN II-XII intact - Skin Skin exam: Present: normal color RR Procedures/Assess/Plan - Bedside Intubation Time Out Performed: Yes Sedative: Etomidate Mg given: 20 Paralytic: Rocuronium Mg given: 100 Laryngoscope: fiber optic video scope Tube size: 7.5 Tube uncuffed: No Secured Depth: 19 Secured location: teeth Placement confirmation: visualized tube passing through cords, equal breath sounds bilaterally, no breath sounds over epigastrium, confirmation by capnometry Patient tolerated procedure intubation: well, no complications Intubation Complications: none - Assessment and plan all Dx Assessment and Plan for all problems:: Respiratory failure: Patient intubated. See above for details. Placed on the vent. Respiratory at bedside and able to complete inline suctioning with copious, purulent material removed. Patient received 1 round of epinephrine during the code and developed a strong pulse shortly thereafter. Patient was hypertensive on repeat vitals. Patient's pulse became progressively weaker.
--- NOTE | 2021-01-18 13:20 | PC.NURSE ---
Epi gtt titrated to 7 mcg/min @ 1320
--- NOTE | 2021-01-18 13:21 | PC.NURSE ---
1126 - Noted that pt's SPO2 had decreased to 72% on 4 L O2 per nasal cannula, nurse entered room to find pt cyanotic and unresponsive. No response to sternal rub, no pulse noted. Chest compressions started immediately following pulse check. Pt ventilated using bag mask. Code blue called @ 1127. 1130 - called @ this time 1132 - Dr. Segal to floor @ this time 1134 - 1 mg Epi given IV 1135 - Sinus Tach noted on zoll monitor, HR 130's. 1137 - EKG obtained by RT 1141 - 20 mg Etomidate and 80 Rocuronium Iv admin by Dr. Segal 1143 - Pt intubated using #7.0 ETT, secured 19 @ lip. Breath sounds ausculated and color changed noted on CO2 detector. Vent settings: AC mode TV 340, FIO2 60%, Rate 20, Peep 5 1144 - Rad notified for CXR 1148 - Propofol started @ 10 mcg per verbal order from Dr. Segal 1149 - Sputum collected by RT from inline 1154 - Epi gtt initated per verbal order from Dr. Segal @ this time, 8 mcg/min. 1209 - Received call back from Ricardo Quesada @ this time. Updated on events. Orders recieved for Cards consult, CBC, CMP, Lactic. 1305 - Dr. Latham to floor @ 1305, verbal order for Mag and Phos to be drawn. 1435 - Pastor Rico @ bedside for cards consult 1445 - Epi gtt increased to 10 mcg/min, BP 83/63 1505 - Epi gtt increased to 12 mcg/min, BP 80/61
--- NOTE | 2021-01-18 13:52 | HMH.CNCARD ---
History of Present Illness Consult date: 01/18/21 Requesting physician: Fausto Womack Consult reason: shortness of breath Chief complaint: Cardiopulmonary arrest, Additional Medical History:: 1. Hypothyroidism, on replacement therapy 2. Ex-smoker, discontinued 2018 A. Oxygen requiring COPD 3. Pulmonary hypertension A. Echocardiogram 11/2020, 1. Normal left ventricular size, preserved left ventricular systolic function, visually estimated ejection fraction 55% with no regional wall motion abnormality, diastolic parameters are inconclusive. 2. Mildly enlarged right ventricle with normal contractility. 3. Trace mitral and tricuspid regurgitation. 4. No significant pericardial effusion noted. Electronically signed by : Kennedy Fountain, 12/05/2020 19:21:03 4. Lexiscan Myoview 03/2019, EF 65% with no ischemia. 5. Recurrent anemia A. EGD, Dr. Barba, 01/2020, 1. Schatzki's ring/esophageal stricture status post dilation to 16 mm 2. Small to medium sized hiatal hernia (2 to 3 cm) 3. 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 History of GERD 7. Suspected Tuberculosis, possibly miliary, 12/2020 A. cardiopulmonary arrest History of present illness: 60-year-old white female with longstanding oxygen requiring COPD was admitted for worsening shortness of breath. Pulmonary was consulted with review of chart showing bilateral upper respiratory cavitary areas that had worsened compared to 2018 study with concern for infectious versus malignant etiology. Patient underwent bronchoscopy during this admission for tissue and washings for further evaluation. This procedure was complicated by increased respiratory distress requiring mechanical ventilation. This a.m. patient self extubated and was doing okay on 6 L/min of nasal cannula oxygen but began decompensating to the point that she suffered a cardiorespiratory arrest today. This subsequently required reintubation along with CPR and epinephrine drip with return of pulse and circulation. Patient is currently sedated and intubated. Cardiology has been consulted for evaluation. Echocardiogram performed yesterday showed hyperdynamic left ventricular ejection fraction with mild to moderate right ventricle enlargement with mildly reduced right ventricular function. Patient's now states that the patient was aware of some pulmonary abnormalities that needed further evaluation back in 2018 however she failed to keep any appointments for evaluation. [facility] History Medical History: Reports:: Asthma, Chronic Obstructive Pulmonary Disease (COPD), Gastroesophageal Reflux Disease(GERD), Home Oxygen, Hypertension Denies:: Cancer, Diabetes Mellitus Type 1, Diabetes Mellitus Type 2, MRSA, Seizures *Have you ever received a pneumonia vaccine?: Yes *Have you received a flu vaccine this season?: Yes Other Medical History: Reports: Anemia, Arthritis, Cataracts, Hypothyroidism, Sinus Problems, Thyroid Disease. Denies: Blood Transfusion Reaction Anesthesia experience/problems:: none Other Surgeries: Yes: Appendectomy, Dilation and Curettage, Other Amputation: No Fractures: Yes - *Social History Last grade of school completed: High school graduate Smoking Status: Former smoker Tobacco Type: cigarettes # Packs/Day (cigarettes): 0 #Yrs smoked (if former smoker): 43 Alcohol Intake: never Substance Use Type: opiates, painkillers, former substance user *Occupational Status:: retired Housing: apartment Household Members: spouse *Travel in the last 8 weeks: None Family Hx:: No significant family history Meds Home Medications Medication Instructions Recorded Confirmed Type Buprenorphine HCl/Naloxone HCl 1.75 tab PO DAILY 12/04/20 01/09/21 History [Buprenorphine-Nalox 8-2 mg Tab] Levothyroxine Sodium [Synthroid 125 mcg PO DAILY 12/04/20 01/09/21 History 125mcg (0.125mg) tablet] Albuterol Sulfate [[place]
[2021-01-18 13:57] LABS: Basophils % 0.1 % (0.1-2.0); Eosinophils % 0.3 % (0.1-12.0); Hematocrit 29.5 % (37.0-47.0); Hemoglobin 9.3 g/dL (12.2-16.2); Lymphocytes # 0.3 K/mm3 (0.7-4.5); Lymphocytes % 3.2 % (10-50); Mean Corpuscular HGB Conc 31.4 g/dL (31.8-35.4); Mean Corpuscular Hemoglobin 25.9 pg (27.0-31.2); Mean Corpuscular Volume 82.5 fl (81-99); Mean Platelet Volume 8.3 fl (7.4-10.4); Monocytes # 0.3 K/mm3 (0.1-1.0); Monocytes % 2.6 % (1.7-9.3); Neutrophils # 9.6 K/mm3 (1.8-7.8); Neutrophils % 93.7 % (37.0-80.0); Platelet Count 244 K/mm3 (142-424); Red Blood Count 3.57 M/mm3 (4.20-5.40); Red Cell Distribution Width 19.1 % (11.5-17.5); White Blood Count 10.3 K/mm3 (4.8-10.8)
[2021-01-18 13:59] LABS: MANUAL DIFFERENTIAL MANUAL DIFFERENTIAL (MANUAL DIFF)
[2021-01-18 14:10] LABS: Burr Cells 1+; Chloride 84 mmol/L (98-107); Hypochromasia 2+; Lymphocytes % 9 % (10-50); Monocytes % 6 % (2-9); Neutrophils % 77 % (42-76); Platelet Estimate Normal; Poikilocytosis 1+; Sodium 132 mmol/L (136-145); Total Cells Counted 100
[2021-01-18 14:13] LABS: Alanine Aminotransferase 39 U/L (12-78); Albumin Level 2.4 g/dl (3.5-5.0); Albumin/Globulin Ratio 0.8 (1.1-1.8); Alkaline Phosphatase 110 U/L (38-126); Aspartate Amino Transferase 148 U/L (14-36); Calcium 6.7 mg/dl (8.4-10.2); Carbon Dioxide 37 mmol/L (22.0-30.0); Creatinine Clearance Estimated 216 mL/min (50-200); Estimated Glomerular Filt Rate 362 ml/min (>60); GFR (African American) 438 ML/MIN (>60); Globulin 3.2 g/dL (1.3-3.2); Glucose 336 mg/dl (74-100); Magnesium 1.4 mg/dl (1.6-2.3); Phosphorous 3.2 mg/dl (2.5-4.5); Total Protein,Serum 5.6 g/dl (6.3-8.2)
[2021-01-18 14:31] LABS: Blood Urea Nitrogen 5 mg/dl (7-17)
--- NOTE | 2021-01-18 15:34 | PC.NURSE ---
FIO2 weaned to 50% @ 1430
--- NOTE | 2021-01-18 16:53 | CT_ITS ---
PROCEDURE INFORMATION: Exam: CTA Chest With Contrast Exam date and time: 01/18/2021 4:53 PM Age: 60 years old Clinical indication: Dyspnea; Patient HX: Hypoxia TECHNIQUE: Imaging protocol: Computed tomographic angiography of the chest with contrast. 3D rendering (Not supervised by radiologist): MIP and/or 3D reconstructed images were created by the technologist. Radiation optimization: All CT scans at this facility use at least one of these dose optimization techniques: automated exposure control; mA and/or kV adjustment per patient size (includes targeted exams where dose is matched to clinical indication); or iterative reconstruction. Contrast material: ISOVUE; Contrast volume: 70 ml; Contrast route: INTRAVENOUS (IV); COMPARISON: CT ANGIO CHEST PE PROTOCOL 01/08/2021 9:14 PM FINDINGS: Tubes, catheters and devices: Endotracheal tube in place at the level of the raf directed towards the right mainstem bronchus. NG tube in place. Pulmonary arteries: Small peripheral pulmonary emboli are seen in the right lower lobe. Aorta: Unremarkable. No aortic aneurysm. No aortic dissection. Lungs: Dense consolidation seen throughout the left lung. Areas of atelectasis and airspace disease scattered throughout the right lung. Air collections at both lung apices are again seen. Known right lung nodules are again seen but poorly visualized compared to the prior exam. Scattered emphysematous changes in the right lung. Pleural spaces: New bilateral pleural effusions. Heart: Unremarkable. No cardiomegaly. No pericardial effusion. Lymph nodes: Unremarkable. No enlarged lymph nodes. Bones/joints: Old sternal fracture. No acute fracture. Soft tissues: Considerable soft tissue emphysema within the chest and neck, slightly more prominent on the right. Diffuse subcutaneous edematous changes. IMPRESSION: 1. Small right lower lobe peripheral pulmonary emboli. 2. New bilateral pleural effusions. 3. Persistent dense consolidation within the left lung and biapical air collections representing loculated pneumothoraces or bullae. 4. New diffuse soft tissue emphysema. 5. Endotracheal tube located at the level of the raf but directed towards the right mainstem bronchus. Consider repositioning the tube. 6. Known right-sided lung nodules suboptimally visualized.
--- NOTE | 2021-01-18 17:20 | PC.NURSE ---
1700 - Epi gtt increased to 14 mcg/min
--- NOTE | 2021-01-18 17:49 | PC.NURSE ---
Received call from Pastor Rico @ [phone]. Orders per Dr. Nicole to DC epi gtt and start pt on guille gtt, titrate to SBP > 90
[2021-01-18 21:34] LABS: Prothrombin Time 16.4 seconds (10.1-12.5)
[2021-01-18 21:36] LABS: INR 1.43 (0.9-1.1)
[2021-01-18 23:04] LABS: MANUAL DIFFERENTIAL MANUAL DIFFERENTIAL (MANUAL DIFF)
[2021-01-18 23:06] LABS: Basophils # 0.1 K/mm3 (0-0.2); Basophils % 0.5 % (0.1-2.0); Eosinophils # 0.1 K/mm3 (0.0-0.4); Eosinophils % 0.8 % (0.1-12.0); Hematocrit 41.2 % (37.0-47.0); Lymphocytes # 0.9 K/mm3 (0.7-4.5); Lymphocytes % 6.8 % (10-50); Mean Corpuscular HGB Conc 29.4 g/dL (31.8-35.4); Mean Corpuscular Hemoglobin 22.7 pg (27.0-31.2); Mean Corpuscular Volume 77.2 fl (81-99); Mean Platelet Volume 8.3 fl (7.4-10.4); Monocytes # 0.4 K/mm3 (0.1-1.0); Monocytes % 2.8 % (1.7-9.3); Neutrophils # 12.1 K/mm3 (1.8-7.8); Neutrophils % 89.1 % (37.0-80.0); Platelet Count 303 K/mm3 (142-424); Red Blood Count 5.34 M/mm3 (4.20-5.40); Red Cell Distribution Width 19.1 % (11.5-17.5); White Blood Count 13.5 K/mm3 (4.8-10.8)
[2021-01-18 23:12] LABS: Hemoglobin 12.1 g/dL (12.2-16.2)
--- NOTE | 2021-01-18 23:23 | PC.NURSE ---
Heparin gtt started at 2145.
[2021-01-18 23:29] LABS: Eosinophils % 1 % (0-3); Hypochromasia 3+; Lymphocytes % 3 % (10-50); Microcytosis 1+; Monocytes % 4 % (2-9); Neutrophils % 91 % (42-76); Platelet Estimate Normal; Total Cells Counted 100
[2021-01-19] VITALS (36 sets, daily range): BP systolic 64–144; BP diastolic 39–84; PULSE 70–108; RESP 0–20; TEMP 36.4–37.7; O2SAT 92–99; BMI 17.4
[2021-01-19 00:51] LABS: POC Glucose,Bedside 72 (70-110)
[2021-01-19 00:51] LABS: POC Glucose,Bedside 149 (70-110)
[2021-01-19 03:41] LABS: Basophils # 0.1 K/mm3 (0-0.2); Basophils % 0.5 % (0.1-2.0); Eosinophils % 0.3 % (0.1-12.0); Hematocrit 39.5 % (37.0-47.0); Lymphocytes % 6.4 % (10-50); Mean Corpuscular HGB Conc 30.4 g/dL (31.8-35.4); Mean Corpuscular Hemoglobin 23.5 pg (27.0-31.2); Mean Corpuscular Volume 77.3 fl (81-99); Mean Platelet Volume 8.5 fl (7.4-10.4); Monocytes # 0.4 K/mm3 (0.1-1.0); Monocytes % 2.4 % (1.7-9.3); Neutrophils # 14.5 K/mm3 (1.8-7.8); Neutrophils % 90.5 % (37.0-80.0); Platelet Count 327 K/mm3 (142-424); Red Blood Count 5.12 M/mm3 (4.20-5.40); Red Cell Distribution Width 19.2 % (11.5-17.5)
[2021-01-19 03:42] LABS: Activated Partial Thrombo Time 67.5 seconds (22.8-30.6); MANUAL DIFFERENTIAL MANUAL DIFFERENTIAL (MANUAL DIFF)
[2021-01-19 03:44] LABS: Alanine Aminotransferase 28 U/L (12-78); Albumin/Globulin Ratio 0.7 (1.1-1.8); Alkaline Phosphatase 101 U/L (38-126); Aspartate Amino Transferase 54 U/L (14-36); Bilirubin,Total 0.7 mg/dl (0.2-1.3); Blood Urea Nitrogen 5 mg/dl (7-17); Calcium 6.9 mg/dl (8.4-10.2); Chloride 84 mmol/L (98-107); Creatinine Clearance Estimated 144 mL/min (50-200); Estimated Glomerular Filt Rate 227 ml/min (>60); GFR (African American) 275 ML/MIN (>60); Globulin 2.8 g/dL (1.3-3.2); Glucose 77 mg/dl (74-100); Sodium 135 mmol/L (136-145); Total Protein,Serum 4.8 g/dl (6.3-8.2)
[2021-01-19 03:53] LABS: Anion Gap 7.1 mEq/L (5-15); Carbon Dioxide 46 mmol/L (22.0-30.0)
[2021-01-19 03:55] LABS: Potassium 2.1 mmoL/L (3.5-5.1)
--- NOTE | 2021-01-19 04:06 | PC.NURSE ---
She is intubated and sedated. Vent settings are as follows: AC mode, TV 340, rate 20, PEEP 5, FiO2 50%. Gag reflex present. HOB elevated 30 degrees. She is being turned and repositioned q 2 hours. Heels elevated while supine. F/c patent with yellow, clear urine.
[2021-01-19 05:22] LABS: Lymphocytes % 7 % (10-50); Monocytes % 2 % (2-9); Neutrophils % 91 % (42-76); Platelet Estimate Normal; Total Cells Counted 100
[2021-01-19 05:23] LABS: Hypochromasia 2+; Microcytosis 1+; Ovalocytes 1+
--- NOTE | 2021-01-19 06:00 | XR_ITS ---
PROCEDURE INFORMATION: Exam: XR Chest Exam date and time: 01/19/2021 6:00 AM Age: 60 years old Clinical indication: Device placement; Ett placement (vent status); Patient HX: Intubated; Additional info: Sq emphysema / ptx vs blebs TECHNIQUE: Imaging protocol: XR of the chest. Views: 1 view. COMPARISON: CR XR CHEST PORTABLE 01/18/2021 11:49 AM FINDINGS: Tubes, catheters and devices: Endotracheal tube with the tip at the level of clavicular heads. Nasogastric tube extending below the diaphragm, probably coiled within the stomach. Lungs: Persistent dense consolidation in the left lung and biapical air collections representing loculated pneumothoraces or bullae. Heterogeneous opacities in the right lung. Pleural spaces: See Lungs finding. Heart/Mediastinum: Difficult evaluate cardiomediastinal silhouette. Bones/joints: Osseous structures stable. Soft tissues: Soft tissue emphysema, predominantly on the right. IMPRESSION: Persistent dense consolidation in the left lung and biapical air collections representing loculated pneumothoraces or bullae. Heterogeneous opacities in the right lung. These findings are similar compared to the prior study and better evaluated on recent CT chest.
[2021-01-19 07:37] LABS: ABG Base Excess 19.1 mmol/L (-2.4-2.3); ABG HCO3 41.6 mmhg (22.0-26.0); ABG Oxygen Saturation 93 % (90-100); ABG PCO2 49.2 mmhg (35.0-45.0); ABG PO2 62.5 mmhg (80-100); ABG TCO2 43.1 mmhg (23-27)
[2021-01-19 07:39] LABS: ABG PH 7.55 mmol/L (7.35-7.45)
--- NOTE | 2021-01-19 07:55 | HMH.ACPN2 ---
Internal Medicine - PN: Subj *Date: 01/19/21 *Time: 13:39 Interval history: 60-year-old female patient lying in bed on ventilator and sedated. Yesterday afternoon patient's oxygen saturation decreased, loss of pulse, CODE BLUE activated. After CPR and 1 round of epinephrine ROSC was returned and patient was intubated. She was hypertension epinephrine drip was started, cardiology consulted Today she remains on mechanical ventilation AC 20/340/50 percent +5, sedation, heparin, and epi infusioning. Chest CTA revealed a RLL PE. is in room and discussed patient's current status and possible medical outcomes, he verbalizes understanding and denies any questions Exam Vital signs and Labs for Last 24 Hours: Temp Pulse Resp BP Pulse Ox 98.8 F 93 H 20 122/72 94 L 01/19/21 06:46 01/19/21 06:46 01/19/21 06:46 01/19/21 06:46 01/19/21 06:46 Laboratory Results - last 24 hr 01/18/21 12:04: Specimen Source Right femoral, O2 % 70, ABG pH 7.51 H, ABG pCO2 50.4 H, ABG pO2 57.9 L, ABG HCO3 39.6 H, ABG Total CO2 41.1 H, ABG O2 Saturation 92, ABG Base Excess 16.6 H, Billy Test Patient unable, Vent Rate 20, Tidal Volume 340, PEEP 5 01/18/21 13:46: WBC 10.3, RBC 3.57 L D, Hgb 9.3 L, Hct 29.5 L, MCV 82.5, MCH 25.9 L, MCHC 31.4 L, RDW 19.1 H, Plt Count 244, MPV 8.3, Neut % (Auto) 93.7 H, Lymph % (Auto) 3.2 L, [place] % (Auto) 2.6, Eos % (Auto) 0.3, Baso % (Auto) 0.1, Neut # (Auto) 9.6 H, Lymph # (Auto) 0.3 L, [place] # (Auto) 0.3, Eos # (Auto) 0.0, Baso # (Auto) 0.0, Total Counted 100, Neutrophils % (Manual) 77 H, Band Neutrophils % 8.0, Lymphocytes % (Manual) 9 L, Monocytes % (Manual) 6, Platelet Estimate Normal, Hypochromasia 2+, Poikilocytosis 1+, Drew Cells 1+ 01/18/21 13:46: Sodium 132 L, Potassium 3.0 L, Chloride 84 L, Carbon Dioxide 37 H, Anion Gap 14.0, BUN 5 L D, Creatinine 0.20 L D, Estimated Creat Clear 216, Estimated GFR 362, Est GFR ( Amer) 438 D, Glucose 336 H D, Calcium 6.7 L, Total Bilirubin 1.0, AST 148 H D, ALT 39 D, Alkaline Phosphatase 110, Total Protein 5.6 L, Albumin 2.4 L, Globulin 3.2, Albumin/Globulin Ratio 0.8 L 01/18/21 13:46: Lactate 2.0 01/18/21 13:46: Phosphorus 3.2, Magnesium 1.4 L 01/18/21 17:34: POC Glucose 149 H 01/18/21 21:00: POC Glucose 72 01/18/21 21:15: PT 16.4 H, INR 1.43 H 01/18/21 22:53: WBC 13.5 H D, RBC 5.34 D, Hgb 12.1 L D, Hct 41.2, MCV 77.2 L, MCH 22.7 L, MCHC 29.4 L, RDW 19.1 H, Plt Count 303, MPV 8.3, Neut % (Auto) 89.1 H, Lymph % (Auto) 6.8 L, [place] % (Auto) 2.8, Eos % (Auto) 0.8, Baso % (Auto) 0.5, Neut # (Auto) 12.1 H, Lymph # (Auto) 0.9, [place] # (Auto) 0.4, Eos # (Auto) 0.1, Baso # (Auto) 0.1, Total Counted 100, Neutrophils % (Manual) 91 H, Band Neutrophils % 1.0, Lymphocytes % (Manual) 3 L, Monocytes % (Manual) 4, Eosinophils % (Manual) 1, Platelet Estimate Normal, RBC Morphology Not Reportable, Hypochromasia 3+, Microcytosis 1+ 01/18/21 22:53: APTT 139.0 H* D 01/19/21 01:08: APTT 86.0 H* D 01/19/21 03:17: Sodium 135 L, Potassium 2.1 L* D, Chloride 84 L, Carbon Dioxide 46 H*, Anion Gap 7.1, BUN 5 L, Creatinine 0.30 L D, Estimated Creat Clear 144, Estimated GFR 227, Est GFR ( Amer) 275 D, Glucose 77 D, Calcium 6.9 L, Total Bilirubin 0.7, AST 54 H D, ALT 28 D, Alkaline Phosphatase 101, Total Protein 4.8 L, Albumin 2.0 L D, Globulin 2.8, Albumin/Globulin Ratio 0.7 L 01/19/21 03:17: WBC 16.0 H, RBC 5.12, Hgb 12.0 L, Hct 39.5, MCV 77.3 L, MCH 23.5 L, MCHC 30.4 L, RDW 19.2 H, Plt Count 327, MPV 8.5, Neut % (Auto) 90.5 H, Lymph % (Auto) 6.4 L, [place] % (Auto) 2.4, Eos % (Auto) 0.3, Baso % (Auto) 0.5, Neut # (Auto) 14.5 H, Lymph # (Auto) 1.0, [place] # (Auto) 0.4, Eos # (Auto) 0.0, Baso # (Auto) 0.1, Total Counted 100, Neutrophils % (Manual) 91 H, Lymphocytes % (Manual) 7 L, Monocytes % (Manual) 2, Platelet Estimate Normal, Hypochromasia 2+, Microcytosis 1+, Ovalocytes 1+ 01/19/21 03:17: APTT 67.5 H* D 01/19/21 07:00: ABG pH 7.55 H, ABG pCO2 49.2 H, ABG pO2 62.5 L, ABG HCO3 41.6 H, ABG Total CO2 43.
[2021-01-19 08:27] LABS: Activated Partial Thrombo Time 51.4 seconds (22.8-30.6)
--- NOTE | 2021-01-19 09:05 | HMH.PHAHEP ---
[facility] Pharmacy Heparin Dosing - Demographic Data Admission date:: 01/08/21 Date: 01/19/21 Time: 09:05 Allergies/Adverse Reactions: Allergies Allergy/AdvReac Type Severity Reaction Status Date / Time No Known Allergies Allergy Verified 06/26/20 11:10 Height: 1.57 m Weight: 42.864 kg - Indication Medication therapy:: Heparin Patient Problems: Current Active Problems Respiratory failure with hypercapnia (Acute) Stage III pressure ulcer (Acute) Pneumothorax on right (Acute) Cardiopulmonary arrest with successful resuscitation (Acute) Severe sepsis with acute organ dysfunction (Acute) Septic shock (Acute) Pulmonary embolism (Acute) Hypokalemia (Acute) Hypocalcemia (Acute) Hypokalemia (Acute) Cachectic (Acute) Body mass index (BMI) less than 16.5 (Acute) Weakness (Acute) Dehydration (Acute) Cachexia (Acute) Severe protein-calorie malnutrition (Acute) Iron deficiency anemia (Acute) Mitral regurgitation (Acute) Pulmonary HTN (Acute) Community acquired pneumonia (Acute) Acute and chronic respiratory failure (Acute) SIRS (systemic inflammatory response syndrome) (Acute) COPD (chronic obstructive pulmonary disease) (Acute) Acute respiratory failure (Acute) CAP (community acquired pneumonia) (Acute) CVA?: No Bleeding problem?: No Kidney disease?: No NE?: No Desired PTT range:: 50-70 seconds - Labs Anticoagulation Lab Results:: 01/18/21 01/18/21 01/19/21 13:46 22:53 03:17 Hgb 9.3 L 12.1 L D 12.0 L Hct 29.5 L 41.2 39.5 Plt Count 244 303 327 - Monitoring Dose Monitor 1 Date: 01/18/21 Time: 22:53 PTT Result:: 139 Infusion Rate:: PATIENT RECEIVED 3500 UNIT BOLUS, FOLLOWED BY 800 U/HR = 16 ML/HR. RATE CONTINUED AT 800 U/HR = 16 ML/HR Dose Monitor 2 Date: 01/19/21 Time: 01:08 PTT Result:: 86 Infusion Rate:: RATE CONTINUED AT 800 U/HR = 16 ML/HR Dose Monitor 3 Date: 01/19/21 Time: 03:17 PTT Result:: 67.5 Infusion Rate:: RATE CONTINUED AT 800 U/HR = 16 ML/HR Dose Monitor 4 Date: 01/19/21 Time: 07:15 PTT Result:: 51.4 Infusion Rate:: RATE CONTINUED AT 800 U/HR = 16 ML/HR Dose Monitor 5 Date: 01/19/21 Time: 13:29 PTT Result:: 55.3 Infusion Rate:: RATE CONTINUED AT 800 U/HR = 16 ML/HR Dose Monitor 6 Date: 01/19/21 Time: 18:41 PTT Result:: 39.5 Infusion Rate:: CHANGE HEPARIN DRIP TO 1000 UNITS/HR = 20 ML/HR Dose Monitor 7 Date: 01/20/21 Time: 01:20 PTT Result:: 54.1 Infusion Rate:: CONTINUE HEPARIN 1000 UNITS/HR = 20 ML/HR Dose Monitor 8 Date: 01/20/21 Time: 08:15 PTT Result:: 53.8 Infusion Rate:: CONTINUE HEPARIN 1000 UNITS/HR = 20 ML/HR Dose Monitor 9 Date: 01/20/21 Time: 12:45 PTT Result:: 54.7 Infusion Rate:: CONTINUE HEPARIN 1000 UNITS/HR = 20 ML/HR Dose Monitor 10 Date: 01/21/21 Time: 09:48 PTT Result:: 42.3 Infusion Rate:: INCREASE RATE BY ~2 U/KG/HR TO 1100 U/HR = 22 ML/HR Dose Monitor 11 Date: 01/21/21 Time: 16:00 PTT Result:: 45.7 Infusion Rate:: 3000 UNIT BOLUS AND INCREASE RATE BY 2 U/KG/HR TO 1200 UNITS/HR = 24 ML/HR Dose Monitor 12 Date: 01/22/21 Time: 00:10 PTT Result:: 67.6 Infusion Rate:: CONTINUE CURRENT RATE OF 1200 UNITS/HR = 24 ML/HR Dose Monitor 13 Date: 01/22/21 Time: 07:15 PTT Result:: 39.3 Infusion Rate:: 4000 UNIT BOLUS AND INCREASE RATE BY ~4U/KG/HR TO 1350 U/HR = 27 ML/HR Dose Monitor 14 Date: 01/22/21 Time: 14:29 PTT Result:: 51.4 Infusion Rate:: CONTINUE CURRENT RATE OF 1350 U/HR = 27 ML/HR Dose Monitor 15 Date: 01/22/21 Time: 20:25 PTT Result:: 42.9 Infusion Rate:: BOLUS 3000 UNITS AND INCREASE RATE BY 2 U/KG/HR TO 1450 UNITS/HR = 29 ML/HR Dose Monitor 16 Date: 01/23/21 Time: 06:17 PTT Result:: 118.1 Infusion Rate:: DECREASE RATE BY ~3 UNITS/KG/HR TO 1325 UNITS/HR = 26.5 ML/HR - Core Measures Is INR > or = 2 at discharge?: No Most Recent Labs:: Laboratory Results -
--- NOTE | 2021-01-19 12:30 | HMH.PNCARD ---
Subjective Date: 01/19/21 Time: 11:00 Principal diagnosis: Respiratory failure Interval history: 60 yo WF in bed, sedated on the vent. in room. He has made the patient DNR. Pt remains on neosynephrine gtt for BP support. HR is in the 80's bpm range. CTA of chest from yesterday shows evidence of pulmonary emboli. Heparin gtt has been started. Exam Vital signs and Labs for Last 24 Hours: Temp Pulse Resp BP Pulse Ox 98.8 F 88 0 L 122/72 95 01/19/21 06:46 01/19/21 10:41 01/19/21 10:41 01/19/21 06:46 01/19/21 10:41 Laboratory Results - last 24 hr 01/18/21 13:46: WBC 10.3, RBC 3.57 L D, Hgb 9.3 L, Hct 29.5 L, MCV 82.5, MCH 25.9 L, MCHC 31.4 L, RDW 19.1 H, Plt Count 244, MPV 8.3, Neut % (Auto) 93.7 H, Lymph % (Auto) 3.2 L, [place] % (Auto) 2.6, Eos % (Auto) 0.3, Baso % (Auto) 0.1, Neut # (Auto) 9.6 H, Lymph # (Auto) 0.3 L, [place] # (Auto) 0.3, Eos # (Auto) 0.0, Baso # (Auto) 0.0, Total Counted 100, Neutrophils % (Manual) 77 H, Band Neutrophils % 8.0, Lymphocytes % (Manual) 9 L, Monocytes % (Manual) 6, Platelet Estimate Normal, Hypochromasia 2+, Poikilocytosis 1+, [place] Cells 1+ 01/18/21 13:46: Sodium 132 L, Potassium 3.0 L, Chloride 84 L, Carbon Dioxide 37 H, Anion Gap 14.0, BUN 5 L D, Creatinine 0.20 L D, Estimated Creat Clear 216, Estimated GFR 362, Est GFR ( Amer) 438 D, Glucose 336 H D, Calcium 6.7 L, Total Bilirubin 1.0, AST 148 H D, ALT 39 D, Alkaline Phosphatase 110, Total Protein 5.6 L, Albumin 2.4 L, Globulin 3.2, Albumin/Globulin Ratio 0.8 L 01/18/21 13:46: Lactate 2.0 01/18/21 13:46: Phosphorus 3.2, Magnesium 1.4 L 01/18/21 17:34: POC Glucose 149 H 01/18/21 21:00: POC Glucose 72 01/18/21 21:15: PT 16.4 H, INR 1.43 H 01/18/21 22:53: WBC 13.5 H D, RBC 5.34 D, Hgb 12.1 L D, Hct 41.2, MCV 77.2 L, MCH 22.7 L, MCHC 29.4 L, RDW 19.1 H, Plt Count 303, MPV 8.3, Neut % (Auto) 89.1 H, Lymph % (Auto) 6.8 L, [place] % (Auto) 2.8, Eos % (Auto) 0.8, Baso % (Auto) 0.5, Neut # (Auto) 12.1 H, Lymph # (Auto) 0.9, [place] # (Auto) 0.4, Eos # (Auto) 0.1, Baso # (Auto) 0.1, Total Counted 100, Neutrophils % (Manual) 91 H, Band Neutrophils % 1.0, Lymphocytes % (Manual) 3 L, Monocytes % (Manual) 4, Eosinophils % (Manual) 1, Platelet Estimate Normal, RBC Morphology Not Reportable, Hypochromasia 3+, Microcytosis 1+ 01/18/21 22:53: APTT 139.0 H* D 01/19/21 01:08: APTT 86.0 H* D 01/19/21 03:17: Sodium 135 L, Potassium 2.1 L* D, Chloride 84 L, Carbon Dioxide 46 H*, Anion Gap 7.1, BUN 5 L, Creatinine 0.30 L D, Estimated Creat Clear 144, Estimated GFR 227, Est GFR ( Amer) 275 D, Glucose 77 D, Calcium 6.9 L, Total Bilirubin 0.7, AST 54 H D, ALT 28 D, Alkaline Phosphatase 101, Total Protein 4.8 L, Albumin 2.0 L D, Globulin 2.8, Albumin/Globulin Ratio 0.7 L 01/19/21 03:17: WBC 16.0 H, RBC 5.12, Hgb 12.0 L, Hct 39.5, MCV 77.3 L, MCH 23.5 L, MCHC 30.4 L, RDW 19.2 H, Plt Count 327, MPV 8.5, Neut % (Auto) 90.5 H, Lymph % (Auto) 6.4 L, [place] % (Auto) 2.4, Eos % (Auto) 0.3, Baso % (Auto) 0.5, Neut # (Auto) 14.5 H, Lymph # (Auto) 1.0, [place] # (Auto) 0.4, Eos # (Auto) 0.0, Baso # (Auto) 0.1, Total Counted 100, Neutrophils % (Manual) 91 H, Lymphocytes % (Manual) 7 L, Monocytes % (Manual) 2, Platelet Estimate Normal, Hypochromasia 2+, Microcytosis 1+, Ovalocytes 1+ 01/19/21 03:17: APTT 67.5 H* D 01/19/21 07:00: ABG pH 7.55 H, ABG pCO2 49.2 H, ABG pO2 62.5 L, ABG HCO3 41.6 H, ABG Total CO2 43.1 H, ABG O2 Saturation 93, ABG Base Excess 19.1 H 01/19/21 07:15: APTT 51.4 H* I & O for Last 24 hours: Intake & Output 01/17/21 01/18/21 01/19/21 01/20/21 11:59 11:59 11:59 11:59 Intake Total 1550.009 / 9192.026 0056 / 1522 5012 / 5012 Output Total 2520 / 2575 1889 / 2239 5380 / 5380 Balance -969.991 / -1024.991 -367 / -717 -368 / -368 Weight 103 lb 100 lb 14.489 oz 94 lb 7.983 oz Microbiology Reports for the Last 24 Hours: Microbiology 01/16/21 23:30 Aspirate - Endotracheal Tube Aspirate Gram Stain - Final 01/16/21 23:30 Aspirate - Endotracheal
--- NOTE | 2021-01-19 12:40 | DIET.NUTRFU ---
Addendum entered by Andressa Garrett 01/22/21 14:50: tube feeds were restarted 01/21, has tolerated well. SBT this morning unsuccessful. She continues to receive Propofol and IVF. K low at 2.5 today. Weight stable, last BM 01/20. No changes to regimen as stated in order and previous note at this time. Continuing to monitor. Original Note: Pt TF is no longer running after pt extubated herself and was intubated again after her stats began to drop. Pt was made DNR per MD consultation. Will continue to monitor and provide TF recommendations if a consult is provided to initiate TF again.
--- NOTE | 2021-01-19 13:16 | HMH.PULMPN ---
Internal Medicine - PN: Subj *Date: 01/19/21 *Time: 13:16 Interval history: No acute respiratory events overnight. Patient remained in stable on minimal vent settings. Exam - Constitutional Constitutional:: Present: comfortable - HENMT Exam HENMT: Present: normocephalic - Eye Exam Eyes:: Present: normal appearance both eyes and related structures - Neck Exam Neck:: Present: normal visual inspection - Respiratory Exam Respiratory:: Present: decreased breath sounds, crackles - Cardiovascular Exam Cardiac:: Present: S1, S2 - GI Exam GI:: Present: soft - Skin Exam Skin: Present: warm, no rash - Neurological Exam Intubated and sedated - Extremities Exam Extremities: Present: no cyanosis, no clubbing, edema Assessment and Plan (1) Respiratory failure with hypercapnia Status: Acute Category: Medical Code(s): J96.92 - Respiratory failure, unspecified with hypercapnia (2) Hypokalemia Status: Acute Category: Medical Code(s): E87.6 - Hypokalemia (3) Cachectic Status: Acute Category: Medical Code(s): R64 - Cachexia (4) Body mass index (BMI) less than 16.5 Status: Acute Category: Medical Code(s): Z68.1 - Body mass index [BMI] 19.9 or less, adult (5) Weakness Status: Acute Category: Medical Code(s): R53.1 - Weakness (6) Dehydration Status: Acute Category: Medical Code(s): E86.0 - Dehydration (7) Severe protein-calorie malnutrition Status: Acute Category: Medical Code(s): E43 - Unspecified severe protein-calorie malnutrition (8) Iron deficiency anemia Status: Acute Category: Medical Code(s): D50.9 - Iron deficiency anemia, unspecified (9) Mitral regurgitation Status: Acute Qualifiers: Cardiac valve disease etiology: etiology unspecified Qualified Code(s): I34.0 - Nonrheumatic mitral (valve) insufficiency Category: Medical Code(s): I34.0 - Nonrheumatic mitral (valve) insufficiency (10) Pulmonary HTN Status: Acute Category: Medical Code(s): I27.20 - Pulmonary hypertension, unspecified (11) Community acquired pneumonia Status: Acute Qualifiers: Laterality: unspecified laterality Qualified Code(s): J18.9 - Pneumonia, unspecified organism Category: Medical Code(s): J18.9 - Pneumonia, unspecified organism (12) Acute and chronic respiratory failure Status: Acute Qualifiers: Respiratory failure complication: hypoxia and hypercapnia Qualified Code(s): J96.21 - Acute and chronic respiratory failure with hypoxia; J96.22 - Acute and chronic respiratory failure with hypercapnia Category: Medical Code(s): J96.20 - Acute and chronic respiratory failure, unspecified whether with hypoxia or hypercapnia (13) SIRS (systemic inflammatory response syndrome) Status: Acute Category: Medical Code(s): R65.10 - Systemic inflammatory response syndrome (SIRS) of non-infectious origin without acute organ dysfunction (14) Stage III pressure ulcer Status: Acute Qualifiers: Pressure injury location: unspecified location Qualified Code(s): L89.93 - Pressure ulcer of unspecified site, stage 3 Category: Medical Code(s): L89.93 - Pressure ulcer of unspecified site, stage 3 (15) Pneumothorax on right Status: Acute Category: Medical Code(s): J93.9 - Pneumothorax, unspecified (16) Cardiopulmonary arrest with successful resuscitation Status: Acute Category: Medical Code(s): I46.9 - Cardiac arrest, cause unspecified (17) Severe sepsis with acute organ dysfunction Status: Acute Category: Medical Code(s): A41.9 - Sepsis, unspecified organism; R65.20 - Severe sepsis without septic shock (18) Septic shock Status: Acute Category: Medical Code(s): A41.9 - Sepsis, unspecified organism; R65.21 - Severe sepsis with septic shock - Assessment and plan all Dx Assessment and Plan for all problems:: #Necrotizing Lobar pneumonia: #Lung abscess: #Positive AFB stainin-year-old with
--- NOTE | 2021-01-19 13:34 | CA_ITS ---
APPROVED REPORT Bilateral Lower Extremity Venous Study for DVT. Core Manager: AURORA Devlin Pulmonary Embolism Swelling, pain,PE and Hypoxia Vein Imaging CFV (R): Non-Compressible, Thrombus SFJ (R): Thrombus FEM (R): compressive, spontaneous, phasic, augmentation POP (R): compressive, spontaneous, phasic, augmentation PTV (R): compressive, spontaneous, phasic, augmentation GSV (R): Non-Compressible, Thrombus Peroneals (R):compressive, spontaneous, phasic, augmentation GAS (R): compressive, spontaneous, phasic, augmentation CFV (L): Non-Compressible, Thrombus SFJ (L): Thrombus FEM (L): compressive, spontaneous, phasic, augmentation POP (L): compressive, spontaneous, phasic, augmentation PTV (L): compressive, spontaneous, phasic, augmentation GSV (L): Partially Compressible, Thrombus Peroneals (L):compressive, spontaneous, phasic, augmentation GAS (L): Not Visualized Findings Study suggests DVT in the right common femoral vein and right greater saphenous vein. Study suggests DVT in the left common femoral vein and left greater saphenous vein. Incidental finding of plaque in both the left and right common femoral arteries. Conclusion Study suggests DVT in the right common femoral vein and right greater saphenous vein. Study suggests DVT in the left common femoral vein and left greater saphenous vein. Incidental finding of plaque in both the left and right common femoral arteries. Critical Notification Critical Value: Yes Physician Notified Date: 01/19/2021 Time: 15:11 Physician Name: Yazmin Electronically signed by : Billy Keenan MD 01/19/2021 16:57:15
[2021-01-19 13:47] LABS: Potassium 3.6 mmoL/L (3.5-5.1)
[2021-01-19 13:56] LABS: POC Glucose,Bedside 70 (70-110)
[2021-01-19 13:58] LABS: Activated Partial Thrombo Time 55.3 seconds (22.8-30.6)
[2021-01-19 17:04] LABS: POC Glucose,Bedside 75 (70-110)
--- NOTE | 2021-01-19 18:02 | PC.NURSE ---
Pt is currently sedated. She has been turned q2hrs, oral care provided as needed. She has a zhang to bedside draining light colored urine. Approx 3L out thus far. She has been NSR on telemetry. +2 edema to BUE. Gown changed due to pt's skin weeping. She had a moderate sized loose stool this shift. Dressing to coccyx changed at this time. It is currently clean, dry and intact. Dressing to left hip is clean, dry and intact as well. Glucoses were 70 and 75 at checks. Tube feeds started per Dr Latham. After extensive discussions with w/ MD's has decided to make pt a DNR. It is signed and on the chart. Vent settings per intervention. is at bedside.
--- NOTE | 2021-01-19 18:38 | PC.NURSE ---
Manjit gtt raised to 150 mcg/min at 1829. Pt's b/p was 64/40. 1839 - 81/ now
[2021-01-19 19:00] LABS: Activated Partial Thrombo Time 39.5 seconds (22.8-30.6)
[2021-01-19 20:01] LABS: POC Glucose,Bedside 79 (70-110)
[2021-01-20] VITALS (35 sets, daily range): BP systolic 75–132; BP diastolic 45–87; PULSE 60–100; RESP 18; TEMP 36.4–37.7; O2SAT 93–97; BMI 19.5
--- NOTE | 2021-01-20 00:13 | PC.NURSE ---
She continues to be intubated and sedated. Vent settings are as follow: AC mode, TV 340, PEEP 5, Rate 18, FiO2 40%. Attempting to wean guille at this time. Her urine is yellow, clear but there has been a decrease in urine output. Her is at the bedside. She is being turned and repositioned q 2 hours. Oral care provided q 2 hours. DSG changed on coccyx during john paul-care. Last BM was 01/19/21. HOB elevated 30 degrees.
[2021-01-20 01:48] LABS: Activated Partial Thrombo Time 54.1 seconds (22.8-30.6)
--- NOTE | 2021-01-20 06:00 | XR_ITS ---
PROCEDURE INFORMATION: Exam: XR Chest Exam date and time: 01/20/2021 6:00 AM Age: 60 years old Clinical indication: Condition or disease; Lung condition and disease; Other: Pneumo vx blebs emphysema; Shortness of breath; Patient HX: PT on vent; Additional info: Sq emphysema / ptx vs blebs PT on vent TECHNIQUE: Imaging protocol: XR of the chest. Views: 1 view. COMPARISON: CR XR CHEST PORTABLE 01/19/2021 5:44 AM FINDINGS: Tubes, catheters and devices: Endotracheal tube remains in place with the tip above the raf. Nasogastric tube remains in place. Lungs: Persistent dense consolidation in the left lung with biapical air collections representing loculated pneumothoraces or bullae. No change in the atelectasis/infiltrate in right lung. Pleural spaces: See Lungs finding. Heart/Mediastinum: Unremarkable. No cardiomegaly. Bones/joints: Unremarkable. IMPRESSION: Stable chest.
[2021-01-20 06:07] LABS: Basophils % 0.3 % (0.1-2.0); Eosinophils # 0.1 K/mm3 (0.0-0.4); Eosinophils % 0.8 % (0.1-12.0); Hematocrit 35.5 % (37.0-47.0); Hemoglobin 10.5 g/dL (12.2-16.2); Lymphocytes # 0.8 K/mm3 (0.7-4.5); Lymphocytes % 7.3 % (10-50); Mean Corpuscular HGB Conc 29.5 g/dL (31.8-35.4); Mean Corpuscular Hemoglobin 23.1 pg (27.0-31.2); Mean Corpuscular Volume 78.3 fl (81-99); Monocytes # 0.3 K/mm3 (0.1-1.0); Monocytes % 3.1 % (1.7-9.3); Neutrophils # 9.6 K/mm3 (1.8-7.8); Neutrophils % 88.4 % (37.0-80.0); Platelet Count 323 K/mm3 (142-424); Red Blood Count 4.53 M/mm3 (4.20-5.40); White Blood Count 10.8 K/mm3 (4.8-10.8)
[2021-01-20 06:09] LABS: MANUAL DIFFERENTIAL MANUAL DIFFERENTIAL (MANUAL DIFF)
[2021-01-20 06:10] LABS: Chloride 94 mmol/L (98-107); Sodium 137 mmol/L (136-145)
[2021-01-20 06:13] LABS: Alanine Aminotransferase 15 U/L (12-78); Albumin Level 1.9 g/dl (3.5-5.0); Albumin/Globulin Ratio 0.7 (1.1-1.8); Alkaline Phosphatase 122 U/L (38-126); Anion Gap 7.7 mEq/L (5-15); Aspartate Amino Transferase 26 U/L (14-36); Bilirubin,Total 0.4 mg/dl (0.2-1.3); Blood Urea Nitrogen 6 mg/dl (7-17); Carbon Dioxide 38 mmol/L (22.0-30.0); Creatinine Clearance Estimated 114 mL/min (50-200); Estimated Glomerular Filt Rate 163 ml/min (>60); GFR (African American) 197 ML/MIN (>60); Globulin 2.7 g/dL (1.3-3.2); Total Protein,Serum 4.6 g/dl (6.3-8.2)
[2021-01-20 06:14] LABS: Calcium 6.5 mg/dl (8.4-10.2); Glucose 106 mg/dl (74-100)
[2021-01-20 06:21] LABS: Potassium 2.7 mmoL/L (3.5-5.1)
[2021-01-20 07:38] LABS: ABG Base Excess 11.5 mmol/L (-2.4-2.3); ABG HCO3 35.1 mmhg (22.0-26.0); ABG Oxygen Saturation 94 % (90-100); ABG PCO2 48.5 mmhg (35.0-45.0); ABG PH 7.48 mmol/L (7.35-7.45); ABG PO2 70.1 mmhg (80-100); ABG TCO2 36.6 mmhg (23-27)
[2021-01-20 07:39] LABS: Allen's Test ACCEPTABLE; Oxygen 40 %; PEEP 5; Source R RADIAL; Tidal Volume 340; Vent Rate 18
[2021-01-20 08:56] LABS: Activated Partial Thrombo Time 53.8 seconds (22.8-30.6)
--- NOTE | 2021-01-20 09:06 | PC.NURSE ---
received call from pharmacy (Shannon) to continue Heparin gtt @ 1000 units/hr.
--- NOTE | 2021-01-20 09:19 | HMH.ACPN2 ---
Internal Medicine - PN: Subj *Date: 01/20/21 *Time: 11:41 Interval history: pt on vent and doing ok - was awake and responded Exam Vital signs and Labs for Last 24 Hours: Temp Pulse Resp BP Pulse Ox 99.2 F 74 18 90/51 L 96 01/20/21 08:00 01/20/21 09:00 01/20/21 09:00 01/20/21 09:00 01/20/21 09:00 Laboratory Results - last 24 hr 01/19/21 12:38: POC Glucose 70 01/19/21 13:29: APTT 55.3 H* 01/19/21 13:29: Potassium 3.6 D 01/19/21 16:56: POC Glucose 75 01/19/21 18:41: APTT 39.5 H 01/19/21 19:50: POC Glucose 79 01/20/21 01:20: APTT 54.1 H* 01/20/21 05:30: Sodium 137, Potassium 2.7 L* D, Chloride 94 L, Carbon Dioxide 38 H, Anion Gap 7.7, BUN 6 L, Creatinine 0.40 L D, Estimated Creat Clear 114, Estimated GFR 163, Est GFR ( Amer) 197 D, Glucose 106 H, Calcium 6.5 L, Total Bilirubin 0.4, AST 26 D, ALT 15 D, Alkaline Phosphatase 122, Total Protein 4.6 L, Albumin 1.9 L, Globulin 2.7, Albumin/Globulin Ratio 0.7 L 01/20/21 05:30: WBC 10.8 D, RBC 4.53, Hgb 10.5 L, Hct 35.5 L, MCV 78.3 L, MCH 23.1 L, MCHC 29.5 L, RDW 20.0 H, Plt Count 323, MPV 9.0, Neut % (Auto) 88.4 H, Lymph % (Auto) 7.3 L, [place] % (Auto) 3.1, Eos % (Auto) 0.8, Baso % (Auto) 0.3, Neut # (Auto) 9.6 H, Lymph # (Auto) 0.8, [place] # (Auto) 0.3, Eos # (Auto) 0.1, Baso # (Auto) 0.0 01/20/21 07:00: Specimen Source R radial, O2 % 40, ABG pH 7.48 H, ABG pCO2 48.5 H, ABG pO2 70.1 L, ABG HCO3 35.1 H, ABG Total CO2 36.6 H, ABG O2 Saturation 94, ABG Base Excess 11.5 H, Billy Test Acceptable, Vent Rate 18, Tidal Volume 340, PEEP 5 01/20/21 08:15: APTT 53.8 H* I & O for Last 24 hours: Intake & Output 01/17/21 01/18/21 01/19/21 01/20/21 11:59 11:59 11:59 11:59 Intake Total 1550.009 / 6925.427 2161 / 1522 6420 / 6772 5814 / 5814 Output Total 2520 / 2575 1889 / 2239 6180 / 6380 4185 / 4185 Balance -969.991 / -1024.991 -367 / -717 240 / 392 1629 / 1629 Weight 103 lb 100 lb 14.489 oz 94 lb 7.983 oz 106 lb 1 oz Microbiology Reports for the Last 24 Hours: Microbiology 01/16/21 23:30 Aspirate - Endotracheal Tube Aspirate Gram Stain - Final 01/16/21 23:30 Aspirate - Endotracheal Tube Aspirate Bronchial Aspirate Culture - Preliminary 01/17/21 05:05 Blood Blood Culture - Preliminary NO GROWTH AFTER 48 HOURS 01/17/21 05:29 Blood Blood Culture - Preliminary NO GROWTH AFTER 48 HOURS - Constitutional chronically ill appearing - *Routine HEENT Exam Head: Present: normocephalic Eye: Present: PERRL ENT: Present: other (intubated) - *Routine Neck Exam Absent: JVD - *Routine Respiratory Exam Present: patient mechanically ventilated - *Routine Cardiovascular Exam Present: RRR - *Routine Abdominal Exam Present: soft - *Routine Extremities Exam Present: edema - *Routine Skin Exam Present: dry - *Routine Neurological Exam Present: altered mental status was awake briefly - Routine Psychiatric Exam Present: unable to assess Assessment and Plan (1) Respiratory failure with hypercapnia Status: Acute Category: Medical Code(s): J96.92 - Respiratory failure, unspecified with hypercapnia (2) Hypokalemia Status: Acute Category: Medical Code(s): E87.6 - Hypokalemia (3) Cachectic Status: Acute Category: Medical Code(s): R64 - Cachexia (4) Body mass index (BMI) less than 16.5 Status: Acute Category: Medical Code(s): Z68.1 - Body mass index [BMI] 19.9 or less, adult (5) Weakness Status: Acute Category: Medical Code(s): R53.1 - Weakness (6) Dehydration Status: Acute Category: Medical Code(s): E86.0 - Dehydration (7) Severe protein-calorie malnutrition Status: Acute Category: Medical Code(s): E43 - Unspecified severe protein-calorie malnutrition (8) Iron deficiency anemia Status: Acute Category: Medical Code(s): D50.9 - Iron deficiency anemia, unspecified (9) Mitral regurgitation Status: Acute Qualifiers:
[2021-01-20 11:02] LABS: Eosinophils % 2 % (0-3); Lymphocytes % 8 % (10-50); Monocytes % 4 % (2-9); Neutrophils % 80 % (42-76); Total Cells Counted 100
[2021-01-20 11:03] LABS: Anisocytosis 1+; Hypochromasia 2+; Microcytosis 1+
[2021-01-20 11:04] LABS: Platelet Estimate Normal
[2021-01-20 12:13] LABS: POC Glucose,Bedside 112 (70-110)
--- NOTE | 2021-01-20 13:00 | PC.NURSE ---
BP 132/87. Manjit gtt decreased to 90mcg/min from 100mcg/min. Pt flailing arms in the arm and raising herself up from the bed. Is agitated and restless. Propofol gtt increased to 35mcg/kg/min from 30mcg/kg/min.
[2021-01-20 14:45] LABS: Activated Partial Thrombo Time 54.7 seconds (22.8-30.6)
--- NOTE | 2021-01-20 14:51 | PC.NURSE ---
received call from pharmacist (Rodger) to continue Heparin gtt @ 1000units/hr.
--- NOTE | 2021-01-20 15:00 | PC.NURSE ---
BP 128/78. Manjit gtt decreased to 80mcg/min.
--- NOTE | 2021-01-20 16:00 | PC.NURSE ---
BP 100/55. Manjit gtt decreased to 70mcg/min.
[2021-01-20 16:48] LABS: POC Glucose,Bedside 106 (70-110)
[2021-01-20 17:21] LABS: Chloride 97 mmol/L (98-107); Potassium 3.2 mmoL/L (3.5-5.1); Sodium 139 mmol/L (136-145)
[2021-01-20 17:24] LABS: Alanine Aminotransferase 13 U/L (12-78); Albumin/Globulin Ratio 0.7 (1.1-1.8); Alkaline Phosphatase 138 U/L (38-126); Anion Gap 8.2 mEq/L (5-15); Aspartate Amino Transferase 22 U/L (14-36); Bilirubin,Total 0.2 mg/dl (0.2-1.3); Blood Urea Nitrogen 6 mg/dl (7-17); Carbon Dioxide 37 mmol/L (22.0-30.0); Creatinine Clearance Estimated 114 mL/min (50-200); Estimated Glomerular Filt Rate 163 ml/min (>60); GFR (African American) 197 ML/MIN (>60); Globulin 2.8 g/dL (1.3-3.2); Total Protein,Serum 4.8 g/dl (6.3-8.2)
[2021-01-20 17:25] LABS: Calcium 6.6 mg/dl (8.4-10.2); Glucose 124 mg/dl (74-100)
[2021-01-20 19:00] LABS: Intact Parathyroid Hormone 53.1 pg/mL (7.5-53.5)
[2021-01-20 19:17] LABS: 25-OH Vitamin D, Total < 12.8 ng/mL (30-100)
[2021-01-20 19:19] LABS: Thyroid Stimulating Hormone 9.99 uIU/mL (0.465-4.68)
[2021-01-21] VITALS (35 sets, daily range): BP systolic 85–132; BP diastolic 51–69; PULSE 50–104; RESP 16–24; TEMP 36.4–37.4; O2SAT 94–100; BMI 17.5
--- NOTE | 2021-01-21 02:34 | PC.NURSE ---
She remains intubated and sedated. No change in vent settings from last night. Per report, plan is for SBT later this am. Gag reflex present. She is being turned and repositioned a 2 hours. Oral care provided. ETT suction with small amount of heard secretions. HOB elevated 30 degrees. Ambu bag at bedside.
--- NOTE | 2021-01-21 05:00 | XR_ITS ---
PROCEDURE INFORMATION: Exam: XR Chest Exam date and time: 01/21/2021 5:00 AM Age: 60 years old Clinical indication: Device placement; Ett placement (vent status); Additional info: PT intubated. TECHNIQUE: Imaging protocol: XR of the chest. Views: 1 view. COMPARISON: CR XR CHEST PORTABLE 01/20/2021 5:54 AM FINDINGS: Limitations: The patient cannot cooperate with standard positioning. Tubes, catheters and devices: The endotracheal tube now appears to be in the mainstem bronchus. Nasogastric tube remains in place. Lungs: The appearance of the lungs is unchanged. Pleural spaces: Unremarkable. No pleural effusion. No pneumothorax. Heart/Mediastinum: Unremarkable. No cardiomegaly. Bones/joints: Unremarkable. IMPRESSION: 1. The endotracheal tube now appears to be in the mainstem bronchus. 2. Stable chest.
--- NOTE | 2021-01-21 06:14 | PC.NURSE ---
Sedation has been turned of since 539. She is awake at this time. Her is in the room.
--- NOTE | 2021-01-21 06:55 | PC.NURSE ---
Dr. Dunne spoke with [facility]. New order received for repeat chest x-ray.
--- NOTE | 2021-01-21 06:58 | XR_ITS ---
PROCEDURE INFORMATION: Exam: XR Chest Exam date and time: 01/21/2021 6:58 AM Age: 60 years old Clinical indication: Device placement; Ett placement (vent status); Additional info: PT intubated. TECHNIQUE: Imaging protocol: XR of the chest. Views: 1 view. COMPARISON: CR XR CHEST PORTABLE 01/21/2021 5:03 AM FINDINGS: Tubes, catheters and devices: Endotracheal tube remains in place with the tip now approximately 3.5 cm above the raf. Nasogastric tube remains in place. Lungs: The appearance of the lungs is unchanged. Pleural spaces: Unremarkable. No pleural effusion. No pneumothorax. Heart/Mediastinum: Unremarkable. No cardiomegaly. Bones/joints: Unremarkable. IMPRESSION: Endotracheal tube remains in place with the tip now approximately 3.5 cm above the raf.
[2021-01-21 07:41] LABS: ABG Base Excess 6.5 mmol/L (-2.4-2.3); ABG HCO3 32.1 mmhg (22.0-26.0); ABG Oxygen Saturation 87 % (90-100); ABG PH 7.35 mmol/L (7.35-7.45); ABG PO2 58.1 mmhg (80-100); ABG TCO2 33.9 mmhg (23-27)
[2021-01-21 07:43] LABS: Oxygen 40 %; PEEP 5; Pressure Support 5
[2021-01-21 07:44] LABS: Allen's Test Acceptable; Source Right Radial
--- NOTE | 2021-01-21 07:50 | PC.NURSE ---
Dr. Latham notified of the following: ABG results pH 7.35, CO2 59, and pO2 58. Pt currently on SBT 40% FiO2, 5/-, and pulling TV 250s. She is alert, following commands, and agitated. Propofol gtt has been OFF since aprox 0540.
--- NOTE | 2021-01-21 07:56 | PC.NURSE ---
received call from Dr. Dunne stating that ET tube is 3.5cm above the raf and that the tube is in good position. No new orders received.
[2021-01-21 08:02] LABS: Chloride 101 mmol/L (98-107); Sodium 138 mmol/L (136-145)
[2021-01-21 08:05] LABS: Alanine Aminotransferase 10 U/L (12-78); Albumin Level 1.9 g/dl (3.5-5.0); Albumin/Globulin Ratio 0.6 (1.1-1.8); Alkaline Phosphatase 135 U/L (38-126); Aspartate Amino Transferase 25 U/L (14-36); Bilirubin,Total 0.4 mg/dl (0.2-1.3); Blood Urea Nitrogen 6 mg/dl (7-17); Carbon Dioxide 30 mmol/L (22.0-30.0); Creatinine Clearance Estimated 136 mL/min (50-200); Estimated Glomerular Filt Rate 227 ml/min (>60); GFR (African American) 275 ML/MIN (>60); Total Protein,Serum 4.9 g/dl (6.3-8.2)
[2021-01-21 08:06] LABS: Glucose 99 mg/dl (74-100)
--- NOTE | 2021-01-21 09:00 | PC.NURSE ---
BP 120/53. Manjit gtt decreased to 60mcg/min.
--- NOTE | 2021-01-21 09:00 | PC.NURSE ---
Pt continues to be agitated and restless. RT (Ragini) switched pt back on a rate and Propofol gtt turned back on @ 35mcg/kg/min. Tubefeeds also turned back on
--- NOTE | 2021-01-21 09:10 | PC.NURSE ---
PT BACK ON AC VT 340, RR 18, PEEP 5, AND 40%. SATS=99%. PT DID NOT REQUIRE SXN AT THIS TIME.
[2021-01-21 09:39] LABS: Basophils % 0.5 % (0.1-2.0); Eosinophils # 0.1 K/mm3 (0.0-0.4); Eosinophils % 1.1 % (0.1-12.0); Hematocrit 34.2 % (37.0-47.0); Hemoglobin 9.8 g/dL (12.2-16.2); Lymphocytes # 0.5 K/mm3 (0.7-4.5); Mean Corpuscular HGB Conc 28.7 g/dL (31.8-35.4); Mean Corpuscular Hemoglobin 23.1 pg (27.0-31.2); Mean Corpuscular Volume 80.4 fl (81-99); Mean Platelet Volume 8.9 fl (7.4-10.4); Monocytes # 0.3 K/mm3 (0.1-1.0); Monocytes % 3.5 % (1.7-9.3); Neutrophils # 7.1 K/mm3 (1.8-7.8); Neutrophils % 88.9 % (37.0-80.0); Platelet Count 282 K/mm3 (142-424); Red Blood Count 4.25 M/mm3 (4.20-5.40); Red Cell Distribution Width 20.1 % (11.5-17.5)
[2021-01-21 09:48] LABS: MANUAL DIFFERENTIAL MANUAL DIFFERENTIAL (MANUAL DIFF)
[2021-01-21 10:10] LABS: Activated Partial Thrombo Time 42.3 seconds (22.8-30.6)
[2021-01-21 11:10] LABS: Eosinophils % 1 % (0-3); Lymphocytes % 6 % (10-50); Monocytes % 4 % (2-9); Neutrophils % 83 % (42-76); Total Cells Counted 100
[2021-01-21 11:11] LABS: Anisocytosis 2+; Hypochromasia 3+; Microcytosis 1+; Platelet Estimate Normal
[2021-01-21 11:12] LABS: Basophilic Stippling 1+
[2021-01-21 11:14] LABS: POC Glucose,Bedside 117 (70-110)
--- NOTE | 2021-01-21 12:10 | PC.NURSE ---
Heparin gtt increased to 1100units/hr per pharmacist (Antoinette Martinez).
--- NOTE | 2021-01-21 13:27 | HMH.ACPN2 ---
Internal Medicine - PN: Subj *Date: 01/22/21 *Time: :29 Interval history: resting on vent- no def changes Exam Vital signs and Labs for Last 24 Hours: Temp Pulse Resp BP Pulse Ox 97.6 F 60 18 108/62 L 96 01/21/21 12:00 01/21/21 12:00 01/21/21 12:45 01/21/21 12:00 01/21/21 12:45 Laboratory Results - last 24 hr 01/20/21 05:30: TSH 9.99 H, PTH Intact 53.1 01/20/21 05:30: 25-OH Vitamin D Total < 12.8 L 01/20/21 12:45: APTT 54.7 H* 01/20/21 16:37: POC Glucose 106 01/20/21 17:00: Sodium 139, Potassium 3.2 L, Chloride 97 L, Carbon Dioxide 37 H, Anion Gap 8.2, BUN 6 L, Creatinine 0.40 L, Estimated Creat Clear 114, Estimated GFR 163, Est GFR ( Amer) 197, Glucose 124 H, Calcium 6.6 L, Total Bilirubin 0.2, AST 22, ALT 13, Alkaline Phosphatase 138 H, Total Protein 4.8 L, Albumin 2.0 L, Globulin 2.8, Albumin/Globulin Ratio 0.7 L 01/21/21 07:34: Sodium 138, Potassium 4.0 D, Chloride 101, Carbon Dioxide 30, Anion Gap 11.0, BUN 6 L, Creatinine 0.30 L D, Estimated Creat Clear 136, Estimated GFR 227, Est GFR ( Amer) 275 D, Glucose 99 D, Calcium 7.0 L, Total Bilirubin 0.4, AST 25, ALT 10 L, Alkaline Phosphatase 135 H, Total Protein 4.9 L, Albumin 1.9 L, Globulin 3.0, Albumin/Globulin Ratio 0.6 L 01/21/21 07:38: Specimen Source Right radial, O2 % 40, ABG pH 7.35, ABG pCO2 59.0 H, ABG pO2 58.1 L, ABG HCO3 32.1 H, ABG Total CO2 33.9 H, ABG O2 Saturation 87 L*, ABG Base Excess 6.5 H, Billy Test Acceptable, PEEP 5 01/21/21 09:07: WBC 8.0 D, RBC 4.25, Hgb 9.8 L, Hct 34.2 L, MCV 80.4 L, MCH 23.1 L, MCHC 28.7 L, RDW 20.1 H, Plt Count 282, MPV 8.9, Neut % (Auto) 88.9 H, Lymph % (Auto) 6.0 L, [place] % (Auto) 3.5, Eos % (Auto) 1.1, Baso % (Auto) 0.5, Neut # (Auto) 7.1, Lymph # (Auto) 0.5 L, [place] # (Auto) 0.3, Eos # (Auto) 0.1, Baso # (Auto) 0.0, Total Counted 100, Neutrophils % (Manual) 83 H, Band Neutrophils % 6.0, Lymphocytes % (Manual) 6 L, Monocytes % (Manual) 4, Eosinophils % (Manual) 1, Platelet Estimate Normal, Hypochromasia 3+, Basophilic Stippling 1+, Anisocytosis 2+, Microcytosis 1+ 01/21/21 09:48: APTT 42.3 H 01/21/21 11:04: POC Glucose 117 H I & O for Last 24 hours: Intake & Output 01/19/21 01/20/21 01/21/21 01/22/21 11:59 11:59 11:59 11:59 Intake Total 6420 / 6772 5814 / 5814 6082 / 6082 Output Total 6180 / 6380 4323 / 4413 1853 / 1875 / Balance 240 / 392 1491 / 1401 4229 / 4207 -67 / -67 Weight 94 lb 7.983 oz 106 lb 1 oz 95 lb 3.835 oz - Constitutional thin, somnolent - *Routine HEENT Exam Head: Present: normocephalic Eye: Present: EOMI, PERRL ENT: Present: mucous membranes dry - *Routine Neck Exam Present: supple - *Routine Respiratory Exam Present: patient mechanically ventilated - *Routine Cardiovascular Exam Present: RRR, murmur - *Routine Abdominal Exam Present: soft - *Routine Extremities Exam Present: edema - *Routine Skin Exam Present: intact - *Routine Neurological Exam Present: alert, CN II-XII intact - Routine Psychiatric Exam Present: unable to assess Assessment and Plan (1) Respiratory failure with hypercapnia Status: Acute Category: Medical Code(s): J96.92 - Respiratory failure, unspecified with hypercapnia (2) Hypokalemia Status: Acute Category: Medical Code(s): E87.6 - Hypokalemia (3) Cachectic Status: Acute Category: Medical Code(s): R64 - Cachexia (4) Body mass index (BMI) less than 16.5 Status: Acute Category: Medical Code(s): Z68.1 - Body mass index [BMI] 19.9 or less, adult (5) Weakness Status: Acute Category: Medical Code(s): R53.1 - Weakness (6) Dehydration Status: Acute Category: Medical Code(s): E86.0 - Dehydration (7) Severe protein-calorie malnutrition Status: Acute Category: Medical Code(s): E43 - Unspecified severe protein-calorie malnutrition (8) Iron deficiency anemia Status: Acute Category: Medical Code(s): D50.9 - Iron deficiency anemia, unspecified (9) Mitral regurgi
--- NOTE | 2021-01-21 17:30 | PC.NURSE ---
BP 131/65. Manjit gtt decreased to 50mcg/min.
[2021-01-21 17:46] LABS: Activated Partial Thrombo Time 45.7 seconds (22.8-30.6)
--- NOTE | 2021-01-21 18:31 | PC.NURSE ---
received call from [facility] to increase Heparin gtt to 1200 units/hr and to give a 3000 unit bolus.
[2021-01-21 21:13] LABS: POC Glucose,Bedside 100 (70-110)
[2021-01-22] VITALS (37 sets, daily range): BP systolic 78–127; BP diastolic 32–73; PULSE 50–111; RESP 15–24; TEMP 36.6–36.9; O2SAT 91–100; BMI 17.1
[2021-01-22 00:51] LABS: Activated Partial Thrombo Time 67.6 seconds (22.8-30.6)
[2021-01-22 01:01] LABS: POC Glucose,Bedside 98 (70-110)
--- NOTE | 2021-01-22 02:52 | PC.NURSE ---
Per report, plan is for SBT later this morning. She is intubated and sedated. HOB elevated 30 degrees. Oral care and turning and repositioning q 2 hours. Urine is yellow, clear. Her is at the bedside.
[2021-01-22 06:52] LABS: Basophils % 0.4 % (0.1-2.0); Eosinophils # 0.2 K/mm3 (0.0-0.4); Eosinophils % 2.3 % (0.1-12.0); Hemoglobin 9.8 g/dL (12.2-16.2); Lymphocytes # 0.6 K/mm3 (0.7-4.5); Lymphocytes % 7.2 % (10-50); Mean Corpuscular HGB Conc 28.9 g/dL (31.8-35.4); Mean Corpuscular Hemoglobin 23.2 pg (27.0-31.2); Mean Corpuscular Volume 80.2 fl (81-99); Monocytes # 0.4 K/mm3 (0.1-1.0); Monocytes % 4.5 % (1.7-9.3); Neutrophils # 7.1 K/mm3 (1.8-7.8); Neutrophils % 85.7 % (37.0-80.0); Platelet Count 305 K/mm3 (142-424); Red Blood Count 4.23 M/mm3 (4.20-5.40); Red Cell Distribution Width 20.1 % (11.5-17.5); White Blood Count 8.3 K/mm3 (4.8-10.8)
[2021-01-22 06:57] LABS: Chloride 95 mmol/L (98-107); Sodium 138 mmol/L (136-145)
[2021-01-22 07:00] LABS: Alanine Aminotransferase 8 U/L (12-78); Albumin/Globulin Ratio 0.7 (1.1-1.8); Alkaline Phosphatase 133 U/L (38-126); Anion Gap 7.5 mEq/L (5-15); Aspartate Amino Transferase 19 U/L (14-36); Blood Urea Nitrogen 5 mg/dl (7-17); Carbon Dioxide 38 mmol/L (22.0-30.0); Creatinine Clearance Estimated 133 mL/min (50-200); Estimated Glomerular Filt Rate 227 ml/min (>60); GFR (African American) 275 ML/MIN (>60); Globulin 2.9 g/dL (1.3-3.2); Total Protein,Serum 4.9 g/dl (6.3-8.2)
[2021-01-22 07:01] LABS: Calcium 6.7 mg/dl (8.4-10.2); Glucose 107 mg/dl (74-100)
[2021-01-22 07:05] LABS: MANUAL DIFFERENTIAL MANUAL DIFFERENTIAL (MANUAL DIFF)
[2021-01-22 07:21] LABS: Bilirubin,Total 0.1 mg/dl (0.2-1.3)
[2021-01-22 07:22] LABS: Potassium 2.5 mmoL/L (3.5-5.1)
[2021-01-22 07:53] LABS: Activated Partial Thrombo Time 39.3 seconds (22.8-30.6)
[2021-01-22 08:18] LABS: Anisocytosis 2+; Eosinophils % 1 % (0-3); Lymphocytes % 6 % (10-50); Monocytes % 3 % (2-9); Neutrophils % 89 % (42-76); Platelet Estimate Normal; Total Cells Counted 100
[2021-01-22 08:19] LABS: Hypochromasia 2+; Microcytosis 1+
--- NOTE | 2021-01-22 09:13 | XR_ITS ---
PROCEDURE: XR CHEST PORTABLE CLINICAL HISTORY: PNM Follow-up pneumonia COMPARISON: CT CT ANGIO CHEST PE PROTOCOL from 01/18/2021 CR XR CHEST PORTABLE from 01/20/2021 CR XR CHEST PORTABLE from 01/21/2021 CR XR CHEST PORTABLE from 01/21/2021 FINDINGS: Endotracheal tube tip is 3.5 cm above the raf. Nasogastric tube tip not visible on the image but below the diaphragm. Consolidation/volume loss once again noted involving the left lung with biapical cavities/bulla. Improvement in right lower lobe aeration/pneumonia with pleural thickening in the right midlung laterally also with some pleural thickening in the right upper lobe. No acute bony abnormalities. IMPRESSION: Improvement in right lower lobe pneumonia/volume loss with nasogastric tube and endotracheal tube in good position and no change in the left lung collapse with biapical cavities/bulla Dictated by: Billy Keenan MD 01/22/2021 10:10 Billy Keenan MD in [facility] 01/22/2021 10:10
--- NOTE | 2021-01-22 10:10 | HMH.ACPN2 ---
Internal Medicine - PN: Subj *Date: 01/22/21 *Time: 10:10 Interval history: more alert this am - follows commands - has low ca and k Exam Vital signs and Labs for Last 24 Hours: Temp Pulse Resp BP Pulse Ox 97.9 F 69 18 93/57 L 99 01/22/21 00:00 01/22/21 07:00 01/22/21 06:46 01/22/21 07:00 01/22/21 07:00 Laboratory Results - last 24 hr 01/21/21 09:07: Total Counted 100, Neutrophils % (Manual) 83 H, Band Neutrophils % 6.0, Lymphocytes % (Manual) 6 L, Monocytes % (Manual) 4, Eosinophils % (Manual) 1, Platelet Estimate Normal, Hypochromasia 3+, Basophilic Stippling 1+, Anisocytosis 2+, Microcytosis 1+ 01/21/21 09:48: APTT 42.3 H 01/21/21 11:04: POC Glucose 117 H 01/21/21 16:18: APTT 45.7 H 01/21/21 17:15: POC Glucose 98 01/21/21 20:39: POC Glucose 100 01/22/21 00:10: APTT 67.6 H* D 01/22/21 06:10: Sodium 138, Potassium 2.5 L* D, Chloride 95 L, Carbon Dioxide 38 H, Anion Gap 7.5, BUN 5 L, Creatinine 0.30 L, Estimated Creat Clear 133, Estimated GFR 227, Est GFR ( Amer) 275, Glucose 107 H, Calcium 6.7 L, Total Bilirubin 0.1 L, AST 19, ALT 8 L, Alkaline Phosphatase 133 H, Total Protein 4.9 L, Albumin 2.0 L, Globulin 2.9, Albumin/Globulin Ratio 0.7 L 01/22/21 06:10: WBC 8.3, RBC 4.23, Hgb 9.8 L, Hct 34.0 L, MCV 80.2 L, MCH 23.2 L, MCHC 28.9 L, RDW 20.1 H, Plt Count 305, MPV 9.0, Neut % (Auto) 85.7 H, Lymph % (Auto) 7.2 L, [place] % (Auto) 4.5, Eos % (Auto) 2.3, Baso % (Auto) 0.4, Neut # (Auto) 7.1, Lymph # (Auto) 0.6 L, [place] # (Auto) 0.4, Eos # (Auto) 0.2, Baso # (Auto) 0.0, Total Counted 100, Neutrophils % (Manual) 89 H, Lymphocytes % (Manual) 6 L, Monocytes % (Manual) 3, Eosinophils % (Manual) 1, Basophils % (Manual) 1.0, Platelet Estimate Normal, Hypochromasia 2+, Anisocytosis 2+, Microcytosis 1+ 01/22/21 07:15: APTT 39.3 H I & O for Last 24 hours: Intake & Output 01/19/21 01/20/21 01/21/21 01/22/21 11:59 11:59 11:59 11:59 Intake Total 6420 / 6772 5814 / 5814 6082 / 6082 5050 / 5050 Output Total 6180 / 6380 4323 / 4413 1853 / 1875 5462 / 5462 Balance 240 / 392 1491 / 1401 4229 / 4207 -412 / -412 Weight 94 lb 7.983 oz 106 lb 1 oz 95 lb 3.835 oz 93 lb Microbiology Reports for the Last 24 Hours: Microbiology 01/17/21 05:29 Blood Blood Culture - Final NO GROWTH AFTER 5 DAYS 01/17/21 05:05 Blood Blood Culture - Final NO GROWTH AFTER 5 DAYS 01/19/21 15:23 Bronchial Lavage - Pulmonary Acid Fast Bacilli Smear - Final - Constitutional no acute distress - *Routine HEENT Exam Head: Present: normocephalic Eye: Present: EOMI, PERRL ENT: Present: other (et tube ) - *Routine Neck Exam Absent: JVD - *Routine Respiratory Exam Present: patient mechanically ventilated - *Routine Cardiovascular Exam Present: RRR - *Routine Abdominal Exam Present: soft - *Routine Extremities Exam Present: edema - *Routine Skin Exam Present: intact - *Routine Neurological Exam Present: CN II-XII intact - Routine Psychiatric Exam Present: unable to assess Assessment and Plan (1) Respiratory failure with hypercapnia Status: Acute Category: Medical Code(s): J96.92 - Respiratory failure, unspecified with hypercapnia (2) Hypokalemia Status: Acute Category: Medical Code(s): E87.6 - Hypokalemia (3) Cachectic Status: Acute Category: Medical Code(s): R64 - Cachexia (4) Body mass index (BMI) less than 16.5 Status: Acute Category: Medical Code(s): Z68.1 - Body mass index [BMI] 19.9 or less, adult (5) Weakness Status: Acute Category: Medical Code(s): R53.1 - Weakness (6) Dehydration Status: Acute Category: Medical Code(s): E86.0 - Dehydration (7) Severe protein-calorie malnutrition Status: Acute Category: Medical Code(s): E43 - Unspecified severe protein-calorie malnutrition (8) Iron deficiency anemia Status: Acute Category: Medical Code(s): D50.9 - Iron deficiency anemia, unspecified
[2021-01-22 11:16] LABS: ABG Base Excess 14.1 mmol/L (-2.4-2.3); ABG HCO3 38.1 mmhg (22.0-26.0); ABG Oxygen Saturation 84 % (90-100); ABG PH 7.45 mmol/L (7.35-7.45); ABG TCO2 39.8 mmhg (23-27)
[2021-01-22 11:50] LABS: POC Glucose,Bedside 97 (70-110)
--- NOTE | 2021-01-22 12:21 | HMH.PULMPN ---
Internal Medicine - PN: Subj *Date: 01/22/21 *Time: 12:21 Interval history: No acute respiratory vents overnight. Exam - Constitutional Constitutional:: Present: no acute distress, comfortable - HENMT Exam HENMT: Present: normocephalic - Eye Exam Eyes:: Present: normal appearance both eyes and related structures - Neck Exam Neck:: Present: normal visual inspection - Respiratory Exam Respiratory:: Present: no respiratory distress, crackles - Cardiovascular Exam Cardiac:: Present: S1, S2 - GI Exam GI:: Present: soft - Skin Exam Skin: Present: warm, no rash - Neurological Exam Neurological: Present: alert, awake. Absent: normal cognition - Extremities Exam Extremities: Present: no cyanosis, no clubbing, edema - Psychiatric Exam Psychiatric: Present: agitated, anxious Assessment and Plan (1) Respiratory failure with hypercapnia Status: Acute Category: Medical Code(s): J96.92 - Respiratory failure, unspecified with hypercapnia (2) Hypokalemia Status: Acute Category: Medical Code(s): E87.6 - Hypokalemia (3) Cachectic Status: Acute Category: Medical Code(s): R64 - Cachexia (4) Body mass index (BMI) less than 16.5 Status: Acute Category: Medical Code(s): Z68.1 - Body mass index [BMI] 19.9 or less, adult (5) Weakness Status: Acute Category: Medical Code(s): R53.1 - Weakness (6) Dehydration Status: Acute Category: Medical Code(s): E86.0 - Dehydration (7) Severe protein-calorie malnutrition Status: Acute Category: Medical Code(s): E43 - Unspecified severe protein-calorie malnutrition (8) Iron deficiency anemia Status: Acute Category: Medical Code(s): D50.9 - Iron deficiency anemia, unspecified (9) Mitral regurgitation Status: Acute Qualifiers: Cardiac valve disease etiology: etiology unspecified Qualified Code(s): I34.0 - Nonrheumatic mitral (valve) insufficiency Category: Medical Code(s): I34.0 - Nonrheumatic mitral (valve) insufficiency (10) Pulmonary HTN Status: Acute Category: Medical Code(s): I27.20 - Pulmonary hypertension, unspecified (11) Community acquired pneumonia Status: Acute Qualifiers: Laterality: unspecified laterality Qualified Code(s): J18.9 - Pneumonia, unspecified organism Category: Medical Code(s): J18.9 - Pneumonia, unspecified organism (12) Acute and chronic respiratory failure Status: Acute Qualifiers: Respiratory failure complication: hypoxia and hypercapnia Qualified Code(s): J96.21 - Acute and chronic respiratory failure with hypoxia; J96.22 - Acute and chronic respiratory failure with hypercapnia Category: Medical Code(s): J96.20 - Acute and chronic respiratory failure, unspecified whether with hypoxia or hypercapnia (13) SIRS (systemic inflammatory response syndrome) Status: Acute Category: Medical Code(s): R65.10 - Systemic inflammatory response syndrome (SIRS) of non-infectious origin without acute organ dysfunction (14) Stage III pressure ulcer Status: Acute Qualifiers: Pressure injury location: unspecified location Qualified Code(s): L89.93 - Pressure ulcer of unspecified site, stage 3 Category: Medical Code(s): L89.93 - Pressure ulcer of unspecified site, stage 3 (15) Pneumothorax on right Status: Acute Category: Medical Code(s): J93.9 - Pneumothorax, unspecified (16) Cardiopulmonary arrest with successful resuscitation Status: Acute Category: Medical Code(s): I46.9 - Cardiac arrest, cause unspecified (17) Severe sepsis with acute organ dysfunction Status: Acute Category: Medical Code(s): A41.9 - Sepsis, unspecified organism; R65.20 - Severe sepsis without septic shock (18) Septic shock Status: Acute Category: Medical Code(s): A41.9 - Sepsis, unspecified organism; R65.21 - Severe sepsis with septic shock (19) Pulmonary embolism Status: Acute Category: Medical Code(s): I26.99 - Other pulmonar
[2021-01-22 14:00] LABS: Allen's Test Acceptable; Oxygen 30 %; PEEP 5; Pressure Support 7; Source Left Radial
[2021-01-22 14:01] LABS: ABG PCO2 56.2 mmhg (35.0-45.0)
[2021-01-22 14:02] LABS: ABG PO2 49.3 mmhg (80-100)
[2021-01-22 14:31] LABS: Calcium, Ionized 4.6 mg/dL (4.5-5.6)
[2021-01-22 15:07] LABS: Activated Partial Thrombo Time 51.4 seconds (22.8-30.6)
[2021-01-22 17:46] LABS: POC Glucose,Bedside 93 (70-110)
[2021-01-22 20:55] LABS: Activated Partial Thrombo Time 42.9 seconds (22.8-30.6)
[2021-01-23] VITALS (34 sets, daily range): BP systolic 73–171; BP diastolic 32–74; PULSE 64–112; RESP 16–26; TEMP 36.6; O2SAT 90–99; BMI 17.1
[2021-01-23 06:46] LABS: Basophils % 0.5 % (0.1-2.0); Eosinophils # 0.1 K/mm3 (0.0-0.4); Eosinophils % 1.6 % (0.1-12.0); Hematocrit 29.6 % (37.0-47.0); Hemoglobin 8.7 g/dL (12.2-16.2); Lymphocytes # 0.7 K/mm3 (0.7-4.5); Mean Corpuscular HGB Conc 29.4 g/dL (31.8-35.4); Mean Corpuscular Volume 78.1 fl (81-99); Mean Platelet Volume 9.2 fl (7.4-10.4); Monocytes # 0.4 K/mm3 (0.1-1.0); Monocytes % 6.8 % (1.7-9.3); Neutrophils % 80.1 % (37.0-80.0); Platelet Count 300 K/mm3 (142-424); Red Blood Count 3.79 M/mm3 (4.20-5.40); Red Cell Distribution Width 20.1 % (11.5-17.5); White Blood Count 6.2 K/mm3 (4.8-10.8)
[2021-01-23 07:28] LABS: Activated Partial Thrombo Time 118.1 seconds (22.8-30.6)
--- NOTE | 2021-01-23 08:04 | PC.NURSE ---
Late entry: Pt is intubated and sedated. HOB elevated. No change in vent settings from previous shift. Her is at the bedside. She continues with pulmocare @ 30mL/hr. 2107-Spoke with Cesar at [facility]; he stated to increased heparin to 1450 units/hr and to give a 3000 unit bolus. 0500-Propofol off at this time in preparation for spontaneous breathing trial. 0542- Called lab to check on results of PTT. Hortencia stated that the tube had too little of blood and would not run and needed to be redrawn. She stated that lab was on their way to the floor at this time to redraw PTT.
[2021-01-23 09:09] LABS: ABG Base Excess 11.4 mmol/L (-2.4-2.3); ABG HCO3 34.9 mmhg (22.0-26.0); ABG Oxygen Saturation 94 % (90-100); ABG PCO2 47.6 mmhg (35.0-45.0); ABG PH 7.48 mmol/L (7.35-7.45); ABG PO2 73.6 mmhg (80-100); ABG TCO2 36.4 mmhg (23-27)
[2021-01-23 09:11] LABS: Allen's Test ACCEPTABLE; Oxygen 40 %; PEEP 5; Pressure Support 7; Source Right Radial
--- NOTE | 2021-01-23 09:23 | HMH.ACPN2 ---
Internal Medicine - PN: Subj *Date: 01/23/21 *Time: 09:23 Interval history: 60-year-old female patient lying in bed, intubated. Sedation is currently off, patient has eyes open looking around the room follows simple instructions nods head to reply she understands. Phenylephrine infusing, ventilator settings AC 18/340/40 +5. in chair at bedside Exam Vital signs and Labs for Last 24 Hours: Temp Pulse Resp BP Pulse Ox 98.4 F 85 18 95/52 L 99 01/22/21 20:00 01/23/21 07:00 01/23/21 06:19 01/23/21 07:00 01/23/21 07:00 Laboratory Results - last 24 hr 01/21/21 10:50: Ionized Calcium 4.6 01/22/21 06:01: POC Glucose 97 01/22/21 11:13: Specimen Source Left radial, O2 % 30, ABG pH 7.45, ABG pCO2 56.2 H, ABG pO2 49.3 L, ABG HCO3 38.1 H, ABG Total CO2 39.8 H, ABG O2 Saturation 84 L*, ABG Base Excess 14.1 H, Billy Test Acceptable, PEEP 5 01/22/21 11:58: POC Glucose 93 01/22/21 14:29: APTT 51.4 H* 01/22/21 20:25: APTT 42.9 H 01/23/21 06:17: APTT 118.1 H* D 01/23/21 06:17: WBC 6.2 D, RBC 3.79 L, Hgb 8.7 L, Hct 29.6 L, MCV 78.1 L, MCH 23.0 L, MCHC 29.4 L, RDW 20.1 H, Plt Count 300, MPV 9.2, Neut % (Auto) 80.1 H, Lymph % (Auto) 11.0, [place] % (Auto) 6.8, Eos % (Auto) 1.6, Baso % (Auto) 0.5, Neut # (Auto) 5.0, Lymph # (Auto) 0.7, [place] # (Auto) 0.4, Eos # (Auto) 0.1, Baso # (Auto) 0.0 01/23/21 09:06: Specimen Source Right radial, O2 % 40, ABG pH 7.48 H, ABG pCO2 47.6 H, ABG pO2 73.6 L, ABG HCO3 34.9 H, ABG Total CO2 36.4 H, ABG O2 Saturation 94, ABG Base Excess 11.4 H, Billy Test Acceptable, PEEP 5 I & O for Last 24 hours: Intake & Output 01/20/21 01/21/21 01/22/21 01/23/21 23:59 23:59 23:59 23:59 Intake Total 6520 / 6730 5264 / 5404 5193 / 5353 1482 / 1482 Output Total 1731 / 1856 5732 / 5907 9440 / 9440 250 / 250 Balance 4789 / 4874 -468 / -503 -4247 / -4087 1232 / 1232 Weight 106 lb 1 oz 95 lb 3.835 oz 93 lb 92 lb 15.997 oz Microbiology Reports for the Last 24 Hours: Microbiology 01/17/21 05:29 Blood Blood Culture - Final NO GROWTH AFTER 5 DAYS 01/17/21 05:05 Blood Blood Culture - Final NO GROWTH AFTER 5 DAYS - Constitutional no acute distress, thin, cachectic, chronically ill appearing - *Routine HEENT Exam Head: Present: normocephalic Eye: Present: EOMI ENT: Present: mucous membranes moist - *Routine Neck Exam Present: trachea midline. Absent: tracheal deviation - *Routine Respiratory Exam Present: patient mechanically ventilated, crackles. Absent: accessory muscle use - *Routine Cardiovascular Exam Present: RRR - *Routine Abdominal Exam Present: soft, normoactive bowel sounds. Absent: firm - *Routine Extremities Exam Present: full ROM, pulses intact. Absent: cyanosis, clubbing, edema - *Routine Skin Exam Present: intact, dry, warm. Absent: cyanosis, erythema - *Routine Neurological Exam Present: alert, moving all extremities, vision grossly intact, hearing grossly intact - Routine Psychiatric Exam Present: unable to assess Assessment and Plan (1) Respiratory failure with hypercapnia Status: Acute Category: Medical Code(s): J96.92 - Respiratory failure, unspecified with hypercapnia (2) Hypokalemia Status: Acute Category: Medical Code(s): E87.6 - Hypokalemia (3) Cachectic Status: Acute Category: Medical Code(s): R64 - Cachexia (4) Body mass index (BMI) less than 16.5 Status: Acute Category: Medical Code(s): Z68.1 - Body mass index [BMI] 19.9 or less, adult (5) Weakness Status: Acute Category: Medical Code(s): R53.1 - Weakness (6) Dehydration Status: Acute Category: Medical Code(s): E86.0 - Dehydration (7) Severe protein-calorie malnutrition Status: Acute Category: Medical Code(s): E43 - Unspecified severe protein-calorie malnutrition (8) Iron deficiency anemia Status: Acute Category: Medical Code(s): D50.9 - Iron deficiency anemia, unspecified
--- NOTE | 2021-01-23 09:55 | PC.NURSE ---
heparin gtt stopped at this time
--- NOTE | 2021-01-23 10:12 | PC.NURSE ---
0955 - Pt extubated @ this time by RT Lesa w/ Dr. Latham @ bedside. Pt tolerated well. Pt placed on 4 L O2 per nasal cannula, sat maintaining mid to high 90's. She is currently sitting up in bed, non needs voiced. 1012 - Spoke to Kym Vega, hospice will be contacted for consult
[2021-01-23 10:16] LABS: Chloride 94 mmol/L (98-107); Sodium 136 mmol/L (136-145)
[2021-01-23 10:19] LABS: Alanine Aminotransferase 9 U/L (12-78); Albumin Level 1.8 g/dl (3.5-5.0); Albumin/Globulin Ratio 0.7 (1.1-1.8); Alkaline Phosphatase 113 U/L (38-126); Anion Gap 7.7 mEq/L (5-15); Aspartate Amino Transferase 25 U/L (14-36); Bilirubin,Total 0.3 mg/dl (0.2-1.3); Blood Urea Nitrogen 4 mg/dl (7-17); Carbon Dioxide 37 mmol/L (22.0-30.0); Creatinine Clearance Estimated 133 mL/min (50-200); Estimated Glomerular Filt Rate 227 ml/min (>60); GFR (African American) 275 ML/MIN (>60); Globulin 2.6 g/dL (1.3-3.2); Total Protein,Serum 4.4 g/dl (6.3-8.2)
[2021-01-23 10:20] LABS: Calcium 6.3 mg/dl (8.4-10.2); Glucose 77 mg/dl (74-100)
--- NOTE | 2021-01-23 11:20 | HMH.PULMPN ---
Internal Medicine - PN: Subj *Date: 01/23/21 *Time: 11:24 Interval history: No acute respiratory events overnight. Exam - Constitutional Constitutional:: Present: no acute distress, comfortable - HENMT Exam HENMT: Present: normocephalic, atraumatic - Eye Exam Eyes:: Present: normal appearance both eyes and related structures - Neck Exam Neck:: Present: normal visual inspection - Respiratory Exam Respiratory:: Present: no respiratory distress, decreased breath sounds, crackles - Cardiovascular Exam Cardiac:: Present: S1, S2 - GI Exam GI:: Present: soft, no hepatosplenomegaly - Skin Exam Skin: Present: warm, no rash, dry - Neurological Exam Neurological: Present: alert, awake - Extremities Exam Extremities: Present: no cyanosis, no clubbing, edema - Psychiatric Exam Psychiatric: Present: normal affect Assessment and Plan (1) Respiratory failure with hypercapnia Status: Acute Category: Medical Code(s): J96.92 - Respiratory failure, unspecified with hypercapnia (2) Hypokalemia Status: Acute Category: Medical Code(s): E87.6 - Hypokalemia (3) Cachectic Status: Acute Category: Medical Code(s): R64 - Cachexia (4) Body mass index (BMI) less than 16.5 Status: Acute Category: Medical Code(s): Z68.1 - Body mass index [BMI] 19.9 or less, adult (5) Weakness Status: Acute Category: Medical Code(s): R53.1 - Weakness (6) Dehydration Status: Acute Category: Medical Code(s): E86.0 - Dehydration (7) Severe protein-calorie malnutrition Status: Acute Category: Medical Code(s): E43 - Unspecified severe protein-calorie malnutrition (8) Iron deficiency anemia Status: Acute Category: Medical Code(s): D50.9 - Iron deficiency anemia, unspecified (9) Mitral regurgitation Status: Acute Qualifiers: Cardiac valve disease etiology: etiology unspecified Qualified Code(s): I34.0 - Nonrheumatic mitral (valve) insufficiency Category: Medical Code(s): I34.0 - Nonrheumatic mitral (valve) insufficiency (10) Pulmonary HTN Status: Acute Category: Medical Code(s): I27.20 - Pulmonary hypertension, unspecified (11) Community acquired pneumonia Status: Acute Qualifiers: Laterality: unspecified laterality Qualified Code(s): J18.9 - Pneumonia, unspecified organism Category: Medical Code(s): J18.9 - Pneumonia, unspecified organism (12) Acute and chronic respiratory failure Status: Acute Qualifiers: Respiratory failure complication: hypoxia and hypercapnia Qualified Code(s): J96.21 - Acute and chronic respiratory failure with hypoxia; J96.22 - Acute and chronic respiratory failure with hypercapnia Category: Medical Code(s): J96.20 - Acute and chronic respiratory failure, unspecified whether with hypoxia or hypercapnia (13) SIRS (systemic inflammatory response syndrome) Status: Acute Category: Medical Code(s): R65.10 - Systemic inflammatory response syndrome (SIRS) of non-infectious origin without acute organ dysfunction (14) Stage III pressure ulcer Status: Acute Qualifiers: Pressure injury location: unspecified location Qualified Code(s): L89.93 - Pressure ulcer of unspecified site, stage 3 Category: Medical Code(s): L89.93 - Pressure ulcer of unspecified site, stage 3 (15) Pneumothorax on right Status: Acute Category: Medical Code(s): J93.9 - Pneumothorax, unspecified (16) Cardiopulmonary arrest with successful resuscitation Status: Acute Category: Medical Code(s): I46.9 - Cardiac arrest, cause unspecified (17) Severe sepsis with acute organ dysfunction Status: Acute Category: Medical Code(s): A41.9 - Sepsis, unspecified organism; R65.20 - Severe sepsis without septic shock (18) Septic shock Status: Acute Category: Medical Code(s): A41.9 - Sepsis, unspecified organism; R65.21 - Severe sepsis with septic shock (19) Pulmonary embolism Status: Acute Category: Medical
[2021-01-23 11:24] LABS: Potassium 2.7 mmoL/L (3.5-5.1)
[2021-01-23 13:51] LABS: ABG Base Excess 9.7 mmol/L (-2.4-2.3); ABG HCO3 36.6 mmhg (22.0-26.0); ABG Oxygen Saturation 96 % (90-100); ABG PH 7.27 mmol/L (7.35-7.45); ABG PO2 100.2 mmhg (80-100)
[2021-01-23 13:54] LABS: Allen's Test acceptable; Source Right Radial
[2021-01-23 13:55] LABS: Oxygen 50 %
[2021-01-23 13:56] LABS: ABG PCO2 80.7 mmhg (35.0-45.0)
--- NOTE | 2021-01-23 17:38 | PC.NURSE ---
While pt was being cleaned up and was turned on her right side noted that pt became unresponsive and sat was dropping to 70's on 4 L. Pt placed on venturi mask and RT called. Pt readjusted/ pulled up in bed. Pt still pale and unresponsive. RT @ bedside, pt placed on BIPAP FIO2 30%. Dr. Latham and Ricardo Quesada made aware of incident. ABG obtained by RT. Results called to Dr. Latham @ [id number]. No new orders.
--- NOTE | 2021-01-23 17:48 | PC.NURSE ---
Pt currently resting in bed. Remains on BIPAP, sat < 90%. Lungs w/ scattered wheezes. Abdomen soft, non-tender w/ active BS in all quads. Pt incontinent of two loose stools this shift. Castillo cath to drain @ bedside w/ clear yellow urine. Dressing intact to L Hip. Dressing to Coccyx changed multiple times this shift d/t being soiled. Pt has continued to refuse to allow staff to turn her, educated on importance of turning and repositioning for worsening breakdown. remains @ bedside. Hospice nurse was in earlier today to speak w/ family. No further needs voiced. Call yves w/in reach.
[2021-01-23 18:47] LABS: POC Glucose,Bedside 82 (70-110)
[2021-01-24] VITALS (15 sets, daily range): BP systolic 108–129; BP diastolic 64–78; PULSE 70–110; RESP 18–34; TEMP 35.8–36.9; O2SAT 85–100; BMI 21.9
[2021-01-24 06:44] LABS: Basophils % 0.2 % (0.1-2.0); Eosinophils % 0.1 % (0.1-12.0); Hematocrit 32.6 % (37.0-47.0); Hemoglobin 9.5 g/dL (12.2-16.2); Lymphocytes # 0.4 K/mm3 (0.7-4.5); Lymphocytes % 5.7 % (10-50); Mean Corpuscular HGB Conc 29.3 g/dL (31.8-35.4); Mean Corpuscular Hemoglobin 23.2 pg (27.0-31.2); Mean Corpuscular Volume 79.4 fl (81-99); Mean Platelet Volume 8.7 fl (7.4-10.4); Monocytes # 0.2 K/mm3 (0.1-1.0); Monocytes % 3.4 % (1.7-9.3); Neutrophils # 6.3 K/mm3 (1.8-7.8); Neutrophils % 90.6 % (37.0-80.0); Platelet Count 481 K/mm3 (142-424); Red Cell Distribution Width 20.1 % (11.5-17.5); White Blood Count 6.9 K/mm3 (4.8-10.8)
[2021-01-24 07:01] LABS: MANUAL DIFFERENTIAL MANUAL DIFFERENTIAL (MANUAL DIFF)
[2021-01-24 07:06] LABS: Alanine Aminotransferase 10 U/L (12-78); Albumin Level 2.3 g/dl (3.5-5.0); Albumin/Globulin Ratio 0.7 (1.1-1.8); Alkaline Phosphatase 119 U/L (38-126); Anion Gap 9.4 mEq/L (5-15); Aspartate Amino Transferase 27 U/L (14-36); Bilirubin,Total 0.5 mg/dl (0.2-1.3); Blood Urea Nitrogen 8 mg/dl (7-17); Calcium 6.7 mg/dl (8.4-10.2); Carbon Dioxide 36 mmol/L (22.0-30.0); Chloride 95 mmol/L (98-107); Creatinine Clearance Estimated 170 mL/min (50-200); Estimated Glomerular Filt Rate 227 ml/min (>60); GFR (African American) 275 ML/MIN (>60); Globulin 3.3 g/dL (1.3-3.2); Glucose 77 mg/dl (74-100); Sodium 138 mmol/L (136-145); Total Protein,Serum 5.6 g/dl (6.3-8.2)
[2021-01-24 08:55] LABS: Potassium 2.4 mmoL/L (3.5-5.1)
[2021-01-24 10:46] LABS: Lymphocytes % 2 % (10-50); Monocytes % 3 % (2-9); Neutrophils % 95 % (42-76); Platelet Estimate Slight Increase; RBC Morphology Normal; Total Cells Counted 100
--- NOTE | 2021-01-24 11:14 | HMH.PULMPN ---
Internal Medicine - PN: Subj *Date: 01/24/21 *Time: 11:14 Interval history: No acute respiratory vents overnight. Patient tolerated BiPAP well. Exam - Constitutional Constitutional:: Present: no acute distress, comfortable - HENMT Exam HENMT: Present: normocephalic, atraumatic - Eye Exam Eyes:: Present: normal appearance both eyes and related structures - Neck Exam Neck:: Present: normal visual inspection - Respiratory Exam Respiratory:: Present: able to speak in complete sentences, no respiratory distress, decreased breath sounds, crackles - Cardiovascular Exam Cardiac:: Present: S1, S2 - GI Exam GI:: Present: soft - Skin Exam Skin: Present: warm, no rash - Neurological Exam Neurological: Present: alert, awake - Extremities Exam Extremities: Present: no cyanosis, no clubbing, edema - Psychiatric Exam Psychiatric: Present: anxious Assessment and Plan (1) Respiratory failure with hypercapnia Status: Acute Category: Medical Code(s): J96.92 - Respiratory failure, unspecified with hypercapnia (2) Hypokalemia Status: Acute Category: Medical Code(s): E87.6 - Hypokalemia (3) Cachectic Status: Acute Category: Medical Code(s): R64 - Cachexia (4) Body mass index (BMI) less than 16.5 Status: Acute Category: Medical Code(s): Z68.1 - Body mass index [BMI] 19.9 or less, adult (5) Weakness Status: Acute Category: Medical Code(s): R53.1 - Weakness (6) Dehydration Status: Acute Category: Medical Code(s): E86.0 - Dehydration (7) Severe protein-calorie malnutrition Status: Acute Category: Medical Code(s): E43 - Unspecified severe protein-calorie malnutrition (8) Iron deficiency anemia Status: Acute Category: Medical Code(s): D50.9 - Iron deficiency anemia, unspecified (9) Mitral regurgitation Status: Acute Qualifiers: Cardiac valve disease etiology: etiology unspecified Qualified Code(s): I34.0 - Nonrheumatic mitral (valve) insufficiency Category: Medical Code(s): I34.0 - Nonrheumatic mitral (valve) insufficiency (10) Pulmonary HTN Status: Acute Category: Medical Code(s): I27.20 - Pulmonary hypertension, unspecified (11) Community acquired pneumonia Status: Acute Qualifiers: Laterality: unspecified laterality Qualified Code(s): J18.9 - Pneumonia, unspecified organism Category: Medical Code(s): J18.9 - Pneumonia, unspecified organism (12) Acute and chronic respiratory failure Status: Acute Qualifiers: Respiratory failure complication: hypoxia and hypercapnia Qualified Code(s): J96.21 - Acute and chronic respiratory failure with hypoxia; J96.22 - Acute and chronic respiratory failure with hypercapnia Category: Medical Code(s): J96.20 - Acute and chronic respiratory failure, unspecified whether with hypoxia or hypercapnia (13) SIRS (systemic inflammatory response syndrome) Status: Acute Category: Medical Code(s): R65.10 - Systemic inflammatory response syndrome (SIRS) of non-infectious origin without acute organ dysfunction (14) Stage III pressure ulcer Status: Acute Qualifiers: Pressure injury location: unspecified location Qualified Code(s): L89.93 - Pressure ulcer of unspecified site, stage 3 Category: Medical Code(s): L89.93 - Pressure ulcer of unspecified site, stage 3 (15) Pneumothorax on right Status: Acute Category: Medical Code(s): J93.9 - Pneumothorax, unspecified (16) Cardiopulmonary arrest with successful resuscitation Status: Acute Category: Medical Code(s): I46.9 - Cardiac arrest, cause unspecified (17) Severe sepsis with acute organ dysfunction Status: Acute Category: Medical Code(s): A41.9 - Sepsis, unspecified organism; R65.20 - Severe sepsis without septic shock (18) Septic shock Status: Acute Category: Medical Code(s): A41.9 - Sepsis, unspecified organism; R65.21 - Severe sepsis with septic shock (19) Pulmonary embolism
--- NOTE | 2021-01-24 12:39 | HMH.DCSUM ---
General - General Admission date:: 01/08/21 Discharge date: 01/24/21 HPI HPI: 60-year-old female patient presented to the emergency department via EMS with reports of increased shortness of breath, productive cough, and weakness. She is a very poor historian but she did report that she has been having increased breathing difficulties and coughing up phlegm and she believes her hemoglobin has been dropping as well as her oxygen levels as this is happened in the past. She reports that she has been very weak and has felt so for the past 2 weeks she denies any chest pain. She denies any visible blood nor nausea/vomiting/diarrhea or abdominal pain WBC=14.2, H/H 9.4/32.6 K=2.8 Received PO and IV KCL in ED Ceftriaxone and Doxy in ED 01/08/2021 chest x-ray: IMPRESSION: 1. New complete atelectasis of the previously pneumatized segments of the left lung with associated ipsilateral shifting of the mediastinal structures. 2. Concern for a small left pleural effusion. 3. Superimposed infectious pneumonia in the atelectatic left lung should be entertained in the appropriate clinical setting. 4. Increase in size in known air-filled cavity or bullous emphysema in the left lung apex. This is most probably related to traction from the atelectatic left lung. 5. Otherwise, essentially stable examination. Electronically signed by Demetrius Wren MD 01/08/21 Chest CTA: FINDINGS: Pulmonary arteries: Normal. No pulmonary emboli. Aorta: No aortic aneurysm. No aortic dissection. Lungs: Increased size of the air-filled cavity at the left lung apex now measuring 6.2 cm in cc dimension compared to 4.8 on prior examination. Increased size of the air-filled cavity at the right lung apex now measuring 3.9 cm in thickness compared to 1.9 on prior examination. Consolidation throughout the left lung with minimal sparing of the lingula. Emphysema with innumerable pulmonary nodules within the right lung measuring up to 8 mm as seen on prior examination. Pleural spaces: See above. Lobular pleural thickening superiorly, bilaterally. Heart: No cardiomegaly. No pericardial effusion. Mediastinal space: Debris within the esophagus. Lymph nodes: No enlarged lymph nodes. Bones/joints: Chronic appearing sternal deformity. No acute fracture. Soft tissues: No significant swelling. IMPRESSION: Increased size of apical air collections bilaterally with nodular pleural thickening. Complete consolidation the left lung with severe emphysema with multifocal nodules throughout the right. Findings may be infectious or inflammatory or can be seen with metastatic disease. Clinical correlation with continued radiographic follow-up is recommended. Electronically signed by Jf Hernandez MD Hospital Course Hospital Course: Laboratory Tests 01/08/21 01/08/21 01/08/21 18:50 18:50 18:50 WBC 14.2 H RBC 4.68 Hgb 9.4 L Hct 32.6 L MCV 69.6 L MCH 20.1 L MCHC 28.9 L RDW 19.4 H Plt Count 462 H MPV 7.1 L Neut % (Auto) 93.7 H Lymph % (Auto) 2.1 L Castro % (Auto) 3.8 Eos % (Auto) 0.3 Baso % (Auto) 0.3 Neut # (Auto) 13.3 H Lymph # (Auto) 0.3 L Castro # (Auto) 0.5 Eos # (Auto) 0.0 Baso # (Auto) 0.0 Total Counted 100 Neutrophils % (Manual) 69 Band Neutrophils % 16.0 H Lymphocytes % (Manual) 9 L Atypical Lymphs % 1.0 Monocytes % (Manual) 2 Eosinophils % (Manual) 2 Basophils % (Manual) 1.0 Metamyelocytes % Platelet Estimate Normal RBC Morphology Hypochromasia 3+ Poikilocytosis Basophilic Stippling Anisocytosis 2+ Microcytosis 2+ Ovalocytes [place] Cells PT 14.9 H INR 1.29 H APTT 30.8 H Specimen Source O2 % ABG pH ABG pCO2 ABG pO2 ABG HCO3 ABG Total CO2 ABG O2 Saturation ABG Base Excess Billy Khushi
--- NOTE | 2021-01-24 16:53 | PC.NURSE ---
0920 notified allen buck that pt K+ is 2.4 no new orders 1410 clarified with Case managemnt and allen buck that it was acceptable for pt to transport pt home if he felt comfortable doing so r/t lengthy wait for Ambulance transport. Priscilla and Jarvis both state that this is ok.
[2021-01-25 15:49] LABS: Histoplasma Gal'mannan Ag Ur <0.5 (<0.5 ng/mL)
== END 2021-01-24 16:56 | disposition hospice, home (50) | DRG 166 ==
LOC: ER 19:43 → 2ND 22:14
PROVIDERS: Internal Medicine Pulmonary Disease; Nurse Anesthetist, Certified Registered; Nurse Practitioner Family; Admitting Provider Family Medicine; Emergency Provider Emergency Medicine; PCP Physician Assistant; Visit Provider Emergency Medicine
PROC: 0BBF8ZX Excision of Right Lower Lung Lobe, Via Natural or Artificial Opening Endoscopic, Diagnostic (ICD-10-PCS; principal; 2021-01-12 11:15)
DX: J85.1 Abscess of lung with pneumonia (principal); L89.153 Pressure ulcer of sacral region, stage 3; J96.21 Acute and chronic respiratory failure with hypoxia; E43 Unspecified severe protein-calorie malnutrition; I46.9 Cardiac arrest, cause unspecified; I26.99 Other pulmonary embolism without acute cor pulmonale; J96.22 Acute and chronic respiratory failure with hypercapnia; A41.9 Sepsis, unspecified organism; R65.21 Severe sepsis with septic shock; R64 Cachexia; Z68.1 Body mass index [BMI] 19.9 or less, adult; J93.9 Pneumothorax, unspecified; J44.0 Chronic obstructive pulmonary disease with (acute) lower respiratory infection; T79.7XXA Traumatic subcutaneous emphysema, initial encounter; E87.1 Hypo-osmolality and hyponatremia; I82.413 Acute embolism and thrombosis of femoral vein, bilateral; I82.493 Acute embolism and thrombosis of other specified deep vein of lower extremity, bilateral; Z51.5 Encounter for palliative care; Z20.822 Contact with and (suspected) exposure to COVID-19; I27.20 Pulmonary hypertension, unspecified; Z66 Do not resuscitate; D50.9 Iron deficiency anemia, unspecified; I34.0 Nonrheumatic mitral (valve) insufficiency; E03.9 Hypothyroidism, unspecified; Z99.81 Dependence on supplemental oxygen; M19.90 Unspecified osteoarthritis, unspecified site; Z87.891 Personal history of nicotine dependence; I10 Essential (primary) hypertension; E87.6 Hypokalemia; E83.42 Hypomagnesemia; E83.51 Hypocalcemia
CPT/HCPCS: 31500 ×2; 94002 ×2; 31628; 31624; 32556; 94003 ×7; 36415; 71045; 71275; 76000; 80048; 80053; 80202; 81001; 82306; 82330; 82803; 82962; 83605; 83735; 83880; 83970; 84100; 84132; 84443; 84484; 85007; 85014; 85018; 85025; 85048; 85049; 85610; 85730; 86140; 86606; 86612; 86850; 87040; 87070; 87081; 87102; 87116; 87186; 87205; 87206; 87220; 87385; 87449; 88112; 88305; 88312; 89051; 93005; 93306; 93970; 94640; 94660; 94760; 94761; 96365; 96366; 97110; 97166; 97530; 97535; 99284; J0456; J0574; J2310; J2405; J2543; J2704; J3370; P9016; Q9967; U0003